=== PATIENT | male | born 1940 | race Caucasian/White ===

== ENCOUNTER 2018-10-11 15:07 | Inpatient (IN) ==
[2018-10-11] MEDS ORDERED: SODIUM CHLORIDE 0.9% 500 ML IV SCH (15:45)
--- NOTE | 2018-10-11 15:59 | XRay Report ---
XR chest 1V portable CLINICAL HISTORY: 78 years-old Male presenting with weakness. TECHNIQUE: Portable upright AP view of the chest was obtained. COMPARISON: None. FINDINGS: Atherosclerosis of the aortic arch. Cardiac silhouette borderline enlarged. Slightly asymmetric incre ased lung markings at the right lung base in comparison to the left. Otherwise no focal opacity. No l arge effusion or pneumothorax. Degenerative changes of the thoracic spine. IMPRESSION: 1. Slightly asymmetric lung markings at the right lung base may be due to overlapping vascular struc tures, although the presence of minimal infiltrate/atelectasis or bronchial wall thickening is not ex cluded. Electronically signed by: Narendra Gee M.D. 10/11/2018 3:58 PM
--- NOTE | 2018-10-11 16:04 | Emergency Department Note ---
Entered by Katie Howard acting as a scribe for History of Present Illness General Chief complaint: Pain (Generalized) Stated complaint: PAINS FROM WAIST DOWN Time Seen by Provider: 10/11/18 15:17 Source: patient Mode of arrival: wheelchair Limitations: no limitations History of Present Illness Location: back (waist area) Radiation: extremity (bilateral legs) Pain Consistency: + constant Maximum Pain Intensity: 10 Current Pain Intensity: 10 Relieved By: + medication Exacerbated By: + other (palpation) Associated symptoms: + fever/chills and + other (-abdominal pain, +diarrhea, +difficulty urinating); no chest pain and no shortness of breath Treatments prior to arrival: none The patient is a 78 year old male who presents to the ED with complaints of generalized pain. He states the pain starts in the area of his waist and radiates down his bilateral legs, in both the front and back of his legs. Earlier this afternoon, the patient was at Dr. Zacarias's office for the pain,he was referred here to the ED. He rates his pain as a 10/10 in severity. Palpation worsens his discomfort. He states he was prescribed medication for the pain, but "they don't help much anyway". He denies any recent falls or traumatic injuries. He admits to some difficulty urinating but states this is chronic. He admits to a decreased appetite and some loose stools. He denies any abdominal pain. He denies any recent chest pain or shortness of breath. He does occasionally feel like he may be febrile or have the chills. The patient can still walk but states it is painful. He denies noticing any recent weight loss. Home Medications Home Medications Medication Instructions Recorded Confirmed Type amlodipine 10 mg PO DAILY 10/11/18 10/11/18 History aspirin [Aspirin Low Dose] 81 mg PO DAILY 10/11/18 10/11/18 History atorvastatin 10 mg PO DAILY 10/11/18 10/11/18 History calcium carbonate 1,000 mg PO HS 10/11/18 10/11/18 History gabapentin 100 mg PO TID 10/11/18 10/11/18 History isosorbide mononitrate 60 mg PO DAILY 10/11/18 10/11/18 History levothyroxine [Levoxyl] 62.5 mcg PO .1D 10/11/18 10/11/18 History levothyroxine [Levoxyl] 125 mcg PO 6XD 10/11/18 10/11/18 History losartan 100 mg PO DAILY 10/11/18 10/11/18 History magnesium oxide 400 mg PO BID 10/11/18 10/11/18 History metoprolol tartrate 50 mg PO BID 10/11/18 10/11/18 History nitroglycerin [Nitrostat] 0.4 mg SUBLINGUAL DIRECTED PRN 10/11/18 10/11/18 History MDD 3 DOSES, 5 MIN APART oxybutynin chloride 5 mg PO DAILY 10/11/18 10/11/18 History potassium chloride 20 meq PO BID 10/11/18 10/11/18 History tamsulosin 0.4 mg PO DAILY 10/11/18 10/11/18 History Allergies Allergy/AdvReac Type Severity Reaction Status Date / Time naloxone Allergy Unknown unkn Verified 10/11/18 16:28 pentazocine Allergy Unknown Verified 10/11/18 16:28 Past Med/Surg History Medical History Kidney disease Social History Preferred Language: Bengali Feels Safe at Home: Yes Smoking Status: Former smoker Review of Systems See HPI for pertinent positives & negatives. and A total of 10 systems reviewed and were otherwise negative Physical Exam Vital Signs Vital Signs - 24 hr 10/11/18 15:14 10/11/18 16:56 10/11/18 17:34 Temperature 36.8 C Temperature Source Oral Sepsis Recent Fever Within 48 Hours No Sepsis New/Unexplained Change in Mental Status No Sepsis Action Taken by Nursing No Action Required Pulse Rate 75 Pulse Rate [Right Finger] 71 75 Respiratory Rate 18 17 16 Respiratory Effort / Characteristics Non-Labored Spontaneous Respiratory Depth Normal Respiratory Pattern Regular Blood Pressure 111/59 L Blood Pressure [Left Arm] 124/63 105/58 L Blood Pressure Mean 76 Blood Pressure Mean [Left Arm] 83 73 Blood Pressure Position Sitting Pulse Oximetry 94 92 90 Oxygen Delivery Method Room Air Room Air Room Air GENERAL: Patient is in no acute distress. HEENT: No acute trauma, normocephalic atraumatic, mucous membranes moist, no nasal congestion, no scleral icterus. NECK: No stridor, no adenopathy, no meningismus, trachea is midline. LUNGS: Clear to auscultation bilaterally, no wheeze, no rhonchi, breath sounds equal. HEART: Without murmurs gallops or rubs, regular rate and rhythm. ABDOMEN: Soft, nontender, bowel sounds positive, no hernias, no peritonitis. BACK: Nontender lumbar spine, no step off. EXTREMITIES: No cyanosis or edema, full range of motion of all the joints without pain or difficulty, no signs for acute trauma. Strong distal pedal pulses bilaterally. Pain to touch the skin of both legs, no erythema. NEUROLOGIC: Oriented x 3, no acute motor or sensory deficits, no focal weakness. SKIN: No rash, no jaundice, no diaphoresis. Course 1520: The patient was evaluated in room B11B and a complete history and physical were performed. 1715: I reevaluated the patient. I discussed my recommendation he remain in the hospital for further evaluation and management and he verbalized complete understanding and agreement. 1725: [facility] The patient will be further evaluated. Consultations Consultation #1: I discussed the patients [facility]. The patient will be further evaluated. Time: 17:25 Administered Medications Discontinued Medications Sodium Chloride (Nss) 500 mls @ 999 mls/hr IV .Q31M MARIYA Stop: 10/11/18 16:15 Last Infusion: 10/11/18 16:46 Dose: 0 mls/hr Documented by: [id number] Admin: 10/11/18 16:00 Dose: 999 mls/hr Documented by: [id number] Sodium Chloride (Nss 1000ml) 500 mls @ 999 mls/hr IV .Q31M ONE Stop: 10/11/18 17:35 Last Infusion: 10/11/18 18:40 Dose: 0 mls/hr Documented by: [id number] Admin: 10/11/18 17:31 Dose: 999 mls/hr Documented by: [id number] Medical Decision Making Differential Diagnosis The differential diagnoses considered include spinal stenosis, malignancy, compression fracture, intraabdominal mass, UTI, neuropathy, vascular insufficiency, cellulitis, lumbar disc disease. Medical Records Attestation: I reviewed the patient's medical records. Home Medications Current Medication List: was personally reviewed by me Laboratory Data Attestation: I reviewed the patient's lab results. Result diagrams: 10/11/18 15:49 10/11/18 15:49 Lab Results 10/11/18 10/11/18 Range/Units 15:49 15:49 WBC 4.49 L (4.8-10.8) K/uL RBC 4.17 L (4.7-6.1) M/uL Hgb 12.0 L (14.0-18.0) g/dL Hct 34.5 L (42-52) % MCV 82.7 (80-100) fL MCH 28.8 (25-34) pg MCHC 34.8 (32-36) g/dL RDW Std Deviation 48.5 H (36.4-46.3) fL RDW Coeff of Leonel 15.9 H (11.5-14.5) % Plt Count 82 L (130-400) K/uL MPV 9.8 (7.4-10.4) fL Immature Gran % (Auto) 0.2 % Neut % (Auto) 56.9 % Lymph % (Auto) 20.9 % [place] % (Auto) 18.9 % Eos % (Auto) 2.7 % Baso % (Auto) 0.4 % Immature Gran # (Auto) 0.01 (0.00-0.02) K/uL Neut # (Auto) 2.55 (1.4-6.5) K/uL Lymph # (Auto) 0.94 L (1.2-3.4) K/uL [place] # (Auto) 0.85 H (0.11-0.59) K/uL Eos # (Auto) 0.12 (0-0.5) K/uL Baso # (Auto) 0.02 (0-0.2) K/uL Dohle Bodies 1+ Platelet Estimate Decreased L (Normal) Echinocytes 1+ Sodium 137 (136-145) mmol/L Potassium 4.8 (3.5-5.1) mmol/L Chloride 106 (98-107) mmol/L Carbon Dioxide 25 (21-32) mmol/L Anion Gap 6.0 (3-11) BUN 39 H (7-18) mg/dl Creatinine 1.84 H (0.6-1.4) mg/dl Est Cr Clr Drug Dosing 28.3 ml/min Est GFR ( Amer) 39.5 Est GFR (Non-Af Amer) 34.1 BUN/Creatinine Ratio 21.3 H (10-20) Glucose 111 H (70-99) mg/dl Calcium 8.1 L (8.5-10.1) mg/dl Magnesium 2.7 H (1.8-2.4) mg/dl Total Bilirubin 0.5 (0.2-1) mg/dl AST 60 H (15-37) U/L ALT 47 (12-78) U/L Alkaline Phosphatase 43 L (45-117) U/L Total Creatine Kinase 737 H (39-308) U/L Troponin I < 0.015 (0-0.045) ng/ml Total Protein 7.1 (6.4-8.2) gm/dl Albumin 2.5 L (3.4-5.0) gm/dl Globulin 4.6 H (2.5-4.0) gm/dl Albumin/Globulin Ratio 0.5 L (0.9-2) TSH 2.590 (0.300-4.500) uIu/ml Imaging Data Radiologist's Impression: Radiology results as stated below per my review and the radiologist's interpretation: CT OF THE ABDOMEN AND PELVIS WITHOUT CONTRAST CLINICAL HISTORY: Abdominal pain. Possible mass. COMPARISON STUDY: No previous studies for comparison. TECHNIQUE: Axial images of the abdomen and pelvis were obtained without IV contrast. Images were reviewed in the axial, sagittal, and coronal planes. Automated exposure control was utilized for the study. A dose lowering technique was utilized adhering to the principles of ALARA. FINDINGS: Imaged portions of the lower chest demonstrate nodular irregular opacities within the right lower lobe with interlobular septal thickening. An apparent subcarinal lesion is partially imaged, measuring at least 2.4 x 2 cm. Extensive coronary artery calcification is noted. No pneumatosis, free air or p ortal venous gas is present. There is a 1.1 cm lateral segment hepatic cyst. There is a suspected additional smaller hepatic cyst. Evaluation of the abdomen and pelvis is suboptimal on this unenhanced examination. The spleen, adrenal glands and pancreas are unremarkable. There is no biliary or pancreatic ductal dilatation. There is no peripancreatic or pericholecystic infiltration. A mildly enlarged portacaval lymph node measures 1.5 cm in short axis diameter. There are additional prominent upper abdominal lymph nodes. There is no evidence for a bowel obstruction. The appendix is unremarkable. Colonic diverticulosis is noted without evidence for acute diverticulitis. There are numerous punctate bilateral renal calculi. There are no ureteral calculi. There is no hydronephrosis. Prostate is moderately enlarged. There are fat-containing bilateral inguinal hernias. Water attenuation right renal lesions are suboptimally assessed on this unenhanced exam but favor cysts. There are no suspicious osseous lesions. IMPRESSION: 1. No mass within the abdomen or pelvis. No bowel obstruction. Normal appendix. 2. Irregular nodular opacities within the right lower lobe. The appearance favors an infectious process such as bronchopneumonia. However, a nonemergent chest CT is recommended given interlobular septal thickening and a suspected partially visualized subcarinal enlarged lymph node/mass, measuring at least 2.4 x 2 cm. 3. Numerous punctate right renal calculi. No ureteral calculi or hydronephrosis. 4. Mildly enlarged upper abdominal lymph nodes, a nonspecific finding. Electronically signed by: Danis Evans M.D. 10/11/2018 5:05 PM MRI OF THE LUMBAR SPINE WITHOUT IV CONTRAST CLINICAL HISTORY: Low back pain. Difficulty with ambulation. COMPARISON STUDY: No priors. TECHNIQUE: MRI of the lumbar spine is performed utilizing various T1 and T2- weighted sequences in the axial and sagittal planes. IV contrast was not administered for this examination. FINDINGS: Lumbar spine: Vertebral body height is maintained throughout the lumbar spine. Minimal retrolisthesis is seen at L1-L2 and L2-L3. Alignment is otherwise preserved. The transverse and spinous processes appear intact. Small anterior osteophytes are seen throughout. There is no evidence of spondylolysis. Small h emangiomas are seen in the bodies of L1, L2, and L3. No destructive osseous lesion is seen. Mild chronic degenerative endplate change is noted at L1-L2, L2- L3, and L3-L4. Intervertebral discs: Degenerative disc desiccation and mild loss of height is seen throughout the lumbar spine. Paraspinal cord: The partially imaged spinal cord is normal in morphology and signal intensity. The conus medullaris terminates at the L1-L2 interspace. The nerve roots of the cauda equina are normal in morphology. L1-L2: There is minimal posterior disc bulge. The central canal and neural foramina are patent. L2-L3: There is minimal posterior disc bulge. The central canal and neural foramina are patent. Mild facet arthropathy is of no consequence. L3-L4: There is minimal posterior disc bulge with annular fissure. The central canal and neural foramina are patent. Mild facet arthropathy is of no consequen ce. L4-L5: There is minimal posterior disc bulge with annular fissure. This causes bilateral subarticular stenosis, and may abut the exiting bilateral L4 nerve roots as well as the transiting left L5 nerve root. The central canal and neural foramina are patent. Facet arthropathy is of no consequence. There is mild hypertrophy of the ligamentum flavum. L5-S1: The central canal and neural foramina are patent. Mild facet arthropathy is of no consequence. Sacrum: The visualized sacrum is normal in morphology and signal intensity. Soft tissues: The paraspinous soft tissues are normal in appearance. Right renal cysts are partially visualized. The bladder is partially imaged and appears distended. The bladder wall is thickened and trabeculated suggesting chronic outlet obstruction. No retroperitoneal lymphadenopathy is identified. Prostatomegaly is noted on the operations officer trust department sequences. IMPRESSION: 1. There is no disc herniation or central canal stenosis. 2. Mild multilevel lumbosacral spondylosis as above. See discussion for detailed level by level analysis. 3. No destructive bony lesion is seen. 4. The bladder is distended and there is evidence of chronic outlet obstruction. Electronically signed by: Jose C Joe M.D. 10/11/2018 5:00 PM XR chest 1V portable CLINICAL HISTORY: 78 years-old Male presenting with weakness. TECHNIQUE: Portable upright AP view of the chest was obtained. COMPARISON: None. FINDINGS: Atherosclerosis of the aortic arch. Cardiac silhouette borderline enlarged. Slightly asymmetric increased lung markings at the right lung base in comparison to the left. Otherwise no focal opacity. No large effusion or pneumothorax. Degenerative changes of the thoracic spine. IMPRESSION: 1. Slightly asymmetric lung markings at the right lung base may be due to ove rlapping vascular structures, although the presence of minimal infiltrate/atelectasis or bronchial wall thickening is not excluded. Electronically signed by: Narendra Gee M.D. 10/11/2018 3:58 PM ECG Data Attestation: I personally reviewed and interpreted this ECG as follows: Indication: weakness Rate (beats per minute): 70 Rhythm: normal sinus Findings: + LBBB; no PVC and no ST elevation Blood Pressure Blood Pressure Findings: Normal blood pressure Blood Pressure Disposition: did not require urgent referral MDM Narrative There is a pancytopenia present, platelet count was quite low at 82. The patient has had some lower values in the past but today's counts seem lower than baseline. There was evidence for some dehydration/acute kidney injury with a creatinine of 1.84. This value is above baseline for the patient. There was a mild elevation to the AST, no bilirubin elevation. Total CK was elevated at 737, this is consistent with some mild rhabdomyolysis. Patient appeared to be in a euthyroid state. EKG showed a sinus rhythm, no acute ischemia. Cardiac enzyme testing x1 was not consistent with acute cardiac injury. Chest film showed some potential congestion versus atelectasis at the right base, there was no CHF. No free air. Abdominal and pelvis CT showed potential atelectasis/infiltrate or mass in the right lower lung. There was no evidence for hydronephrosis, no evidence for intra-abdominal mass. Lumbar spine MRI did not show any destructive lesion, there was no evidence for spinal stenosis or large disc herniation. Urinalysis result is currently pending. The patient received IV saline, he was given 2/500 cc saline boluses. The patient presents with worsening back and bilateral leg pain. He is having a difficult time getting around. He is failing outpatient treatment. He has some acute kidney injury, he has a pancytopenia, he has some rhabdomyolysis. He appears dehydrated. I do think a hospital stay for further work-up is warranted. The cause for his presentation today is not completely clear. The chest findings noted above will require further work-up while here in the hospital. I spoke to the patient, I talked with case management. The on-call hospitalist was consulted. Impression & Plan Rhabdomyolysis, Acute kidney injury, Bilateral leg pain, Weakness, Thrombocytopenia Discharge Plan Visit Data Chief Complaint: Pain (Generalized) Stated Complaint: PAINS FROM WAIST DOWN ED Provider: Jose C Gillette Discharge Problem: Rhabdomyolysis, Acute kidney injury, Bilateral leg pain, Weakness, Thrombocytopenia Patient Disposition: Being Evaluated by Hospitalist Forms Stand Alone Forms: My [facility] [address] Prescriptions Prescriptions: No Action losartan 50 mg tablet 100 mg PO DAILY RF: 0 atorvastatin 10 mg tablet 10 mg PO DAILY RF: 0 metoprolol tartrate 100 mg tablet 50 mg PO BID RF: 0 aspirin [Aspirin Low Dose] 81 mg Tablet,Delayed Release (Dr/Ec) 81 mg PO DAILY RF: 0 isosorbide mononitrate 60 mg tablet extended release 24 hr 60 mg PO DAILY RF: 0 potassium chloride 20 mEq tablet,ER particles/crystals 20 meq PO BID RF: 0 tamsulosin 0.4 mg capsule 0.4 mg PO DAILY RF: 0 amlodipine 10 mg tablet 10 mg PO DAILY RF: 0 levothyroxine [Levoxyl] 125 mcg tablet 125 mcg PO 6XD RF: 0 levothyroxine [Levoxyl] 125 mcg tablet 62.5 mcg PO .1D RF: 0 nitroglycerin [Nitrostat] 0.4 mg Tablet, Sublingual 0.4 mg sublingual DIRECTED MDD 3 DOSES, 5 MIN APART PRN (Reason: Chest Pain) RF: 0 calcium carbonate 500 mg calcium (1,250 mg) Tablet,Chewable 1,000 mg PO HS RF: 0 gabapentin 100 mg capsule 100 mg PO TID RF: 0 oxybutynin chloride 5 mg tablet 5 mg PO DAILY RF: 0 magnesium oxide 400 mg magnesium Tablet 400 mg PO BID RF: 0 Referrals Referrals: Alycia Payne DO [Primary Care Provider] - The scribe's documentation has been prepared under my direction and personally reviewed by me in its entirety. I confirm that the note above accurately reflects all work, treatment, procedures, and medical decision making performed by me.
[2018-10-11 16:20] LABS: Basophils # (auto) 0.02 K/uL (0-0.2); Basophils % (auto) 0.4 %; Dohle Bodies 1+; Echinocytes 1+; Eosinophils # (auto) 0.12 K/uL (0-0.5); Eosinophils % (auto) 2.7 %; Hematocrit (blood only) 34.5 % (42-52); Immature Granulocytes # (auto) 0.01 K/uL (0.00-0.02); Immature Granulocytes % (auto) 0.2 %; Lymphocytes # (auto) 0.94 K/uL (1.2-3.4); Lymphocytes % (auto) 20.9 %; Mean Corpuscular Hgb Conc 34.8 g/dL (32-36); Mean Corpuscular Volume 82.7 fL (80-100); Mean Platelet Volume 9.8 fL (7.4-10.4); Monocytes # (auto) 0.85 K/uL (0.11-0.59); Monocytes % (auto) 18.9 %; Neutrophils # (auto) 2.55 K/uL (1.4-6.5); Neutrophils % (auto) 56.9 %; Platelet Count 82 K/uL (130-400); Platelet Estimate Decreased (Normal); RDW Coefficient of Variation 15.9 % (11.5-14.5); RDW Standard Deviation 48.5 fL (36.4-46.3); Red Blood Count 4.17 M/uL (4.7-6.1); White Blood Count 4.49 K/uL (4.8-10.8)
[2018-10-11 16:21] LABS: Alanine Aminotransferase 47 U/L (12-78); Albumin Level 2.5 gm/dl (3.4-5.0); Aspartate Aminotransferase 60 U/L (15-37); BUN Creatinine Ratio 21.3 (10-20); Blood Urea Nitrogen 39 mg/dl (7-18); Calcium 8.1 mg/dl (8.5-10.1); Carbon Dioxide 25 mmol/L (21-32); Chloride 106 mmol/L (98-107); Creatinine Clr Calc Pharmacy 28.3 ml/min; Est GFR (African American) 39.5; Est GFR (Non-African American) 34.1; Glucose 111 mg/dl (70-99); Magnesium 2.7 mg/dl (1.8-2.4); Potassium 4.8 mmol/L (3.5-5.1); Sodium 137 mmol/L (136-145)
[2018-10-11 16:32] LABS: Albumin Globulin Ratio 0.5 (0.9-2); Alkaline Phosphatase 43 U/L (45-117); Bilirubin,Total 0.5 mg/dl (0.2-1); Creatine Kinase 737 U/L (39-308); Globulin 4.6 gm/dl (2.5-4.0); Total Protein 7.1 gm/dl (6.4-8.2); Troponin I < 0.015 ng/ml (0-0.045)
--- NOTE | 2018-10-11 16:46 | Magnetic Resonance Report ---
MRI OF THE LUMBAR SPINE WITHOUT IV CONTRAST CLINICAL HISTORY: Low back pain. Difficulty with ambulation. COMPARISON STUDY: No priors. TECHNIQUE: MRI of the lumbar spine is performed utilizing various T1 and T2-weighted sequences in the axial and sagittal planes. IV contrast was not administered for this examination. FINDINGS: Lumbar spine: Vertebral body height is maintained throughout the lumbar spine. Minimal retrolisthesis is seen at L1-L2 and L2-L3. Alignment is otherwise preserved. The transverse and spinous processes a ppear intact. Small anterior osteophytes are seen throughout. There is no evidence of spondylolysis. Small hemangiomas are seen in the bodies of L1, L2, and L3. No destructive osseous lesion is seen. Mi ld chronic degenerative endplate change is noted at L1-L2, L2-L3, and L3-L4. Intervertebral discs: Degenerative disc desiccation and mild loss of height is seen throughout the maria del carmen mbar spine. Paraspinal cord: The partially imaged spinal cord is normal in morphology and signal intensity. The c onus medullaris terminates at the L1-L2 interspace. The nerve roots of the cauda equina are normal in morphology. L1-L2: There is minimal posterior disc bulge. The central canal and neural foramina are patent. L2-L3: There is minimal posterior disc bulge. The central canal and neural foramina are patent. Mild facet arthropathy is of no consequence. L3-L4: There is minimal posterior disc bulge with annular fissure. The central canal and neural morenita eugenio are patent. Mild facet arthropathy is of no consequence. L4-L5: There is minimal posterior disc bulge with annular fissure. This causes bilateral subarticular stenosis, and may abut the exiting bilateral L4 nerve roots as well as the transiting left L5 nerve root. The central canal and neural foramina are patent. Facet arthropathy is of no consequence. There is mild hypertrophy of the ligamentum flavum. L5-S1: The central canal and neural foramina are patent. Mild facet arthropathy is of no consequence. Sacrum: The visualized sacrum is normal in morphology and signal intensity. Soft tissues: The paraspinous soft tissues are normal in appearance. Right renal cysts are partially visualized. The bladder is partially imaged and appears distended. The bladder wall is thickened and trabeculated suggesting chronic outlet obstruction. No retroperitoneal lymphadenopathy is identified. Prostatomegaly is noted on the toll transmission worker sequences. IMPRESSION: 1. There is no disc herniation or central canal stenosis. 2. Mild multilevel lumbosacral spondylosis as above. See discussion for detailed level by level kathia sis. 3. No destructive bony lesion is seen. 4. The bladder is distended and there is evidence of chronic outlet obstruction. Dictated: 10/11/2018 4:36 PM Transcribed: 10/11/2018 4:46 PM Jess [id number] [email or web address] Electronically signed by: Jose C Joe M.D. 10/11/2018 5:00 PM
[2018-10-11] MEDS ORDERED: SODIUM CHLORIDE 0.9% 1000ML 500 ML IV ONE (17:05)
--- NOTE | 2018-10-11 17:07 | CT Scan Report ---
CT OF THE ABDOMEN AND PELVIS WITHOUT CONTRAST CLINICAL HISTORY: Abdominal pain. Possible mass. COMPARISON STUDY: No previous studies for comparison. TECHNIQUE: Axial images of the abdomen and pelvis were obtained without IV contrast. Images were revi ewed in the axial, sagittal, and coronal planes. Automated exposure control was utilized for the angeline dy. A dose lowering technique was utilized adhering to the principles of ALARA. FINDINGS: Imaged portions of the lower chest demonstrate nodular irregular opacities within the right lower lobe with interlobular septal thickening. An apparent subcarinal lesion is partially imaged, m easuring at least 2.4 x 2 cm. Extensive coronary artery calcification is noted. No pneumatosis, free air or portal venous gas is present. There is a 1.1 cm lateral segment hepatic cyst. There is a suspe cted additional smaller hepatic cyst. Evaluation of the abdomen and pelvis is suboptimal on this unen hanced examination. The spleen, adrenal glands and pancreas are unremarkable. There is no biliary or pancreatic ductal dilatation. There is no peripancreatic or pericholecystic infiltration. A mildly en larged portacaval lymph node measures 1.5 cm in short axis diameter. There are additional prominent u pper abdominal lymph nodes. There is no evidence for a bowel obstruction. The appendix is unremarkabl e. Colonic diverticulosis is noted without evidence for acute diverticulitis. There are numerous punc tam bilateral renal calculi. There are no ureteral calculi. There is no hydronephrosis. Prostate is moderately enlarged. There are fat-containing bilateral inguinal hernias. Water attenuation right sandy al lesions are suboptimally assessed on this unenhanced exam but favor cysts. There are no suspicious osseous lesions. IMPRESSION: 1. No mass within the abdomen or pelvis. No bowel obstruction. Normal appendix. 2. Irregular nodular opacities within the right lower lobe. The appearance favors an infectious proce ss such as bronchopneumonia. However, a nonemergent chest CT is recommended given interlobular septal thickening and a suspected partially visualized subcarinal enlarged lymph node/mass, measuring at le ast 2.4 x 2 cm. 3. Numerous punctate right renal calculi. No ureteral calculi or hydronephrosis. 4. Mildly enlarged upper abdominal lymph nodes, a nonspecific finding. Electronically signed by: Danis Evans M.D. 10/11/2018 5:05 PM
--- NOTE | 2018-10-11 19:11 | History & Physical Report ---
Date of Service October 11, 2018 Assessment & Plan (1) Weakness: (2) Bilateral leg pain: Patient presented with complaint of bilateral buttock pain with radiation to bilateral legs with associated tingling times couple of months Follow-up with Dr. Zacarias-[facility] today & was referred to ER for further work-up CT ABD/PELVIS: No mass within the abdomen or pelvis. No bowel obstruction. Normal appendix. Mildly enlarged upper abdominal lymph nodes, a nonspecific finding. MRI lumbar spine:1. There is no disc herniation or central canal stenosis. 2. Mild multilevel lumbosacral spondylosis as above. See discussion for detailed level by level analysis. 3. No destructive bony lesion is seen. 4. The bladder is distended and there is evidence of chronic outlet obstruction. -Obtain x-ray sacrum -Pending CT head -May need to consider ortho spine consult -May need to consider neurology consult (3) Pancytopenia: History pancytopenia. WBC: 4 (baseline 4's), H/H: 12/34.5 (baseline hgb: 12), Plt: 82. (baseline 102) Had negative Lyme titer outpatient on 09/26/2018 No active bleeding -Peripheral smear pending, anaplasmosis pending -Monitor CBC (4) Rhabdomyolysis: Patient reports decreased activity recently secondary to leg pain. Denies any falls In ER CK: 737, Cr: 1.8 (baseline 1.4-1.6) -Gentle IVF -Repeat CK in a.m. 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 Has been reporting chills and body shakes intermittently over the past couple weeks, has not taken temperatures at home In ER patient afebrile, WBC: 4 CXR: Slightly asymmetric lung markings at the right lung base may be due to overlapping vascular structures, although the presence of minimal infiltrate/atelectasis or bronchial wall thickening is not excluded. CT ABD/PELVIS: Irregular nodular opacities within the right lower lobe. The appearance favors an infectious process such as bronchopneumonia. However, a nonemergent chest CT is recommended given interlobular septal thickening and a suspected partially visualized subcarinal enlarged lymph node/mass, measuring at least 2.4 x 2 cm. Lung Mass Possible Pneumonia -Obtain CT chest to further evaluate -Procalcitonin, lactate pending -Blood cultures pending -MRSA swab pending we will add MRSA coverage if positive -Zosyn -Supplemental oxygen as needed (6) Dizziness: Reports intermittent dizziness with standing. Also reports intermittent headaches x couple of weeks -Obtain CT head R/O mass, mets -Orthostatic vital signs pending (7) CKD (chronic kidney disease), stage III: Cr: 1.8. Baseline Cr: 1.4-1.6 -Monitor renal functions -Avoid nephrotoxic agents and possible (8) HTN (hypertension): -Continue metoprolol, amlodipine -Hold losartan and recheck renal functions tomorrow (9) Dyslipidemia: -Holding statin secondary to myalgias (10) CAD (coronary artery disease): S/P Stent LAD Denies CP or SOB. 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 No recent follow-up with oncology -Continue tamsulosin -Bladder scan as needed (13) MARCELINO (obstructive sleep apnea): -CPAP at bedtime DVT Prophylaxis -SCDs Full Code as per discussion with pt Follows with Dr Payne for routine care Pt was seen with Dr You. See addendum History of Present Illness Chief Complaint: Leg pain Primary Care Provider: Alycia Payne, DO Pt is 78 y/o M with PMH CKD III, HTN, dyslipidemia, CAD SSP stent LAD, thyroid cancer S/P thyroidectomy, small cell carcinoma bladder with metastasis to mediastinal nodes with invasion of prostate S/P chemo in 2016, sleep apnea presented to ER for bilateral leg pain x couple months. Patient reports for almost 2 months has had bilateral buttock pain with radiation to bilateral legs to toes with tingling. Reports pain is greater to posterior leg however pain of entire leg. Pain worse with prolonged sitting or range of motion of legs or walking. Patient states he has been having trouble with his balance and is unsure if this is secondary to the tingling sensation and pain of his legs. Reports symptoms have increased over the past couple of weeks. Also complains of intermittent headaches. C/O intermittent dizziness with standing. Reports intermittent cramps to fingers and hands. Also complains of intermittent chills and body shakes over the past couple of weeks. Denies falls. Reports decreased appetite over the past couple weeks. Had followed up with PCP, gabapentin was tried without much relief. Patient was also given Medrol taper without relief. He reports his been applying ice pack to back, denies taking any other NSAIDs or Tylenol. His atorvastatin was placed on hold by cardiology secondary to patient's myalgias. He reports intermittent loose stool occurs couple of times a week with one episode a day. Denies N/V/D/C, syncope, vision changes, neck pain, CP, SOB, orthopnea, palpitations, cough, sore throat, choking, otalgia, rhinorrhea, abdominal pain, paresthesias, weakness, extremity weakness, extremity edema, rashes, urinary symptoms. Patient was referred to Dr.'s Zacarias- [facility], who saw patient today and referred patient to ER as reported did not think his symptoms were spine related. Patient follows with Dr. Yip-urology. Has followed with Dr. Sesay hematology/oncology in past, no recent follow-ups for the past couple of years. Denies recent tick bites. Had outpatient Lyme titer which was negative on 09/26/2018 Allergies Allergy/AdvReac Type Severity Reaction Status Date / Time naloxone Allergy Unknown unkn Verified 10/11/18 16:28 pentazocine Allergy Unknown Verified 10/11/18 16:28 Home Medications Home Medications Medication Instructions Recorded Confirmed Type amlodipine 10 mg PO DAILY 10/11/18 10/11/18 History aspirin [Aspirin Low Dose] 81 mg PO DAILY 10/11/18 10/11/18 History atorvastatin 10 mg PO DAILY 10/11/18 10/11/18 History calcium carbonate 1,000 mg PO HS 10/11/18 10/11/18 History gabapentin 100 mg PO TID 10/11/18 10/11/18 History isosorbide mononitrate 60 mg PO DAILY 10/11/18 10/11/18 History levothyroxine [Levoxyl] 62.5 mcg PO .1D 10/11/18 10/11/18 History levothyroxine [Levoxyl] 125 mcg PO 6XD 10/11/18 10/11/18 History losartan 100 mg PO DAILY 10/11/18 10/11/18 History magnesium oxide 400 mg PO BID 10/11/18 10/11/18 History metoprolol tartrate 50 mg PO BID 10/11/18 10/11/18 History nitroglycerin [Nitrostat] 0.4 mg SUBLINGUAL DIRECTED PRN 10/11/18 10/11/18 History MDD 3 DOSES, 5 MIN APART oxybutynin chloride 5 mg PO DAILY 10/11/18 10/11/18 History potassium chloride 20 meq PO BID 10/11/18 10/11/18 History tamsulosin 0.4 mg PO DAILY 10/11/18 10/11/18 History Past Med/Surg History Medical History Prostate cancer (Chronic) Small cell carcinoma of bladder (Chronic) MARCELINO (obstructive sleep apnea) (Chronic) Thyroid cancer (Chronic) CAD (coronary artery disease) (Chronic) Dyslipidemia (Chronic) CKD (chronic kidney disease), stage III (Chronic) HTN (hypertension) (Chronic) Kidney disease (Chronic) Surgical History History of thyroidectomy (Chronic) History of heart artery stent (Chronic) LAD Family History Brother FH: brain cancer Other Coronary heart disease Social History Preferred Language: [place] Communication Ability: Effective Beliefs That Will Affect Care: None Current Living Situation: Spouse Other Information That Helps Us Care for You: No Feels Safe at Home: Yes Smoking Status: Former smoker Hx Alcohol Use: No Hx Substance Use: No Review of Systems Review of Systems: All systems reviewed & are unremarkable except as noted in HPI & below Physical Exam Physical Exam: General: no distress, WDWN Head: normocephalic, atraumatic Eyes: PERRL, EOM's intact, conjunctiva non-injected, anicteric ENT: normal inspection external ears, nose, mucous membranes moist Neck: supple, trachea midline, non-tender, ROM intact Lungs: clear, no respiratory distress, no wheezing/rhonchi/rales CV: RRR, mild pedal edema Abd: normal BS, soft, non-tender Back: no spinous process tenderness to palpation, buttock pain to palpation, patellar reflexes intact Ext: no cyanosis or erythema, +tenderness to palpation entire bilateral leg, distal pulses intact, brisk capillary refill, sensation to light touch intact Neuro: A&O x 3, no focal deficits noted, normal affect Skin: warm, dry Results & Data Vital Signs (Past 12 Hours) Vital Signs Temp Pulse Pulse Resp BP BP Pulse Ox 10/11/18 17:34 75 16 105/58 L 90 10/11/18 16:56 71 17 124/63 92 10/11/18 15:14 36.8 C 75 18 111/59 L 94 Laboratory Results Short CBC 10/11/18 Range/Units 15:49 WBC 4.49 L (4.8-10.8) K/uL Hgb 12.0 L (14.0-18.0) g/dL Hct 34.5 L (42-52) % Plt Count 82 L (130-400) K/uL BMP 10/11/18 15:49 Sodium 137 Potassium 4.8 Chloride 106 Carbon Dioxide 25 BUN 39 H Creatinine 1.84 H Glucose 111 H Calcium 8.1 L Cardiac Enzymes 10/11/18 Range/Units 15:49 Total Creatine Kinase 737 H (39-308) U/L Troponin I < 0.015 (0-0.045) ng/ml Liver Function 10/11/18 Range/Units 15:49 Total Bilirubin 0.5 (0.2-1) mg/dl AST 60 H (15-37) U/L ALT 47 (12-78) U/L Alkaline Phosphatase 43 L (45-117) U/L Albumin 2.5 L (3.4-5.0) gm/dl Diagnostic Findings CXR: IMPRESSION: 1. Slightly asymmetric lung markings at the right lung base may be due to overlapping vascular structures, although the presence of minimal infiltrate/atelectasis or bronchial wall thickening is not excluded. L MRI SPINE: IMPRESSION: 1. There is no disc herniation or central canal stenosis. 2. Mild multilevel lumbosacral spondylosis as above. See discussion for detailed level by level analysis. 3. No destructive bony lesion is seen. 4. The bladder is distended and there is evidence of chronic outlet obstruction. CT ABD/PELVIS: IMPRESSION: 1. No mass within the abdomen or pelvis. No bowel obstruction. Normal appendix. 2. Irregular nodular opacities within the right lower lobe. The appearance favors an infectious process such as bronchopneumonia. However, a nonemergent chest CT is recommended given interlobular septal thickening and a suspected partially visualized subcarinal enlarged lymph node/mass, measuring at least 2.4 x 2 cm. 3. Numerous punctate right renal calculi. No ureteral calculi or hydronephrosis. 4. Mildly enlarged upper abdominal lymph nodes, a nonspecific finding. Supervising Physician Co-Signing Physician Notes Patient is a 78-year-old male with history of CKD, hypertension, coronary artery disease, thyroid cancer, skeletal carcinoma of the bladder with mental status and other problems presents with history of bilateral leg pain since 2 months duration. He states having bilateral buttock pain radiating down his legs associated with tingling, reports associated balance issues with ambulation. Also reports intermittent headaches, dizziness. He admits to have nocturnal cough which is dry since 1 week duration. He was found to be hypoxic at 84% on room air while in ED. States having decreased urinary flow which is chronic. MRI lumbar spine for findings suggestive of lumbosacral spondylosis. No destructive bony lesions noted. Sacral x-ray showed osteopenia but no acute bony abnormalities. Normal lactate and procalcitonin levels noted. Normal TSH. Venous Dopplers negative for DVT But showed small left popliteal cyst. VQ scan pending. Consider neurology, Ortho consult for bilateral leg pain/tingling. PT/OT eval. Bladder scan PRN. Empirically started on Doxycycline for possible pneumonia. Supplemental oxygen as needed. Cultures obtained. IV fluids for FILIBERTO. Hold losartan. Consider urology consult if bladder scan suggestive of urinary retention. Could have mild rhabdo. Statin on hold. IV fluids ordered. Recheck CK levels in a.m. On exam patient is moderately built and nourished, no apparent distress, lungs are clear to auscultation, S1-S2, no murmur, abdomen soft, nontender, grossly no focal neurological deficits, 1+ bilateral lower extremity edema, tender lower extremities. I personally reviewed the record. Patient is interviewed and examined at bedside. Patient's care is coordinated with Irma Akers PA-C. Please refer to the documentation above for details of patient's presentation and for discussion of other issues.
--- NOTE | 2018-10-11 20:24 | CT Scan Report ---
CT SCAN OF THE BRAIN WITHOUT IV CONTRAST CLINICAL HISTORY: Headache. Dizziness. COMPARISON STUDY: No priors. TECHNIQUE: Unenhanced axial CT scan of the brain is performed from the vertex to the skull base. A do se lowering technique was utilized adhering to the principles of ALARA. CT DOSE: 537.48 mGy.cm FINDINGS: Brain parenchyma: There are age-related involutional changes noting mild subcortical and periventric ular microangiopathic change. There is no hemorrhage, mass effect, or evidence of acute territorial i schemia by CT criteria. Rodarte-white matter differentiation is preserved. No extra-axial fluid collecti on is seen. Ventricles, sulci, cisterns: Prominent secondary to involutional change. Intracranial vasculature: There is atherosclerotic calcification of the cavernous carotid arteries. Calvarium: Unremarkable. Sinuses and mastoids: The visualized paranasal sinuses are clear. There is a left mastoid effusion. T he right mastoid air cells are well pneumatized. Orbits: The bony orbits are grossly intact. There are bilateral ocular lens implants. IMPRESSION: There is no hemorrhage, mass effect, or evidence of acute territorial ischemia by CT [place]. Electronically signed by: Jose C Joe M.D. 10/11/2018 8:22 PM
[2018-10-11 21:09] LABS: Influenza A virus by PCR Neg for Influ A (Neg); Influenza B virus by PCR Neg for Influ B (Neg)
--- NOTE | 2018-10-11 21:22 | Ultrasound Report ---
ULTRASOUND BILATERAL LOWER EXTREMITY VENOUS CLINICAL HISTORY: Leg pain. COMPARISON STUDY: No priors. TECHNIQUE: Real-time, grayscale, and color Doppler sonography of the deep veins of the right and left lower extremity was performed from the inguinal crease to the calf. Compression and augmentation wer e utilized. FINDINGS: There is no sonographic evidence of deep venous thrombosis identified in the right or left lower extremity. The common femoral, superficial femoral, and popliteal veins are patent and normally compressible bilaterally. The greater saphenous vein and the profunda femoris vein at the junction w ith the common femoral vein are clear in both legs. The visualized calf veins are patent bilaterally. A small popliteal cyst on the left measures 1.9 x 0.4 x 1.1 cm. IMPRESSION: 1. There is no sonographic evidence of deep venous thrombosis identified in the right or left lower e xtremity. 2. Small left popliteal cyst. Electronically signed by: Jose C Joe M.D. 10/11/2018 9:20 PM
--- NOTE | 2018-10-11 21:48 | XRay Report ---
SACRUM AND COCCYX 3 VIEWS CLINICAL HISTORY: Buttock pain. FINDINGS: 3 views of the sacrum and coccyx are correlated with pelvic CT performed the same day . The skeletal structures are osteopenic. There is no radiographic evidence of sacrococcygeal frac ture. Chronic deformity at the sacrococcygeal junction is similar to previous. Sclerotic change is no angely in the sacroiliac joints and symphysis pubis. The overlying soft tissues are normal as imaged. Ph leboliths are noted in the pelvis. IMPRESSION: Osteopenia with no acute bony abnormality identified. Electronically signed by: Jose C Joe M.D. 10/11/2018 9:47 PM
[2018-10-11] MEDS ORDERED: NITROGLYCERIN SL 0.4 MG/TAB TAB SL PRN (22:26)
[2018-10-11] MEDS ORDERED: SODIUM CHLORIDE 0.9% 1000ML 1,000 ML IV SCH (22:26)
[2018-10-11 23:02] LABS: Appearance Urine Clear (Clear); Bilirubin Urine Negative (Negative); Blood Urine Negative (Negative); Color Urine Yellow; Glucose Urine UA Negative (Negative); Ketones Urine Negative (Negative); Leukocyte Esterase Urine Negative (Negative); Nitrite Urine Negative (Negative); Protein Urine Negative (Negative); Specific Gravity Urine 1.022 (1.000-1.030); Urobilinogen Urine Negative (Negative)
[2018-10-11] MEDS: HYDROmorphone INJ 0.5 MG/0.5 ML SYR IV PRN (23:26)
[2018-10-11] MEDS: METOPROLOL TARTRATE 50 MG TAB PO SCH (23:28)
[2018-10-11] MEDS: GABAPENTIN 100 MG CAP PO SCH (23:28)
[2018-10-11 23:33] LABS: INR 1.2 (0.9-1.1); Partial Thromboplastin Ratio 1.3; Prothrombin Time 11.7 Seconds (9.0-12.0)
[2018-10-12] MEDS: DOXYCYCLINE HYCLATE 100 MG CAP PO SCH ×3 (00:04→20:30)
[2018-10-12] MEDS: HYDROmorphone INJ 0.5 MG/0.5 ML SYR IV PRN ×3 (05:50→21:11)
[2018-10-12] MEDS: LEVOTHYROXINE SODIUM 125 MCG TABLET PO SCH (05:51)
[2018-10-12] MEDS: HEPARIN SOD 5,000 UNIT/0.5 ML VIAL SQ SCH ×3 (05:57→20:30)
[2018-10-12 06:01] LABS: Hematocrit (blood only) 31.5 % (42-52); Hemoglobin 10.9 g/dL (14.0-18.0); Mean Corpuscular Hgb Conc 34.6 g/dL (32-36); RDW Coefficient of Variation 15.7 % (11.5-14.5); RDW Standard Deviation 47.5 fL (36.4-46.3); Red Blood Count 3.84 M/uL (4.7-6.1); White Blood Count 4.12 K/uL (4.8-10.8)
[2018-10-12 06:36] LABS: Albumin Level 2.4 gm/dl (3.4-5.0); BUN Creatinine Ratio 18.5 (10-20); Bilirubin Direct 0.1 mg/dl (0-0.2); Calcium 7.6 mg/dl (8.5-10.1); Creatinine Clr Calc Pharmacy 36.7 ml/min; Est GFR (African American) 54.1; Est GFR (Non-African American) 46.6; Magnesium 2.3 mg/dl (1.8-2.4); Potassium 4.2 mmol/L (3.5-5.1)
[2018-10-12 06:39] LABS: Albumin Globulin Ratio 0.6 (0.9-2); Bilirubin,Total 0.6 mg/dl (0.2-1); Globulin 3.9 gm/dl (2.5-4.0); Mean Platelet Volume 9.9 fL (7.4-10.4); Platelet Count 79 K/uL (130-400); Total Protein 6.3 gm/dl (6.4-8.2)
[2018-10-12 06:40] LABS: Basophils # (auto) 0.01 K/uL (0-0.2); Basophils % (auto) 0.2 %; Dohle Bodies 2+; Eosinophils # (auto) 0.21 K/uL (0-0.5); Eosinophils % (auto) 5.1 %; Immature Granulocytes # (auto) 0.01 K/uL (0.00-0.02); Immature Granulocytes % (auto) 0.2 %; Lymphocytes # (auto) 0.83 K/uL (1.2-3.4); Lymphocytes % (auto) 20.1 %; Monocytes # (auto) 0.45 K/uL (0.11-0.59); Monocytes % (auto) 10.9 %; Neutrophils # (auto) 2.61 K/uL (1.4-6.5); Neutrophils % (auto) 63.5 %; Ovalocytes 1+
[2018-10-12] MEDS: AMLODIPINE BESYLATE 5 MG TAB PO SCH (07:30)
[2018-10-12] MEDS: GABAPENTIN 100 MG CAP PO SCH ×3 (07:31→20:31)
[2018-10-12] MEDS: METOPROLOL TARTRATE 50 MG TAB PO SCH ×2 (07:31→20:30)
[2018-10-12] MEDS: TAMSULOSIN HCL 0.4 MG CAP PO SCH (07:31)
[2018-10-12] MEDS: OXYBUTYNIN CHLORIDE 5 MG TAB PO SCH (07:31)
[2018-10-12] MEDS: ISOSORBIDE MONO EXTENDED REL 60 MG TABCR PO SCH (07:31)
--- NOTE | 2018-10-12 08:57 | Hospitalist Progress Note ---
Date of Service October 12, 2018 Assessment & Plan (1) Weakness: (2) Bilateral leg pain: Patient with history of CKD 3, hypertension, dyslipidemia, CAD status post stent, thyroid cancer status post thyroidectomy, small cell carcinoma bladder with metastasis to nodes with invasion of prostate status post chemo in 2016, presented with complaint of bilateral buttock pain with radiation to bilateral legs with associated tingling times couple of months from orthopedic office (Dr Zacarias). -Work up - CT ABD/PELVIS: No mass within the abdomen or pelvis. No bowel obstruction. Normal appendix. Mildly enlarged upper abdominal lymph nodes, a nonspecific finding. MRI lumbar spine:1. There is no disc herniation or central canal stenosis. 2. Mild multilevel lumbosacral spondylosis as above. See discussion for detailed level by level analysis. 3. No destructive bony lesion is seen. 4. The bladder is distended and there is evidence of chronic outlet obstruction. X ray Sacrum- Neg for acute findings, Osteopenia, CT head- Neg -Clinically seems like Sciatica -PT/OT -Pain mx consulted as significant pain x 2 months progressively worsening and affecting quality of life. (3) Hypoxia: Transient hypoxia which is now resolved -SaO2 92% on RA -Clinically denies any SOB, Cough, Chest pain, fever. No tachycardia -CXR- Slightly asymmetric lung markings at the right lung base may be due to overlapping vascular structures, although the presence of minimal infiltrate/atelectasis or bronchial wall thickening is not excluded. -VQ scan done due to transient hypoxia- Intermediate possibility of PE. Though high risk due to hx of cancer, no SOB, Tachycardia, Transient hypoxia which has resolved , risk of bleeding- hematuria, thrombocytopenia, US duplex- neg for DVT, no anticoagulation recommended (4) Pancytopenia: History of pancytopenia. WBC: 4 (baseline 4's), H/H: 12/34.5 (baseline hgb: 12), Plt: 82. (baseline 102) Had negative Lyme titer outpatient on 09/26/2018 No active bleeding -Peripheral smear -lymphopenia, thrombocytopenia, anemia. No intracytoplasmic disease and/or anaplasmosis noted. Reactive changes within neutrophils and lymphocytes suggest reactive/infectious process. No myelodysplasia, anaplasmosis pending (5) Rhabdomyolysis: Patient reports decreased activity recently secondary to leg pain. 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 Has been reporting chills and body shakes intermittently over the past couple weeks, has not taken temperatures at home CXR: Slightly asymmetric lung markings at the right lung base may be due to overlapping vascular structures, although the presence of minimal infiltrate/atelectasis or bronchial wall thickening is not excluded. CT ABD/PELVIS: Irregular nodular opacities within the right lower lobe. The appearance favors an infectious process such as bronchopneumonia. However, a nonemergent chest CT is recommended given interlobular septal thickening and a suspected partially visualized subcarinal enlarged lymph node/mass, measuring at least 2.4 x 2 cm. -Empirically on IV Zosyn for possible pneumonia, but clinically no s/s of pneumonia -Procalcitonin - 0.24, Lactate 0.7 -Work up- Blood cultures pending; MRSA swab pending -If cultures negative, no signs of infection will discontinue antibiotics (7) Dizziness: Reports intermittent dizziness with standing. Also reports intermittent headaches x couple of weeks -CT head- negative -Orthostatic vital signs pending (8) CKD (chronic kidney disease), stage III: Cr: 1.8. Baseline Cr: 1.4-1.6 -Monitor renal functions -Avoid nephrotoxic agents and possible (9) HTN (hypertension): -Continue metoprolol, amlodipine -Hold losartan and recheck renal functions tomorrow (10) Dyslipidemia: -Holding statin secondary to myalgias (11) CAD (coronary artery disease): S/P Stent LAD Denies CP or SOB. 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 No recent follow-up with oncology -Continue tamsulosin -Bladder scan as needed (14) MARCELINO (obstructive sleep apnea): -CPAP at bedtime DVT Prophylaxis -SCDs DISPOSITION PT/OT ordered Full Code as per discussion with pt Follows with Dr Payne for routine care Updated family by bedside Subjective Patient continues to complain of bilateral leg pain radiating down to his toes. Does have some numbness and tingling associated with it. Symptoms have been ongoing for 2 months, progressively worsening. No back, neck pain. No localized weakness or loss of sensation. No headaches, nausea, vomiting. Denies chest pain, shortness of breath, cough. No hematuria Not hypoxic anymore, saturating 92% on room air Physical Exam Physical Exam: GENERAL- AAOX3, No acute distress NECK- Supple, no JVD LUNGS- Air entry bilaterally equal. No rales, rhonchi, crackles, wheezes heard. HEART- Regular rate and rhythm. No murmurs ABDOMEN- Soft, non tender, non distended, Bowel sounds heard. EXTREMITIES- Good peripheral pulses, no edema NEUROMUSCULAR- AAOX3, Power - 5/5 all extremities, Sensory - normal, Cranial nerves intact Results & Data Vital Signs (Past 12 Hours) Vital Signs Temp Pulse Pulse Resp BP Pulse Ox 10/12/18 07:26 37.2 C 71 18 134/70 95 10/12/18 04:04 36.6 C 72 16 149/74 H 95 10/12/18 00:34 81 10/11/18 23:32 37.5 C 77 16 147/72 H 94 10/11/18 22:55 37.4 C 90 18 165/77 H 93
--- NOTE | 2018-10-12 10:36 | Nuclear Medicine Report ---
NM pul vent and perfuse CLINICAL HISTORY: 78 years-old Male with hypoxia. Acute hypoxia COMPARISON STUDY: Duplex venous Doppler study, chest radiograph and CT abdomen and pelvis 10/11/2018. TECHNIQUE: Initially, ventilation images of both lungs are obtained following the inhalation of 33 mC i of aerosolized technetium 99m DTPA. Subsequently, perfusion images of both lungs were obtained foll owing the IV administration of 5.5 mCi of technetium 99m MAA. Ventilation and perfusion images were a cquired in the anterior, posterior, and oblique projections. FINDINGS: Comparison chest radiograph and CT abdomen and pelvis showed a right subcarinal node or mass with rig ht lung base opacities suggestive of an infectious or inflammatory pneumonitis. No pleural effusion. Ventilation images are limited secondary to central clumping of radiotracer and decreased tracer accu mulation of the upper lung zones suggestive of possible emphysema. There is a single large segmental perfusion defect about the superior segment of the right lower lobe. IMPRESSION:Intermediate probability for pulmonary embolus (20-80% likelihood for PE). The above report was generated using voice recognition software. It may contain grammatical, syntax o r spelling errors. Electronically signed by: Satinder Baptiste M.D. 10/12/2018 10:35 AM
[2018-10-12] MEDS: ASPIRIN 81 MG ECTAB PO SCH (10:37)
[2018-10-12] MEDS: SODIUM CHLORIDE 0.9% 1000ML 1,000 ML IV SCH (13:57)
[2018-10-12] MEDS: TRAMADOL HCL 50 MG TABLET PO PRN ×2 (16:33→20:31)
[2018-10-12] MEDS: CALCIUM CARBONATE 1250MG TAB PO SCH ×2 (20:30)
[2018-10-13] MEDS: TRAMADOL HCL 50 MG TABLET PO PRN (00:39)
[2018-10-13] MEDS: SODIUM CHLORIDE 0.9% 1000ML 1,000 ML IV SCH ×2 (03:13→13:37)
[2018-10-13] MEDS: HEPARIN SOD 5,000 UNIT/0.5 ML VIAL SQ SCH ×3 (05:54→21:25)
[2018-10-13] MEDS: LEVOTHYROXINE SODIUM 125 MCG TABLET PO SCH (05:54)
[2018-10-13] MEDS: HYDROmorphone INJ 0.5 MG/0.5 ML SYR IV PRN ×2 (06:02→09:50)
[2018-10-13] MEDS: ISOSORBIDE MONO EXTENDED REL 60 MG TABCR PO SCH (08:16)
[2018-10-13] MEDS: AMLODIPINE BESYLATE 5 MG TAB PO SCH (08:16)
[2018-10-13] MEDS: GABAPENTIN 100 MG CAP PO SCH ×3 (08:16→19:53)
[2018-10-13] MEDS: OXYBUTYNIN CHLORIDE 5 MG TAB PO SCH (08:16)
[2018-10-13] MEDS: TAMSULOSIN HCL 0.4 MG CAP PO SCH (08:16)
[2018-10-13] MEDS: METOPROLOL TARTRATE 50 MG TAB PO SCH ×2 (08:16→19:53)
[2018-10-13] MEDS: ASPIRIN 81 MG ECTAB PO SCH (08:16)
[2018-10-13] MEDS: DOXYCYCLINE HYCLATE 100 MG CAP PO SCH (08:17)
--- NOTE | 2018-10-13 09:22 | Pain Management Consultation ---
Date of Consultation October 13, 2018 Assessment & Plan (1) Piriformis syndrome: 1. Continue gabapentin 100mg TID 2. Initiated on Robaxin 500mg BID 3. Dexamethasone was initiated 4. Recommend physical therapy and heating pad to the buttock region 5. May consider ultrasound guided piriformis muscle injection on an outpatient basis 6. Thank you for the consultation History of Present Illness Attending Physician: Marilou Cooley History of Present Illness Mr. Elam is a 78 year old white male that has been seen in consultation at the [facility] for buttock pain radiating into the bilateral legs. Patient states that the pain started 2 months ago without any known injury. The pain is described as a deep aching in the bilateral buttock and a numbness, fullness, and aching sensation radiating down the legs. Patient does report significant limitation into his daily activities due to the pain. Pain is aggravated with sitting and walking. No alleviating symptoms. No prior treatments. He did see Dr. Zacarias 2 days ago in the outpatient setting and Dr. Zacarias evaluated him and told the patient to go to the ED for treatment of pain. Patient does report mild leg weakness. He is currently taking Tramadol 50mg x 4 hours PRN as well as Dilaudid 0.25mg IV PRN. No saddle anesthesia, bowel/bladder incontinence, foot drop, or falls. Case discussed with Dr. Lyla Washburn Pain Assessment Pain scale - at its best (0-10): 4 Pain scale - at its worst (0-10): 8 Allergies Allergy/AdvReac Type Severity Reaction Status Date / Time naloxone Allergy Unknown unkn Verified 10/11/18 16:28 pentazocine Allergy Unknown Verified 10/11/18 16:28 Home Medications Home Medications Medication Instructions Recorded Confirmed Type amlodipine 10 mg PO DAILY 10/11/18 10/11/18 History aspirin [Aspirin Low Dose] 81 mg PO DAILY 10/11/18 10/11/18 History atorvastatin 10 mg PO DAILY 10/11/18 10/11/18 History calcium carbonate 1,000 mg PO HS 10/11/18 10/11/18 History gabapentin 100 mg PO TID 10/11/18 10/11/18 History isosorbide mononitrate 60 mg PO DAILY 10/11/18 10/11/18 History levothyroxine [Levoxyl] 62.5 mcg PO .1D 10/11/18 10/11/18 History levothyroxine [Levoxyl] 125 mcg PO 6XD 10/11/18 10/11/18 History losartan 100 mg PO DAILY 10/11/18 10/11/18 History magnesium oxide 400 mg PO BID 10/11/18 10/11/18 History metoprolol tartrate 50 mg PO BID 10/11/18 10/11/18 History nitroglycerin [Nitrostat] 0.4 mg SUBLINGUAL DIRECTED PRN 10/11/18 10/11/18 History MDD 3 DOSES, 5 MIN APART oxybutynin chloride 5 mg PO DAILY 10/11/18 10/11/18 History potassium chloride 20 meq PO BID 10/11/18 10/11/18 History tamsulosin 0.4 mg PO DAILY 10/11/18 10/11/18 History Pain History Pain Location Full Body Front + Back: 1. 2. 3. 4. 5. 6. Pain Intensity [facility] Combined Pain Scale: 7-Severe - Pain prevents productive activity. Impossible to tolerate. Pain scale - at its best (0-10): 4 Pain scale - at its worst (0-10): 8 Cause Cause of Pain: Spontaneous Timing Timing: all day Patient History Medical History Prostate cancer (Chronic) Small cell carcinoma of bladder (Chronic) MARCELINO (obstructive sleep apnea) (Chronic) Thyroid cancer (Chronic) CAD (coronary artery disease) (Chronic) Dyslipidemia (Chronic) CKD (chronic kidney disease), stage III (Chronic) HTN (hypertension) (Chronic) Kidney disease (Chronic) Surgical History History of thyroidectomy (Chronic) History of heart artery stent (Chronic) LAD Family History Brother FH: brain cancer Other Coronary heart disease Social History Preferred Language: Yakut Communication Ability: Effective Beliefs That Will Affect Care: None marital status: Current Living Situation: Spouse Other Information That Helps Us Care for You: No Feels Safe at Home: Yes Smoking Status: Former smoker Hx Alcohol Use: No Hx Substance Use: No Physical Exam Physical Exam: GENERAL: 78 year old white male. Speech and cognition is intact. Mood and affect is appropriate. In no acute distress. HEAD: Normocephalic; atraumatic. EYES: Pupils are round, equal, and reactive to light; EOM intact. ENT: No external ear discharge or lesions. No rhinorrhea or epistaxis. No mucosal lesions. CHEST: Regular chest respiration and excursion. EXTREMITIES: Negative SLR bilaterally. There is 4/5 strength of the lower extremities. BACK: Full ROM. No midline or facet tenderness. Negative straight leg raise bilaterally. No SI joint tenderness. NEURO: CN II-XII grossly intact with no focal deficits noted. Able to stand. Gait not witnessed. SKIN: No lesions, erythema, or rashes noted. Results Diagnostic Review MRI Findings: MRI OF THE LUMBAR SPINE WITHOUT IV CONTRAST CLINICAL HISTORY: Low back pain. Difficulty with ambulation. COMPARISON STUDY: No priors. TECHNIQUE: MRI of the lumbar spine is performed utilizing various T1 and T2- weighted sequences in the axial and sagittal planes. IV contrast was not administered for this examination. FINDINGS: Lumbar spine: Vertebral body height is maintained throughout the lumbar spine. Minimal retrolisthesis is seen at L1-L2 and L2-L3. Alignment is otherwise preserved. The transverse and spinous processes appear intact. Small anterior osteophytes are seen throughout. There is no evidence of spondylolysis. Small hemangiomas are seen in the bodies of L1, L2, and L3. No destructive osseous lesion is seen. Mild chronic degenerative endplate change is noted at L1-L2, L2- L3, and L3-L4. Intervertebral discs: Degenerative disc desiccation and mild loss of height is seen throughout the lumbar spine. Paraspinal cord: The partially imaged spinal cord is normal in morphology and signal intensity. The conus medullaris terminates at the L1-L2 interspace. The nerve roots of the cauda equina are normal in morphology. L1-L2: There is minimal posterior disc bulge. The central canal and neural foramina are patent. L2-L3: There is minimal posterior disc bulge. The central canal and neural foramina are patent. Mild facet arthropathy is of no consequence. L3-L4: There is minimal posterior disc bulge with annular fissure. The central canal and neural foramina are patent. Mild facet arthropathy is of no consequence. L4-L5: There is minimal posterior disc bulge with annular fissure. This causes bilateral subarticular stenosis, and may abut the exiting bilateral L4 nerve roots as well as the transiting left L5 nerve root. The central canal and neural foramina are patent. Facet arthropathy is of no consequence. There is mild hypertrophy of the ligamentum flavum. L5-S1: The central canal and neural foramina are patent. Mild facet arthropathy is of no consequence. Sacrum: The visualized sacrum is normal in morphology and signal intensity. Soft tissues: The paraspinous soft tissues are normal in appearance. Right renal cysts are partially visualized. The bladder is partially imaged and appears distended. The bladder wall is thickened and trabeculated suggesting chronic outlet obstruction. No retroperitoneal lymphadenopathy is identified. Prostatomegaly is noted on the foil spinner sequences. IMPRESSION: 1. There is no disc herniation or central canal stenosis. 2. Mild multilevel lumbosacral spondylosis as above. See discussion for detailed level by level analysis. 3. No destructive bony lesion is seen. 4. The bladder is distended and there is evidence of chronic outlet obstruction. Dictated: 10/11/2018 4:36 PM Transcribed: 10/11/2018 4:46 PM Jess [id number] [email or web address] Electronically signed by: Jose C Joe M.D. 10/11/2018 5:00 PM
[2018-10-13] MEDS: dexAMETHasone 4 MG in SYRINGE 0 ML IV SCH ×2 (10:08→19:55)
[2018-10-13] MEDS: METHOCARBAMOL 500 MG TABLET PO SCH ×2 (10:29→19:52)
[2018-10-13] MEDS ORDERED: HYDROmorphone INJ 0.5 MG/0.5 ML SYR IV PRN (13:22)
--- NOTE | 2018-10-13 13:28 | Hospitalist Progress Note ---
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 Pyriformis syndrome. D/D - Sciatica -Work up - CT ABD/PELVIS: No mass within the abdomen or pelvis. No bowel obstruction. Normal appendix. Mildly enlarged upper abdominal lymph nodes, a nonspecific finding. MRI lumbar spine:1. There is no disc herniation or central canal stenosis. 2. Mild multilevel lumbosacral spondylosis as above. See discussion for detailed level by level analysis. 3. No destructive bony lesion is seen. 4. The bladder is distended and there is evidence of chronic outlet obstruction. X ray Sacrum- Neg for acute findings, Osteopenia, CT head- Neg -Pain mx was consulted- Likely Pyriformis syndrome. Continue gabapentin 100 mg 3 times daily, initiated Robaxin 500 mg twice daily, Dexamethasone 4 mg IV twice daily was initiated today. Heating pad to the buttock region. May consider ultrasound-guided pyriformis muscle injection on an outpatient basis. Recommend physical therapy. -PT/OT (3) Hypoxia: Transient hypoxia which is now resolved -SaO2 92% on RA -Clinically denies any SOB, Cough, Chest pain, fever. No tachycardia -CXR- Slightly asymmetric lung markings at the right lung base may be due to overlapping vascular structures, although the presence of minimal infiltra te/atelectasis or bronchial wall thickening is not excluded. -VQ scan done due to transient hypoxia- Intermediate possibility of PE. Though high risk due to hx of cancer, no SOB, Tachycardia, Transient hypoxia which has resolved , risk of bleeding- hematuria, thrombocytopenia, US duplex- neg for DVT, no anticoagulation recommended (4) Pancytopenia: History of pancytopenia. WBC: 4 (baseline 4's), H/H: 12/34.5 (baseline hgb: 12), Plt: 82. (baseline 102) Had negative Lyme titer outpatient on 09/26/2018 No active bleeding -Peripheral smear -lymphopenia, thrombocytopenia, anemia. No intracytoplasmic disease and/or anaplasmosis noted. Reactive changes within neutrophils and lymphocytes suggest reactive/infectious process. No myelodysplasia, anaplasm osis pending -Discontinue Doxycycline as doubt it is tick borne illness (5) Rhabdomyolysis: Patient reports decreased activity recently secondary to leg pain. 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 Has been reporting chills and body shakes intermittently over the past couple weeks, has not taken temperatures at home CXR: Slightly asymmetric lung markings at the right lung base may be due to overlapping vascular structures, although the presence of minimal infiltrate /atelectasis or bronchial wall thickening is not excluded. CT ABD/PELVIS: Irregular nodular opacities within the right lower lobe. The appearance favors an infectious process such as bronchopneumonia. However, a nonemergent chest CT is recommended given interlobular septal thickening and a suspected partially visualized subcarinal enlarged lymph node/mass, measuring at least 2.4 x 2 cm. -Empirically on IV Zosyn for possible pneumonia, but clinically no s/s of pneumonia -Procalcitonin - 0.24, Lactate 0.7 -Work up- Blood cultures x 2 negative ; MRSA swab - Negative -Discontinue antibiotics as cultures neg, no signs of infection (7) Dizziness: Reports intermittent dizziness with standing. Also reports intermittent headaches x couple of weeks -CT head- negative (8) CKD (chronic kidney disease), stage III: Cr: 1.8. Baseline Cr: 1.4-1.6 -Monitor renal functions -Avoid nephrotoxic agents and possible (9) HTN (hypertension): -Continue metoprolol, amlodipine -Hold losartan as creatinine slightly elevated (10) Dyslipidemia: -Holding statin secondary to myalgias (11) CAD (coronary artery disease): S/P Stent LAD Denies CP or SOB. 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 No recent follow-up with oncology -Continue tamsulosin -Bladder scan as needed (14) MARCELINO (obstructive sleep apnea): -CPAP at bedtime DVT Prophylaxis -SCDs DISPOSITION PT/OT - inpatient rehab . Family agreeable with rehab Full Code as per discussion with pt Follows with Dr Payne for routine care Updated over phone. Subjective Patient continues to complain of bilateral leg pain radiating down to his toes. Does have some numbness and tingling associated with it. Symptoms have been ongoing for 2 months, progressively worsening. No back, neck pain. No localized weakness or loss of sensation, urinary incontinence. No headaches, nausea, vomiting. Denies chest pain, shortness of breath, cough. No hematuria Not hypoxic anymore, saturating 92% on room air Results & Data Vital Signs (Past 12 Hours) Vital Signs Temp Pulse Resp BP Pulse Ox 10/13/18 11:29 36.8 C 53 L 18 115/68 91 10/13/18 07:33 36.6 C 64 16 130/69 92 10/13/18 04:11 36.5 C 69 18 131/64 92
[2018-10-13] MEDS: CALCIUM CARBONATE 1250MG TAB PO SCH (19:53)
[2018-10-14] MEDS: SODIUM CHLORIDE 0.9% 1000ML 1,000 ML IV SCH (03:29)
[2018-10-14] MEDS: HEPARIN SOD 5,000 UNIT/0.5 ML VIAL SQ SCH ×3 (06:21→21:07)
[2018-10-14] MEDS: LEVOTHYROXINE SODIUM 125 MCG TABLET PO SCH ×2 (06:21→07:14)
[2018-10-14 07:33] LABS: BUN Creatinine Ratio 18.1 (10-20); Calcium 8.1 mg/dl (8.5-10.1); Creatinine Clr Calc Pharmacy 40.4 ml/min; Est GFR (African American) 60.7; Est GFR (Non-African American) 52.4; Potassium 4.4 mmol/L (3.5-5.1)
[2018-10-14] MEDS: dexAMETHasone 4 MG in SYRINGE 0 ML IV SCH ×2 (08:40→20:28)
[2018-10-14] MEDS: METHOCARBAMOL 500 MG TABLET PO SCH ×2 (08:40→20:27)
[2018-10-14] MEDS: ISOSORBIDE MONO EXTENDED REL 60 MG TABCR PO SCH (08:41)
[2018-10-14] MEDS: ASPIRIN 81 MG ECTAB PO SCH (08:41)
[2018-10-14] MEDS: GABAPENTIN 100 MG CAP PO SCH ×3 (08:41→20:28)
[2018-10-14] MEDS: METOPROLOL TARTRATE 50 MG TAB PO SCH ×2 (08:41→20:27)
[2018-10-14] MEDS: AMLODIPINE BESYLATE 5 MG TAB PO SCH (08:41)
[2018-10-14] MEDS: OXYBUTYNIN CHLORIDE 5 MG TAB PO SCH (08:41)
[2018-10-14] MEDS: TAMSULOSIN HCL 0.4 MG CAP PO SCH (08:41)
[2018-10-14] MEDS: TRAMADOL HCL 50 MG TABLET PO PRN (10:57)
--- NOTE | 2018-10-14 11:50 | Hospitalist Progress Note ---
Date of Service October 14, 2018 Assessment & Plan (1) Weakness: (2) Bilateral leg pain: Patient with history of CKD 3, hypertension, dyslipidemia, CAD status post stent, thyroid cancer status post thyroidectomy, small cell carcinoma bladder with metastasis to nodes with invasion of prostate status post chemo in 2016, presented with complaint of bilateral buttock pain with radiation to bilateral legs with associated tingling times couple of months from orthopedic office (Dr Zacarias). Pyriformis syndrome. D/D - Sciatica -Work up - CT ABD/PELVIS: No mass within the abdomen or pelvis. No bowel obstruction. Normal appendix. Mildly enlarged upper abdominal lymph nodes, a nonspecific finding. MRI lumbar spine:1. There is no disc herniation or central canal stenosis. 2. Mild multilevel lumbosacral spondylosis as above. See discussion for detailed level by level analysis. 3. No destructive bony lesion is seen. 4. The bladder is distended and there is evidence of chronic outlet obstruction. X ray Sacrum- Neg for acute findings, Osteopenia, CT head- Neg -Pain mx was consulted- Likely Pyriformis syndrome. Continue gabapentin 100 mg 3 times daily, initiated Robaxin 500 mg twice daily, Dexamethasone 4 mg IV twice daily was initiated on 10/13/18. Heating pad to the buttock region. May consider ultrasound-guided pyriformis muscle injection on an outpatient basis. Recommend physical therapy. -PT/OT (3) Hypoxia: Transient hypoxia which is now resolved -SaO2 92% on RA -Clinically denies any SOB, Cough, Chest pain, fever. No tachycardia -CXR- Slightly asymmetric lung markings at the right lung base may be due to overlapping vascular structures, although the presence of minimal infi ltrate/atelectasis or bronchial wall thickening is not excluded. -VQ scan done due to transient hypoxia- Intermediate possibility of PE. Though high risk due to hx of cancer, no SOB, Tachycardia, Transient hypoxia which has resolved , risk of bleeding- hematuria, thrombocytopenia, US duplex- neg for DVT, no anticoagulation recommended (4) Pancytopenia: History of pancytopenia. WBC: 4 (baseline 4's), H/H: 12/34.5 (baseline hgb: 12), Plt: 82. (baseline 102) Had negative Lyme titer outpatient on 09/26/2018 No active bleeding -Peripheral smear -lymphopenia, thrombocytopenia, anemia. No intracytoplasmic disease and/or anaplasmosis noted. Reactive changes within neutrophils and lymphocytes suggest reactive/infectious process. No myelodysplasia, morris plasmosis pending -Discontinue Doxycycline as doubt it is tick borne illness (5) Rhabdomyolysis: Patient reports decreased activity recently secondary to leg pain. 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 Has been reporting chills and body shakes intermittently over the past couple weeks, has not taken temperatures at home CXR: Slightly asymmetric lung markings at the right lung base may be due to overlapping vascular structures, although the presence of minimal infiltrate/atelectasis or bronchial wall thickening is not excluded. CT ABD/PELVIS: Irregular nodular opacities within the right lower lobe. The appearance favors an infectious process such as bronchopneumonia. However, a nonemergent chest CT is recommended given interlobular septal thickening and a suspected partially visualized subcarinal enlarged lymph node/mass, measuring at least 2.4 x 2 cm. -Empirically on IV Zosyn for possible pneumonia, but clinically no s/s of pneumonia -Procalcitonin - 0.24, Lactate 0.7 -Work up- Blood cultures x 2 negative ; MRSA swab - Negative -Discontinued antibiotics as cultures neg, no signs of infection (7) Dizziness: Reports intermittent dizziness with standing. Also reports intermittent headaches x couple of weeks -CT head- negative (8) CKD (chronic kidney disease), stage III: Cr: 1.8. Baseline Cr: 1.4-1.6 -Monitor renal functions -Avoid nephrotoxic agents and possible (9) HTN (hypertension): -Continue metoprolol, amlodipine -Hold losartan as creatinine slightly elevated (10) Dyslipidemia: -Holding statin secondary to myalgias (11) CAD (coronary artery disease): S/P Stent LAD Denies CP or SOB. 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 No recent follow-up with oncology -Continue tamsulosin -Bladder scan as needed (14) MARCELINO (obstructive sleep apnea): -CPAP at bedtime DVT Prophylaxis -SCDs DISPOSITION PT/OT - inpatient rehab . Family agreeable with rehab Full Code as per discussion with pt Follows with Dr Payne for routine care Updated over phone. Subjective Patient is feeling much better today. Was able to ambulate better without assistance. Still has bilateral lower extremity pain but is improving. No back, neck pain. No localized weakness or loss of sensation, urinary incontinence. No headaches, nausea, vomiting. Denies chest pain, shortness of breath, cough. No hematuria Physical Exam Physical Exam: GENERAL- AAOX3, No acute distress NECK- Supple, no JVD LUNGS- Air entry bilaterally equal. No rales, rhonchi, crackles, wheezes heard. HEART- Regular rate and rhythm. No murmurs ABDOMEN- Soft, non tender, non distended, Bowel sounds heard. EXTREMITIES- Good peripheral pulses, no edema NEUROMUSCULAR- AAOX3, Power - 5/5 all extremities, Sensory - normal, Cranial nerves intact Results & Data Vital Signs (Past 12 Hours) Vital Signs Temp Pulse Pulse Resp BP BP Pulse Ox 10/14/18 07:00 36.3 C L 63 18 148/77 H 97 10/14/18 04:55 60 20 95 10/14/18 03:50 36.4 C L 63 20 143/69 H 93 10/14/18 00:36 55 L 10/13/18 23:52 36.7 C 60 16 144/72 H 92
[2018-10-14] MEDS: CALCIUM CARBONATE 1250MG TAB PO SCH (20:27)
[2018-10-15 05:13] LABS: Hematocrit (blood only) 30.9 % (42-52); Hemoglobin 10.7 g/dL (14.0-18.0); Immature Granulocytes # (auto) 0.03 K/uL (0.00-0.02); Immature Granulocytes % (auto) 0.6 %; Lymphocytes # (auto) 0.52 K/uL (1.2-3.4); Lymphocytes % (auto) 9.8 %; Mean Corpuscular Hgb Conc 34.6 g/dL (32-36); Mean Corpuscular Volume 80.7 fL (80-100); Mean Platelet Volume 9.9 fL (7.4-10.4); Monocytes # (auto) 0.23 K/uL (0.11-0.59); Monocytes % (auto) 4.3 %; Neutrophils # (auto) 4.54 K/uL (1.4-6.5); Neutrophils % (auto) 85.3 %; Platelet Count 118 K/uL (130-400); RDW Standard Deviation 44.7 fL (36.4-46.3); Red Blood Count 3.83 M/uL (4.7-6.1); White Blood Count 5.32 K/uL (4.8-10.8)
[2018-10-15] MEDS ORDERED: SODIUM CHLORIDE 0.9% 500 ML IV ONE (05:23)
[2018-10-15 05:32] LABS: BUN Creatinine Ratio 21.2 (10-20); Calcium 7.9 mg/dl (8.5-10.1); Creatinine Clr Calc Pharmacy 39.2 ml/min; Est GFR (African American) 58.5; Est GFR (Non-African American) 50.5; Magnesium 2.1 mg/dl (1.8-2.4); Potassium 4.3 mmol/L (3.5-5.1)
[2018-10-15] MEDS: HEPARIN SOD 5,000 UNIT/0.5 ML VIAL SQ SCH ×3 (05:43→20:44)
[2018-10-15] MEDS: LEVOTHYROXINE SODIUM 125 MCG TABLET PO SCH (05:47)
[2018-10-15] MEDS: AMLODIPINE BESYLATE 5 MG TAB PO SCH (08:41)
[2018-10-15] MEDS: METHOCARBAMOL 500 MG TABLET PO SCH ×2 (08:41→20:37)
[2018-10-15] MEDS: dexAMETHasone 4 MG in SYRINGE 0 ML IV SCH ×2 (08:41→20:40)
[2018-10-15] MEDS: GABAPENTIN 100 MG CAP PO SCH ×3 (08:41→20:37)
[2018-10-15] MEDS: METOPROLOL TARTRATE 25 MG TAB PO SCH ×2 (08:41→20:38)
[2018-10-15] MEDS: TAMSULOSIN HCL 0.4 MG CAP PO SCH (08:42)
[2018-10-15] MEDS: ISOSORBIDE MONO EXTENDED REL 60 MG TABCR PO SCH (08:42)
[2018-10-15] MEDS: OXYBUTYNIN CHLORIDE 5 MG TAB PO SCH (08:42)
[2018-10-15] MEDS: ASPIRIN 81 MG ECTAB PO SCH (08:42)
--- NOTE | 2018-10-15 10:24 | Hospitalist Progress Note ---
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 Pyriformis syndrome. D/D - Sciatica -Work up - CT ABD/PELVIS: No mass within the abdomen or pelvis. No bowel obstruction. Normal appendix. Mildly enlarged upper abdominal lymph nodes, a nonspecific finding. MRI lumbar spine:1. There is no disc herniation or central canal stenosis. 2. Mild multilevel lumbosacral spondylosis as above. See discussion for detailed level by level analysis. 3. No destructive bony lesion is seen. 4. The bladder is distended and there is evidence of chronic outlet obstruction. X ray Sacrum- Neg for acute findings, Osteopenia, CT head- Neg -Pain mx was consulted- Likely Pyriformis syndrome. Continue gabapentin 100 mg 3 times daily, initiated Robaxin 500 mg twice daily, Dexamethasone 4 mg IV twice daily was initiated on 10/13/18--> Helping with the pain. Heating pad to the buttock region. May consider ultrasound-guided pyriformis muscle injection on an outpatient basis. Recommend physical therapy. -PT/OT recommends rehab (3) Hypoxia: Transient hypoxia which is now resolved -SaO2 92% on RA -Clinically denies any SOB, Cough, Chest pain, fever. No tachycardia -CXR- Slightly asymmetric lung markings at the right lung base may be due to overlapping vascular structures, although the presence of minimal infiltrate/atelectasis or bronchial wall thickening is not excluded. -VQ scan done due to transient hypoxia- Intermediate possibility of PE. Though high risk due to hx of cancer, no SOB, Tachycardia, Transient hypoxia which has resolved , risk of bleeding- hematuria, thrombocytopenia, US duplex- neg for DVT, no anticoagulation recommended (4) Pancytopenia: History of pancytopenia- Improved WBC: 4 (baseline 4's), H/H: 12/34.5 (baseline hgb: 12), Plt: 82. (baseline 102) Had negative Lyme titer outpatient on 09/26/2018 No active bleeding -Peripheral smear -lymphopenia, thrombocytopenia, anemia. No intracytoplasmic disease and/or anaplasmosis noted. Reactive changes within neutrophils and lymphocytes suggest reactive/infectious process. No myelodysplasia, anaplasmosis pending -Discontinued Doxycycline as doubt it is tick borne illness (5) Rhabdomyolysis: Patient reports decreased activity recently secondary to leg pain. 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 Has been reporting chills and body shakes intermittently over the past couple weeks, has not taken temperatures at home CXR: Slightly asymmetric lung markings at the right lung base may be due to overlapping vascular structures, although the presence of minimal infiltrate/atelectasis or bronchial wall thickening is not excluded. CT ABD/PELVIS: Irregular nodular opacities within the right lower lobe. The appearance favors an infectious process such as bronchopneumonia. However, a nonemergent chest CT is recommended given interlobular septal thickening and a suspected partially visualized subcarinal enlarged lymph node/mass, measuring at least 2.4 x 2 cm. -Empirically on IV Zosyn for possible pneumonia, but clinically no s/s of pneumonia -Procalcitonin - 0.24, Lactate 0.7 -Work up- Blood cultures x 2 negative ; MRSA swab - Negative -Discontinued antibiotics as cultures neg, no signs of infection (7) Dizziness: Reports intermittent dizziness with standing. Also reports intermittent headaches x couple of weeks -CT head- negative (8) CKD (chronic kidney disease), stage III: Cr: 1.8. Baseline Cr: 1.4-1.6 -Monitor renal functions -Avoid nephrotoxic agents and possible (9) HTN (hypertension): -Continue metoprolol, amlodipine -Ok to restart losartan as creatinine has stabilized (10) Dyslipidemia: -Holding statin secondary to myalgias (11) CAD (coronary artery disease): S/P Stent LAD Denies CP or SOB. 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 No recent follow-up with oncology -Continue tamsulosin -Bladder scan as needed (14) MARCELINO (obstructive sleep apnea): -CPAP at bedtime DVT Prophylaxis -SCDs DISPOSITION PT/OT - inpatient rehab . Family agreeable with rehab but patient is a bit hesitant. Full Code as per discussion with pt Follows with Dr Payne for routine care Updated over phone today. Subjective Patient says he is feeling the same. Pain in bilateral lower extremities is back. Able to ambulate better though. Steroids seems to have helped. No back, neck pain. No localized weakness or loss of sensation, urinary incontinence. No headaches, nausea, vomiting. Denies chest pain, shortness of breath, cough. No hematuria Physical Exam Physical Exam: GENERAL- AAOX3, No acute distress NECK- Supple, no JVD LUNGS- Air entry bilaterally equal. No rales, rhonchi, crackles, wheezes heard. HEART- Regular rate and rhythm. No murmurs ABDOMEN- Soft, non tender, non distended, Bowel sounds heard. EXTREMITIES- Good peripheral pulses, no edema NEUROMUSCULAR- AAOX3, Power - 5/5 all extremities, Sensory - normal, Cranial nerves intact Results & Data Vital Signs (Past 12 Hours) Vital Signs Temp Pulse Pulse Resp BP BP Pulse Ox 10/15/18 07:23 36.9 C 73 18 144/67 H 92 10/15/18 05:36 52 L 18 96 10/15/18 04:15 36.5 C 70 18 99/56 L 94 10/15/18 00:49 36.8 C 58 L 18 141/65 H 94 10/14/18 23:41 54 L
[2018-10-15] MEDS: CALCIUM CARBONATE 1250MG TAB PO SCH (20:37)
[2018-10-16] MEDS: HEPARIN SOD 5,000 UNIT/0.5 ML VIAL SQ SCH ×3 (06:01→21:24)
[2018-10-16] MEDS ORDERED: LEVOTHYROXINE SODIUM 125 MCG TABLET PO SCH (06:30)
[2018-10-16] MEDS ORDERED: methylPREDNISolone 4 MG TAB, 6 DAY TAPER PO SCH (08:00)
[2018-10-16] MEDS: METOPROLOL TARTRATE 25 MG TAB PO SCH ×2 (08:29→21:23)
[2018-10-16] MEDS: methylPREDNISolone 4 MG TAB PO SCH ×4 (08:29→21:22)
[2018-10-16] MEDS: ISOSORBIDE MONO EXTENDED REL 60 MG TABCR PO SCH (08:30)
[2018-10-16] MEDS: METHOCARBAMOL 500 MG TABLET PO SCH ×2 (08:30→21:20)
[2018-10-16] MEDS: OXYBUTYNIN CHLORIDE 5 MG TAB PO SCH (08:30)
[2018-10-16] MEDS: ASPIRIN 81 MG ECTAB PO SCH (08:30)
[2018-10-16] MEDS: TAMSULOSIN HCL 0.4 MG CAP PO SCH (08:30)
[2018-10-16] MEDS: GABAPENTIN 100 MG CAP PO SCH ×3 (08:30→21:22)
[2018-10-16] MEDS: AMLODIPINE BESYLATE 5 MG TAB PO SCH (08:30)
--- NOTE | 2018-10-16 11:38 | Hospitalist Progress Note ---
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 Pyriformis syndrome. D/D - Sciatica -Work up - CT ABD/PELVIS: No mass within the abdomen or pelvis. No bowel obstruction. Normal appendix. Mildly enlarged upper abdominal lymph nodes, a nonspecific finding. MRI lumbar spine:1. There is no disc herniation or central canal stenosis. 2. Mild multilevel lumbosacral spondylosis as above. See discussion for detailed level by level analysis. 3. No destructive bony lesion is seen. 4. The bladder is distended and there is evidence of chronic outlet obstruction. X ray Sacrum- Neg for acute findings, Osteopenia, CT head- Neg -Pain mx was consulted- Likely Pyriformis syndrome. Continue gabapentin 100 mg 3 times daily, initiated Robaxin 500 mg twice daily, Dexamethasone 4 mg IV twice daily was initiated on 10/13/18--> Helping with the pain. Heating pad to the buttock region. May consider ultrasound-guided pyrif ormis muscle injection on an outpatient basis. Recommend physical therapy. -PT/OT recommends rehab PLAN: IV Dexamathasone changed to Medrol dose pack today. Patient is not taking any PRN medications (3) Hypoxia: Transient hypoxia which resolved -SaO2 92% on RA -Clinically denies any SOB, Cough, Chest pain, fever. No tachycardia -CXR- Slightly asymmetric lung markings at the right lung base may be due to overlapping vascular structures, although the presence of minimal infiltrate/atelectasis or bronchial wall thickening is not excluded. -VQ scan done due to transient hypoxia- Intermediate possibility of PE. Though high risk due to hx of cancer, no SOB, Tachycardia, Transient hypoxia which has resolved , risk of bleeding- hematuria, thrombocytopenia, US duplex- neg for DVT, no anticoagulation recommended (4) Pancytopenia: History of pancytopenia- Improved WBC: 4 (baseline 4's), H/H: 12/34.5 (baseline hgb: 12), Plt: 82. (baseline 102) Had negative Lyme titer outpatient on 09/26/2018 No active bleeding -Peripheral smear -lymphopenia, thrombocytopenia, anemia. No intracytoplasmic d isease and/or anaplasmosis noted. Reactive changes within neutrophils and lymphocytes suggest reactive/infectious process. No myelodysplasia, anaplasmosis pending -Discontinued Doxycycline as doubt it is tick borne illness (5) Rhabdomyolysis: Patient reports decreased activity recently secondary to leg pain. 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 Has been reporting chills and body shakes intermittently over the past couple weeks, has not taken temperatures at home CXR: Slightly asymmetric lung markings at the right lung base may be due to overlapping vascular structures, although the presence of minimal infiltrate/atelectasis or bronchial wall thickening is not excluded. CT ABD/PELVIS: Irregular nodular opacities within the right lower lobe. The appearance favors an infectious process such as bronchopneumonia. However, a nonemergent chest CT is recommended given interlobular septal thickening and a suspected partially visualized subcarinal enlarged lymph node/mass, measuring at least 2.4 x 2 cm. -Empirically received IV antibiotics initially but discontinued as cultures neg and no signs of infection -Procalcitonin - 0.24, Lactate 0.7 -Work up- Blood cultures x 2 negative ; MRSA swab - Negative (7) Dizziness: Reports intermittent dizziness with standing. Also reports intermittent headaches x couple of weeks -CT head- negative (8) CKD (chronic kidney disease), stage III: Cr: 1.8. Baseline Cr: 1.4-1.6 -Monitor renal functions -Avoid nephrotoxic agents and possible (9) HTN (hypertension): -Continue metoprolol, amlodipine -Restarted Losartan as creatinine stabilized (10) Dyslipidemia: -Holding statin secondary to myalgias (11) CAD (coronary artery disease): S/P Stent LAD Denies CP or SOB. 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 No recent follow-up with oncology -Continue tamsulosin -Bladder scan as needed (14) MARCELINO (obstructive sleep apnea): -CPAP at bedtime DVT Prophylaxis -SCDs DISPOSITION PT/OT - inpatient rehab . Patient and family agreeable with rehab. Awaiting placement, okay to discharge from medical point of view. Full Code as per discussion with pt Follows with Dr Payne for routine care Updated over phone today about discharge plan. Subjective Patient says he is feeling the same. Pain in bilateral lower extremities is back. Able to ambulate better though. Steroids seems to have helped. No back, neck pain. No localized weakness or loss of sensation, urinary incontinence. No headaches, nausea, vomiting. Denies chest pain, shortness of breath, cough. No hematuria Physical Exam Physical Exam: GENERAL- AAOX3, No acute distress NECK- Supple, no JVD LUNGS- Air entry bilaterally equal. No rales, rhonchi, crackles, wheezes heard. HEART- Regular rate and rhythm. No murmurs ABDOMEN- Soft, non tender, non distended, Bowel sounds heard. EXTREMITIES- Good peripheral pulses, no edema NEUROMUSCULAR- AAOX3, Power - 5/5 all extremities, Sensory - normal, Cranial nerves intact Results & Data Vital Signs (Past 12 Hours) Vital Signs Temp Pulse Pulse Resp BP Pulse Ox 10/16/18 11:29 36.6 C 61 18 130/67 91 10/16/18 07:01 36.6 C 61 20 151/69 H 94 10/16/18 05:19 62 16 92 10/16/18 03:22 62 20 140/66 97 10/16/18 02:14 52 L 14 95 10/16/18 00:12 36.5 C 57 L 18 157/76 H 92
[2018-10-16] MEDS: CALCIUM CARBONATE 1250MG TAB PO SCH (21:22)
[2018-10-17] MEDS: HEPARIN SOD 5,000 UNIT/0.5 ML VIAL SQ SCH ×2 (05:35→13:50)
[2018-10-17] MEDS: LEVOTHYROXINE SODIUM 125 MCG TABLET PO SCH (05:35)
[2018-10-17] MEDS: methylPREDNISolone 4 MG TAB PO SCH ×2 (06:06→13:50)
[2018-10-17] MEDS: ISOSORBIDE MONO EXTENDED REL 60 MG TABCR PO SCH (07:36)
[2018-10-17] MEDS: METHOCARBAMOL 500 MG TABLET PO SCH (07:36)
[2018-10-17] MEDS: AMLODIPINE BESYLATE 5 MG TAB PO SCH (07:36)
[2018-10-17] MEDS: METOPROLOL TARTRATE 25 MG TAB PO SCH (07:36)
[2018-10-17] MEDS: GABAPENTIN 100 MG CAP PO SCH ×2 (07:37→13:50)
[2018-10-17] MEDS: ASPIRIN 81 MG ECTAB PO SCH (07:37)
[2018-10-17] MEDS: OXYBUTYNIN CHLORIDE 5 MG TAB PO SCH (07:37)
[2018-10-17] MEDS: TAMSULOSIN HCL 0.4 MG CAP PO SCH (07:37)
--- NOTE | 2018-10-17 11:33 | Hospitalist Progress Note ---
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 Pyriformis syndrome. D/D - Sciatica -Work up - CT ABD/PELVIS: No mass within the abdomen or pelvis. No bowel obstruction. Normal appendix. Mildly enlarged upper abdominal lymph nodes, a nonspecific finding. MRI lumbar spine:1. There is no disc herniation or central canal stenosis. 2. Mild multilevel lumbosacral spondylosis as above. See discussion for detailed level by level analysis. 3. No destructive bony lesion is seen. 4. The bladder is distended and there is evidence of chronic outlet obstruction. X ray Sacrum- Neg for acute findings, Osteopenia, CT head- Neg -Pain mx was consulted- Likely Pyriformis syndrome. Continue gabapentin 100 mg 3 times daily, initiated Robaxin 500 mg twice daily, Dexamethasone 4 mg IV twice daily was initiated on 10/13/18--> Helping with the pain --> Medrol dose pack started on 10/16/18. Heating pad to the buttock region. May consider ultrasound-guided pyriformis muscle injection on an outpatient basis. Recommend physical therapy. -PT/OT recommends rehab (3) Hypoxia: Transient hypoxia which resolved -SaO2 92% on RA -Clinically denies any SOB, Cough, Chest pain, fever. No tachycardia -CXR- Slightly asymmetric lung markings at the right lung base may be due to overlapping vascular structures, although the presence of minimal infiltrate/atelectasis or bronchial wall thickening is not excluded. -VQ scan done due to transient hypoxia- Intermediate possibility of PE. Though high risk due to hx of cancer, no SOB, Tachycardia, Transient hypoxia which has resolved , risk of bleeding- hematuria, thrombocytopenia, US duplex- neg for DVT, no anticoagulation recommended (4) Pancytopenia: History of pancytopenia- Improved WBC: 4 (baseline 4's), H/H: 12/34.5 (baseline hgb: 12), Plt: 82. (baseline 102) Had negative Lyme titer outpatient on 09/26/2018 No active bleeding -Peripheral smear -lymphopenia, thrombocytopenia, anemia. No intracytoplasmic disease and/or anaplasmosis noted. Reactive changes within neutrophils and lymphocytes suggest reactive/infectious process. No myelodysplasia, anaplasmosis pending -Discontinued Doxycycline as doubt it is tick borne illness (5) Rhabdomyolysis: Patient reports decreased activity recently secondary to leg pain. 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 Has been reporting chills and body shakes intermittently over the past couple weeks, has not taken temperatures at home CXR: Slightly asymmetric lung markings at the right lung base may be due to overlapping vascular structures, although the presence of minimal infiltrate/atelectasis or bronchial wall thickening is not excluded. CT ABD/PELVIS: Irregular nodular opacities within the right lower lobe. The appearance favors an infectious process such as bronchopneumonia. However, a nonemergent chest CT is recommended given interlobular septal thickening and a suspected partially visualized subcarinal enlarged lymph node/mass, measuring at least 2.4 x 2 cm. -Empirically received IV antibiotics initially but discontinued as cultures neg and no signs of infection -Procalcitonin - 0.24, Lactate 0.7 -Work up- Blood cultures x 2 negative ; MRSA swab - Negative (7) Dizziness: Reports intermittent dizziness with standing. Also reports intermittent headaches x couple of weeks -CT head- negative (8) CKD (chronic kidney disease), stage III: Cr: 1.8. Baseline Cr: 1.4-1.6 -Monitor renal functions -Avoid nephrotoxic agents and possible (9) HTN (hypertension): -Continue metoprolol, amlodipine -Restarted Losartan as creatinine stabilized (10) Dyslipidemia: -Holding statin secondary to myalgias (11) CAD (coronary artery disease): S/P Stent LAD Denies CP or SOB. 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 No recent follow-up with oncology -Continue tamsulosin -Bladder scan as needed (14) MARCELINO (obstructive sleep apnea): -CPAP at bedtime DVT Prophylaxis -SCDs DISPOSITION PT/OT -Has a bed at [facility]. Ok to discharge today Full Code as per discussion with pt Follows with Dr Payne for routine care Subjective Patient says he is feeling the same. Pain in bilateral lower extremities is back. Able to ambulate better though. Steroids seems to have helped. No back, neck pain. No localized weakness or loss of sensation, urinary incontinence. No headaches, nausea, vomiting. Denies chest pain, shortness of breath, cough. No hematuria Physical Exam Physical Exam: GENERAL- AAOX3, No acute distress NECK- Supple, no JVD LUNGS- Air entry bilaterally equal. No rales, rhonchi, crackles, wheezes heard. HEART- Regular rate and rhythm. No murmurs ABDOMEN- Soft, non tender, non distended, Bowel sounds heard. EXTREMITIES- Good peripheral pulses, no edema NEUROMUSCULAR- AAOX3, Power - 5/5 all extremities, Sensory - normal, Cranial nerves intact Results & Data Vital Signs (Past 12 Hours) Vital Signs Temp Pulse Pulse Resp BP Pulse Ox 10/17/18 07:58 36.4 C L 61 18 156/70 H 96 10/17/18 07:14 69 10/17/18 04:00 69 18 137/74 97 10/17/18 00:00 54 L
--- NOTE | 2018-10-17 11:38 | Discharge Summary ---
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 Patient reports for almost 2 months has had bilateral buttock pain with radiation to bilateral legs to toes with tingling. Reports pain is greater to posterior leg however pain of entire leg. Pain worse with prolonged sitting or range of motion of legs or walking. Patient states he has been having trouble with his balance and is u nsure if this is secondary to the tingling sensation and pain of his legs. Reports symptoms have increased over the past couple of weeks. Also complains of intermittent headaches. C/O intermittent dizziness with standing. Reports intermittent cramps to fingers and hands. Also complains of intermittent chills and body shakes over the past couple of weeks. Denies falls. Reports decreased appetite over the past couple weeks. Had followed up with PCP, gabapentin was tried without much relief. Patient was also given Medrol taper without relief. He reports his been applying ice pack to back, denies taking any other NSAIDs or Tylenol. His atorvastatin was placed on hold by cardiology secondary to patient's myalgias. He reports intermittent loose stool occurs couple of times a week with one episode a day. Denies N/V/D/C, syncope, vision changes, neck pain, CP, SOB, orthopnea, palpitations, cough, sore throat, choking, otalgia, rhinorrhea, abdominal pain, paresthesias, weakness, extremity weakness, extremity edema, rashes, urinary symptoms. Patient was referred to Dr.'s Zacarias- spine Ortho, who saw patient today and referred patient to ER as reported did not think his symptoms were spine related. Patient follows with Dr. Yip-urology. Has followed with Dr. Sesay hematology/oncology in past, no recent follow-ups for the past couple of years. Denies recent tick bites. Had outpatient Lyme titer which was negative on 09/26/2018 Principal Diagnosis 1. Bilateral leg pain, probable pyriformis syndrome 2. Ambulatory dysfunction secondary to above 3. Transient hypoxia, resolved Secondary diagnoses on discharge 1. Nontraumatic rhabdomyolysis 2. History of pancytopenia 3. 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 CKD stage III 5. Hypertension 7. Dyslipidemia 8. CAD status post stent placement 9. history of thyroid carcinoma status post thyroidectomy 10. MARCELINO l Discharge Exam GENERAL- AAOX3, No acute distress NECK- Supple, no JVD LUNGS- Air entry bilaterally equal. No rales, rhonchi, crackles, wheezes heard. HEART- Regular rate and rhythm. No murmurs ABDOMEN- Soft, non tender, non distended, Bowel sounds heard. EXTREMITIES- Good peripheral pulses, no edema NEUROMUSCULAR- AAOX3, Power - 5/5 all extremities, Sensory - normal, Cranial nerves intact Discharge Data Allergies Allergy/AdvReac Type Severity Reaction Status Date / Time naloxone Allergy Unknown unkn Verified 10/11/18 16:28 pentazocine Allergy Unknown Verified 10/11/18 16:28 Consultations 10/11/18 17:27 ED Decision to Admit Stat 10/11/18 22:26 Consult Case Management - Discharge Planning Routine 10/12/18 12:38 Consult Pain Management Routine Ordered Studies 10/11/18 15:31 MR lumbar spine wo con Stat 10/11/18 16:26 CT abd pelvis wo con Stat 10/11/18 18:56 CT head/brain wo con Stat 10/11/18 19:54 US venous doppler LE Urgent Hospital Course (1) Weakness: (2) Bilateral leg pain: Patient with history of CKD 3, hypertension, dyslipidemia, CAD status post sten t, thyroid cancer status post thyroidectomy, small cell carcinoma bladder with metastasis to nodes with invasion of prostate status post chemo in 2015, presented with complaint of bilateral buttock pain with radiation to bilateral legs with associated tingling times couple of months from orthopedic office (Dr Zacarias). Pyriformis syndrome. D/D - Sciatica -Work up - CT ABD/PELVIS: No mass within the abdomen or pelvis. No bowel obstruction. Normal appendix. Mildly enlarged upper abdominal lymph nodes, a nonspecific finding. MRI lumbar spine:1. There is no disc herniation or central canal stenosis. 2. Mild multilevel lumbosacral spondylosis as above. See discussion for detailed level by level analysis. 3. No destructive bony lesion is seen. 4. The bladder is distended and there is evidence of chronic outlet obstruction. X ray Sacrum- Neg for acute findings, Osteopenia, CT head- Neg -Pain mx was consulted- Likely Pyriformis syndrome. Continue gabapentin 100 mg 3 times daily, initiated Robaxin 500 mg twice daily, Dexamethasone 4 mg IV twice daily was initiated on 10/13/18--> Helping with the pain --> Medrol dose pack started on 10/16/18. Heating pad to the buttock region. May consider ultrasound-guided pyriformis muscle injection on an outpatient basis. Recommend physical therapy. -PT/OT recommends rehab (3) Hypoxia: Transient hypoxia which resolved -SaO2 92% on RA -Clinically denies any SOB, Cough, Chest pain, fever. No tachycardia -CXR- Slightly asymmetric lung markings at the right lung base may be due to overlapping vascular structures, although the presence of minimal in filtrate/atelectasis or bronchial wall thickening is not excluded. -VQ scan done due to transient hypoxia- Intermediate possibility of PE. Though high risk due to hx of cancer, no SOB, Tachycardia, Transient hypoxia which has resolved , risk of bleeding- hematuria, thrombocytopenia, US duplex- neg for DVT, no anticoagulation recommended (4) Pancytopenia: History of pancytopenia- Improved WBC: 4 (baseline 4's), H/H: 12/34.5 (baseline hgb: 12), Plt: 82. (baseline 102) Had negative Lyme titer outpatient on 09/26/2018 No active bleeding -Peripheral smear -lymphopenia, thrombocytopenia, anemia. No intracytoplasmic disease and/or anaplasmosis noted. Reactive changes within neutrophils and lymphocytes suggest reactive/infectious process. No myelodysplasia, anaplasmosis pending -Discontinued Doxycycline as doubt it is tick borne illness (5) Rhabdomyolysis: Patient reports decreased activity recently secondary to leg pain. 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 Has been reporting chills and body shakes intermittently over the past couple weeks, has not taken temperatures at home CXR: Slightly asymmetric lung markings at the right lung base may be due to overlapping vascular structures, although the presence of minimal infiltrate/atelectasis or bronchial wall thickening is not excluded. CT ABD/PELVIS: Irregular nodular opacities within the right lower lobe. The appearance favors an infectious process such as bronchopneumonia. However, a nonemergent chest CT is recommended given interlobular septal thickening and a suspected partially visualized subcarinal enlarged lymph node/mass, measuring at least 2.4 x 2 cm. -Empirically received IV antibiotics initially but discontinued as cultures neg and no signs of infection -Procalcitonin - 0.24, Lactate 0.7 -Work up- Blood cultures x 2 negative ; MRSA swab - Negative (7) Dizziness: Reports intermittent dizziness with standing. Also reports intermittent headaches x couple of weeks -CT head- negative (8) CKD (chronic kidney disease), stage III: Cr: 1.8. Baseline Cr: 1.4-1.6 -Monitor renal functions -Avoid nephrotoxic agents and possible (9) HTN (hypertension): -Continue metoprolol, amlodipine -Restarted Losartan as creatinine stabilized (10) Dyslipidemia: -Holding statin secondary to myalgias (11) CAD (coronary artery disease): S/P Stent LAD Denies CP or SOB. 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 No recent follow-up with oncology -Continue tamsulosin -Bladder scan as needed (14) MARCELINO (obstructive sleep apnea): -CPAP at bedtime DVT Prophylaxis -SCDs DISPOSITION PT/OT -Has a bed at [facility]. Ok to discharge today Full Code as per discussion with pt Follows with Dr Payne for routine care Total Time Total Time Spent Total Time Spent (In Minutes): 38 minutes Discharge Plan Discharge Items Patient Disposition: Transfer Inpatient Rehab Fac Reason For Visit: WEAKNESS Discharge Diagnosis: Bilateral leg pain with ambulatory dysfunction Probable pyriformis syndrome Discharge Goals: Decrease discomfort Activity: Resume your previous activity Non-emergency contact: Primary Care Provider Call non-emergency contact if: your symptoms worsen Follow-up/Referrals: Alycia Payne DO [Primary Care Provider] - Diet: Heart Healthy and Low Sodium (2gm) Addtl Provider Instructions: Medication changes 1. New medicationMedrol Dosepak as instructed starting from 10/16/2018. Today is day 2 of Medrol Dosepak. 6/11-4 mg at 1 PM, 6 PM, 8 mg q HS 612- 4 MG - 7 AM , 1 PM, 6 PM, 9 PM 6/13- 4 MG - 7 am, 1 pm, 9 PM 6/14- 4 MG 7 AM, 9 PM 6/15- 4 MG 7 AM And than discontinue 2. New medicationRobaxin 500 mg twice a day for the next few days. Consider discontinuation once patient is improving 3. Held atorvastatin 10 mg due to muscle aches. Consider restarting once improves 4. New medication-tramadol 50 mg every 8 hours as needed for moderate to severe pain only. Patient has not been using this much during the stay. If above treatment does not work pain management did recommend ultrasound-guided pyriformis muscle injection on an outpatient basis. Prescriptions: New methocarbamol 500 mg Tablet 500 mg PO BID 10 Days Qty: 20 RF: 0 methylprednisolone 4 mg Tablet 4 mg PO 0700,1300,1800 10 Days Qty: 30 RF: 0 methylprednisolone 4 mg Tablet 4 mg PO 0700,1300,2100 10 Days Qty: 30 RF: 0 methylprednisolone 4 mg Tablet 4 mg PO 0700 10 Days Qty: 10 RF: 0 methylprednisolone 4 mg Tablet 8 mg PO HS 10 Days Qty: 20 RF: 0 methylprednisolone 4 mg Tablet 4 mg PO 0700,1300,1800,2100 10 Days Qty: 40 RF: 0 methylprednisolone 4 mg Tablet 4 mg PO 0700,2100 10 Days Qty: 20 RF: 0 tramadol 50 mg tablet 50 mg PO Q8 PRN (Reason: moderate to severe pain) Qty: 20 RF: 0 Continued losartan 50 mg tablet 100 mg PO DAILY RF: 0 metoprolol tartrate 100 mg tablet 50 mg PO BID RF: 0 aspirin [Aspirin Low Dose] 81 mg Tablet,Delayed Release (Dr/Ec) 81 mg PO DAILY RF: 0 isosorbide mononitrate 60 mg tablet extended release 24 hr 60 mg PO DAILY RF: 0 potassium chloride 20 mEq tablet,ER particles/crystals 20 meq PO BID RF: 0 tamsulosin 0.4 mg capsule 0.4 mg PO DAILY RF: 0 amlodipine 10 mg tablet 10 mg PO DAILY RF: 0 levothyroxine [Levoxyl] 125 mcg tablet 125 mcg PO 6XD RF: 0 levothyroxine [Levoxyl] 125 mcg tablet 62.5 mcg PO .1D RF: 0 nitroglycerin [Nitrostat] 0.4 mg Tablet, Sublingual 0.4 mg sublingual DIRECTED MDD 3 DOSES, 5 MIN APART PRN (Reason: Chest Pain) RF: 0 calcium carbonate 500 mg calcium (1,250 mg) Tablet,Chewable 1,000 mg PO HS RF: 0 gabapentin 100 mg capsule 100 mg PO TID RF: 0 oxybutynin chloride 5 mg tablet 5 mg PO DAILY RF: 0 magnesium oxide 400 mg magnesium Tablet 400 mg PO BID RF: 0 Discontinued atorvastatin 10 mg tablet 10 mg PO DAILY RF: 0 Stand-Alone Forms: [facility] Discharge Orders: Discharge Order (Routine); Ordered 10/17/18 Ordered By: Marilou Cooley Skilled Items Patient informed of condition?: Yes DNR: No Discharge Level of Care: Acute rehab Communicable Disease: No Discharge Prognosis: Stable Admission Data Admit Date/Time: 10/11/18 18:56 Attending Provider: Marilou Cooley Admit Provider: Pawan You Primary Care Provider: Alycia Payne Other Providers: Pawan You ; Lyla Washburn ; IRB Approved Study,[facility] Service: Telemetry Medical
[2018-10-17] MEDS ORDERED: methylPREDNISolone 4 MG TAB PO SCH (21:00)
[2018-10-18] MEDS ORDERED: methylPREDNISolone 4 MG TAB PO SCH (07:00)
[2018-10-19] MEDS ORDERED: methylPREDNISolone 4 MG TAB PO SCH (07:00)
[2018-10-20] MEDS ORDERED: methylPREDNISolone 4 MG TAB PO SCH (07:00)
[2018-10-21] MEDS ORDERED: methylPREDNISolone 4 MG TAB PO SCH (07:00)
== END 2018-10-17 17:16 | DRG 74 ==
LOC: ED 15:07 → 2N 18:56

== ENCOUNTER 2021-09-30 12:58 | Inpatient (IN) ==
[2021-09-30] MEDS ORDERED: PROMETHAZINE HCL 12.5 MG in SODIUM CHLORIDE 0.9% 50 ML IV PRN (19:56)
[2021-09-30] MEDS ORDERED: hydrOXYzine HCl 25 MG TAB PO PRN (19:56)
[2021-09-30] MEDS ORDERED: traMADol HCL 50 MG TABLET PO PRN (19:56)
[2021-09-30] MEDS ORDERED: HYDROmorphone INJ 0.5 MG/0.5 ML SYR IV PRN (19:56)
[2021-09-30] MEDS ORDERED: oxyCODONE HCL IR 5 MG TAB (IMMEDIATE RELEASE) PO PRN (19:56)
[2021-09-30] MEDS ORDERED: ACETAMINOPHEN 500 MG TAB PO PRN (19:56)
[2021-09-30] MEDS ORDERED: ACETAMINOPHEN 1,000 MG/100 ML VIAL IV PRN (19:56)
[2021-09-30] MEDS ORDERED: ONDANSETRON 4 MG OD TAB PO PRN (19:56)
[2021-09-30] MEDS ORDERED: NITROGLYCERIN SL 0.4 MG/TAB TAB SL PRN (19:56)
[2021-09-30] MEDS ORDERED: NALOXONE HCL 0.4 MG/1 ML VIAL/CARP IV PRN (19:56)
[2021-09-30] MEDS ORDERED: METOCLOPRAMIDE HCL INJ 5 MG/ML 2 ML VIAL IV PRN (19:56)
[2021-09-30] MEDS ORDERED: ONDANSETRON INJ 2 MG/ML 2 ML VIAL IV PRN (19:56)
[2021-09-30 20:28] LABS: Hematocrit (blood only) 38.3 % (42-52); Hemoglobin 13.7 g/dL (14.0-18.0); Immature Granulocytes # (auto) 0.02 K/uL (0.00-0.02); Immature Granulocytes % (auto) 0.5 %; Lymphocytes # (auto) 0.83 K/uL (1.2-3.4); Lymphocytes % (auto) 21.9 %; Mean Corpuscular Hemoglobin 29.6 pg (25-34); Mean Corpuscular Hgb Conc 35.8 g/dL (32-36); Mean Corpuscular Volume 82.7 fL (80-100); Monocytes # (auto) 0.17 K/uL (0.11-0.59); Monocytes % (auto) 4.5 %; Neutrophils # (auto) 2.77 K/uL (1.4-6.5); Neutrophils % (auto) 73.1 %; Platelet Count 114 K/uL (130-400); RDW Coefficient of Variation 14.1 % (11.5-14.5); RDW Standard Deviation 42.7 fL (36.4-46.3); Red Blood Count 4.63 M/uL (4.7-6.1); White Blood Count 3.79 K/uL (4.8-10.8)
[2021-09-30 20:47] LABS: Albumin Globulin Ratio 0.9 (0.9-2); Albumin Level 3.9 gm/dl (3.4-5.0); Bilirubin,Total 0.7 mg/dl (0.2-1.0); Calcium 10.8 mg/dl (8.5-10.1); Creatinine Clr Calc Pharmacy 35.1 ml/min; Est GFR (African American) 53.4 ml/min; Est GFR (Non-African American) 46.1 ml/min; Globulin 4.2 gm/dl (2.5-4.0); Potassium 3.2 mmol/L (3.5-5.1); Total Protein 8.1 gm/dl (6.0-8.3)
[2021-09-30] MEDS: LACTATED RINGER'S 1,000 ML IV SCH (22:26)
[2021-09-30] MEDS: NORTRIPTYLINE HCL 25 MG CAP PO SCH (22:26)
[2021-09-30] MEDS: METOPROLOL TARTRATE 50 MG TAB PO SCH (22:27)
[2021-09-30] MEDS: POTASSIUM CHLORIDE CRTAB 20 MEQ TABCR PO SCH (22:27)
--- NOTE | 2021-10-01 03:10 | Consultation Report ---
DATE OF CONSULT: 09/30/2021 CHIEF COMPLAINT: Neck pain. HISTORY OF PRESENT ILLNESS: This is an 81-year-old male with past medical history significant for hyperlipidemia, prediabetes, history of thyroid cancer, status post thyroidectomy, history of CAD, status post stent, chronic kidney disease stage III, history of bladder cancer with metastasis to mediastinal nodes with invasion of prostate, status post chemo in 2016,currently follows with Urology, sleep apnea on CPAP, aortic valve sclerosis, hypertension, BPH, presents with neck pain going on for last 1 month, got worse last 2 weeks and it radiating to the right upper extremity, painful on movement. He had a steroid shot yesterday, but that did not help. Plan for surgery tomorrow. Currently, resting comfortably. Denies any headache, no dizziness, no blurred visions, no runny nose, no sore throat, no cough, no fevers. No difficulty swallowing. Appetite is okay. He gets some short of breath in night. He uses CPAP while sleeping. Complains of some chest soreness, no nausea, no abdominal pain, normal bowel and bladder movements. Otherwise, ambulating okay. ALLERGIES: MELOXICAM AND PENTAZOCINE. PAST MEDICAL HISTORY: As mentioned above. PAST SURGICAL HISTORY: Cardiac stent placement, left heart catheterization, cystoscopy, lumbosacral injections, cataracts, partial removal of right thyroidectomy and complete thyroidectomy, revision of ulnar nerve at elbow on the left side. MEDICATIONS: The patient is on amlodipine 10 mg p.o. a.m., atorvastatin 10 mg p.o. a.m., Coenzyme Q10 200 mg p.o. a.m., Lasix 20 mg p.o. 5 times a week, isosorbide mononitrate 60 mg p.o. a.m., levothyroxine as directed, losartan 100 mg p.o. a.m., vitamin B12 1000 mcg p.o. daily, metoprolol tartrate 50 mg p.o. b.i.d., Nitroglycerin 0.4 mg sublingual p.r.n., Ditropan XL 5 mg p.o. daily, potassium chloride 20 mEq p.o. b.i.d., vitamin B6 100 mg p.o. a.m., Flomax 0.4 mg p.o. a.m. FAMILY HISTORY: Significant for brother has brain cancer, heart disorder; father has ND. SOCIAL HISTORY: . Former smoker, who quit in 1970s. Alcohol rarely. No drug use. REVIEW OF SYSTEMS: As per HPI. Rest of review of systems is negative. PHYSICAL EXAMINATION: GENERAL: The patient is of moderate build, not in acute distress. VITAL SIGNS: Temperature 36.5, pulse 75, respiratory rate 17, blood pressure 140/91, oxygen 97% on room air. HEENT: Extraocular muscles intact. Atraumatic. Oral mucosa moist. NECK: No JVD, no neck masses. CARDIOVASCULAR: S1 and S2 heard. Regular rate and rhythm. No murmur, no gallop. Some point tenderness present on the right side of chest. RESPIRATORY: Normal AP diameter. No accessory muscle use. No wheezing, no crackles. ABDOMEN: Soft. Bowel sounds are present, nontender, no distention. CENTRAL NERVOUS SYSTEM: Cranial nerves II-XII grossly intact, nonfocal. EXTREMITIES: Painful right upper extremity movements. No edema, no erythema seen. LABORATORY: WBC 3.7, hemoglobin 13.7, hematocrit 38.3, platelets 114. Sodium 139, potassium 3.2, chloride 102, bicarbonate 30, BUN 24, creatinine 1.4, serum glucose 145, calcium 10.8, total bilirubin 0.7, AST 21, ALT 12, alkaline phosphatase 61. SARS-CoV-2 negative. Cervical spine MRI scan stat FRAT report metastatic lesion of the C1 and C2 vertebral bodies progressed from 08/20/2021. No pathological fracture, similar severe canal stenosis at C4-C5 and C5-C6 without cord signal abnormality. ASSESSMENT AND PLAN: This is an 81-year-old male who presents with severe neck pain and also right upper extremity pain. 1. Cervical stenosis, severe neck pain radiating to the right upper extremity. MRI scan showed metastatic lesions also severe stenosis, failed outpatient treatment with steroid shots, pain control. Surgery as per Orthopedics. The patient was complaining of some chest discomfort, so we will get an EKG and troponin and echo and consult Cardiology in the a.m. for preoperative clearance though chest pain mostly looks like musculoskeletal, but patient has history of coronary artery disease. 2. History of coronary artery disease. Continue his home medication of metoprolol, isosorbide mononitrate, statin. The patient not on any aspirin currently. 3. History of pancytopenia seems at baseline hemoglobin of 12. Platelets around 100, WBC baseline of 4. Follow up with Heme/Onc.Will follow labs. 4. History of thyroid cancer, status post thyroidectomy in 2001. Continue levothyroxine. 5. History of hyperlipidemia. Continue statin. 6. Hypertension. On metoprolol, amlodipine, losartan. We will monitor the labs. 7. Chronic kidney disease stage III baseline creatinine 1.8. We will follow the labs. 8. 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 Followup with Urology. Currently on BCG treatments. 9. Sleep apnea on CPAP at bedtime. 10. Prediabetes. We will follow HbA1c levels. Diabetic diet when taking PO. 11. Deep venous thrombosis prophylaxis. DISPOSITION: As per Orthopedics. Job ID: [id number] CARLA
[2021-10-01] MEDS: LEVOTHYROXINE SODIUM 125 MCG TABLET PO SCH (05:20)
[2021-10-01] MEDS ORDERED: ceFAZolin 2000MG 2,000 MG/15 ML SYR IV SCH (06:00)
[2021-10-01 07:01] LABS: Estimated Average Glucose 120 mg/dl; Hemoglobin A1C 5.8 % (4.5-5.6)
--- NOTE | 2021-10-01 07:19 | Hospitalist Progress Note ---
Date of Service October 01, 2021 Assessment & Plan (1) Cervical stenosis of spine: Plan: This is an 81-year-old male who presents with severe neck pain and also right upper extremity pain. 1. Cervical stenosis, severe neck pain radiating to the right upper extremity. MRI scan showed metastatic lesions also severe stenosis, failed outpatient treatment with steroid shots, pain control. Surgery as per Orthopedics. The patient was complaining of some chest discomfort, so EKG and troponin and echo obtained, Cardiology consulted for preoperative clearance though chest pain mostly looks like musculoskeletal, but patient has history of coronary artery disease. Echo -LV is normal in size. LV systolic function is normal. EF 55 to 60%. RV systolic function is normal. LA size is normal. RA size is normal. Aortic valve sclerosis mild, without significant aortic valvular stenosis. There is mild mitral regurg. EKG -sinus rhythm with an old left bundle branch block Per cardiology, By the geriatric risk assessment tool this patient's risk for this procedure is 0.2% however, given the patient's other noncardiac medical problems his risk may be higher. No additional cardiac testing will change this risk assessment. From a cardiac standpoint the patient is currently optimally medically managed and may proceed to surgery. 2. History of coronary artery disease. Continue his home medication of metoprolol, isosorbide mononitrate, statin. The patient not on any aspirin currently. 3. History of pancytopenia seems at baseline hemoglobin of 12. Platelets around 100, WBC baseline of 4. Follow up with Heme/Onc.Will follow labs. 4. History of thyroid cancer, status post thyroidectomy in 2001. Continue levothyroxine. 5. History of hyperlipidemia. Continue statin. 6. Hypertension. On metoprolol, amlodipine, losartan. We will monitor the labs. 7. Chronic kidney disease stage III baseline creatinine 1.8. We will follow the labs. 8. 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 Followup with Urology. Currently on BCG treatments. 9. Sleep apnea on CPAP at bedtime. 10. Prediabetes. We will follow HbA1c levels. Diabetic diet when taking PO. 11. Deep venous thrombosis prophylaxis per orthopedics DISPOSITION: As per Orthopedics. Admission and Anticipated Discharge Date Admission Date: September 30, 2021 Subjective Patient seen in follow-up of neck pain, right upper extremity pain Plan for cervical spinal surgery, anterior corpectomy today Patient denies any fevers, chills, chest pain, shortness of breath, abdominal, nausea vomiting Review of Systems Review of Systems: All systems reviewed & are unremarkable except as noted in Subjective Physical Exam Physical Exam: GENERAL:Elderly M,, not in acute distress. HEENT: NC/AT, Extraocular muscles intact. Atraumatic. Oral mucosa moist. NECK: No JVD, no neck masses. CARDIOVASCULAR: S1 and S2 heard. Regular rate and rhythm. No murmur, no gallop. Some point tenderness present on the right side of chest. RESPIRATORY: Normal AP diameter. No accessory muscle use. No wheezing, no crackles. ABDOMEN: Soft. Bowel sounds are present, nontender, no distention. NEURO:Alert oriented, answers questions appropriately, hard of hearing, no facial asymmetry, speech fluent, moves extremities EXTREMITIES: Painful right upper extremity movements. No edema, no erythema seen. Results & Data Results & Data ([facility]) Vital Signs (Past 12 Hours) Vital Signs Temp Pulse Pulse Resp BP Pulse Ox 10/01/21 00:37 81 24 95 09/30/21 19:25 36.7 C 79 20 185/79 H 96 Laboratory Results 10/01/21 10/01/21 10/01/21 Range/Units 10:59 10:59 05:37 WBC (4.8-10.8) K/uL RBC (4.7-6.1) M/uL Hgb (14.0-18.0) g/dL Hct (42-52) % MCV (80-100) fL MCH (25-34) pg MCHC (32-36) g/dL RDW Std Deviation (36.4-46.3) fL RDW Coeff of Leonel (11.5-14.5) % Plt Count (130-400) K/uL MPV (7.4-10.4) fL Immature Gran % (Auto) % Neut % (Auto) % Lymph % (Auto) % Kings % (Auto) % Eos % (Auto) % Baso % (Auto) % Neut # (Auto) (1.4-6.5) K/uL Lymph # (Auto) (1.2-3.4) K/uL Kings # (Auto) (0.11-0.59) K/uL Eos # (Auto) (0-0.5) K/uL Baso # (Auto) (0-0.2) K/uL Immature Gran # (Auto) (0.00-0.02) K/uL Sodium 140 (136-145) mmol/L Potassium 3.5 (3.5-5.1) mmol/L Chloride 104 (98-107) mmol/L Carbon Dioxide 31 (21-32) mmol/L Anion Gap 5 (3-11) BUN 21 (6-23) mg/dl Creatinine 1.19 (0.6-1.4) mg/dl Est Cr Clr Drug Dosing 41.0 ml/min Est GFR ( Amer) 65.5 ml/min Est GFR (Non-Af Amer) 56.5 ml/min BUN/Creatinine Ratio 17.6 (10-20) Glucose 114 H (70-99(Fasting)) mg/dl Estimat Average Glucose 120 mg/dl Hemoglobin A1c 5.8 H (4.5-5.6) % Calcium 10.5 H (8.5-10.1) mg/dl Magnesium 1.3 L (1.7-2.4) mg/dl Total Bilirubin (0.2-1.0) mg/dl AST (13-39) U/L ALT (7-52) U/L Alkaline Phosphatase (34-104) U/L Troponin I High Sens 17.4 (0-20) pg/ml Total Protein (6.0-8.3) gm/dl Albumin (3.4-5.0) gm/dl Globulin (2.5-4.0) gm/dl Albumin/Globulin Ratio (0.9-2) SARS-CoV-2, RNA, NAAT (NEGATIVE) 10/01/21 09/30/21 09/30/21 Range/Units 05:37 22:53 20:09 WBC (4.8-10.8) K/uL RBC (4.7-6.1) M/uL Hgb (14.0-18.0) g/dL Hct (42-52) % MCV (80-100) fL MCH (25-34) pg MCHC (32-36) g/dL RDW Std Deviation (36.4-46.3) fL RDW Coeff of Leonel (11.5-14.5) % Plt Count (130-400) K/uL MPV (7.4-10.4) fL Immature Gran % (Auto) % Neut % (Auto) % Lymph % (Auto) % Kings % (Auto) % Eos % (Auto) % Baso % (Auto) % Neut # (Auto) (1.4-6.5) K/uL Lymph # (Auto) (1.2-3.4) K/uL Kings # (Auto) (0.11-0.59) K/uL Eos # (Auto) (0-0.5) K/uL Baso # (Auto) (0-0.2) K/uL Immature Gran # (Auto) (0.00-0.02) K/uL Sodium 139 (136-145) mmol/L Potassium 3.2 L (3.5-5.1) mmol/L Chloride 102 (98-107) mmol/L Carbon Dioxide 30 (21-32) mmol/L Anion Gap 7 (3-11) BUN 24 H (6-23) mg/dl Creatinine 1.41 H (0.6-1.4) mg/dl Est Cr Clr Drug Dosing 35.1 ml/min Est GFR ( Amer) 53.4 ml/min Est GFR (Non-Af Amer) 46.1 ml/min BUN/Creatinine Ratio 17.0 (10-20) Glucose 145 H (70-99(Fasting)) mg/dl Estimat Average Glucose mg/dl Hemoglobin A1c (4.5-5.6) % Calcium 10.8 H (8.5-10.1) mg/dl Magnesium (1.7-2.4) mg/dl Total Bilirubin 0.7 (0.2-1.0) mg/dl AST 21 (13-39) U/L ALT 12 (7-52) U/L Alkaline Phosphatase 61 (34-104) U/L Troponin I High Sens 17.0 D 12.3 (0-20) pg/ml Total Protein 8.1 (6.0-8.3) gm/dl Albumin 3.9 (3.4-5.0) gm/dl Globulin 4.2 H (2.5-4.0) gm/dl Albumin/Globulin Ratio 0.9 (0.9-2) SARS-CoV-2, RNA, NAAT (NEGATIVE) 09/30/21 09/30/21 Range/Units 20:09 14:42 WBC 3.79 L (4.8-10.8) K/uL RBC 4.63 L (4.7-6.1) M/uL Hgb 13.7 L (14.0-18.0) g/dL Hct 38.3 L (42-52) % MCV 82.7 (80-100) fL MCH 29.6 (25-34) pg MCHC 35.8 (32-36) g/dL RDW Std Deviation 42.7 (36.4-46.3) fL RDW Coeff of Leonel 14.1 (11.5-14.5) % Plt Count 114 L (130-400) K/uL MPV 9.0 (7.4-10.4) fL Immature Gran % (Auto) 0.5 % Neut % (Auto) 73.1 % Lymph % (Auto) 21.9 % Kings % (Auto) 4.5 % Eos % (Auto) 0.0 % Baso % (Auto) 0.0 % Neut # (Auto) 2.77 (1.4-6.5) K/uL Lymph # (Auto) 0.83 L (1.2-3.4) K/uL Kings # (Auto) 0.17 (0.11-0.59) K/uL Eos # (Auto) 0.00 (0-0.5) K/uL Baso # (Auto) 0.00 (0-0.2) K/uL Immature Gran # (Auto) 0.02 (0.00-0.02) K/uL Sodium (136-145) mmol/L Potassium (3.5-5.1) mmol/L Chloride (98-107) mmol/L Carbon Dioxide (21-32) mmol/L Anion Gap (3-11) BUN (6-23) mg/dl Creatinine (0.6-1.4) mg/dl Est Cr Clr Drug Dosing ml/min Est GFR ( Amer) ml/min Est GFR (Non-Af Amer) ml/min BUN/Creatinine Ratio (10-20) Glucose (70-99(Fasting)) mg/dl Estimat Average Glucose mg/dl Hemoglobin A1c (4.5-5.6) % Calcium (8.5-10.1) mg/dl Magnesium (1.7-2.4) mg/dl Total Bilirubin (0.2-1.0) mg/dl AST (13-39) U/L ALT (7-52) U/L Alkaline Phosphatase (34-104) U/L Troponin I High Sens (0-20) pg/ml Total Protein (6.0-8.3) gm/dl Albumin (3.4-5.0) gm/dl Globulin (2.5-4.0) gm/dl Albumin/Globulin Ratio (0.9-2) SARS-CoV-2, RNA, NAAT NEGATIVE (NEGATIVE) Medications Administered Current Inpatient Medications Acetaminophen (Acetaminophen 500 Mg Tab) 1,000 mg PO Q8H PRN PRN Reason: MILD Pain Scale 1,2,3 & Pre PT Stop: 10/30/21 19:55 Amlodipine Besylate (Amlodipine Besylate 5 Mg Tab) 10 mg PO DAILY MARIYA Stop: 10/31/21 08:59 Atorvastatin Calcium (Atorvastatin 10 Mg Tab) 10 mg PO DAILY MARIYA Stop: 10/31/21 08:59 Cyanocobalamin (Cyanocobalamin (B-12) 500 Mcg Tablet) 1,000 mcg PO DAILY MARIYA Stop: 10/31/21 08:59 Hydromorphone HCl (Hydromorphone Inj 0.5 Mg/0.5 Ml Syr) 0.5 mg IV Q3H PRN PRN Reason: MOD pain (scale 4-6) & Pre PT Stop: 10/14/21 19:55 Hydroxyzine HCl (Hydroxyzine Hcl 25 Mg Tab) 25 mg PO Q8H PRN PRN Reason: Anxiety Stop: 10/30/21 19:55 Cefazolin Sodium (Ancef 2000mg) 2,000 mg in 15 mls @ 3.75 mls/min IV PREOP MARIYA; Protocol Stop: 10/01/21 18:00 Lactated Ringer's (Lr) 1,000 mls @ 75 mls/hr IV [id number] MARIYA Stop: 10/30/21 19:55 Last Admin: 09/30/21 22:26 Dose: 75 mls/hr Documented by: Promethazine HCl 12.5 mg/ (Sodium Chloride) 50.5 mls @ 202 mls/hr IV Q6H PRN PRN Reason: Nausea &/or Vomiting Stop: 10/30/21 19:55 Acetaminophen (Ofirmev) 1,000 mg in 100 mls @ 400 mls/hr IV Q8H PRN PRN Reason: Pain Rating 1-3 & Pre PT Stop: 10/03/21 19:55 Isosorbide Mononitrate (Isosorbide Kings Extended Rel 60 Mg Tabcr) 60 mg PO DAILY [facility] Stop: 10/31/21 08:59 Levothyroxine Sodium (Levothyroxine Sodium 125 Mcg Tablet) 125 mcg PO SuTuWeThFrSa@30 MARIYA Stop: 10/31/21 06:29 Last Admin: 10/01/21 05:20 Dose: 125 mcg Documented by: Levothyroxine Sodium (Levothyroxine Sodium 125 Mcg Tablet) 62.5 mcg PO Mo@30 [facility] Stop: 11/04/21 06:29 Losartan Potassium (Losartan Potassium 50 Mg Tab) 100 mg PO DAILY [facility] Stop: 10/31/21 08:59 Metoclopramide HCl (Metoclopramide Hcl Inj 5 Mg/Ml 2 Ml Vial) 10 mg IV Q6H PRN PRN Reason: Nausea &/or Vomiting Stop: 10/30/21 19:55 Metoprolol Tartrate (Metoprolol Tartrate 50 Mg Tab) 50 mg PO BID [facility] Stop: 10/30/21 20:59 Last Admin: 09/30/21 22:27 Dose: 50 mg Documented by: Naloxone HCl (Naloxone Hcl 0.4 Mg/1 Ml Vial/Carp) 0.1 mg IV Q5M PRN PRN Reason: Oversedation/respiratory dep Stop: 10/30/21 19:55 Nitroglycerin (Nitroglycerin Sl 0.4 Mg/Tab Tab) 0.4 mg SL UD PRN PRN Reason: Chest Pain Stop: 10/30/21 19:55 Nortriptyline HCl (Nortriptyline Hcl 25 Mg Cap) 25 mg PO HS [facility] Stop: 10/30/21 20:59 Last Admin: 09/30/21 22:26 Dose: 25 mg Documented by: Ondansetron HCl (Ondansetron Inj 2 Mg/Ml 2 Ml Vial) 4 mg IV Q6H PRN PRN Reason: Nausea &/or Vomiting Stop: 10/30/21 19:55 Ondansetron HCl (Ondansetron 4 Mg Od Tab) 4 mg PO Q6H PRN PRN Reason: Nausea Stop: 10/30/21 19:55 Oxybutynin Chloride (Oxybutynin Chloride Xl 5 Mg Tabcr) 5 mg PO DAILY MARIYA Stop: 10/31/21 08:59 Oxycodone HCl (Oxycodone Hcl Ir 5 Mg Tab (Immediate Release)) 5 - 10 mg PO Q4H PRN PRN Reason: mod to severe pain Stop: 10/14/21 19:55 Potassium Chloride (Potassium Chloride Crtab 20 Meq Tabcr) 20 meq PO BID MARIYA Stop: 10/30/21 20:59 Last Admin: 09/30/21 22:27 Dose: 20 meq Documented by: Pyridoxine HCl (Pyridoxine Hcl 50 Mg Tab) 100 mg PO DAILY MARIYA Stop: 10/31/21 08:59 Tamsulosin HCl (Tamsulosin Hcl 0.4 Mg Cap) 0.4 mg PO DAILY MARIYA Stop: 10/31/21 08:59 Tramadol HCl (Tramadol Hcl 50 Mg Tablet) 50 - 100 mg PO Q4H PRN PRN Reason: Moderate-Severe pain & Pre PT Stop: 10/30/21 19:55
--- NOTE | 2021-10-01 07:32 | Magnetic Resonance Report ---
MRI OF THE CERVICAL SPINE WITHOUT CONTRAST CLINICAL HISTORY: Right arm weakness. COMPARISON: MRI of the cervical spine August 20, 2021. TECHNIQUE: Utilizing a 1.5 Prisca magnet and dedicated coil, multiplanar, multiecho imaging of the ce rvical spine was performed without IV contrast. FINDINGS: Note is made of a 2 cm focus of marrow replacement within the right aspect of the C3 vertebral body c onsistent with metastatic disease. This was not clearly evident on prior exam. There is also a 1.1 cm focus of marrow replacement within the left inferior aspect of the C2 vertebral body. No pathologic fracture is identified. Possible additional 7 mm lesion within the T3 vertebral body is present. Ther e is no intracanalicular mass or fluid collection. Cervical cord signal and caliber are normal. Parav ertebral soft tissues are unremarkable. No additional foci suspicious marrow replacement are identifi ed. C2-C3: The central canal is patent. There is facet arthrosis.] Foramen is patent. Left neural forame n is mildly narrowed. C3-C4: Central canal is patent. There is moderate bilateral neural foraminal stenosis due to facet a rthrosis and uncovertebral hypertrophy. C4-C5: Note is made of disc bulge with ligamentous hypertrophy. This indents the ventral aspect of t he cord. There is severe central canal stenosis. Patent AP diameter of the canal is 5.5 mm. Severe ri ght and moderate to severe left neural foraminal narrowing is noted, C5-C6: There is disc space narrowing with posterior disc osteophyte complex and ligamentous hypertro phy. This indents the ventral aspect of the cord. There is moderate to severe central canal stenosis. Patent AP diameter of the canal is 5.7 mm. Severe bilateral neural foraminal stenosis is present. C6-C7: Central canal is patent. There is moderate right neural foraminal stenosis. Left neural morenita en is patent C7-T1: Central canal and neural foramen are patent. IMPRESSION: 1. Foci of marrow replacement within the C2, C3 and T3 vertebral bodies consistent with metastatic di sease. No pathologic fracture. No epidural extension. 2. Severe central canal stenosis at C4-C5 and moderate to severe central canal stenosis at C5-C6, as described above. 3. Severe multilevel neural foraminal stenosis, as detailed above. ACT 112: Negative or not required by law. Electronically signed by: Danis Evans M.D. 10/01/2021 7:30 AM
--- NOTE | 2021-10-01 08:35 | Cardiology Consultation ---
Date of Consultation October 01, 2021 Assessment & Plan (1) Cervical radiculopathy: (2) Small cell carcinoma of bladder: (3) Prostate cancer: (4) Lung mass: (5) Pancytopenia: (6) CAD (coronary artery disease): (7) History of heart artery stent: By the geriatric risk assessment tool this patient's risk for this procedure is 0.2% however, given the patient's other noncardiac medical problems his risk may be higher. No additional cardiac testing will change this risk assessment. From a cardiac standpoint the patient is currently optimally medically managed and may proceed to surgery. History of Present Illness Attending Physician: Jesus Whitt DO History of Present Illness October 01, 2021 This is an 81-year-old male patient who has been followed in our clinic by Tristan Vail however, he has not been seen there in over a year. He has a history as outlined below. Unfortunately, this patient is very hard of hearing and although he wears hearing aids the batteries are depleted. Most of the information is taken from the medical record. He was admitted with a cervical radiculopathy and pain in his right arm. He is scheduled to have surgery this admission. He has no ongoing cardiac complaints. He had a resting echocardiogram of which the report is on the chart with a normal left ventricular ejection fraction, mild mitral regurgitation and aortic sclerosis without stenosis. His EKG reveals a sinus rhythm with an old left bundle branch block. Past medical history: 1.Chronic coronary artery disease, presentation with angina in November 2004. [facility] single vessel CAD with an 80% proximal LAD stenosis and a 70% proximal diagonal stenosis s/p PCI of the LAD with a cobalt chromium stent and what sounds like POBA of the D1 stenosis with small dissection of the proximal augustine LAD into the diagonal. LV systolic function preserved. 2.Diastolic congestive heart failure 3.Hypertension 4.Hyperlipidemia. 5.Stage III chronic kidney disease 6.Thyroid cancer status post thyroidectomy 7.Bladder carcinoma 8.Sleep apnea 9.BPH Allergies Allergy/AdvReac Type Severity Reaction Status Date / Time naloxone Allergy Unknown unkn Verified 09/30/21 14:01 pentazocine Allergy Unknown Verified 09/30/21 14:01 Home Medications Medication Instructions Recorded Confirmed Type amlodipine 10 mg tablet 10 mg PO QAM 10/11/18 09/30/21 History isosorbide mononitrate 60 mg 60 mg PO QAM 10/11/18 09/30/21 History tablet,extended release 24 hr levothyroxine 125 mcg tablet See Rx Instructions .ROUTE .COMPLEX 10/11/18 09/30/21 History (Levoxyl) losartan 50 mg tablet 100 mg PO QAM 10/11/18 09/30/21 History metoprolol tartrate 100 mg tablet 50 mg PO BID 10/11/18 09/30/21 History nitroglycerin 0.4 mg sublingual 0.4 mg SUBLINGUAL DIRECTED PRN 10/11/18 09/30/21 History tablet (Nitrostat) MDD 3 DOSES, 5 MIN APART potassium chloride 20 mEq 20 meq PO BID 10/11/18 09/30/21 History tablet,extended release(part/cryst) tamsulosin 0.4 mg capsule 0.4 mg PO QAM 10/11/18 09/30/21 History atorvastatin 10 mg tablet 10 mg PO QAM 03/04/21 09/30/21 History furosemide 20 mg tablet 20 mg PO [id number] 03/04/21 09/30/21 History pyridoxine (vitamin B6) 100 mg 100 mg PO QAM 03/04/21 09/30/21 History tablet coenzyme Q10 200 mg capsule 200 mg PO QAM 08/07/21 09/30/21 History mecobalamin (vitamin B12) 1,000 1,000 mcg PO QAM 08/07/21 09/30/21 History mcg chewable tablet oxybutynin chloride 5 mg 5 mg PO DAILY 09/30/21 09/30/21 History tablet,extended release 24 hr (Ditropan XL) Patient History Medical History Bilateral leg pain CAD (coronary artery disease) Cervical radiculopathy Cervical stenosis of spine CKD (chronic kidney disease), stage III Dyslipidemia Heart disease HTN (hypertension) Hypoxia Kidney disease Stage III Left bundle branch block Mitral valve regurgitation Neutropenia MARCELINO (obstructive sleep apnea) CPAP Peripheral neuropathy Piriformis syndrome Prostate cancer Status post chemo Rhabdomyolysis Small cell carcinoma of bladder Thrombocytopenia Thyroid cancer 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 and transposition left Upper extremity weakness Surgical History History of cystoscopy History of heart artery stent LAD History of thyroidectomy Status post cataract extraction of both eyes with insertion of intraocular lens Family History Brother FH: brain cancer Other Coronary heart disease Social History Smoking Status: Former smoker Second Hand Exposure: No; Do You Dip or Chew Tobacco: No; Tobacco Cessation Education Requested by Patient: No Hx Alcohol Use: Yes Alcohol type: beer Hx Substance Use: No Preferred Language: Uzbek Communication Ability: Effective Funeral Professional Required: No Beliefs That Will Affect Care: None marital status: Current Living Situation: Spouse Other Information That Helps Us Care for You: No Feels Safe at Home: Yes Safety Concerns: Feels Safe At This Time Assistive Devices: None Review of Systems Review of Systems: Review of Systems: See HPI for pertinent positives. All other 10 point review of systems are negative. Physical Exam Physical Exam: General: no acute distress and stated age Head: normocephalic, no masses, lesions, tenderness or abnormalities Eyes: conjunctiva are pink and non-injected, sclera clear Neck: supple, no adenopathy, no bruits, normal jugular venous pulse, no hepatojugular reflux Chest: normal shape and normal respiratory effort Lungs: clear to auscultation and percussion Cardiac Exam: - regular rate & rhythm, no murmurs gallops or rubs - normal S1, normal S2 Pulses: 2(+) throughout Abdomen: abdomen soft, non-tender, no abnormal masses and no hepatosplenomegaly Musculoskeletal: no gait disturbance, no joint inflammation, no deforming arthritis Extremities: no edema and no cyanosis Neuro: grossly normal exam Results & Data ([facility]) Vital Signs (Past 12 Hours) Vital Signs Pulse Resp Pulse Ox 10/01/21 00:37 81 24 95 Laboratory Results Laboratory Results - last 24 hr 09/30/21 09/30/21 09/30/21 14:42 20:09 20:09 WBC 3.79 L RBC 4.63 L Hgb 13.7 L Hct 38.3 L MCV 82.7 MCH 29.6 MCHC 35.8 RDW Std Deviation 42.7 RDW Coeff of Leonel 14.1 Plt Count 114 L MPV 9.0 Immature Gran % (Auto) 0.5 Neut % (Auto) 73.1 Lymph % (Auto) 21.9 [place] % (Auto) 4.5 Eos % (Auto) 0.0 Baso % (Auto) 0.0 Neut # (Auto) 2.77 Lymph # (Auto) 0.83 L [place] # (Auto) 0.17 Eos # (Auto) 0.00 Baso # (Auto) 0.00 Immature Gran # (Auto) 0.02 Sodium 139 Potassium 3.2 L Chloride 102 Carbon Dioxide 30 Anion Gap 7 BUN 24 H Creatinine 1.41 H Est Cr Clr Drug Dosing 35.1 Est GFR ( Amer) 53.4 Est GFR (Non-Af Amer) 46.1 BUN/Creatinine Ratio 17.0 Glucose 145 H Estimat Average Glucose Hemoglobin A1c Calcium 10.8 H Total Bilirubin 0.7 AST 21 ALT 12 Alkaline Phosphatase 61 Troponin I High Sens Total Protein 8.1 Albumin 3.9 Globulin 4.2 H Albumin/Globulin Ratio 0.9 SARS-CoV-2, RNA, NAAT NEGATIVE 09/30/21 10/01/21 10/01/21 22:53 05:37 05:37 WBC RBC Hgb Hct MCV MCH MCHC RDW Std Deviation RDW Coeff of Leonel Plt Count MPV Immature Gran % (Auto) Neut % (Auto) Lymph % (Auto) [place] % (Auto) Eos % (Auto) Baso % (Auto) Neut # (Auto) Lymph # (Auto) [place] # (Auto) Eos # (Auto) Baso # (Auto) Immature Gran # (Auto) Sodium Potassium Chloride Carbon Dioxide Anion Gap BUN Creatinine Est Cr Clr Drug Dosing Est GFR ( Amer) Est GFR (Non-Af Amer) BUN/Creatinine Ratio Glucose Estimat Average Glucose 120 Hemoglobin A1c 5.8 H Calcium Total Bilirubin AST ALT Alkaline Phosphatase Troponin I High Sens 12.3 17.0 D Total Protein Albumin Globulin Albumin/Globulin Ratio SARS-CoV-2, RNA, NAAT Medications Administered Current Inpatient Medications Acetaminophen (Acetaminophen 500 Mg Tab) 1,000 mg PO Q8H PRN PRN Reason: MILD Pain Scale 1,2,3 & Pre PT Stop: 10/30/21 19:55 Amlodipine Besylate (Amlodipine Besylate 5 Mg Tab) 10 mg PO DAILY MARIYA Stop: 10/31/21 08:59 Atorvastatin Calcium (Atorvastatin 10 Mg Tab) 10 mg PO DAILY MARIYA Stop: 10/31/21 08:59 Cyanocobalamin (Cyanocobalamin (B-12) 500 Mcg Tablet) 1,000 mcg PO DAILY [facility] Stop: 10/31/21 08:59 Hydromorphone HCl (Hydromorphone Inj 0.5 Mg/0.5 Ml Syr) 0.5 mg IV Q3H PRN PRN Reason: MOD pain (scale 4-6) & Pre PT Stop: 10/14/21 19:55 Hydroxyzine HCl (Hydroxyzine Hcl 25 Mg Tab) 25 mg PO Q8H PRN PRN Reason: Anxiety Stop: 10/30/21 19:55 Cefazolin Sodium (Ancef 2000mg) 2,000 mg in 15 mls @ 3.75 mls/min IV PREOP MARIYA; Protocol Stop: 10/01/21 18:00 Lactated Ringer's (Lr) 1,000 mls @ 75 mls/hr IV .[id number] [facility] Stop: 10/30/21 19:55 Last Admin: 09/30/21 22:26 Dose: 75 mls/hr Documented by: Promethazine HCl 12.5 mg/ (Sodium Chloride) 50.5 mls @ 202 mls/hr IV Q6H PRN PRN Reason: Nausea &/or Vomiting Stop: 10/30/21 19:55 Acetaminophen (Ofirmev) 1,000 mg in 100 mls @ 400 mls/hr IV Q8H PRN PRN Reason: Pain Rating 1-3 & Pre PT Stop: 10/03/21 19:55 Isosorbide Mononitrate (Isosorbide [place] Extended Rel 60 Mg Tabcr) 60 mg PO DAILY [facility] Stop: 10/31/21 08:59 Levothyroxine Sodium (Levothyroxine Sodium 125 Mcg Tablet) 125 mcg PO [id number] [facility] Stop: 10/31/21 06:29 Last Admin: 10/01/21 05:20 Dose: 125 mcg Documented by: Levothyroxine Sodium (Levothyroxine Sodium 125 Mcg Tablet) 62.5 mcg PO Mo@0630 [facility] Stop: 11/04/21 06:29 Losartan Potassium (Losartan Potassium 50 Mg Tab) 100 mg PO DAILY [facility] Stop: 10/31/21 08:59 Metoclopramide HCl (Metoclopramide Hcl Inj 5 Mg/Ml 2 Ml Vial) 10 mg IV Q6H PRN PRN Reason: Nausea &/or Vomiting Stop: 10/30/21 19:55 Metoprolol Tartrate (Metoprolol Tartrate 50 Mg Tab) 50 mg PO BID [facility] Stop: 10/30/21 20:59 Last Admin: 09/30/21 22:27 Dose: 50 mg Documented by: Naloxone HCl (Naloxone Hcl 0.4 Mg/1 Ml Vial/Carp) 0.1 mg IV Q5M PRN PRN Reason: Oversedation/respiratory dep Stop: 10/30/21 19:55 Nitroglycerin (Nitroglycerin Sl 0.4 Mg/Tab Tab) 0.4 mg SL UD PRN PRN Reason: Chest Pain Stop: 10/30/21 19:55 Nortriptyline HCl (Nortriptyline Hcl 25 Mg Cap) 25 mg PO HS [facility] Stop: 10/30/21 20:59 Last Admin: 09/30/21 22:26 Dose: 25 mg Documented by: Ondansetron HCl (Ondansetron Inj 2 Mg/Ml 2 Ml Vial) 4 mg IV Q6H PRN PRN Reason: Nausea &/or Vomiting Stop: 10/30/21 19:55 Ondansetron HCl (Ondansetron 4 Mg Od Tab) 4 mg PO Q6H PRN PRN Reason: Nausea Stop: 10/30/21 19:55 Oxybutynin Chloride (Oxybutynin Chloride Xl 5 Mg Tabcr) 5 mg PO DAILY [facility] Stop: 10/31/21 08:59 Oxycodone HCl (Oxycodone Hcl Ir 5 Mg Tab (Immediate Release)) 5 - 10 mg PO Q4H PRN PRN Reason: mod to severe pain Stop: 10/14/21 19:55 Potassium Chloride (Potassium Chloride Crtab 20 Meq Tabcr) 20 meq PO BID [facility] Stop: 10/30/21 20:59 Last Admin: 09/30/21 22:27 Dose: 20 meq Documented by: Pyridoxine HCl (Pyridoxine Hcl 50 Mg Tab) 100 mg PO DAILY [facility] Stop: 10/31/21 08:59 Tamsulosin HCl (Tamsulosin Hcl 0.4 Mg Cap) 0.4 mg PO DAILY [facility] Stop: 10/31/21 08:59 Tramadol HCl (Tramadol Hcl 50 Mg Tablet) 50 - 100 mg PO Q4H PRN PRN Reason: Moderate-Severe pain & Pre PT Stop: 10/30/21 19:55
--- NOTE | 2021-10-01 08:52 | History & Physical Report ---
Date of Service October 01, 2021 Assessment & Plan (1) Cervical stenosis of spine: Plan: Patient is being admitted to Dr. Whitt service for C5 corpectomy to be performed today. Currently awaiting cardiology evaluation. Surgery would involve a C5 corpectomy. Risk, pros cons and benefits as well as alternatives have been outlined with Greg. He would like to proceed with above-mentioned surgical intervention. He understands goal of surgery is improvement of right upper extremity pain and secondary numbness. I am unable to determine improvement of his current motor deficits. He understands this will take time. Admission and Anticipated Discharge Date Admission Date: September 30, 2021 History of Present Illness Chief Complaint: Right upper extremity pain and weakness Primary Care Provider: Alycia Payne, Is a very pleasant 81-year-old gentleman who has had symptoms starting roughly 1 month ago affecting the right upper extremity including pain and numbness into all 5 fingers. He reports it is weak as well. Left upper extremity is asymptomatic. He is right-hand dominant. He lives at home with his . Ambulates independently. Denies any changes in balance. Currently has bladder cancer which is managed by Dr. Benson Schulz. There appears to be new concern on cervical MRI for metastatic disease to this area. He reports a treatment several weeks ago in the form of some type of washout for his bladder cancer.He had his cervical epidural injection performed by Dr. Washburn earlier this week. He reports no improvement. Allergies Allergy/AdvReac Type Severity Reaction Status Date / Time naloxone Allergy Unknown unkn Verified 09/30/21 14:01 pentazocine Allergy Unknown Verified 09/30/21 14:01 Home Medications Medication Instructions Recorded Confirmed Type amlodipine 10 mg tablet 10 mg PO QAM 10/11/18 09/30/21 History isosorbide mononitrate 60 mg 60 mg PO QAM 10/11/18 09/30/21 History tablet,extended release 24 hr levothyroxine 125 mcg tablet See Rx Instructions .ROUTE .COMPLEX 10/11/18 09/30/21 History (Levoxyl) losartan 50 mg tablet 100 mg PO QAM 10/11/18 09/30/21 History metoprolol tartrate 100 mg tablet 50 mg PO BID 10/11/18 09/30/21 History nitroglycerin 0.4 mg sublingual 0.4 mg SUBLINGUAL DIRECTED PRN 10/11/18 09/30/21 History tablet (Nitrostat) MDD 3 DOSES, 5 MIN APART potassium chloride 20 mEq 20 meq PO BID 10/11/18 09/30/21 History tablet,extended release(part/cryst) tamsulosin 0.4 mg capsule 0.4 mg PO QAM 10/11/18 09/30/21 History atorvastatin 10 mg tablet 10 mg PO QAM 03/04/21 09/30/21 History furosemide 20 mg tablet 20 mg PO [id number] 03/04/21 09/30/21 History pyridoxine (vitamin B6) 100 mg 100 mg PO QAM 03/04/21 09/30/21 History tablet coenzyme Q10 200 mg capsule 200 mg PO QAM 08/07/21 09/30/21 History mecobalamin (vitamin B12) 1,000 1,000 mcg PO QAM 08/07/21 09/30/21 History mcg chewable tablet oxybutynin chloride 5 mg 5 mg PO DAILY 09/30/21 09/30/21 History tablet,extended release 24 hr (Ditropan XL) Past Med/Surg History Medical History Bilateral leg pain CAD (coronary artery disease) Cervical radiculopathy Cervical stenosis of spine CKD (chronic kidney disease), stage III Dyslipidemia Heart disease HTN (hypertension) Hypoxia Kidney disease Stage III Mitral valve regurgitation Neutropenia MARCELINO (obstructive sleep apnea) CPAP Peripheral neuropathy Piriformis syndrome Prostate cancer Status post chemo Rhabdomyolysis Small cell carcinoma of bladder Thrombocytopenia Thyroid cancer 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 and transposition left Upper extremity weakness Surgical History History of cystoscopy History of heart artery stent LAD History of thyroidectomy Status post cataract extraction of both eyes with insertion of intraocular lens Family History Brother FH: brain cancer Other Coronary heart disease Social History Smoking Status: Former smoker Second Hand Exposure: No; Do You Dip or Chew Tobacco: No; Tobacco Cessation Education Requested by Patient: No Hx Alcohol Use: Yes Alcohol type: beer Hx Substance Use: No Preferred Language: Kyrgyz Communication Ability: Effective 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: No Beliefs That Will Affect Care: None marital status: Current Living Situation: Spouse Other Information That Helps Us Care for You: No Feels Safe at Home: Yes Safety Concerns: Feels Safe At This Time Assistive Devices: None Review of Systems Review of Systems: All systems reviewed & are unremarkable except as noted in HPI & below Physical Exam Physical Exam: He is lying in bed in no acute distress Very hard of hearing Alert and oriented x3 Positive Romberg 3+ to 4/4 or 5 right finger intrinsic, 3/5 right wrist extensors and wrist flexor, 4 to 4+/5 right bicep Strength is intact left upper extremity Constitutional: + thin Eyes: normal visual woods by confrontation ENMT: external ear and nose normal, oropharynx normal Neck: normal visual inspection Respiratory: normal respiratory effort Cardiovascular: Extremities: normal capillary refill Gastrointestinal (Abdomen): Inspection/Auscultation: abdomen normal to inspection Musculoskeletal: Extremities: extremities normal to inspection and + abnormal strength Skin: normal turgor Neurologic: normal touch/pain/proprioception, moves all extremities and + focal motor deficit Psychiatric: Eye Contact: good eye contact Speech: normal rate/rhythm/volume of speech Results & Data Results & Data ([facility]) Vital Signs (Past 12 Hours) Vital Signs Temp Pulse Pulse Resp BP Pulse Ox 10/01/21 08:00 36.7 C 77 18 169/72 H 95 10/01/21 00:37 81 24 95 Diagnostic Findings [place], [place] [phone] Magnetic Resonance Report Patient:GREG EDWARDS Jr Admit Date:09/30/21 MR#:[id number] Address1:[address] [place] [address] Acct ID:[id number] Address2:[facility] [address] Date:1940 [facility] Zip:[place] [address] Age:81 Location:3E Sex:M Room/Bed:[facility] Att Phy:Jesus Whitt D.O. Diagnosis:SURGERY Reshma Phy:Alycia Payne DO Service Date:09/30/21 Fam Phy: Interpreting Phy:Danis Evans MDAdmit Phy:Jesus Whitt D.O. Ordering Phy:Peri, Jesus M.,D.O. cc: ~ MRI OF THE CERVICAL SPINE WITHOUT CONTRAST CLINICAL HISTORY: Right arm weakness. COMPARISON: MRI of the cervical spine August 20, 2021. TECHNIQUE: Utilizing a 1.5 Prisca magnet and dedicated coil, multiplanar, multiecho imaging of the cervical spine was performed without IV contrast. FINDINGS: Note is made of a 2 cm focus of marrow replacement within the right aspect of the C3 vertebral body consistent with metastatic disease. This was not clearly evident on prior exam. There is also a 1.1 cm focus of marrow replacement within the left inferior aspect of the C2 vertebral body. No pathologic fracture is identified. Possible additional 7 mm lesion within the T3 vertebral body is present. There is no intracanalicular mass or fluid collection. Cervical cord signal and caliber are normal. Paravertebral soft tissues are unremarkable. No additional foci suspicious marrow replacement are identified. C2-C3: The central canal is patent. There is facet arthrosis.] Foramen is patent. Left neural foramen is mildly narrowed. C3-C4: Central canal is patent. There is moderate bilateral neural foraminal stenosis due to facet arthrosis and uncovertebral hypertrophy. C4-C5: Note is made of disc bulge with ligamentous hypertrophy. This indents the ventral aspect of the cord. There is severe central canal stenosis. Patent AP diameter of the canal is 5.5 mm. Severe right and moderate to severe left neural foraminal narrowing is noted, C5-C6: There is disc space narrowing with posterior disc osteophyte complex and ligamentous hypertrophy. This indents the ventral aspect of the cord. There is moderate to severe central canal stenosis. Patent AP diameter of the canal is 5.7 mm. Severe bilateral neural foraminal stenosis is present. C6-C7: Central canal is patent. There is moderate right neural foraminal stenosis. Left neural foramen is patent C7-T1: Central canal and neural foramen are patent. IMPRESSION: 1. Foci of marrow replacement within the C2, C3 and T3 vertebral bodies consistent with metastatic disease. No pathologic fracture. No epidural extension. 2. Severe central canal stenosis at C4-C5 and moderate to severe central canal stenosis at C5-C6, as described above. 3. Severe multilevel neural foraminal stenosis, as detailed above. ACT 112: Negative or not required by law. Electronically signed by: Danis Evans M.D. 10/01/2021 7:30 AM Dictated:10/01/21 0719 Transcribed: 10/01/21718 Code Status & VTE Plan VTE Prophylaxis Plan VTE Prophylaxis will be ordered: Yes
[2021-10-01] MEDS ORDERED: NON-FORMULARY MEDICATION (Coenzyme Q10 200 mg capsule) PO SCH (09:00)
[2021-10-01] MEDS ORDERED: NON-FORMULARY MEDICATION (Ferrous Sulfate 27 mg iron Tablet) PO SCH (09:00)
[2021-10-01] MEDS: PYRIDOXINE HCL 50 MG TAB PO SCH (09:40)
[2021-10-01] MEDS: LOSARTAN POTASSIUM 50 MG TAB PO SCH (09:40)
[2021-10-01] MEDS: POTASSIUM CHLORIDE CRTAB 20 MEQ TABCR PO SCH ×2 (09:40→20:42)
[2021-10-01] MEDS: TAMSULOSIN HCL 0.4 MG CAP PO SCH (09:40)
[2021-10-01] MEDS: OXYBUTYNIN CHLORIDE XL 5 MG TABCR PO SCH (09:40)
[2021-10-01] MEDS: METOPROLOL TARTRATE 50 MG TAB PO SCH ×2 (09:40→20:43)
[2021-10-01] MEDS: amLODIPine BESYLATE 5 MG TAB PO SCH (09:41)
[2021-10-01] MEDS: CYANOCOBALAMIN (B-12) 500 MCG TABLET PO SCH (09:41)
[2021-10-01] MEDS: ATORVASTATIN 10 MG TAB PO SCH (09:41)
[2021-10-01] MEDS: ISOSORBIDE MONO EXTENDED REL 60 MG TABCR PO SCH (09:41)
[2021-10-01] MEDS: LACTATED RINGER'S 1,000 ML IV SCH ×2 (09:45→16:21)
[2021-10-01] MEDS ORDERED: ROCURONIUM BROMIDE 10 MG/ML 5 ML VIAL IV ONE (10:48)
[2021-10-01] MEDS ORDERED: LIDOCAINE 2% 2 ML VIAL/AMP(20MG/ML) INFIL ONE (10:48)
[2021-10-01] MEDS ORDERED: DEXAMETHASONE SOD INJ 4 MG/ML VIAL ONE (10:48)
[2021-10-01] MEDS ORDERED: ONDANSETRON INJ 2 MG/ML 2 ML VIAL ONE (10:48)
[2021-10-01] MEDS ORDERED: PROPOFOL IV EMULSION 10 MG/ML 20 ML VIAL IV ONE ×2 (10:48→12:11)
[2021-10-01] MEDS ORDERED: fentaNYL citrate 100 MCG/2 ML VIAL ONE (10:48)
--- NOTE | 2021-10-01 10:59 | Anesthesiology Consultation ---
Date of Service October 01, 2021 The patient was seen by cardiology and is noted to be optimized for surgery from a cardiac standpoint. Assessment & Plan (1) Encounter for pre-operative examination: Chart Review Chart Review: Acceptable Risk for Surgery and Patient NOT seen in Pre Admission Testing Consults Requested none followed by cardiology and internal medicine History Surgery Operation Date: 10/01/21 12:30 Proposed Procedures p C5 Anterior Corpectomy - Jesus Whitt, Height/Weight Height: 5 ft 5 in Weight: 60.5 kg Allergies Allergy/AdvReac Type Severity Reaction Status Date / Time naloxone Allergy Unknown unkn Verified 09/30/21 14:01 pentazocine Allergy Unknown Verified 09/30/21 14:01 Medications Home Medications Medication Instructions Recorded Confirmed Last Taken amlodipine 10 mg tablet 10 mg PO QAM 10/11/18 09/30/21 09/29/21 isosorbide mononitrate 60 mg 60 mg PO QAM 10/11/18 09/30/21 09/29/21 tablet,extended release 24 hr levothyroxine 125 mcg tablet See Rx Instructions .ROUTE .COMPLEX 10/11/18 09/30/21 09/30/21 (Levoxyl) 125 mcg losartan 50 mg tablet 100 mg PO QAM 10/11/18 09/30/21 09/29/21 metoprolol tartrate 100 mg tablet 50 mg PO BID 10/11/18 09/30/21 09/30/21 nitroglycerin 0.4 mg sublingual 0.4 mg SUBLINGUAL DIRECTED PRN 10/11/18 09/30/21 Unknown tablet (Nitrostat) MDD 3 DOSES, 5 MIN APART potassium chloride 20 mEq 20 meq PO BID 10/11/18 09/30/21 09/29/21 tablet,extended release(part/cryst) tamsulosin 0.4 mg capsule 0.4 mg PO QAM 10/11/18 09/30/21 09/29/21 atorvastatin 10 mg tablet 10 mg PO QAM 03/04/21 09/30/21 09/29/21 furosemide 20 mg tablet 20 mg PO [id number] 03/04/21 09/30/21 09/29/21 pyridoxine (vitamin B6) 100 mg 100 mg PO QAM 03/04/21 09/30/21 09/29/21 tablet coenzyme Q10 200 mg capsule 200 mg PO QAM 08/07/21 09/30/21 09/29/21 mecobalamin (vitamin B12) 1,000 1,000 mcg PO QAM 08/07/21 09/30/21 09/29/21 mcg chewable tablet oxybutynin chloride 5 mg 5 mg PO DAILY 09/30/21 09/30/21 Unknown tablet,extended release 24 hr (Ditropan XL) Active Medications Generic Name Dose Route Start Last Admin Trade Name Grantq PRN Reason Stop Dose Admin Amlodipine Besylate 10 mg 10/01/21 09:00 10/01/21 09:41 Amlodipine Besylate 5 Mg Tab PO 10/31/21 08:59 10 mg DAILY MARIYA Administration Atorvastatin Calcium 10 mg 10/01/21 09:00 10/01/21 09:41 Atorvastatin 10 Mg Tab PO 10/31/21 08:59 10 mg DAILY MARIYA Administration Cyanocobalamin 1,000 mcg 10/01/21 09:00 10/01/21 09:41 Cyanocobalamin (B-12) 500 Mcg Tablet PO 10/31/21 08:59 1,000 mcg DAILY MARIYA Administration Lactated Ringer's 1,000 mls @ 75 mls/hr 09/30/21 19:56 10/01/21 09:45 Lr IV 10/30/21 19:55 75 mls/hr .[id number] MARIYA Administration Isosorbide Mononitrate 60 mg 10/01/21 09:00 10/01/21 09:41 Isosorbide Walker Extended Rel 60 Mg Tabcr PO 10/31/21 08:59 60 mg DAILY MARIYA Administration Levothyroxine Sodium 125 mcg 10/01/21 06:30 10/01/21 05:20 Levothyroxine Sodium 125 Mcg Tablet PO 10/31/21 06:29 125 mcg [id number] MARIYA Administration Losartan Potassium 100 mg 10/01/21 09:00 10/01/21 09:40 Losartan Potassium 50 Mg Tab PO 10/31/21 08:59 100 mg DAILY MARIYA Administration Metoprolol Tartrate 50 mg 09/30/21 21:00 10/01/21 09:40 Metoprolol Tartrate 50 Mg Tab PO 10/30/21 20:59 50 mg BID MARIYA Administration Nortriptyline HCl 25 mg 09/30/21 21:00 09/30/21 22:26 Nortriptyline Hcl 25 Mg Cap PO 10/30/21 20:59 25 mg HS MARIYA Administration Oxybutynin Chloride 5 mg 10/01/21 09:00 10/01/21 09:40 Oxybutynin Chloride Xl 5 Mg Tabcr PO 10/31/21 08:59 5 mg DAILY MARIYA Administration Oxycodone HCl 5 - 10 mg 09/30/21 19:56 10/01/21 09:40 Oxycodone Hcl Ir 5 Mg Tab (Immediate Release) PO 10/14/21 19:55 10 mg Q4H PRN Administration mod to severe pain Potassium Chloride 20 meq 09/30/21 21:00 10/01/21 09:40 Potassium Chloride Crtab 20 Meq Tabcr PO 10/30/21 20:59 20 meq BID MARIYA Administration Pyridoxine HCl 100 mg 10/01/21 09:00 10/01/21 09:40 Pyridoxine Hcl 50 Mg Tab PO 10/31/21 08:59 100 mg DAILY MARIYA Administration Tamsulosin HCl 0.4 mg 10/01/21 09:00 10/01/21 09:40 Tamsulosin Hcl 0.4 Mg Cap PO 10/31/21 08:59 0.4 mg DAILY MARIYA Administration Past Medical History Medical History Bilateral leg pain CAD (coronary artery disease) Cervical radiculopathy Cervical stenosis of spine CKD (chronic kidney disease), stage III Dyslipidemia Heart disease HTN (hypertension) Hypoxia Kidney disease Stage III Left bundle branch block Mitral valve regurgitation Neutropenia MARCELINO (obstructive sleep apnea) CPAP Peripheral neuropathy Piriformis syndrome Prostate cancer Status post chemo Rhabdomyolysis Small cell carcinoma of bladder Thrombocytopenia Thyroid cancer 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 and transposition left Upper extremity weakness Past Family History Family History Brother FH: brain cancer Other Coronary heart disease Past Surgical History Surgical History History of cystoscopy History of heart artery stent LAD History of thyroidectomy Status post cataract extraction of both eyes with insertion of intraocular lens Social History Smoking Status: Former smoker Do You Dip or Chew Tobacco: No Hx Alcohol Use: Yes Alcohol type: beer alcohol intake frequency: holidays/special occasions only Alcohol Intake Frequency Comment: 1 beer at a wedding Hx Substance Use: No substance use type: does not use Physical Exam Vital Signs Last Vital Signs Temp 36.7 C 10/01/21 08:00 Pulse 77 10/01/21 08:00 Resp 18 10/01/21 08:00 BP 169/72 H 10/01/21 08:00 Pulse Ox 95 10/01/21 08:00 Testing Laboratory Results 09/30/21 20:09 09/30/21 20:09 Hemoglobin A1c 5.8 % (4.5-5.6) H 10/01/21 05:37 Electrocardiogram Date: 09/30/21 Findings: + LBBB SR with 1st degree AV block, rate 86, left axis deviation Echocardiogram Date: 10/01/21 EF: 55-60 Valvular Disease: + MR (mild) Cervical Spine Date: 09/30/21 MRI OF THE CERVICAL SPINE WITHOUT CONTRAST CLINICAL HISTORY: Right arm weakness. COMPARISON: MRI of the cervical spine August 20, 2021. TECHNIQUE: Utilizing a 1.5 Prisca magnet and dedicated coil, multiplanar, mult iecho imaging of the cervical spine was performed without IV contrast. FINDINGS: Note is made of a 2 cm focus of marrow replacement within the right aspect of the C3 vertebral body consistent with metastatic disease. This was not clearly evident on prior exam. There is also a 1.1 cm focus of marrow replacement within the left inferior aspect of the C2 vertebral body. No pathologic fracture is i dentified. Possible additional 7 mm lesion within the T3 vertebral body is present. There is no intracanalicular mass or fluid collection. Cervical cord signal and caliber are normal. Paravertebral soft tissues are unremarkable. No additional foci suspicious marrow replacement are identified. C2-C3: The central canal is patent. There is facet arthrosis.] Foramen is patent. Left neural foramen is mildly narrowed. C3-C4: Central canal is patent. There is moderate bilateral neural foraminal stenosis due to facet arthrosis and uncovertebral hypertrophy. C4-C5: Note is made of disc bulge with ligamentous hypertrophy. This indents the ventral aspect of the cord. There is severe central canal stenosis. Patent AP diameter of the canal is 5.5 mm. Severe right and moderate to severe left neural foraminal narrowing is noted, C5-C6: There is disc space narrowing with posterior disc osteophyte complex and ligamentous hypertrophy. This indents the ventral aspect of the cord. There is moderate to severe central canal stenosis. Patent AP diameter of the canal is 5.7 mm. Severe bilateral neural foraminal stenosis is present. C6-C7: Central canal is patent. There is moderate right neural foraminal stenosis. Left neural foramen is patent C7-T1: Central canal and neural foramen are patent. IMPRESSION: 1. Foci of marrow replacement within the C2, C3 and T3 vertebral bodies consistent with metastatic disease. No pathologic fracture. No epidural extension. 2. Severe central canal stenosis at C4-C5 and moderate to severe central canal stenosis at C5-C6, as described above. 3. Severe multilevel neural foraminal stenosis, as detailed above. ACT 112: Negative or not required by law. Electronically signed by: Danis Evans M.D. 10/01/2021 7:30 AM Dictated:10/01/21 0719
[2021-10-01 11:35] LABS: BUN Creatinine Ratio 17.6 (10-20); Calcium 10.5 mg/dl (8.5-10.1); Est GFR (African American) 65.5 ml/min; Est GFR (Non-African American) 56.5 ml/min; Magnesium 1.3 mg/dl (1.7-2.4); Potassium 3.5 mmol/L (3.5-5.1)
[2021-10-01] MEDS ORDERED: ATROPINE SULFATE 0.1 MG/ML 10ML SYR IV PRN (11:46)
[2021-10-01] MEDS ORDERED: ONDANSETRON INJ 2 MG/ML 2 ML VIAL IV PRN ×2 (11:46→15:46)
[2021-10-01] MEDS ORDERED: fentaNYL citrate 100 MCG/2 ML VIAL IV PRN (11:46)
[2021-10-01] MEDS ORDERED: PHENYLEPHRINE 100MCG/ML 5ML SYR IV PRN (11:46)
[2021-10-01] MEDS ORDERED: HYDROmorphone INJ 1 MG/ML SYRINGE IV PRN ×2 (11:46→15:46)
[2021-10-01] MEDS ORDERED: LABETALOL HCL IV 5 MG/ML 20ML IV PRN (11:46)
[2021-10-01] MEDS ORDERED: ePHEDrine sulfate 50 MG/ML AMP IV PRN (11:46)
[2021-10-01] MEDS ORDERED: ceFAZolin 330 MG/ML 1 GM VIAL ONE (11:51)
--- NOTE | 2021-10-01 12:06 | History & Physical Bridge Note ---
Date of Service October 01, 2021 History & Physical Bridge Note I have examined the patient, reviewed the History & Physical and in the interval since the performance of the History & Physical I have noted the following changes of clinical significance: no changes noted C5 corpectomy
[2021-10-01] MEDS ORDERED: REMIFENTANIL HCL 1 MG VIAL ONE (12:11)
[2021-10-01] MEDS ORDERED: SUCCINYLCHOLINE CHLORIDE 20 MG/ML 10 ML VIAL IV ONE (12:23)
[2021-10-01] MEDS ORDERED: GLYCOPYRROLATE 0.2 MG/ML VIAL ONE (12:54)
[2021-10-01] MEDS ORDERED: FLOSEAL HEMOSTATIC MATRIX 10ML TOP ONE (13:15)
--- NOTE | 2021-10-01 14:04 | Operative Report ---
Post Operative Report Pre & Post Diagnosis Operation Date: 10/01/21 12:30 Pre-Op Diagnosis: Cervical myelopathy Post-Op Diagnosis: Cervical myelopathy I identified the patient and participated in the time-out.: Yes Procedure Operation Date: 10/01/21 12:30 Actual Procedures #1 anterior cervical corpectomy with bilateral foraminotomies C5. #2 anterior cervical arthrodesis C4-C6. #3 placement of 25 mm peek cage from C4-C6. #4 placement locally harvested morselized autograft combined with I factor with interbody cage. #5 application of art plate and screws from C4-C6. Surgeon Jesus Whitt, DO Ladle Watcher None Estimated Blood Loss 10 Findings Consistent with Post-Op Diagnosis Specimens None Indications This is an 81-year-old male who presents to the office with above-mentioned diagnosis and marked decline in neurologic status. Since he was admitted and is here the following day for urgent decompression of the cervical spine. Description of Procedure Patient was met with identified informed consent obtained. Patient was then taken to the operative suite underwent ablation placed in spine position just table at Adams roustabout head. All bony prominences well-padded eyes inspected to ensure no external pressure placed upon the. This point the anterior cervica l spine was prepped and draped in a sterile fashion. With the assistance of fluoroscopy identified the C5 vertebral body. A transverse incision was placed on the right anterior aspect of the cervical spine overlying this region. Blunt dissection with assistance of bipolar electrocautery performed down to expose the anterior cervical spine from see 4 to C6. Self-retaining retractors placed. Then performed a complete discectomy of C5-C6 out to the uncovertebral joints bilaterally as well asC4- C5 out to the uncovertebral joints bilaterally. [place] distractor pins were then placed in C4 and C6 to distract across the C5 vertebral body. Complete corpectomy was then performed including removal of all posterior annular fibers longitudinal ligament bilateral foraminotomies addressed. Obvious disc protrusion into the canal was appreciated. After this is complete the endplates were burred to subcortical bleeding bone and a 25 mm peek cage filled locally harvested morselized autograft and I factor tapped in position. Distracting apparatus was removed and a art plate and screws applied with the assistance of fluoroscopy. The incision was then copiously irrigated explored to ensure no damage to surrounding structures or remaining bleeding. 10 round ROBERTA drain inserted. The incision was then closed with 2 Vicryl in a fashion of 4 Monocryl for final skin closure. Steri-Strip sterile dressings placed. Patient waken taken to PACU stable condition. Please note spinal cord monitoring was utilized at the procedure no changes noted. I attest to the content of the Intraoperative Record and any orders documented therein. Any exceptions are noted below.
--- NOTE | 2021-10-01 14:20 | Fluoroscopy Report ---
FL cervical 2-3V CLINICAL HISTORY: C5 Anterior Corpectomy COMPARISON STUDY: Cervical spine MRI September 30, 2021. FLUOROSCOPY TIME: 8 seconds. FLUOROSCOPIC IMAGES: 1 FINDINGS: Fluoroscopy was provided during C5 corpectomy and C4-C6 anterior discectomy and fusion. End otracheal and nasogastric tubes are partially imaged. Linear density within the operative bed represe nts surgical material. IMPRESSION: Fluoroscopy provided during C5 corpectomy and C4-C6 anterior discectomy and fusion. ACT 112: Negative or not required by law. Electronically signed by: Danis Evans M.D. 10/01/2021 2:17 PM
--- NOTE | 2021-10-01 15:04 | Anesthesiology Progress Note ---
Date of Service October 01, 2021 Anesthesia Post Procedure Vital Signs Vital Signs: Temp Pulse Pulse Pulse Resp BP BP 10/01/21 14:45 63 14 123/63 10/01/21 14:35 63 16 132/64 10/01/21 14:25 67 8 L 134/70 10/01/21 14:17 36.4 C L 74 12 139/63 10/01/21 11:39 37.2 C 69 18 148/76 H 10/01/21 08:00 36.7 C 77 18 169/72 H 10/01/21 00:37 81 24 09/30/21 19:25 36.7 C 79 20 185/79 H 09/30/21 17:00 75 17 140/91 09/30/21 15:15 88 17 157/84 H Pulse Ox 10/01/21 14:45 96 10/01/21 14:35 98 10/01/21 14:25 85 L 10/01/21 14:17 97 10/01/21 11:39 97 10/01/21 08:00 95 10/01/21 00:37 95 09/30/21 19:25 96 09/30/21 17:00 97 09/30/21 15:15 100 Transfer of Care Handoff Completed per policy Notes Mental Status: alert / awake / arousable Patient Amnestic to Procedure: Yes Nausea / Vomiting: adequately controlled Pain: adequately controlled Airway Patency, RR, SpO2: stable & adequate BP & HR: stable & adequate Hydration State: stable & adequate Anesthetic Complications: no major complications apparent and Pt Satisfied with anesthetic care Notes: The patient is awake and comfortable. His neck dressing is dry and intact.
[2021-10-01] MEDS ORDERED: MAGNESIUM SULFATE / D5W 1 GM/100 ML BAG IV ONE (15:09)
[2021-10-01] MEDS ORDERED: ACETAMINOPHEN 500 MG TAB PO PRN (15:46)
[2021-10-01] MEDS ORDERED: HYDROmorphone INJ 0.5 MG/0.5 ML SYR IV PRN (15:46)
[2021-10-01] MEDS ORDERED: RACEPINEPHRINE 2.25% NEBU SOLN 0.5 ML VIAL INH PRN (15:46)
[2021-10-01] MEDS ORDERED: SOD PHOSPHATE/SOD BIPHOSPHATE ENEMA 132 ML BTL PR PRN (15:46)
[2021-10-01] MEDS ORDERED: LORazepam 2 MG/1 ML VIAL IV PRN (15:46)
[2021-10-01] MEDS ORDERED: traMADol HCL 50 MG TABLET PO PRN (15:46)
[2021-10-01] MEDS ORDERED: MAGNESIUM HYDROXIDE SUSP 30 ML UDC PO PRN (15:46)
[2021-10-01] MEDS ORDERED: NALOXONE HCL 0.4 MG/1 ML VIAL/CARP IV PRN (15:46)
[2021-10-01] MEDS ORDERED: ONDANSETRON 4 MG OD TAB PO PRN (15:46)
[2021-10-01] MEDS ORDERED: ACETAMINOPHEN 1,000 MG/100 ML VIAL IV PRN (15:46)
[2021-10-01] MEDS ORDERED: PROMETHAZINE HCL 12.5 MG in SODIUM CHLORIDE 0.9% 50 ML IV PRN (15:46)
[2021-10-01] MEDS ORDERED: hydrOXYzine HCl 25 MG TAB PO PRN (15:46)
[2021-10-01] MEDS ORDERED: oxyCODONE HCL IR 5 MG TAB (IMMEDIATE RELEASE) PO PRN (15:46)
[2021-10-01] MEDS ORDERED: LORazepam 0.5 MG TAB PO PRN (15:46)
[2021-10-01] MEDS ORDERED: bisacodyL 10 MG SUPP PR PRN (15:46)
[2021-10-01] MEDS ORDERED: DO NOT ADMINISTER PNEUMOCOCCAL VACCINE PRN (15:46)
[2021-10-01] MEDS ORDERED: dexAMETHasone 8 MG in SYRINGE 0 ML IV PRN (15:46)
[2021-10-01] MEDS ORDERED: diphenhydrAMINE Capsule 25 MG CAP PO PRN (15:46)
[2021-10-01] MEDS ORDERED: FAMOTIDINE 20 MG TAB PO PRN (15:46)
[2021-10-01] MEDS ORDERED: ALUMINUM/MAGNESIUM SUSP 30 ML UDC PO PRN (15:46)
[2021-10-01] MEDS ORDERED: DO NOT ADMINISTER FLU VACCINE PRN (15:46)
[2021-10-01] MEDS ORDERED: METOCLOPRAMIDE HCL INJ 5 MG/ML 2 ML VIAL IV PRN (15:46)
[2021-10-01] MEDS: dexAMETHasone 6 MG in SYRINGE 0 ML IV SCH (18:23)
[2021-10-01] MEDS: NORTRIPTYLINE HCL 25 MG CAP PO SCH (20:42)
[2021-10-01] MEDS: ceFAZolin 1000MG 1,000 MG/7.5 ML SYR IV SCH (20:44)
[2021-10-01] MEDS: DOCUSATE SODIUM/SENNA 50/8.6MG TAB PO SCH (20:45)
[2021-10-02] MEDS: LACTATED RINGER'S 1,000 ML IV SCH ×2 (01:12→13:11)
[2021-10-02] MEDS: dexAMETHasone 6 MG in SYRINGE 0 ML IV SCH ×2 (01:13→11:21)
[2021-10-02] MEDS: ceFAZolin 1000MG 1,000 MG/7.5 ML SYR IV SCH (03:41)
[2021-10-02] MEDS: POLYETHYLENE (MIRALAX) 17 GM PACK PO SCH ×3 (05:50→19:31)
[2021-10-02] MEDS: LEVOTHYROXINE SODIUM 125 MCG TABLET PO SCH (05:51)
--- NOTE | 2021-10-02 06:05 | Electrocardiogram Report ---
Test Reason : Blood Pressure : / mmHG Vent. Rate : 086 BPM Atrial Rate : 086 BPM P-R Int : 238 ms QRS Dur : 144 ms QT Int : 414 ms P-R-T Axes : 080 -54 091 degrees QTc Int : 495 ms Sinus rhythm with 1st degree A-V block Left axis deviation Left bundle branch block Abnormal ECG When compared with ECG of 11-OCT-2018 15:39, OR interval has increased Left bundle branch block has replaced Incomplete left bundle block Confirmed by Nathan Bryant ([id number]) on 10/02/2021 6:04:52 AM Referred By: Jesus Whitt Confirmed By:Nathan Bryant
[2021-10-02 06:20] LABS: Hematocrit (blood only) 33.4 % (42-52); Hemoglobin 11.4 g/dL (14.0-18.0); Immature Granulocytes # (auto) 0.04 K/uL (0.00-0.02); Immature Granulocytes % (auto) 0.5 %; Lymphocytes % (auto) 11.6 %; Mean Corpuscular Hemoglobin 28.6 pg (25-34); Mean Corpuscular Hgb Conc 34.1 g/dL (32-36); Mean Corpuscular Volume 83.7 fL (80-100); Mean Platelet Volume 9.2 fL (7.4-10.4); Monocytes % (auto) 2.6 %; Neutrophils # (auto) 6.65 K/uL (1.4-6.5); Neutrophils % (auto) 85.3 %; Platelet Count 121 K/uL (130-400); RDW Coefficient of Variation 14.6 % (11.5-14.5); RDW Standard Deviation 44.5 fL (36.4-46.3); Red Blood Count 3.99 M/uL (4.7-6.1); White Blood Count 7.79 K/uL (4.8-10.8)
[2021-10-02 07:20] LABS: BUN Creatinine Ratio 21.5 (10-20); Calcium 10.4 mg/dl (8.5-10.1); Creatinine Clr Calc Pharmacy 33.8 ml/min; Est GFR (Non-African American) 44.9 ml/min; Magnesium 1.6 mg/dl (1.7-2.4); Phosphorus 4.4 mg/dl (2.5-4.9); Potassium 4.2 mmol/L (3.5-5.1)
[2021-10-02] MEDS: METOPROLOL TARTRATE 50 MG TAB PO SCH ×2 (08:22→20:47)
[2021-10-02] MEDS: POTASSIUM CHLORIDE CRTAB 20 MEQ TABCR PO SCH ×2 (08:22→20:45)
[2021-10-02] MEDS: amLODIPine BESYLATE 5 MG TAB PO SCH (08:23)
[2021-10-02] MEDS: ISOSORBIDE MONO EXTENDED REL 60 MG TABCR PO SCH (08:23)
[2021-10-02] MEDS: OXYBUTYNIN CHLORIDE XL 5 MG TABCR PO SCH (08:24)
[2021-10-02] MEDS: LOSARTAN POTASSIUM 50 MG TAB PO SCH (08:24)
[2021-10-02] MEDS: CYANOCOBALAMIN (B-12) 500 MCG TABLET PO SCH (08:24)
[2021-10-02] MEDS: TAMSULOSIN HCL 0.4 MG CAP PO SCH (08:25)
[2021-10-02] MEDS: ATORVASTATIN 10 MG TAB PO SCH (08:25)
[2021-10-02] MEDS: PYRIDOXINE HCL 50 MG TAB PO SCH (08:25)
[2021-10-02] MEDS ORDERED: OXYBUTYNIN CHLORIDE XL 5 MG TABCR PO SCH (09:00)
--- NOTE | 2021-10-02 09:56 | Hospitalist Progress Note ---
Date of Service October 02, 2021 Assessment & Plan (1) Cervical stenosis of spine: Plan: This is an 81-year-old male who presents with severe neck pain and also right upper extremity pain. 1. Cervical stenosis, severe neck pain radiating to the right upper extremity. MRI scan showed metastatic lesions also severe stenosis, failed outpatient treatment with steroid shots, pain control. Surgery as per Orthopedics. The patient was complaining of some chest discomfort, so EKG and troponin and echo obtained, Cardiology consulted for preoperative clearance though chest pain mostly looks like musculoskeletal, but patient has history of coronary artery disease. Echo -LV is normal in size. LV systolic function is normal. EF 55 to 60%. RV systolic function is normal. LA size is normal. RA size is normal. Aortic valve sclerosis mild, without significant aortic valvular stenosis. There is mild mitral regurg. EKG -sinus rhythm with an old left bundle branch block Per cardiology, By the geriatric risk assessment tool this patient's risk for this procedure is 0.2% however, given the patient's other noncardiac medical problems his risk may be higher. No additional cardiac testing will change this risk assessment. From a cardiac standpoint the patient is currently optimally medically managed and may proceed to surgery. Pt is now s/p C5 anterior corpectomy w/ Dr. Whitt (10/01) Patient tolerated procedure well Neck and right upper extremity pain resolved, patient continues to have some numbness and tingling in his hand In addition, there were areas of suspicion for metastasis on his cervical MRI and particularly at C2-C3. Will obtain MRI of the thoracic and lumbar spine to evaluate the entire spinal column. Will need further work-up through his PCP and medicine. He is currently being treated for bladder cancer with Dr. Benson Schulz in [place]. Acute blood loss anemia/ post-op vs. dilutional pre-op Hgb 13.7, current Hgb 11.4, no need for blood transfusion - expected - monitor H&H Hypomagnesemia - goal Mg >2, replete and monitor 2. History of coronary artery disease. Continue his home medication of metoprolol, isosorbide mononitrate, statin. The patient not on any aspirin currently. 3. History of pancytopenia seems at baseline hemoglobin of 12. Platelets around 100, WBC baseline of 4. Follow up with Heme/Onc.Will follow labs. 4. History of thyroid cancer, status post thyroidectomy in 2001. Continue levothyroxine. 5. History of hyperlipidemia. Continue statin. 6. Hypertension. On metoprolol, amlodipine, losartan. We will monitor the labs. 7. Chronic kidney disease stage III baseline creatinine 1.8. We will follow the labs. 8. 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 Followup with Urology. Currently on BCG treatments. 9. Sleep apnea on CPAP at bedtime. 10. Prediabetes. Current HbA1c 5.8%. Diabetic diet. DVT prophylaxis per orthopedics DISPOSITION: As per Orthopedics. Admission and Anticipated Discharge Date Admission Date: September 30, 2021 Subjective Patient seen in follow-up of neck pain, right upper extremity pain He is s/p cervical spinal surgery, anterior corpectomy yesterday Tolerated procedure well Reports that his neck pain resolved, and also RUE pain resolved, continues to have some numbness and tingling Patient denies any fevers, chills, chest pain, shortness of breath, abdominal, nausea vomiting Review of Systems Review of Systems: All systems reviewed & are unremarkable except as noted in Subjective Physical Exam Physical Exam: GENERAL:Elderly M,, not in acute distress. HEENT: NC/AT, Extraocular muscles intact. Atraumatic. Oral mucosa moist. NECK: + drain w/ serosang. fluid CARDIOVASCULAR: S1 and S2 heard. Regular rate and rhythm. No murmur, no gallop. RESPIRATORY: Normal AP diameter. No accessory muscle use. No wheezing, no crackles. ABDOMEN: Soft. Bowel sounds are present, nontender, no distention. NEURO:Alert oriented, answers questions appropriately, hard of hearing, no facial asymmetry, speech fluent, moves extremities EXTREMITIES: moves extremities Results & Data Results & Data ([facility]) Vital Signs (Past 12 Hours) Vital Signs Temp Pulse Pulse Pulse Resp BP Pulse Ox 10/02/21 08:21 36.5 C 84 16 150/62 H 98 10/02/21 07:00 74 18 98 10/02/21 05:15 37 C 82 20 137/72 98 10/02/21 03:15 36.9 C 79 18 138/71 97 10/02/21 03:08 66 66 18 96 10/02/21 02:00 36.7 C 85 18 132/75 98 10/01/21 23:15 36.8 C 84 16 146/75 H 99 10/01/21 22:24 65 22 97 10/01/21 22:21 67 22 97 Laboratory Results 10/02/21 10/02/21 10/01/21 Range/Units 05:41 05:41 16:51 WBC 7.79 (4.8-10.8) K/uL RBC 3.99 L (4.7-6.1) M/uL Hgb 11.4 L (14.0-18.0) g/dL Hct 33.4 L (42-52) % MCV 83.7 (80-100) fL MCH 28.6 (25-34) pg MCHC 34.1 (32-36) g/dL RDW Std Deviation 44.5 (36.4-46.3) fL RDW Coeff of Leonel 14.6 H (11.5-14.5) % Plt Count 121 L (130-400) K/uL MPV 9.2 (7.4-10.4) fL Immature Gran % (Auto) 0.5 % Neut % (Auto) 85.3 % Lymph % (Auto) 11.6 % Banner % (Auto) 2.6 % Eos % (Auto) 0.0 % Baso % (Auto) 0.0 % Neut # (Auto) 6.65 H (1.4-6.5) K/uL Lymph # (Auto) 0.90 L (1.2-3.4) K/uL Banner # (Auto) 0.20 (0.11-0.59) K/uL Eos # (Auto) 0.00 (0-0.5) K/uL Baso # (Auto) 0.00 (0-0.2) K/uL Immature Gran # (Auto) 0.04 H (0.00-0.02) K/uL Sodium 138 (136-145) mmol/L Potassium 4.2 (3.5-5.1) mmol/L Chloride 103 (98-107) mmol/L Carbon Dioxide 29 (21-32) mmol/L Anion Gap 6 (3-11) BUN 31 H (6-23) mg/dl Creatinine 1.44 H (0.6-1.4) mg/dl Est Cr Clr Drug Dosing 33.8 ml/min Est GFR ( Amer) 52.0 ml/min Est GFR (Non-Af Amer) 44.9 ml/min BUN/Creatinine Ratio 21.5 H (10-20) Glucose 144 H (70-99(Fasting)) mg/dl Calcium 10.4 H (8.5-10.1) mg/dl Phosphorus 4.4 (2.5-4.9) mg/dl Magnesium 1.6 L (1.7-2.4) mg/dl Troponin I High Sens 14.5 (0-20) pg/ml 10/01/21 10/01/21 Range/Units 10:59 10:59 WBC (4.8-10.8) K/uL RBC (4.7-6.1) M/uL Hgb (14.0-18.0) g/dL Hct (42-52) % MCV (80-100) fL MCH (25-34) pg MCHC (32-36) g/dL RDW Std Deviation (36.4-46.3) fL RDW Coeff of Leonel (11.5-14.5) % Plt Count (130-400) K/uL MPV (7.4-10.4) fL Immature Gran % (Auto) % Neut % (Auto) % Lymph % (Auto) % Banner % (Auto) % Eos % (Auto) % Baso % (Auto) % Neut # (Auto) (1.4-6.5) K/uL Lymph # (Auto) (1.2-3.4) K/uL Banner # (Auto) (0.11-0.59) K/uL Eos # (Auto) (0-0.5) K/uL Baso # (Auto) (0-0.2) K/uL Immature Gran # (Auto) (0.00-0.02) K/uL Sodium 140 (136-145) mmol/L Potassium 3.5 (3.5-5.1) mmol/L Chloride 104 (98-107) mmol/L Carbon Dioxide 31 (21-32) mmol/L Anion Gap 5 (3-11) BUN 21 (6-23) mg/dl Creatinine 1.19 (0.6-1.4) mg/dl Est Cr Clr Drug Dosing 41.0 ml/min Est GFR ( Amer) 65.5 ml/min Est GFR (Non-Af Amer) 56.5 ml/min BUN/Creatinine Ratio 17.6 (10-20) Glucose 114 H (70-99(Fasting)) mg/dl Calcium 10.5 H (8.5-10.1) mg/dl Phosphorus (2.5-4.9) mg/dl Magnesium 1.3 L (1.7-2.4) mg/dl Troponin I High Sens 17.4 (0-20) pg/ml
[2021-10-02] MEDS ORDERED: MAGNESIUM SULFATE / D5W 1 GM/100 ML BAG IV ONE (10:00)
--- NOTE | 2021-10-02 10:57 | Cardiology Progress Note ---
Date of Service October 02, 2021 Assessment & Plan (1) Cervical radiculopathy: (2) Small cell carcinoma of bladder: (3) Prostate cancer: (4) Lung mass: (5) Pancytopenia: (6) CAD (coronary artery disease): (7) History of heart artery stent: Plan: The patient did well through surgery. From a cardiac standpoint he is stable. Would continue current medical management. Admission and Anticipated Discharge Date Admission Date: September 30, 2021 Subjective The patient had surgery yesterday and is recovering well. Review of Systems Review of Systems: Review of Systems: See HPI for pertinent positives. All other 10 point review of systems are negative. Physical Exam Physical Exam: General: no acute distress and stated age Head: normocephalic, no masses, lesions, tenderness or abnormalities Eyes: conjunctiva are pink and non-injected, sclera clear Neck: supple, no adenopathy, no bruits, normal jugular venous pulse, no hepatojugular reflux Chest: normal shape and normal respiratory effort Lungs: clear to auscultation and percussion Cardiac Exam: - regular rate & rhythm, no murmurs gallops or rubs - normal S1, normal S2 Pulses: 2(+) throughout Abdomen: abdomen soft, non-tender, no abnormal masses and no hepatosplenomegaly Musculoskeletal: no gait disturbance, no joint inflammation, no deforming arthritis Extremities: no edema and no cyanosis Neuro: grossly normal exam Results & Data ([facility]) Vital Signs (Past 12 Hours) Vital Signs Temp Pulse Pulse Pulse Resp BP Pulse Ox 10/02/21 10:00 36.6 C 79 16 128/64 92 10/02/21 08:21 36.5 C 84 16 150/62 H 98 10/02/21 07:00 74 18 98 10/02/21 05:15 37 C 82 20 137/72 98 10/02/21 03:15 36.9 C 79 18 138/71 97 10/02/21 03:08 66 66 18 96 10/02/21 02:00 36.7 C 85 18 132/75 98 10/01/21 23:15 36.8 C 84 16 146/75 H 99 Laboratory Results Laboratory Results - last 24 hr 10/01/21 10/01/21 10/01/21 10:59 10:59 16:51 WBC RBC Hgb Hct MCV MCH MCHC RDW Std Deviation RDW Coeff of Leonel Plt Count MPV Immature Gran % (Auto) Neut % (Auto) Lymph % (Auto) [place] % (Auto) Eos % (Auto) Baso % (Auto) Neut # (Auto) Lymph # (Auto) [place] # (Auto) Eos # (Auto) Baso # (Auto) Immature Gran # (Auto) Sodium 140 Potassium 3.5 Chloride 104 Carbon Dioxide 31 Anion Gap 5 BUN 21 Creatinine 1.19 Est Cr Clr Drug Dosing 41.0 Est GFR ( Amer) 65.5 Est GFR (Non-Af Amer) 56.5 BUN/Creatinine Ratio 17.6 Glucose 114 H Calcium 10.5 H Phosphorus Magnesium 1.3 L Troponin I High Sens 17.4 14.5 10/02/21 10/02/21 05:41 05:41 WBC 7.79 RBC 3.99 L Hgb 11.4 L Hct 33.4 L MCV 83.7 MCH 28.6 MCHC 34.1 RDW Std Deviation 44.5 RDW Coeff of Leonel 14.6 H Plt Count 121 L MPV 9.2 Immature Gran % (Auto) 0.5 Neut % (Auto) 85.3 Lymph % (Auto) 11.6 [place] % (Auto) 2.6 Eos % (Auto) 0.0 Baso % (Auto) 0.0 Neut # (Auto) 6.65 H Lymph # (Auto) 0.90 L [place] # (Auto) 0.20 Eos # (Auto) 0.00 Baso # (Auto) 0.00 Immature Gran # (Auto) 0.04 H Sodium 138 Potassium 4.2 Chloride 103 Carbon Dioxide 29 Anion Gap 6 BUN 31 H Creatinine 1.44 H Est Cr Clr Drug Dosing 33.8 Est GFR ( Amer) 52.0 Est GFR (Non-Af Amer) 44.9 BUN/Creatinine Ratio 21.5 H Glucose 144 H Calcium 10.4 H Phosphorus 4.4 Magnesium 1.6 L Troponin I High Sens Medications Administered Current Inpatient Medications Acetaminophen (Acetaminophen 500 Mg Tab) 1,000 mg PO Q8H PRN PRN Reason: MILD Pain Scale 1,2,3 & Pre PT Stop: 10/31/21 15:45 Al Hydrox/Mg Hydrox/Simethicone (Aluminum/Magnesium Susp 30 Ml Udc) 30 ml PO Q6H PRN PRN Reason: Dyspepsia Stop: 10/31/21 15:45 Amlodipine Besylate (Amlodipine Besylate 5 Mg Tab) 10 mg PO DAILY MARIYA Stop: 10/31/21 08:59 Last Admin: 10/02/21 08:23 Dose: 10 mg Documented by: Atorvastatin Calcium (Atorvastatin 10 Mg Tab) 10 mg PO DAILY MARIYA Stop: 10/31/21 08:59 Last Admin: 10/02/21 08:25 Dose: 10 mg Documented by: Bisacodyl (Bisacodyl 10 Mg Supp) 10 mg NC DAILY PRN PRN Reason: Constipation Stop: 10/31/21 15:45 Cyanocobalamin (Cyanocobalamin (B-12) 500 Mcg Tablet) 1,000 mcg PO DAILY MARIYA Stop: 10/31/21 08:59 Last Admin: 10/02/21 08:24 Dose: 1,000 mcg Documented by: Diphenhydramine HCl (Diphenhydramine Capsule 25 Mg Cap) 25 mg PO Q6H PRN PRN Reason: Allergic Rhinitis/Insomnia Stop: 10/31/21 15:45 Epinephrine (Racepinephrine 2.25% Nebu Soln 0.5 Ml Vial) 0.5 ml INH NOW PRN PRN Reason: If stridor present Famotidine (Famotidine 20 Mg Tab) 20 mg PO Q12H PRN PRN Reason: Dyspepsia Stop: 10/31/21 15:45 Hydromorphone HCl (Hydromorphone Inj 0.5 Mg/0.5 Ml Syr) 0.5 mg IV Q3H PRN PRN Reason: MOD pain (scale 4-6) & Pre PT Stop: 10/15/21 15:45 Hydromorphone HCl (Hydromorphone Inj 1 Mg/Ml Syringe) 1 mg IV Q3H PRN PRN Reason: severe pain (scale 7-10) Stop: 10/15/21 15:45 Hydroxyzine HCl (Hydroxyzine Hcl 25 Mg Tab) 25 mg PO Q8H PRN PRN Reason: Anxiety Stop: 10/30/21 19:55 Hydroxyzine HCl (Hydroxyzine Hcl 25 Mg Tab) 25 mg PO Q8H PRN PRN Reason: Anxiety Stop: 10/31/21 15:45 Dexamethasone 8 mg/ Syringe 2 mls @ 1 mls/min IV NOW PRN PRN Reason: If stridor present Lactated Ringer's (Lr) 1,000 mls @ 100 mls/hr IV .Q10H [facility] Stop: 10/31/21 15:45 Last Infusion: 10/02/21 10:08 Dose: Infused Documented by: Promethazine HCl 12.5 mg/ (Sodium Chloride) 50.5 mls @ 202 mls/hr IV Q6H PRN PRN Reason: Nausea &/or Vomiting Stop: 10/31/21 15:45 Acetaminophen (Ofirmev) 1,000 mg in 100 mls @ 400 mls/hr IV Q8H PRN PRN Reason: Pain Rating 1-3 & Pre PT Stop: 10/04/21 15:45 Magnesium Sulfate/Dextrose (Magnesium Sulfate / D5w) 1 gm in 100 mls @ 50 mls/hr IV ONE ONE Stop: 10/02/21 11:59 Last Admin: 10/02/21 10:42 Dose: 50 mls/hr Documented by: Influenza Virus Vaccine Quadrival (Do Not Administer Flu Vaccine) 1 ea N/A PRN PRN PRN Reason: Notification Stop: 10/31/21 15:45 Isosorbide Mononitrate (Isosorbide [place] Extended Rel 60 Mg Tabcr) 60 mg PO DAILY [facility] Stop: 10/31/21 08:59 Last Admin: 10/02/21 08:23 Dose: 60 mg Documented by: Levothyroxine Sodium (Levothyroxine Sodium 125 Mcg Tablet) 125 mcg PO [id number]@0630 [facility] Stop: 10/31/21 06:29 Last Admin: 10/02/21 05:51 Dose: 125 mcg Documented by: Levothyroxine Sodium (Levothyroxine Sodium 125 Mcg Tablet) 62.5 mcg PO Mo@0630 [facility] Stop: 11/04/21 06:29 Lorazepam (Lorazepam 0.5 Mg Tab) 0.5 mg PO Q8H PRN PRN Reason: Sedation/Anxiety Stop: 10/31/21 15:45 Lorazepam (Lorazepam 2 Mg/1 Ml Vial) 0.5 mg IV Q8H PRN PRN Reason: Sedation/Anxiety Stop: 10/31/21 15:45 Losartan Potassium (Losartan Potassium 50 Mg Tab) 100 mg PO DAILY [facility] Stop: 10/31/21 08:59 Last Admin: 10/02/21 08:24 Dose: 100 mg Documented by: Magnesium Hydroxide (Magnesium Hydroxide Susp 30 Ml Udc) 30 ml PO Q24H PRN PRN Reason: Constipation Stop: 10/31/21 15:45 Metoclopramide HCl (Metoclopramide Hcl Inj 5 Mg/Ml 2 Ml Vial) 10 mg IV Q6H PRN PRN Reason: Nausea &/or Vomiting Stop: 10/31/21 15:45 Metoprolol Tartrate (Metoprolol Tartrate 50 Mg Tab) 50 mg PO BID [facility] Stop: 10/30/21 20:59 Last Admin: 10/02/21 08:22 Dose: 50 mg Documented by: Naloxone HCl (Naloxone Hcl 0.4 Mg/1 Ml Vial/Carp) 0.1 mg IV Q5M PRN PRN Reason: Oversedation/Resp depression Stop: 10/31/21 15:45 Nitroglycerin (Nitroglycerin Sl 0.4 Mg/Tab Tab) 0.4 mg SL UD PRN PRN Reason: Chest Pain Stop: 10/30/21 19:55 Nortriptyline HCl (Nortriptyline Hcl 25 Mg Cap) 25 mg PO HS [facility] Stop: 10/30/21 20:59 Last Admin: 10/01/21 20:42 Dose: 25 mg Documented by: Ondansetron HCl (Ondansetron Inj 2 Mg/Ml 2 Ml Vial) 4 mg IV Q6H PRN PRN Reason: Nausea &/or Vomiting Stop: 10/31/21 15:45 Ondansetron HCl (Ondansetron 4 Mg Od Tab) 4 mg PO Q6H PRN PRN Reason: Nausea Stop: 10/31/21 15:45 Oxybutynin Chloride (Oxybutynin Chloride Xl 5 Mg Tabcr) 5 mg PO DAILY [facility] Stop: 10/31/21 08:59 Last Admin: 10/02/21 08:24 Dose: 5 mg Documented by: Oxycodone HCl (Oxycodone Hcl Ir 5 Mg Tab (Immediate Release)) 5 - 10 mg PO Q4H PRN PRN Reason: Pain & Pre PT Stop: 10/15/21 15:45 Pneumococcal Polyvalent Vaccine (Do Not Administer Pneumococcal Vaccine) 1 ea N/A PRN PRN PRN Reason: Notification Stop: 10/31/21 15:45 Polyethylene Glycol (Polyethylene (Miralax) 17 Gm Pack) 17 gm PO Q6 MARIYA Stop: 11/01/21 05:59 Last Admin: 10/02/21 05:50 Dose: 17 gm Documented by: Potassium Chloride (Potassium Chloride Crtab 20 Meq Tabcr) 20 meq PO BID MARIYA Stop: 10/30/21 20:59 Last Admin: 10/02/21 08:22 Dose: 20 meq Documented by: Pyridoxine HCl (Pyridoxine Hcl 50 Mg Tab) 100 mg PO DAILY MARIYA Stop: 10/31/21 08:59 Last Admin: 10/02/21 08:25 Dose: 100 mg Documented by: Senna/Docusate Sodium (Docusate Sodium/Senna 50/8.6mg Tab) 2 tab PO HS MARIYA Stop: 10/31/21 20:59 Last Admin: 10/01/21 20:45 Dose: 2 tab Documented by: Sodium Biphosphate/Sodium Phosphate (Sod Phosphate/Sod Biphosphate Enema 132 Ml Btl) 132 ml NC ONE PRN PRN Reason: Constipation Stop: 10/31/21 15:45 Tamsulosin HCl (Tamsulosin Hcl 0.4 Mg Cap) 0.4 mg PO DAILY MARIYA Stop: 10/31/21 08:59 Last Admin: 10/02/21 08:25 Dose: 0.4 mg Documented by: Tramadol HCl (Tramadol Hcl 50 Mg Tablet) 50 - 100 mg PO Q4H PRN PRN Reason: Moderate-Severe pain & Pre PT Stop: 10/31/21 15:45
--- NOTE | 2021-10-02 13:52 | Orthopedic Progress Note ---
Date of Service October 02, 2021 Assessment & Plan (1) Cervical stenosis of spine: Plan: Patient is status post C5 corpectomy and and having marked improvement of his right arm pain. Nevertheless I did explain the patient there was areas of suspicion for metastasis on his cervical MRI and particularly at C2-C3. I will obtain MRI of the thoracic and lumbar spine to evaluate the entire spinal column. He will need further work-up through his PCP and medicine. He is currently being treated for bladder cancer with Dr. Benson Schulz in [place]. Admission and Anticipated Discharge Date Admission Date: September 30, 2021 Subjective Arm pain markedly improved. Still struggling with weakness and numbness that is improving. He has some soreness with swallowing but not limiting. He has no hoarseness. Physical Exam Physical Exam: The leftOn exam he does have some improved strength and sensation of the right upper extremity. Is no longer hyperesthetic. The upper extremities strong. Results & Data ([facility]) Vital Signs (Past 12 Hours) Vital Signs Temp Pulse Pulse Pulse Resp BP Pulse Ox 10/02/21 12:31 36.4 C L 76 16 148/68 H 94 10/02/21 11:00 76 18 96 10/02/21 10:00 36.6 C 79 16 128/64 92 10/02/21 08:21 36.5 C 84 16 150/62 H 98 10/02/21 07:00 74 18 98 10/02/21 05:15 37 C 82 20 137/72 98 10/02/21 03:15 36.9 C 79 18 138/71 97 10/02/21 03:08 66 66 18 96 10/02/21 02:00 36.7 C 85 18 132/75 98
[2021-10-02] MEDS ORDERED: GADOBUTROL 65ML VIAL IV ONE (18:29)
--- NOTE | 2021-10-02 18:59 | Magnetic Resonance Report ---
MRI OF THE LUMBAR SPINE WITH AND WITHOUT CONTRAST CLINICAL HISTORY: Evaluate for metastatic disease. History of prostate, bladder and thyroid cancer. COMPARISON STUDY: Lumbar spine MRI October 11, 2018. TECHNIQUE: Utilizing a 1.5 Prisca magnet and dedicated coil, multiplanar, multiecho imaging of the [place]ia [place] car[place] mbar spine was performed before and after uneventful IV administration of 6 mL of Gadavist. FINDINGS: For purposes of numbering on this exam, the L5-S1 disc space is assigned to axial image 27 of 30. Ali gnment of the lumbar spine is anatomic. Slight anterior wedge deformity of the L1 vertebral body is u nchanged since MRI of October 11, 2018. There has been interval development of numerous foci of marrow re placement with associated enhancement within the lower thoracic and lumbar spine and sacrum since MRI of October 11, 2018. This includes a 2.9 cm lesion within the right aspect of the T12 vertebral body, a smaller lesion within the left aspect of the T12 vertebral body, a 2.6 cm focus within the left aspec t of the L4 vertebral body and multiple smaller lesions. No pathologic fracture is noted. No epidural extension of tumor is identified. 2 tiny intradural enhancing lesions within the lumbar spine are pr esent. These are located at the L1 and L4 levels. In retrospect, these were probably present on MRI o f October 11, 2018 and are therefore unlikely to represent metastatic disease. Multiple T1 and T2 hyperin tense lesions within the spine represent hemangiomas. Nonenhancing T2 hyperintense right renal lesion s were shown to reflect cysts on prior contrast enhanced CT. A 1.4 cm enhancing lesion within the med ial left iliac bone represents an additional suspicious lesion. Moderate multilevel facet arthrosis a nd mild multilevel degenerative disc disease is present. There is no central canal stenosis within th e lumbar spine. There is mild multilevel neural foraminal stenosis. IMPRESSION: 1. Interval development of multiple enhancing foci of marrow replacement within the lower thoracic, l umbar spine, sacrum and visualized portions of the pelvis and hips since MRI of October 11, 2018. These f oci are consistent with metastatic disease. No pathologic fracture. No epidural extension. 2. Two tiny enhancing intradural extramedullary lesions within the lumbar canal. In retrospect, these were likely present on prior MRI and and unlikely to represent metastatic disease. 3. No central canal stenosis. Mild multilevel neural foraminal stenosis. ACT 112: Negative or not required by law. Electronically signed by: Danis Evans M.D. 10/02/2021 6:57 PM
--- NOTE | 2021-10-02 19:59 | Magnetic Resonance Report ---
MRI OF THE THORACIC SPINE WITH AND WITHOUT CONTRAST CLINICAL HISTORY: Evaluate for metastatic disease. COMPARISON: Thoracic spine MRI March 16, 2019. TECHNIQUE: Utilizing a 1.5 Prisca magnet and dedicated coil, multiplanar, multiecho imaging of the th oracic spine was performed before and after the intravenous administration of 6 cc. FINDINGS: Alignment of the thoracic spine is anatomic. There are multiple T1 hypointense, T2 hyperint ense enhancing lesions within the thoracic spine as well as visualized portions of the upper lumbar s pine which are new since MRI of March 16, 2019. These represent metastases. There is no pathologic fracture. No epidural extension of tumor is present. Thoracic cord signal and caliber are normal. Is no intracanalicular mass or fluid collection. No abnormal enhancement within the thoracic canal is pr esent and postcontrast images. T1 and T2 hyperintense lesions within the thoracic spine are unchanged . These represent hemangiomas. Postoperative findings within the cervical spine are partially imaged. Central canal and neural foramen are patent within the thoracic spine. IMPRESSION: Multiple enhancing foci of marrow replacement within the thoracic spine consistent with metastatic di sease. No pathologic fracture. No epidural extension of tumor. ACT 112: Negative or not required by law. Electronically signed by: Danis Evans M.D. 10/02/2021 7:57 PM
[2021-10-02] MEDS: NORTRIPTYLINE HCL 25 MG CAP PO SCH (20:46)
[2021-10-02] MEDS: DOCUSATE SODIUM/SENNA 50/8.6MG TAB PO SCH (20:46)
[2021-10-03] MEDS: POLYETHYLENE (MIRALAX) 17 GM PACK PO SCH ×2 (00:05→06:13)
[2021-10-03] MEDS: LEVOTHYROXINE SODIUM 125 MCG TABLET PO SCH (06:14)
[2021-10-03 08:22] LABS: Hematocrit (blood only) 33.3 % (42-52); Hemoglobin 11.5 g/dL (14.0-18.0); Mean Corpuscular Hemoglobin 28.5 pg (25-34); Mean Corpuscular Hgb Conc 34.5 g/dL (32-36); Mean Corpuscular Volume 82.6 fL (80-100); Mean Platelet Volume 9.3 fL (7.4-10.4); Platelet Count 130 K/uL (130-400); RDW Coefficient of Variation 14.1 % (11.5-14.5); Red Blood Count 4.03 M/uL (4.7-6.1); White Blood Count 9.81 K/uL (4.8-10.8)
[2021-10-03 08:47] LABS: BUN Creatinine Ratio 24.8 (10-20); Calcium 10.9 mg/dl (8.5-10.1); Est GFR (African American) 61.8 ml/min; Est GFR (Non-African American) 53.3 ml/min; Magnesium 1.6 mg/dl (1.7-2.4); Potassium 3.7 mmol/L (3.5-5.1)
[2021-10-03] MEDS ORDERED: MAGNESIUM SULFATE / D5W 1 GM/100 ML BAG IV ONE (08:56)
--- NOTE | 2021-10-03 08:59 | Hospitalist Progress Note ---
Date of Service October 03, 2021 Assessment & Plan (1) Cervical stenosis of spine: Plan: This is an 81-year-old male who presents with severe neck pain and also right upper extremity pain. 1. Cervical stenosis, severe neck pain radiating to the right upper extremity. MRI scan showed metastatic lesions also severe stenosis, failed outpatient treatment with steroid shots, pain control. Surgery as per Orthopedics. The patient was complaining of some chest discomfort, so EKG and troponin and echo obtained, Cardiology consulted for preoperative clearance though chest pain mostly looks like musculoskeletal, but patient has history of coronary artery disease. Echo -LV is normal in size. LV systolic function is normal. EF 55 to 60%. RV systolic function is normal. LA size is normal. RA size is normal. Aortic valve sclerosis mild, without significant aortic valvular stenosis. There is mild mitral regurg. EKG -sinus rhythm with an old left bundle branch block Per cardiology, By the geriatric risk assessment tool this patient's risk for this procedure is 0.2% however, given the patient's other noncardiac medical problems his risk may be higher. No additional cardiac testing will change this risk assessment. From a cardiac standpoint the patient is currently optimally medically managed and may proceed to surgery. Pt is now s/p C5 anterior corpectomy w/ Dr. Whitt (10/01) Patient tolerated procedure well Neck and right upper extremity pain resolved, patient continues to have some numbness and tingling in his hand In addition, there were areas of suspicion for metastasis on his cervical MRI and particularly at C2-C3. Obtained MRI of the thoracic and lumbar spine to evaluate the entire spinal column. Findings as below: Thoracic spine MRI IMPRESSION: Multiple enhancing foci of marrow replacement within the thoracic spine consistent with metastatic disease. No pathologic fracture. No epidural extension of tumor. Lumbar spine MRI IMPRESSION: 1. Interval development of multiple enhancing foci of marrow replacement within the lower thoracic, lumbar spine, sacrum and visualized portions of the pelvis and hips since MRI of October 11, 2018. These foci are consistent with metastatic disease. No pathologic fracture. No epidural extension. 2. Two tiny enhancing intradural extramedullary lesions within the lumbar canal. In retrospect, these were likely present on prior MRI and and unlikely to represent metastatic disease. 3. No central canal stenosis. Mild multilevel neural foraminal stenosis. Will need further work-up through his PCP and urologist. He is currently being treated for bladder cancer with Dr. Benson Schulz in [place]. Pt may need prompt oncology/ radiation oncology eval. and treatment. Acute blood loss anemia/ post-op vs. dilutional pre-op Hgb 13.7, current Hgb 11.5, no need for blood transfusion (unchanged from yesterday) - expected - monitor H&H Hypomagnesemia - goal Mg >2, replete and monitor 2. History of coronary artery disease. Continue his home medication of me toprolol, isosorbide mononitrate, statin. The patient not on any aspirin currently. 3. History of pancytopenia seems at baseline hemoglobin of 12. Platelets around 100, WBC baseline of 4. Follow up with Heme/Onc.Will follow labs. 4. History of thyroid cancer, status post thyroidectomy in 2001. Continue levothyroxine. 5. History of hyperlipidemia. Continue statin. 6. Hypertension. On metoprolol, amlodipine, losartan. We will monitor the labs. 7. Chronic kidney disease stage III baseline creatinine 1.8. We will follow the labs. 8. 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 Followup with Urology. Currently on BCG treatments. Metastases noted on patient spine, MRI as above. Patient will need further pro mpt follow-up. 9. Sleep apnea on CPAP at bedtime. 10. Prediabetes. Current HbA1c 5.8%. Diabetic diet. DVT prophylaxis per orthopedics DISPOSITION: as per ortho, plan to DC home today Admission and Anticipated Discharge Date Admission Date: September 30, 2021 Subjective Patient seen in follow-up of neck pain, right upper extremity pain He is s/p cervical spinal surgery, anterior corpectomy w/ Dr. Whitt Tolerated procedure well Reports that his neck pain resolved, and also RUE pain resolved, continues to have some numbness and tingling Patient denies any fevers, chills, chest pain, shortness of breath, abdominal, nausea vomiting Review of Systems Review of Systems: All systems reviewed & are unremarkable except as noted in Subjective Physical Exam Physical Exam: GENERAL:Elderly M,, not in acute distress. HEENT: NC/AT, Extraocular muscles intact. Atraumatic. Oral mucosa moist. NECK: + drain w/ serosang. fluid CARDIOVASCULAR: S1 and S2 heard. Regular rate and rhythm. No murmur, no gallop. RESPIRATORY: Normal AP diameter. No accessory muscle use. No wheezing, no crackles. ABDOMEN: Soft. Bowel sounds are present, nontender, no distention. NEURO:Alert oriented, answers questions appropriately, hard of hearing, no facial asymmetry, speech fluent, moves extremities EXTREMITIES: moves extremities Results & Data Results & Data ([facility]) Vital Signs (Past 12 Hours) Vital Signs Temp Pulse Pulse Pulse Resp BP Pulse Ox 10/03/21 08:03 36.8 C 61 16 180/70 H 97 10/03/21 07:37 68 16 98 10/03/21 06:17 166/79 H 10/03/21 03:58 36.8 C 61 18 176/77 H 94 10/03/21 03:43 66 23 94 10/03/21 03:41 23 94 10/03/21 00:05 36.4 C L 75 18 146/68 H 95 10/02/21 22:02 73 26 H 93 10/02/21 21:56 74 28 H 93 Laboratory Results 10/03/21 10/03/21 Range/Units 07:38 07:38 WBC 9.81 (4.8-10.8) K/uL RBC 4.03 L (4.7-6.1) M/uL Hgb 11.5 L (14.0-18.0) g/dL Hct 33.3 L (42-52) % MCV 82.6 (80-100) fL MCH 28.5 (25-34) pg MCHC 34.5 (32-36) g/dL RDW Std Deviation 43.0 (36.4-46.3) fL RDW Coeff of Leonel 14.1 (11.5-14.5) % Plt Count 130 (130-400) K/uL MPV 9.3 (7.4-10.4) fL Sodium 136 (136-145) mmol/L Potassium 3.7 (3.5-5.1) mmol/L Chloride 102 (98-107) mmol/L Carbon Dioxide 30 (21-32) mmol/L Anion Gap 4 (3-11) BUN 31 H (6-23) mg/dl Creatinine 1.25 (0.6-1.4) mg/dl Est Cr Clr Drug Dosing 39.0 ml/min Est GFR ( Amer) 61.8 ml/min Est GFR (Non-Af Amer) 53.3 ml/min BUN/Creatinine Ratio 24.8 H (10-20) Glucose 136 H (70-99(Fasting)) mg/dl Calcium 10.9 H (8.5-10.1) mg/dl Phosphorus 3.0 D (2.5-4.9) mg/dl Magnesium 1.6 L (1.7-2.4) mg/dl Medications Administered Current Inpatient Medications Acetaminophen (Acetaminophen 500 Mg Tab) 1,000 mg PO Q8H PRN PRN Reason: MILD Pain Scale 1,2,3 & Pre PT Stop: 10/31/21 15:45 Al Hydrox/Mg Hydrox/Simethicone (Aluminum/Magnesium Susp 30 Ml Udc) 30 ml PO Q6H PRN PRN Reason: Dyspepsia Stop: 10/31/21 15:45 Amlodipine Besylate (Amlodipine Besylate 5 Mg Tab) 10 mg PO DAILY MARIYA Stop: 10/31/21 08:59 Last Admin: 10/02/21 08:23 Dose: 10 mg Documented by: Atorvastatin Calcium (Atorvastatin 10 Mg Tab) 10 mg PO DAILY MARIYA Stop: 10/31/21 08:59 Last Admin: 10/02/21 08:25 Dose: 10 mg Documented by: Bisacodyl (Bisacodyl 10 Mg Supp) 10 mg DE DAILY PRN PRN Reason: Constipation Stop: 10/31/21 15:45 Cyanocobalamin (Cyanocobalamin (B-12) 500 Mcg Tablet) 1,000 mcg PO DAILY MARIYA Stop: 10/31/21 08:59 Last Admin: 10/02/21 08:24 Dose: 1,000 mcg Documented by: Diphenhydramine HCl (Diphenhydramine Capsule 25 Mg Cap) 25 mg PO Q6H PRN PRN Reason: Allergic Rhinitis/Insomnia Stop: 10/31/21 15:45 Epinephrine (Racepinephrine 2.25% Nebu Soln 0.5 Ml Vial) 0.5 ml INH NOW PRN PRN Reason: If stridor present Famotidine (Famotidine 20 Mg Tab) 20 mg PO Q12H PRN PRN Reason: Dyspepsia Stop: 10/31/21 15:45 Hydromorphone HCl (Hydromorphone Inj 0.5 Mg/0.5 Ml Syr) 0.5 mg IV Q3H PRN PRN Reason: MOD pain (scale 4-6) & Pre PT Stop: 10/15/21 15:45 Hydromorphone HCl (Hydromorphone Inj 1 Mg/Ml Syringe) 1 mg IV Q3H PRN PRN Reason: severe pain (scale 7-10) Stop: 10/15/21 15:45 Hydroxyzine HCl (Hydroxyzine Hcl 25 Mg Tab) 25 mg PO Q8H PRN PRN Reason: Anxiety Stop: 10/30/21 19:55 Hydroxyzine HCl (Hydroxyzine Hcl 25 Mg Tab) 25 mg PO Q8H PRN PRN Reason: Anxiety Stop: 10/31/21 15:45 Lactated Ringer's (Lr) 1,000 mls @ 100 mls/hr IV .Q10H [facility] Stop: 10/31/21 15:45 Last Admin: 10/02/21 13:11 Dose: Not Given Documented by: Promethazine HCl 12.5 mg/ (Sodium Chloride) 50.5 mls @ 202 mls/hr IV Q6H PRN PRN Reason: Nausea &/or Vomiting Stop: 10/31/21 15:45 Acetaminophen (Ofirmev) 1,000 mg in 100 mls @ 400 mls/hr IV Q8H PRN PRN Reason: Pain Rating 1-3 & Pre PT Stop: 10/04/21 15:45 Magnesium Sulfate/Dextrose (Magnesium Sulfate / D5w) 1 gm in 100 mls @ 50 mls/hr IV ONE ONE Stop: 10/03/21 10:55 Influenza Virus Vaccine Quadrival (Do Not Administer Flu Vaccine) 1 ea N/A PRN PRN PRN Reason: Notification Stop: 10/31/21 15:45 Isosorbide Mononitrate (Isosorbide [place] Extended Rel 60 Mg Tabcr) 60 mg PO DAILY [facility] Stop: 10/31/21 08:59 Last Admin: 10/02/21 08:23 Dose: 60 mg Documented by: Levothyroxine Sodium (Levothyroxine Sodium 125 Mcg Tablet) 125 mcg PO SuTuWeThFrSa@30 [facility] Stop: 10/31/21 06:29 Last Admin: 10/03/21 06:14 Dose: 125 mcg Documented by: Levothyroxine Sodium (Levothyroxine Sodium 125 Mcg Tablet) 62.5 mcg PO Mo@30 [facility] Stop: 11/04/21 06:29 Lorazepam (Lorazepam 0.5 Mg Tab) 0.5 mg PO Q8H PRN PRN Reason: Sedation/Anxiety Stop: 10/31/21 15:45 Lorazepam (Lorazepam 2 Mg/1 Ml Vial) 0.5 mg IV Q8H PRN PRN Reason: Sedation/Anxiety Stop: 10/31/21 15:45 Losartan Potassium (Losartan Potassium 50 Mg Tab) 100 mg PO DAILY [facility] Stop: 10/31/21 08:59 Last Admin: 10/02/21 08:24 Dose: 100 mg Documented by: Magnesium Hydroxide (Magnesium Hydroxide Susp 30 Ml Udc) 30 ml PO Q24H PRN PRN Reason: Constipation Stop: 10/31/21 15:45 Metoclopramide HCl (Metoclopramide Hcl Inj 5 Mg/Ml 2 Ml Vial) 10 mg IV Q6H PRN PRN Reason: Nausea &/or Vomiting Stop: 10/31/21 15:45 Metoprolol Tartrate (Metoprolol Tartrate 50 Mg Tab) 50 mg PO BID [facility] Stop: 10/30/21 20:59 Last Admin: 10/02/21 20:47 Dose: 50 mg Documented by: Naloxone HCl (Naloxone Hcl 0.4 Mg/1 Ml Vial/Carp) 0.1 mg IV Q5M PRN PRN Reason: Oversedation/Resp depression Stop: 10/31/21 15:45 Nitroglycerin (Nitroglycerin Sl 0.4 Mg/Tab Tab) 0.4 mg SL UD PRN PRN Reason: Chest Pain Stop: 10/30/21 19:55 Nortriptyline HCl (Nortriptyline Hcl 25 Mg Cap) 25 mg PO HS [facility] Stop: 10/30/21 20:59 Last Admin: 10/02/21 20:46 Dose: 25 mg Documented by: Ondansetron HCl (Ondansetron Inj 2 Mg/Ml 2 Ml Vial) 4 mg IV Q6H PRN PRN Reason: Nausea &/or Vomiting Stop: 10/31/21 15:45 Ondansetron HCl (Ondansetron 4 Mg Od Tab) 4 mg PO Q6H PRN PRN Reason: Nausea Stop: 10/31/21 15:45 Oxybutynin Chloride (Oxybutynin Chloride Xl 5 Mg Tabcr) 5 mg PO DAILY [facility] Stop: 10/31/21 08:59 Last Admin: 10/02/21 08:24 Dose: 5 mg Documented by: Oxycodone HCl (Oxycodone Hcl Ir 5 Mg Tab (Immediate Release)) 5 - 10 mg PO Q4H PRN PRN Reason: Pain & Pre PT Stop: 10/15/21 15:45 Pneumococcal Polyvalent Vaccine (Do Not Administer Pneumococcal Vaccine) 1 ea N/A PRN PRN PRN Reason: Notification Stop: 10/31/21 15:45 Polyethylene Glycol (Polyethylene (Miralax) 17 Gm Pack) 17 gm PO Q6 [facility]IYA Stop: 11/01/21 05:59 Last Admin: 10/03/21 06:13 Dose: 17 gm Documented by: Potassium Chloride (Potassium Chloride Crtab 20 Meq Tabcr) 20 meq PO BID MARIYA Stop: 10/30/21 20:59 Last Admin: 10/02/21 20:45 Dose: 20 meq Documented by: Pyridoxine HCl (Pyridoxine Hcl 50 Mg Tab) 100 mg PO DAILY MARIYA Stop: 10/31/21 08:59 Last Admin: 10/02/21 08:25 Dose: 100 mg Documented by: Senna/Docusate Sodium (Docusate Sodium/Senna 50/8.6mg Tab) 2 tab PO HS MARIYA Stop: 10/31/21 20:59 Last Admin: 10/02/21 20:46 Dose: 2 tab Documented by: Sodium Biphosphate/Sodium Phosphate (Sod Phosphate/Sod Biphosphate Enema 132 Ml Btl) 132 ml DE ONE PRN PRN Reason: Constipation Stop: 10/31/21 15:45 Tamsulosin HCl (Tamsulosin Hcl 0.4 Mg Cap) 0.4 mg PO DAILY MARIYA Stop: 10/31/21 08:59 Last Admin: 10/02/21 08:25 Dose: 0.4 mg Documented by: Tramadol HCl (Tramadol Hcl 50 Mg Tablet) 50 - 100 mg PO Q4H PRN PRN Reason: Moderate-Severe pain & Pre PT Stop: 10/31/21 15:45
[2021-10-03] MEDS: METOPROLOL TARTRATE 50 MG TAB PO SCH (09:30)
[2021-10-03] MEDS: CYANOCOBALAMIN (B-12) 500 MCG TABLET PO SCH (09:30)
[2021-10-03] MEDS: POTASSIUM CHLORIDE CRTAB 20 MEQ TABCR PO SCH (09:30)
[2021-10-03] MEDS: LOSARTAN POTASSIUM 50 MG TAB PO SCH (09:31)
[2021-10-03] MEDS: OXYBUTYNIN CHLORIDE XL 5 MG TABCR PO SCH (09:31)
[2021-10-03] MEDS: ISOSORBIDE MONO EXTENDED REL 60 MG TABCR PO SCH (09:32)
[2021-10-03] MEDS: PYRIDOXINE HCL 50 MG TAB PO SCH (09:32)
[2021-10-03] MEDS: TAMSULOSIN HCL 0.4 MG CAP PO SCH (09:32)
[2021-10-03] MEDS: amLODIPine BESYLATE 5 MG TAB PO SCH (09:33)
[2021-10-03] MEDS: ATORVASTATIN 10 MG TAB PO SCH (09:33)
--- NOTE | 2021-10-03 11:13 | Discharge Summary ---
Date of Service October 03, 2021 Admission HPI Per Admitting Provider Is a very pleasant 81-year-old gentleman who has had symptoms starting roughly 1 month ago affecting the right upper extremity including pain and numbness into all 5 fingers. He reports it is weak as well. Left upper extremity is asymptomatic. He is right-hand dominant. He lives at home with his . Ambulates independently. Denies any changes in balance. Currently has bladder cancer which is managed by Dr. Benson Schulz. There appears to be new concern on cervical MRI for metastatic disease to this area. He reports a treatment several weeks ago in the form of some type of washout for his bladder cancer.He had his cervical epidural injection performed by Dr. Washburn earlier this week. He reports no improvement. Principal Diagnosis Cervical spinal stenosis with myeloradiculopathy Discharge Data Allergies Allergy/AdvReac Type Severity Reaction Status Date / Time naloxone Allergy Unknown unkn Verified 09/30/21 14:01 pentazocine Allergy Unknown Verified 09/30/21 14:01 Consultations 09/30/21 19:56 Consult Anesthesiology Routine Consult Internal Medicine Routine 10/01/21 08:00 Consult Cardiology Routine 10/03/21 10:29 Burn CD for patient Stat Procedures Performed Operation Date: 10/01/21 12:30 Actual Procedures p C5 Anterior Corpectomy(Not Applicable) - Jesus Whitt, Ordered Studies 09/30/21 19:56 MR cervical spine wo con Urgent 10/01/21 07:00 FL spine 1V any level Routine 10/02/21 12:04 MR lumbar spine wo/w con Routine MR thoracic spine wo/w con Routine Hospital Course (1) Cervical stenosis of spine: Patient was admitted with severe cervical myelo radiculopathy. He underwent surgery the following day. Tolerated so was taken to orthopedic for postoperative. Postop day #1 his right arm symptoms are markedly improved regarding pain. He still significant strength deficits and numbness. Left extremity is asymptomatic. Swallowing well. No hoarseness. I did obtain MRIs of the thoracic and lumbar spine to rule out further metastasis. These were obtained and reviewed with the patient. He will be discharged home today. He has his films with him and will follow-up next week with his PCP and neurologist. Follow-up in the office in 2 weeks as scheduled. Total Time Total Time Spent Total Time Spent (In Minutes): 20 minutes Discharge Plan Discharge Items Patient Disposition: Home - Self-Care Reason For Visit: SURGERY Discharge Diagnosis: Cervical myelopathy with radiculopathy Activity: As commented below Non-emergency contact: Primary Care Provider Call non-emergency contact if: you have any medication questions Follow-up/Referrals: Alycia Payne DO [Primary Care Provider] - Diet: Regular Addtl Attending Provider Instructions: ACTIVITY RECOMMENDATIONS: SELF CARE INSTRUCTIONS AFTER CERVICAL FUSIONS 1. No smoking. Smoking drastically decreases the chance of a solid fusion. 2. No bending, lifting more than 5 pounds, or twisting (roll like a log when turning in bed). 3. You may shower 3 days after surgery. Thoroughly dry wound. Do not soak in the tub. 4. Cervical collar: Must be worn at all times including sleeping. You may remove the brace only to bath, eat and if you are sitting in a recliner. 5. Please walk as much as you can for exercise. Gradually increase the distance that you walk as your endurance increases. SPECIAL CARE INSTRUCTIONS: VERY IMPORTANT TO READ AND REVIEW A. Do not take any anti-inflammatory medications (i.e. Indocin, Advil, Aspirin, Naprosyn, Aleve, Motrin, etc.) as these may inhibit the chance of a solid fusion. Tylenol is okay to take. B. Your surgical incision has been closed with a cosmetic suture under the skin that will dissolve in about 6 weeks. In 14 days, you can use a pair of clean scissors and cut the suture that is left outside of the skin at the ends of your incision. C. Complications are uncommon, but please contact us if you have any signs or symptoms of: 1. wound infection (fever higher than 102.5 degrees F, redness, separation of wound, drainage, or increasing pain from the incision) 2. blood clots in legs (pain, swelling, redness and warmth in legs) 3. urinary tract infection (fever higher than 102.5 degrees, burning upon urination or increased frequency of urination) 4. nerve problems (inability to walk on your toes or heels, numbness, loss of bowel or bladder control) 5. any other symptoms that concern you. D. Please call the office at if you have any concerns or questions about your operation or recovery. MANAGING PAIN AFTER SPINAL SURGERY 1. Narcotic medication is intended for short-term use and will be provided for surgical pain. Surgical pain usually lasts for a period of 4-6 weeks. Narcotic medication includes Percocet, Vicodin, Darvocet, Tylenol #3 or Lortab. 2. Longer-term pain is more appropriately treated with non-narcotic medication such as Tylenol ES. 3. Muscle spasm is not appropriately treated with narcotics. Muscle relaxers such as Soma, Flexeril or Skelaxin can be used along with Tylenol ES. 4. Remember that we all live with some "aches and pains". This is not unusual or uncommon after an injury or as we get older. 5. We will provide appropriate medication within the normal guidelines of their prescribed use. We will also be very cautious and aware of potential abuse and extended duration of patients' medication needs. 6. Please allow 2-3 days to process refills. Prescriptions will not be mailed but must be picked up at the office. FOLLOW UP VISIT: Keep your scheduled follow-up appointment. Any questions, please call the office at . Pending Studies at Discharge: No Stand-Alone Forms: My [facility], Smoking Cessation Medications and DC Order Prescriptions: New oxycodone 5 mg tablet 5 mg PO Q6H PRN (Reason: pain, severe) Qty: 20 RF: 0 tramadol 50 mg tablet 50 mg PO Q6H PRN (Reason: pain, moderate) Qty: 20 RF: 0 Continued mecobalamin (vitamin B12) 1,000 mcg tablet,chewable 1,000 mcg PO QAM RF: 0 coenzyme Q10 200 mg capsule 200 mg PO QAM RF: 0 losartan 50 mg tablet 100 mg PO QAM RF: 0 metoprolol tartrate 100 mg tablet 50 mg PO BID RF: 0 isosorbide mononitrate 60 mg tablet extended release 24 hr 60 mg PO QAM RF: 0 potassium chloride 20 mEq tablet,ER particles/crystals 20 meq PO BID RF: 0 tamsulosin 0.4 mg capsule 0.4 mg PO QAM RF: 0 amlodipine 10 mg tablet 10 mg PO QAM RF: 0 levothyroxine [Levoxyl] 125 mcg tablet See Rx Instructions .ROUTE .COMPLEX RF: 0 nitroglycerin [Nitrostat] 0.4 mg Tablet, Sublingual 0.4 mg sublingual DIRECTED MDD 3 DOSES, 5 MIN APART PRN (Reason: Chest Pain) RF: 0 atorvastatin 10 mg Tablet 10 mg PO QAM RF: 0 furosemide 20 mg Tablet 20 mg PO 5XWK RF: 0 pyridoxine (vitamin B6) 100 mg Tablet 100 mg PO QAM RF: 0 oxybutynin chloride [Ditropan XL] 5 mg tablet extended release 24 hr 5 mg PO DAILY RF: 0 Discharge Orders: Discharge Order (Routine); Ordered 10/03/21 Ordered By: Jesus Whitt Admission Data Admit Date/Time: 09/30/21 13:39 Attending Provider: Jesus Whitt Admit Provider: Jesus Whitt Primary Care Provider: Alycia Payne Other Providers: Yuan Marie ; Errol Macias ; Graciela Alcaraz ; Emerson Royal ; Maurice Chavira ; Viktor Alonzo ; Eugene Blanton ; Migue Andrews ; Tristan Vail ; Charissa Quinones ; Kiki Jones ; Christy Young ; Louie Carlson
[2021-10-05] MEDS ORDERED: LEVOTHYROXINE SODIUM 125 MCG TABLET PO SCH (06:30)
== END 2021-10-03 14:00 | disposition home or self-care (01) | DRG 472 ==
LOC: ED 12:58 → 3E 13:39

== ENCOUNTER 2021-10-08 19:56 | Inpatient (IN) ==
[2021-10-08] MEDS ORDERED: ACETAMINOPHEN 500 MG TAB PO STA (20:34)
[2021-10-08] MEDS ORDERED: SODIUM CHLORIDE 0.9% 1000ML 1,000 ML IV ONE (20:34)
--- NOTE | 2021-10-08 20:49 | Emergency Department Note ---
Impression & Plan Hypercalcemia, Generalized weakness, Acute dehydration ED Provider Note Name: VAN EDWARDS Jr Age: 81 Sex: M Arrives Via: Ambulance Informant: Patient, son, surgeon ED Provider: Tin Adams MD Chief Complaint: Weakness Impression: As per impression above Medical Decision Makin-year-old gentleman arrives for evaluation of generalized weakness fatigue and inability to ambulate. He is mildly encephalopathic though answers questions and is more on the exhausted side. Patient did have cervical fusion a few days ago and incision appears to be healing well with no evidence of significant swelling or infection at this time. Given patient's mental status in the setting of mild hypoxia and mild elevated temp though not febrile I did feel it was reasonable to do a septic work-up and blood cultures/lactate obtained along with extensive other testing. Patient does have a history of bladder cancer possible mets to bones. He appears quite dehydrated was given IV fluids with vast improvement in his mental status and him looking much better. His laboratory work-up reveals severe hypercalcemia. He is not in acute renal failure nor other concerning findings. He was given further fluids and hospitalist consulted for further evaluation I did discuss the case with his spinal surgeon to make him aware and on board with plan for hospitalization on hospitalist service. Prior Medical Record and Triage/Nursing Notes reviewed by Me Additional history obtained from chart Differentials:Infection, dehydration, metabolic abnormality, hypo/hyperglycemia, electrolyte disturbance, anemia, hypoxia, cardiac sources, intracerebral event, toxicologic, neurologic, as well as other pathologies. Vital Signs: reviewed and remarkable for hypoxia, mildly elevated temperature Interventions: Normal saline bolus Labs:Reviewed and remarkable for hypercalcemia Imagin view chest x-ray no acute finding EKG:Per My Interpretation: Indication weakness: Sinus with 1st av block and LBBB at 73 bpm, qtc 429. No Ectopy. No Ischemia. Compared to EKG 09/30/21, no significant changes. Consults:Dr Whitt Spinal Surgery, Dr Nick De Los Santos Hospitalist Plan: Disposition:Hospitalization. Condition: Fair History of Present Illness: 81-year-old gentleman arrives for evaluation of weakness. Patient notes that he had anterior cervical fusion 1 week ago. Over the last few days worsening weakness and fatigue. He has not been eating due to lack of appetite. Increasing confusion. No specific pain though is using his pain medications for his neck surgery. He denies any trouble swallowing. Son denies any cough or shortness of breath reported. He has had no recent abdominal pain or back pain. Patient has not no falls or injuries. He is too weak to get up and walk now. It is prior to arrival. No fevers measured at home. Nothing makes this better or any exertion makes it worse. ROS: See above HPI for pertinent positives & negatives. A total of 10 systems reviewed and were otherwise negative. Past Medical History:See Below Past Surgical History:See Below Family History:See Below Social History:See Below Home Medications:See Below Allergies:See Below Vitals:Blood Pressure: 161/78, Pulse 78, RR 16, T 37.6C, O2 88% on RA Physical Exam: GENERAL: Patient is tired/dehydrated appearing and in mild distress. Cachectic EYES: No scleral icterus, unremarkable pupils. ENT: Mucous membranes dry, no nasal congestion. NECK: Cervical Collar, anterior right incision healing well no fluctuance RESPIRATORY: No dyspnea. Clear to auscultation and equal bilaterally. No wheeze, no rhonchi. CARDIOVASCULAR: Regular rate and rhythm.No murmurs, rubs, gallops appreciated. GASTROINTESTINAL: Abdomen soft, non-tender, no peritonitis.Bowel sounds positive.No masses appreciated. BACK: No midline tenderness, no CVA tenderness EXTREMITIES: Normal motion all extremities, no cyanosis, no edema. NEUROLOGIC: Alert and oriented, no acute motor or sensory deficits, no focal weakness, cranial nerves grossly intact. SKIN: No rash, no jaundice, no diaphoresis. PSYCH: Appropriate GCS: 15 ED Course: Times/Reassessments: Patient appeared vastly improved with normal saline bolus is interactive and in no distress. He is comfortable for hospitalization. 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 Upper extremity weakness Surgical History History of cystoscopy History of heart artery stent LAD History of thyroidectomy Status post cataract extraction of both eyes with insertion of intraocular lens Family History Brother FH: brain cancer Other Coronary heart disease Social History Smoking Status: Former smoker Second Hand Exposure: No; Do You Dip or Chew Tobacco: No; Hx Alcohol Use: Yes Alcohol type: beer Hx Substance Use: No Preferred Language: Sami Communication Ability: Effective Client Architect Required: No Beliefs That Will Affect Care: None marital status: Current Living Situation: Spouse Other Information That Helps Us Care for You: No Feels Safe at Home: Yes Safety Concerns: Feels Safe At This Time Assistive Devices: Glasses and Hearing Aid - Bilateral Allergies Allergies Allergy/AdvReac Type Severity Reaction Status Date / Time naloxone Allergy Unknown unkn Verified 09/30/21 14:01 pentazocine Allergy Unknown Verified 09/30/21 14:01 Home Meds Home Medications Medication Instructions Recorded Confirmed amlodipine 10 mg tablet 10 mg PO QAM 10/11/18 09/30/21 isosorbide mononitrate 60 mg 60 mg PO QAM 10/11/18 09/30/21 tablet,extended release 24 hr levothyroxine 125 mcg tablet See Rx Instructions .ROUTE .COMPLEX 10/11/18 09/30/21 (Levoxyl) losartan 50 mg tablet 100 mg PO QAM 10/11/18 09/30/21 metoprolol tartrate 100 mg tablet 50 mg PO BID 10/11/18 09/30/21 nitroglycerin 0.4 mg sublingual 0.4 mg SUBLINGUAL DIRECTED PRN 10/11/18 09/30/21 tablet (Nitrostat) MDD 3 DOSES, 5 MIN APART potassium chloride 20 mEq 20 meq PO BID 10/11/18 09/30/21 tablet,extended release(part/cryst) tamsulosin 0.4 mg capsule 0.4 mg PO QAM 10/11/18 09/30/21 atorvastatin 10 mg tablet 10 mg PO QAM 03/04/21 09/30/21 furosemide 20 mg tablet 20 mg PO [id number] 03/04/21 09/30/21 pyridoxine (vitamin B6) 100 mg 100 mg PO QAM 03/04/21 09/30/21 tablet coenzyme Q10 200 mg capsule 200 mg PO QAM 08/07/21 09/30/21 mecobalamin (vitamin B12) 1,000 1,000 mcg PO QAM 08/07/21 09/30/21 mcg chewable tablet oxybutynin chloride 5 mg 5 mg PO DAILY 09/30/21 09/30/21 tablet,extended release 24 hr (Ditropan XL) Previous Rx's Medication Instructions Recorded oxycodone 5 mg tablet 5 mg PO Q6H PRN #20 tab 10/03/21 tramadol 50 mg tablet 50 mg PO Q6H PRN #20 tab 10/03/21 Results & Data (ED) Vital Signs Vital Signs - 24 hr 10/08/21 20:05 10/08/21 21:18 10/08/21 22:49 Temperature 37.6 C H Temperature Source Oral Pulse Rate 78 71 Pulse Rate from SpO2 Sensor 72 Pulse Rhythm Regular Respiratory Rate 16 20 Respiratory Effort / Characteristics Non-Labored Respiratory Depth Normal Blood Pressure 161/78 H Blood Pressure Mean 105 Pulse Oximetry 91 99 99 Oxygen Delivery Method Room Air Nasal Cannula Oxygen Flow Rate 2 Sepsis Recent Fever Within 48 Hours No Sepsis New/Unexplained Change in Mental Status No Sepsis Action Taken by Nursing No Action Required 10/08/21 22:50 10/08/21 23:00 10/08/21 23:10 Temperature Temperature Source Pulse Rate 76 69 75 Pulse Rate from SpO2 Sensor 75 69 76 Pulse Rhythm Respiratory Rate 22 19 22 Respiratory Effort / Characteristics Respiratory Depth Blood Pressure 169/86 H Blood Pressure Mean 113 Pulse Oximetry 99 99 99 Oxygen Delivery Method Oxygen Flow Rate Sepsis Recent Fever Within 48 Hours Sepsis New/Unexplained Change in Mental Status Sepsis Action Taken by Nursing 10/08/21 23:20 10/08/21 23:30 10/08/21 23:40 Temperature Temperature Source Pulse Rate 71 89 87 Pulse Rate from SpO2 Sensor 71 90 Pulse Rhythm Respiratory Rate 19 26 H 15 Respiratory Effort / Characteristics Respiratory Depth Blood Pressure Blood Pressure Mean Pulse Oximetry 99 97 Oxygen Delivery Method Oxygen Flow Rate Sepsis Recent Fever Within 48 Hours Sepsis New/Unexplained Change in Mental Status Sepsis Action Taken by Nursing 10/08/21 23:50 10/09/21 00:00 10/09/21 00:10 Temperature Temperature Source Pulse Rate 70 68 67 Pulse Rate from SpO2 Sensor 70 70 66 Pulse Rhythm Respiratory Rate 20 20 19 Respiratory Effort / Characteristics Respiratory Depth Blood Pressure 144/87 H Blood Pressure Mean 106 Pulse Oximetry 98 98 98 Oxygen Delivery Method Oxygen Flow Rate Sepsis Recent Fever Within 48 Hours Sepsis New/Unexplained Change in Mental Status Sepsis Action Taken by Nursing 10/09/21 00:20 10/09/21 00:24 Temperature Temperature Source Pulse Rate 71 Pulse Rate from SpO2 Sensor 73 Pulse Rhythm Respiratory Rate 21 Respiratory Effort / Characteristics Non-Labored Respiratory Depth Normal Blood Pressure Blood Pressure Mean Pulse Oximetry 98 99 Oxygen Delivery Method Nasal Cannula Oxygen Flow Rate 2 Sepsis Recent Fever Within 48 Hours Sepsis New/Unexplained Change in Mental Status Sepsis Action Taken by Nursing Laboratory Data Result diagrams: 10/09/21 02:00 10/09/21 07:46 Lab Results 10/08/21 10/08/21 10/08/21 Range/Units 20:07 20:07 20:07 WBC 9.50 (4.8-10.8) K/uL RBC 4.49 L (4.7-6.1) M/uL Hgb 13.2 L (14.0-18.0) g/dL Hct 38.2 L (42-52) % MCV 85.1 (80-100) fL MCH 29.4 (25-34) pg MCHC 34.6 (32-36) g/dL RDW Std Deviation 45.1 (36.4-46.3) fL RDW Coeff of Leonel 14.5 (11.5-14.5) % Plt Count 96 L (130-400) K/uL MPV 9.6 (7.4-10.4) fL Immature Gran % (Auto) 1.1 % Neut % (Auto) 68.9 % Lymph % (Auto) 14.2 % Griggs % (Auto) 13.3 % Eos % (Auto) 2.4 % Baso % (Auto) 0.1 % Neut # (Auto) 6.55 H (1.4-6.5) K/uL Lymph # (Auto) 1.35 (1.2-3.4) K/uL Griggs # (Auto) 1.26 H (0.11-0.59) K/uL Eos # (Auto) 0.23 (0-0.5) K/uL Baso # (Auto) 0.01 (0-0.2) K/uL Immature Gran # (Auto) 0.10 H (0.00-0.02) K/uL Platelet Estimate Decreased L (Normal) APTT PTT Ratio Sodium 141 (136-145) mmol/L Potassium 3.7 (3.5-5.1) mmol/L Chloride 98 (98-107) mmol/L Carbon Dioxide 39 H (21-32) mmol/L Anion Gap 4 (3-11) BUN 42 H (6-23) mg/dl Creatinine 2.19 H (0.6-1.4) mg/dl Est Cr Clr Drug Dosing 22.6 ml/min Est GFR ( Amer) 31.3 ml/min Est GFR (Non-Af Amer) 27.0 ml/min BUN/Creatinine Ratio 19.2 (10-20) Glucose 115 H (70-99(Fasting)) mg/dl Lactate (0.4-2.0) mmol/L Calcium > 18.0 H* (8.5-10.1) mg/dl Ionized Calcium (1.12-1.32) mmol/L Phosphorus (2.5-4.9) mg/dl Magnesium 1.4 L (1.7-2.4) mg/dl Total Bilirubin 1.0 (0.2-1.0) mg/dl Direct Bilirubin 0.2 (0-0.2) mg/dl AST 25 (13-39) U/L ALT 13 (7-52) U/L Alkaline Phosphatase 59 (34-104) U/L Total Creatine Kinase (30-223) U/L Troponin I High Sens 35.0 H D (0-20) pg/ml Total Protein 7.4 (6.0-8.3) gm/dl Albumin 3.6 (3.4-5.0) gm/dl Procalcitonin < 0.05 (0-0.5) ng/ml TSH (0.300-4.500) uIu/ml PTH Intact (12.0-88.0) pg/ml Urine Color Urine Appearance (Clear) Urine pH (4.5-7.5) Ur Specific [place] (1.000-1.030) Urine Protein (Negative) Urine Glucose (UA) (Negative) Urine Ketones (Negative) Urine Blood (Negative) Urine Nitrite (Negative) Urine Bilirubin (Negative) Urine Urobilinogen (Negative) Ur Leukocyte Esterase (Negative) Urine WBC (Auto) (0-5) /hpf Urine RBC (Auto) (0-4) /hpf U Hyaline Cast (Auto) (0-5) /lpf U Epithel Cells (Auto) (0-5) /lpf Urine Bacteria (Auto) (Negative) SARS-CoV-2 (PCR) (Negative) Influenza Type A (PCR) (Neg) Influenza Type B (PCR) (Neg) RSV (RT-PCR) (Neg) 10/08/21 10/08/21 10/08/21 Range/Units 20:07 20:58 21:20 WBC (4.8-10.8) K/uL RBC (4.7-6.1) M/uL Hgb (14.0-18.0) g/dL Hct (42-52) % MCV (80-100) fL MCH (25-34) pg MCHC (32-36) g/dL RDW Std Deviation (36.4-46.3) fL RDW Coeff of Leonel (11.5-14.5) % Plt Count (130-400) K/uL MPV (7.4-10.4) fL Immature Gran % (Auto) % Neut % (Auto) % Lymph % (Auto) % Griggs % (Auto) % Eos % (Auto) % Baso % (Auto) % Neut # (Auto) (1.4-6.5) K/uL Lymph # (Auto) (1.2-3.4) K/uL Griggs # (Auto) (0.11-0.59) K/uL Eos # (Auto) (0-0.5) K/uL Baso # (Auto) (0-0.2) K/uL Immature Gran # (Auto) (0.00-0.02) K/uL Platelet Estimate (Normal) APTT Cancelled PTT Ratio Cancelled Sodium (136-145) mmol/L Potassium (3.5-5.1) mmol/L Chloride (98-107) mmol/L Carbon Dioxide (21-32) mmol/L Anion Gap (3-11) BUN (6-23) mg/dl Creatinine (0.6-1.4) mg/dl Est Cr Clr Drug Dosing ml/min Est GFR ( Amer) ml/min Est GFR (Non-Af Amer) ml/min BUN/Creatinine Ratio (10-20) Glucose (70-99(Fasting)) mg/dl Lactate 1.3 (0.4-2.0) mmol/L Calcium (8.5-10.1) mg/dl Ionized Calcium (1.12-1.32) mmol/L Phosphorus (2.5-4.9) mg/dl Magnesium (1.7-2.4) mg/dl Total Bilirubin (0.2-1.0) mg/dl Direct Bilirubin (0-0.2) mg/dl AST (13-39) U/L ALT (7-52) U/L Alkaline Phosphatase (34-104) U/L Total Creatine Kinase (30-223) U/L Troponin I High Sens (0-20) pg/ml Total Protein (6.0-8.3) gm/dl Albumin (3.4-5.0) gm/dl Procalcitonin (0-0.5) ng/ml TSH (0.300-4.500) uIu/ml PTH Intact (12.0-88.0) pg/ml Urine Color Urine Appearance (Clear) Urine pH (4.5-7.5) Ur Specific [place] (1.000-1.030) Urine Protein (Negative) Urine Glucose (UA) (Negative) Urine Ketones (Negative) Urine Blood (Negative) Urine Nitrite (Negative) Urine Bilirubin (Negative) Urine Urobilinogen (Negative) Ur Leukocyte Esterase (Negative) Urine WBC (Auto) (0-5) /hpf Urine RBC (Auto) (0-4) /hpf U Hyaline Cast (Auto) (0-5) /lpf U Epithel Cells (Auto) (0-5) /lpf Urine Bacteria (Auto) (Negative) SARS-CoV-2 (PCR) NEGATIVE (Negative) Influenza Type A (PCR) Negative (Neg) Influenza Type B (PCR) Negative (Neg) RSV (RT-PCR) Negative (Neg) 10/08/21 10/08/21 10/08/21 Range/Units 22:51 22:51 22:51 WBC (4.8-10.8) K/uL RBC (4.7-6.1) M/uL Hgb (14.0-18.0) g/dL Hct (42-52) % MCV (80-100) fL MCH (25-34) pg MCHC (32-36) g/dL RDW Std Deviation (36.4-46.3) fL RDW Coeff of Leonel (11.5-14.5) % Plt Count (130-400) K/uL MPV (7.4-10.4) fL Immature Gran % (Auto) % Neut % (Auto) % Lymph % (Auto) % Gr[place]gs % (Auto) % Eos % (Auto) % Baso % (Auto) % Neut # (Auto) (1.4-6.5) K/uL Lymph # (Auto) (1.2-3.4) K/uL Gr[place]gs # (Auto) (0.11-0.59) K/uL Eos # (Auto) (0-0.5) K/uL Baso # (Auto) (0-0.2) K/uL Immature Gran # (Auto) (0.00-0.02) K/uL Platelet Estimate (Normal) APTT PTT Ratio Sodium 140 (136-145) mmol/L Potassium 3.6 (3.5-5.1) mmol/L Chloride 99 (98-107) mmol/L Carbon Dioxide 38 H (21-32) mmol/L Anion Gap 3 (3-11) BUN 42 H (6-23) mg/dl Creatinine 2.11 H (0.6-1.4) mg/dl Est Cr Clr Drug Dosing 23.5 ml/min Est GFR ( Amer) 32.8 ml/min Est GFR (Non-Af Amer) 28.3 ml/min BUN/Creatinine Ratio 19.9 (10-20) Glucose 126 H (70-99(Fasting)) mg/dl Lactate (0.4-2.0) mmol/L Calcium 17.1 H* (8.5-10.1) mg/dl Ionized Calcium (1.12-1.32) mmol/L Phosphorus 4.0 (2.5-4.9) mg/dl Magnesium (1.7-2.4) mg/dl Total Bilirubin (0.2-1.0) mg/dl Direct Bilirubin (0-0.2) mg/dl AST (13-39) U/L ALT (7-52) U/L Alkaline Phosphatase (34-104) U/L Total Creatine Kinase (30-223) U/L Troponin I High Sens 33.3 H (0-20) pg/ml Total Protein (6.0-8.3) gm/dl Albumin (3.4-5.0) gm/dl Procalcitonin (0-0.5) ng/ml TSH 0.747 (0.300-4.500) uIu/ml PTH Intact < 1.0 L (12.0-88.0) pg/ml Urine Color Urine Appearance (Clear) Urine pH (4.5-7.5) Ur Specific [place] (1.000-1.030) Urine Protein (Negative) Urine Glucose (UA) (Negative) Urine Ketones (Negative) Urine Blood (Negative) Urine Nitrite (Negative) Urine Bilirubin (Negative) Urine Urobilinogen (Negative) Ur Leukocyte Esterase (Negative) Urine WBC (Auto) (0-5) /hpf Urine RBC (Auto) (0-4) /hpf U Hyaline Cast (Auto) (0-5) /lpf U Epithel Cells (Auto) (0-5) /lpf Urine Bacteria (Auto) (Negative) SARS-CoV-2 (PCR) (Negative) Influenza Type A (PCR) (Neg) Influenza Type B (PCR) (Neg) RSV (RT-PCR) (Neg) 10/08/21 10/08/21 10/09/21 Range/Units 22:51 22:57 00:10 WBC (4.8-10.8) K/uL RBC (4.7-6.1) M/uL Hgb (14.0-18.0) g/dL Hct (42-52) % MCV (80-100) fL MCH (25-34) pg MCHC (32-36) g/dL RDW Std Deviation (36.4-46.3) fL RDW Coeff of Leonel (11.5-14.5) % Plt Count (130-400) K/uL MPV (7.4-10.4) fL Immature Gran % (Auto) % Neut % (Auto) % Lymph % (Auto) % [place]gs % (Auto) % Eos % (Auto) % Baso % (Auto) % Neut # (Auto) (1.4-6.5) K/uL Lymph # (Auto) (1.2-3.4) K/uL [place]gs # (Auto) (0.11-0.59) K/uL Eos # (Auto) (0-0.5) K/uL Baso # (Auto) (0-0.2) K/uL Immature Gran # (Auto) (0.00-0.02) K/uL Platelet Estimate (Normal) APTT PTT Ratio Sodium (136-145) mmol/L Potassium (3.5-5.1) mmol/L Chloride (98-107) mmol/L Carbon Dioxide (21-32) mmol/L Anion Gap (3-11) BUN (6-23) mg/dl Creatinine (0.6-1.4) mg/dl Est Cr Clr Drug Dosing ml/min Est GFR ( Amer) ml/min Est GFR (Non-Af Amer) ml/min BUN/Creatinine Ratio (10-20) Glucose (70-99(Fasting)) mg/dl Lactate (0.4-2.0) mmol/L Calcium (8.5-10.1) mg/dl Ionized Calcium 2.14 H* (1.12-1.32) mmol/L Phosphorus (2.5-4.9) mg/dl Magnesium (1.7-2.4) mg/dl Total Bilirubin (0.2-1.0) mg/dl Direct Bilirubin (0-0.2) mg/dl AST (13-39) U/L ALT (7-52) U/L Alkaline Phosphatase (34-104) U/L Total Creatine Kinase 58 (30-223) U/L Troponin I High Sens (0-20) pg/ml Total Protein (6.0-8.3) gm/dl Albumin (3.4-5.0) gm/dl Procalcitonin (0-0.5) ng/ml TSH (0.300-4.500) uIu/ml PTH Intact (12.0-88.0) pg/ml Urine Color Yellow Urine Appearance Clear (Clear) Urine pH 6.5 (4.5-7.5) Ur Specific [place] 1.011 (1.000-1.030) Urine Protein Negative (Negative) Urine Glucose (UA) Negative (Negative) Urine Ketones Negative (Negative) Urine Blood Negative (Negative) Urine Nitrite Negative (Negative) Urine Bilirubin Negative (Negative) Urine Urobilinogen Negative (Negative) Ur Leukocyte Esterase 1+ H (Negative) Urine WBC (Auto) 5-10 H (0-5) /hpf Urine RBC (Auto) 0-4 (0-4) /hpf U Hyaline Cast (Auto) 1-5 (0-5) /lpf U Epithel Cells (Auto) 10-20 H (0-5) /lpf Urine Bacteria (Auto) Negative (Negative) SARS-CoV-2 (PCR) (Negative) Influenza Type A (PCR) (Neg) Influenza Type B (PCR) (Neg) RSV (RT-PCR) (Neg) Administered Medications Atorvastatin Calcium (Atorvastatin 10 Mg Tab) [facility]: 11/08/21 08:59 Last Admin: 10/09/21 08:24 Dose: 10 mg Documented by: [id number] Calcitonin Coker 240 units/ (Syringe) 1.2 mls @ 1.2 mls/sec SQ Q12H [facility] Stop: 11/08/21 08:59 Last Admin: 10/09/21 08:55 Dose: 1.2 mls/sec Documented by: [id number] Sodium Chloride (Nss 1000ml) 1,000 mls @ 150 mls/hr IV .Q6H40M [facility] Stop: 10/10/21 08:29 Last Admin: 10/09/21 08:55 Dose: 125 mls/hr Documented by: [id number] Isosorbide Mononitrate (Isosorbide [place]gs Extended Rel 60 Mg Tabcr) 60 mg PO [facility] Stop: 11/08/21 08:59 Last Admin: 10/09/21 08:24 Dose: 60 mg Documented by: [id number] Levothyroxine Sodium (Levothyroxine Sodium 125 Mcg Tablet) 125 mcg PO [id number] [facility] Stop: 11/08/21 06:29 Last Admin: 10/09/21 05:17 Dose: 125 mcg Documented by: [id number] Metoprolol Tartrate (Metoprolol Tartrate 50 Mg Tab) 50 mg PO BID [facility] Stop: 11/08/21 04:09 Last Admin: 10/09/21 05:17 Dose: 50 mg Documented by: [id number] Oxybutynin Chloride (Oxybutynin Chloride Xl 5 Mg Tabcr) 5 mg PO DAILY [facility] Stop: 11/08/21 08:59 Last Admin: 10/09/21 08:25 Dose: 5 mg Documented by: [id number] Tamsulosin HCl (Tamsulosin Hcl 0.4 Mg Cap) 0.4 mg PO QAM MARIYA Stop: 11/08/21 08:59 Last Admin: 10/09/21 08:25 Dose: 0.4 mg Documented by: [id number] Discontinued Medications Acetaminophen (Acetaminophen 500 Mg Tab) 1,000 mg PO NOW STA Stop: 10/08/21 20:35 Last Admin: 10/08/21 21:15 Dose: 1,000 mg Documented by: [id number] Amlodipine Besylate (Amlodipine Besylate 5 Mg Tab) 10 mg PO NOW STA Stop: 10/08/21 23:57 Last Admin: 10/09/21 01:02 Dose: 10 mg Documented by: [id number] Furosemide (Furosemide 40 Mg/4 Ml Vial) 40 mg IV ONE ONE Stop: 10/09/21 11:19 Last Admin: 10/09/21 11:56 Dose: 40 mg Documented by: [id number] Sodium Chloride (Nss 1000ml) 1,000 mls @ 999 mls/hr IV .Q1H1M ONE Stop: 10/08/21 21:34 Last Infusion: 10/09/21 00:43 Dose: 0 mls/hr Documented by: [id number] Admin: 10/08/21 21:16 Dose: 999 mls/hr Documented by: [id number] Magnesium Sulfate/Dextrose (Magnesium Sulfate / D5w) 1 gm in 100 mls @ 50 mls/hr IV Q2H [facility] Stop: 10/09/21 02:44 Last Infusion: 10/09/21 05:25 Dose: 0 mls/hr Documented by: [id number] Admin: 10/09/21 03:23 Dose: 50 mls/hr Documented by: [id number] Infusion: 10/09/21 03:02 Dose: 50 mls/hr Documented by: [id number] Admin: 10/09/21 01:02 Dose: 50 mls/hr Documented by: [id number] Sodium Chloride (Nss 1000ml) 1,000 mls @ 500 mls/hr IV .Q2H STA Stop: 10/09/21 00:54 Last Infusion: 10/09/21 00:42 Dose: 0 mls/hr Documented by: [id number] Admin: 10/08/21 23:56 Dose: 500 mls/hr Documented by: [id number] Ampicillin Sodium/Sulbactam Sodium 3,000 mg/ Sodium Chloride 108 mls @ 200 mls/hr IV NOW STA Stop: 10/09/21 00:02 Last Infusion: 10/09/21 00:55 Dose: 0 mls/hr Documented by: [id number] Admin: 10/09/21 00:23 Dose: 200 mls/hr Documented by: [id number] Sodium Chloride (Nss 1000ml) 1,000 mls @ 200 mls/hr IV .Q5H ONE Stop: 10/09/21 06:59 Last Infusion: 10/09/21 08:49 Dose: 0 mls/hr Documented by: [id number] Admin: 10/09/21 03:23 Dose: 200 mls/hr Documented by: [id number] Calcitonin Coker 240 units/ (Syringe) 1.2 mls @ 1.2 mls/sec SQ ONE ONE Stop: 10/09/21 03:31 Last Admin: 10/09/21 05:17 Dose: 1.2 mls/sec Documented by: [id number] Piperacillin Sod/Tazobactam (Sod 3.375 gm/ Dextrose) 115 mls @ 230 mls/hr IV NOW ONE; Protocol Stop: 10/09/21 06:23 Last Infusion: 10/09/21 07:16 Dose: 0 mls/hr Documented by: [id number] Admin: 10/09/21 06:20 Dose: 230 mls/hr Documented by: [id number] Zoledronic Acid (Reclast) 4 mg in 80 mls @ 320 mls/hr IV ONE ONE Stop: 10/09/21 11:29 Last Infusion: 10/09/21 12:31 Dose: 0 mls/hr Documented by: [id number] Admin: 10/09/21 12:01 Dose: 320 mls/hr Documented by: [id number] Imaging Data Radiologist's Impression: Chest X-Ray 10/08/21 20:34 XR chest 1V portable HISTORY: hypoxia COMPARISON: Chest 10/11/2018. FINDINGS: No pneumothorax. No pleural effusions. The heart is normal in size. No focal lung consolidations to suggest pneumonia. No evidence for pulmonary edema. Cervical spinal fusion hardware is noted. Scattered lytic lesions are better present on the same day chest CT. IMPRESSION: 1. No acute process within the chest. 2. Scattered lytic skeletal lesions are better appreciated on the same day chest CT. ACT 112: Negative or not required by law. Electronically signed by: Tommy Tay M.D. 10/09/2021 7:54 AM Abdomen/Pelvis CT 10/09/21 01:05 CT OF THE ABDOMEN AND PELVIS WITHOUT CONTRAST CLINICAL HISTORY: Back pain. COMPARISON STUDY: CT of the abdomen and pelvis October 11, 2018. CT of the abdomen and pelvis February 15, 2020. MRI of the lumbar spine October 02, 2021. TECHNIQUE: Axial images of the abdomen and pelvis were obtained without IV contrast. Images were reviewed in the axial, sagittal, and coronal planes. Automated exposure control was utilized for the study. A dose lowering technique was utilized adhering to the principles of ALARA. FINDINGS: Please note that the chest CT will be reported separately. No pneumatosis, free air or portal venous gas is present. Evaluation of the abdomen and pelvis is suboptimal as unenhanced exam. Hypodense hepatic lesions are similar to CT of October 11, 2018. These favor cysts. There is no biliary or pancreatic ductal dilatation. There is no hydronephrosis. Water attenuation right renal lesion is suboptimally. Unenhanced exam but favors a cyst. Unenhanced images of the spleen and pancreas are unremarkable. Upper abdominal adenopathy is noted. This has increased since prior CT. Index portacaval lymph node measures 4.7 x 2.3 cm. Hyperdense bilateral adrenal masses have developed since prior CT. Right adrenal mass measures 2.8 x 2.6 cm. Left adrenal mass measures 2.8 x 2.6 cm. There is no evidence for a bowel obstruction. The prostate is enlarged, measuring 4.8 cm in transverse dimension. There are postoperative findings within the prostate suggestive of transurethral resection. Prostate indents the base of the bladder. Numerous lytic lesions are noted within visualized skeletal structures. These correspond to findings from previous lumbar spine MRI. No pathologic fractures are identified. Mildly enlarged right inguinal lymph nodes are present. . IMPRESSION: 1. Numerous lytic skeletal lesions consistent with metastatic disease. 2. Interval involvement of bilateral adrenal masses consistent with metastases. These are hyperdense and could contain hemorrhage. Progression of upper abdominal pathologic lymphadenopathy. These findings will be called/faxed to the ordering provider at time of dictation. 3. No bowel obstruction. 4. Enlarged prostate which indents the base of the bladder. ACT 112: Negative or not required by law. Electronically signed by: Danis Evans M.D. 10/09/2021 7:[address] 10/09/21 01:05 CT OF THE CERVICAL SPINE WITHOUT CONTRAST CLINICAL HISTORY: Pain. History of prostate, bladder and thyroid cancer. COMPARISON STUDY: MRI of the cervical spine September 30, 2021. TECHNIQUE: Helical axial images of the cervical spine were obtained without IV contrast. Sagittal and coronal reconstructions were viewed. Automated exposure control was utilized for the study. A dose lowering technique was utilized adhering to the principles of ALARA. FINDINGS: There are postoperative findings consistent with C5 corpectomy and C4- C6 anterior discectomy and fusion. The hardware is intact. No acute cervical spine fracture is noted. There are no unexpected radiopaque foreign bodies. Note is made of moderate prevertebral fluid within the operative bed, extending from C3-4 through C6. This measures approximately 3.1 x 1.3 cm in AP by transverse dimensions respectively. Attenuation is difficult to assess given streak artifact from adjacent hardware however this collection appears relatively hypodense. This has moderate mass effect upon the hypopharynx and the supraglot tic airway. Central canal and neural foramen are suboptimally assessed by CT. Numerous lytic foci are noted within visualized skeletal structures. These include a large lesion within the right aspect of C3 vertebral body. A smaller lesion within the left inferior aspect of C2 vertebral body is noted. Smaller occipital lesions is an additional lesions within the cervical spine are present. There is severe multilevel facet arthrosis. There is moderate to space narrowing at C3-C4 and mild to moderate disc space narrowing at C6-C7. IMPRESSION: 1. Status post C5 corpectomy and C4-C6 anterior discectomy and fusion. Hardware intact. 2. Moderate prevertebral fluid within the operative bed extending from C3-C4 through C6 levels. This has moderate mass effect upon the hypopharynx and supraglottic airway. This fluid collection is nonspecific in the early postoperative setting and sterility cannot be assessed. Close clinical monitoring is recommended to exclude the possibility of airway compromise. This finding will be called/faxed to ordering provider at time of dictation. 3. Multiple lytic skeletal lesions, as described above. These are consistent with skeletal metastases. 4. No acute cervical spine fracture. 5. Multilevel facet arthrosis and degenerative disc disease. ACT 112: Negative or not required by law. Electronically signed by: Danis Evans M.D. 10/09/2021 6:[address] 10/09/21 01:05 CT OF THE CHEST WITHOUT IV CONTRAST CLINICAL HISTORY: cough, low o2. COMPARISON STUDY: Chest radiograph October 08, 2021. Chest radiograph October 11, 2018. TECHNIQUE: Axial images of the chest were obtained without IV contrast. Images were reviewed in the axial, sagittal, and coronal planes. IV contrast was not administered for this examination. Automated exposure control was utilized for the study. A dose lowering technique was utilized adhering to the principles of ALARA. FINDINGS: Mild cardiomegaly is noted. There is extensive coronary artery calcification. No pericardial effusion is noted. There are multiple mildly enlarged mediastinal lymph nodes. A few are partially calcified. Index right paratracheal lymph node measures 1.6 x 1.1 cm. Index subcarinal lymph node measures 1.9 x 1.3 cm per there is no pneumothorax or pleural effusion. Lower lobe opacities favor atelectasis. No definite consolidation to suggest pneumonia. There is an indeterminate 1.5 cm irregular density within the left upper lobe on image 123. There are numerous small nodules within the upper lobes. These measure up to 4 mm. Mild interlobular septal thickening is noted. Multiple lytic lesions within the thoracic spine are noted. A few rib lesions are noted. These include lesions within the T9 and T12 vertebral bodies. There is no pathologic fracture. IMPRESSION: 1. No consolidation to suggest pneumonia. 2. Suspected mild interstitial pulmonary edema. 3. Indeterminate 1.5 cm irregular density within the left upper lobe. This could be infectious. However, a follow-up chest CT in 6 months is recommended to exclude the possibility of a pulmonary lesion. Numerous additional smaller pulmonary nodules which are indeterminate and can be assessed on follow-up CT. 4. Nonspecific mild mediastinal lymphadenopathy which can be assessed on follow- up CT. 5. Numerous lytic skeletal lesions consistent with metastatic disease. ACT 112: Negative or not required by law. Electronically signed by: Danis Evans M.D. 10/09/2021 7:[address] 10/09/21 01:[address] DOSE: 1481.95 mGy.cm HISTORY: Altered mental status. TECHNIQUE: Multiaxial CT images of the head were performed without the use of intravenous contrast. Automated exposure control was utilized for this study. A dose lowering technique was utilized adhering to the principles of ALARA. Comparison: Head CT 10/11/2018. Findings: Mild mucosal thickening within the maxillary sinuses and ethmoid air cells. Trace left mastoid effusion, unchanged. The right mastoid air cells are clear. The calvarium and skull base are intact. There is no mass, hematoma, midline shift, acute infarct. White matter hypodensity is nonspecific but suggestive of microvascular ischemic change. The ventricles and sulci demonstrate mild age-related involutional changes. Impression: No significant change compared to the prior study. No acute intracranial abnormality. ACT 112: Negative or not required by law. Electronically signed by: Tommy Tay M.D. 10/09/2021 7:17 AM Discharge Plan Visit Data Chief Complaint: Weakness Stated Complaint: s/p Back Surgery NOW GEN WEAKNESS/CANNOT EAT ED Provider: Tin Adams Discharge Problem: Hypercalcemia, Generalized weakness, Acute dehydration Patient Disposition: Admitted As Inpatient Discharge Instructions Interventions: ED Discharge Assessment Last Done: 10/09/21 02:26
[2021-10-08 21:01] LABS: Hematocrit (blood only) 38.2 % (42-52); Hemoglobin 13.2 g/dL (14.0-18.0); Mean Corpuscular Hemoglobin 29.4 pg (25-34); Mean Corpuscular Hgb Conc 34.6 g/dL (32-36); Mean Corpuscular Volume 85.1 fL (80-100); RDW Coefficient of Variation 14.5 % (11.5-14.5); RDW Standard Deviation 45.1 fL (36.4-46.3); Red Blood Count 4.49 M/uL (4.7-6.1)
[2021-10-08 21:30] LABS: Alanine Aminotransferase 13 U/L (7-52); Albumin Level 3.6 gm/dl (3.4-5.0); Alkaline Phosphatase 59 U/L (34-104); Anion Gap 4 (3-11); Aspartate Aminotransferase 25 U/L (13-39); BUN Creatinine Ratio 19.2 (10-20); Bilirubin Direct 0.2 mg/dl (0-0.2); Blood Urea Nitrogen 42 mg/dl (6-23); Calcium > 18.0 mg/dl (8.5-10.1); Carbon Dioxide 39 mmol/L (21-32); Chloride 98 mmol/L (98-107); Creatinine Clr Calc Pharmacy 22.6 ml/min; Est GFR (African American) 31.3 ml/min; Glucose 115 mg/dl (70-99(Fasting)); Magnesium 1.4 mg/dl (1.7-2.4); Potassium 3.7 mmol/L (3.5-5.1); Sodium 141 mmol/L (136-145); Total Protein 7.4 gm/dl (6.0-8.3)
[2021-10-08 22:14] LABS: Influenza A virus by PCR Negative (Neg); Influenza B virus by PCR Negative (Neg); RSV by PCR Negative (Neg); SARS CoV2 RNA(COVID-19) InHosp NEGATIVE (Negative)
[2021-10-08 22:38] LABS: Basophils # (auto) 0.01 K/uL (0-0.2); Basophils % (auto) 0.1 %; Eosinophils # (auto) 0.23 K/uL (0-0.5); Eosinophils % (auto) 2.4 %; Immature Granulocytes % (auto) 1.1 %; Lymphocytes # (auto) 1.35 K/uL (1.2-3.4); Lymphocytes % (auto) 14.2 %; Mean Platelet Volume 9.6 fL (7.4-10.4); Monocytes # (auto) 1.26 K/uL (0.11-0.59); Monocytes % (auto) 13.3 %; Neutrophils # (auto) 6.55 K/uL (1.4-6.5); Neutrophils % (auto) 68.9 %; Platelet Count 96 K/uL (130-400); Platelet Estimate Decreased (Normal)
[2021-10-08] MEDS ORDERED: SODIUM CHLORIDE 0.9% 1000ML 1,000 ML IV STA (22:55)
[2021-10-08] MEDS ORDERED: AMPICILLIN/SULBACTAM SOD 3,000 MG in 0.9 % SODIUM CHLORIDE 100 ML IV STA (23:30)
[2021-10-08 23:32] LABS: Troponin I High Sensitivity 33.3 pg/ml (0-20)
[2021-10-08 23:48] LABS: BUN Creatinine Ratio 19.9 (10-20); Calcium 17.1 mg/dl (8.5-10.1); Creatinine Clr Calc Pharmacy 23.5 ml/min; Est GFR (African American) 32.8 ml/min; Est GFR (Non-African American) 28.3 ml/min; Potassium 3.6 mmol/L (3.5-5.1)
[2021-10-08] MEDS ORDERED: amLODIPine BESYLATE 5 MG TAB PO STA (23:56)
[2021-10-09 01:00] LABS: Appearance Urine Clear (Clear); Bacteria Urine Automated Negative (Negative); Bilirubin Urine Negative (Negative); Blood Urine Negative (Negative); Color Urine Yellow; Glucose Urine UA Negative (Negative); Ketones Urine Negative (Negative); Leukocyte Esterase Urine 1+ (Negative); Nitrite Urine Negative (Negative); Protein Urine Negative (Negative); RBC Urine Automated 0-4 /hpf (0-4); Specific Gravity Urine 1.011 (1.000-1.030); Urobilinogen Urine Negative (Negative); pH Urine 6.5 (4.5-7.5)
[2021-10-09] MEDS: MAGNESIUM SULFATE / D5W 1 GM/100 ML BAG IV SCH ×2 (01:02→03:23)
--- NOTE | 2021-10-09 01:06 | History & Physical Report ---
Date of Service October 09, 2021 Assessment & Plan (1) Encephalopathy: Plan: Multifactorial : Severe hypercalcemia secondary to decreased p.o. intake postop, recent neck surgery ARF on CKD Possible complicated UTI, hx BPH/bladder cancer status post surgery/BCG chemotherapy, no overt sepsis for now Home narcotics possibly contributory Cough with transient hypoxemia Possible aspiration pneumonitis Pulmonary nodules on initial CT read (hx lung mass on prior inpatient documentation) Troponin elevation secondary to illness in the setting of elevated BP and abnormal kidney function hx CAD status post stent chronic LBBB hyperlipidemia on statin Rx MARCELINO on CPAP thyroid cancer status post thyroidectomy/ablation postsurgical hypothyroidism, euthyroid as of today's TSH bladder cancer status post surgery status post BCG chemotherapy pancytopenia as per records prediabetes, hemoglobin A1c of 5.14 Sep 2021 past tobacco abuse Medical telemetry IVF, calcitonin subcu warranted for severe hypercalcemia causing confusion Monitor serum calcium/renal function response to above intervention Hold ARB until creatinine back to baseline Nephrology consult Re: Hyperglycemia CS, Zosyn for possible aspiration pneumonitis/complicated UTI Hold home narcotics for now until mentation improved. Follow official CT chest result regarding pulmonary nodules, outpatient Pulmonology eval Orthopedic spine consult Re: Postop evaluation DVT prophylaxis. SCDs Re: Recent spine surgery/chronic thrombocytopenia Full code Patient requesting updates from providers. Eda Marialuisa, contact #[phone]. Text document was generated using Svpp[employer] voice recognition software. It may contain grammatical or spelling errors. Kindly contact undersigned for clarification of any documentation item in question. History of Present Illness Chief Complaint: Weakness/confusion as per records Primary Care Provider: Alycia Payne DO History obtained from patient, family, and records. Limited history from patient secondary to confusion and hearing impairment. Medical history significant for CAD status post stent, chronic LBBB, hypertension, hyperlipidemia, MARCELINO on CPAP, thyroid cancer status post thyroidectomy/ablation, postsurgical hypothyroidism, CRI (baseline creatinine 1.4), bladder cancer status post surgery status post BCG chemotherapy, pancytopenia as per records, prediabetes, past tobacco abuse. Last confinement September 30 to 2021 under orthopedic spine service for cervical spine stenosis with myelo radiculopathy status post C5 anterior corpectomy. Patient discharged home. At home, patient not eating as much, poor appetite as per . Patient later on noted junky cough symptoms. Completed COVID-19 vaccination. Patient not sure about aspiration. Increasing neck pain, low back pain as per patient. Shortness of breath from weakness. Patient denies chest pain. Patient noted to be more confused than usual as per . Patient sent to the ER for evaluation. O2 sats transiently 80s at the ER. 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 Allergies Allergy/AdvReac Type Severity Reaction Status Date / Time naloxone Allergy Unknown unkn Verified 09/30/21 14:01 pentazocine Allergy Unknown Verified 09/30/21 14:01 Home Medications Medication Instructions Recorded Confirmed Type amlodipine 10 mg tablet 10 mg PO QAM 10/11/18 09/30/21 History isosorbide mononitrate 60 mg 60 mg PO QAM 10/11/18 09/30/21 History tablet,extended release 24 hr levothyroxine 125 mcg tablet See Rx Instructions .ROUTE .COMPLEX 10/11/18 09/30/21 History (Levoxyl) losartan 50 mg tablet 100 mg PO QAM 10/11/18 09/30/21 History metoprolol tartrate 100 mg tablet 50 mg PO BID 10/11/18 09/30/21 History nitroglycerin 0.4 mg sublingual 0.4 mg SUBLINGUAL DIRECTED PRN 10/11/18 09/30/21 History tablet (Nitrostat) MDD 3 DOSES, 5 MIN APART potassium chloride 20 mEq 20 meq PO BID 10/11/18 09/30/21 History tablet,extended release(part/cryst) tamsulosin 0.4 mg capsule 0.4 mg PO QAM 10/11/18 09/30/21 History atorvastatin 10 mg tablet 10 mg PO QAM 03/04/21 09/30/21 History furosemide 20 mg tablet 20 mg PO 5XWK 03/04/21 09/30/21 History pyridoxine (vitamin B6) 100 mg 100 mg PO QAM 03/04/21 09/30/21 History tablet coenzyme Q10 200 mg capsule 200 mg PO QAM 08/07/21 09/30/21 History mecobalamin (vitamin B12) 1,000 1,000 mcg PO QAM 08/07/21 09/30/21 History mcg chewable tablet oxybutynin chloride 5 mg 5 mg PO DAILY 09/30/21 09/30/21 History tablet,extended release 24 hr (Ditropan XL) oxycodone 5 mg tablet 5 mg PO Q6H PRN #20 tab 10/03/21 Rx tramadol 50 mg tablet 50 mg PO Q6H PRN #20 tab 10/03/21 Rx Past Med/Surg History Medical History Bilateral leg pain CAD (coronary artery disease) Cervical radiculopathy Cervical stenosis of spine CKD (chronic kidney disease), stage III Dyslipidemia Heart disease HTN (hypertension) Hypoxia Kidney disease Stage III Left bundle branch block Mitral valve regurgitation Neutropenia MARCELINO (obstructive sleep apnea) CPAP Peripheral neuropathy Piriformis syndrome Prostate cancer Status post chemo Rhabdomyolysis Small cell carcinoma of bladder Thrombocytopenia Thyroid cancer 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 and transposition left Upper extremity weakness Surgical History History of cystoscopy History of heart artery stent LAD History of thyroidectomy Status post cataract extraction of both eyes with insertion of intraocular lens Family History Brother FH: brain cancer Other Coronary heart disease Social History Smoking Status: Former smoker Second Hand Exposure: No; Do You Dip or Chew Tobacco: No; Hx Alcohol Use: Yes Alcohol type: beer Hx Substance Use: No Preferred Language: Guamanian Communication Ability: Effective Flipping Machine Operator Required: No Beliefs That Will Affect Care: None marital status: Current Living Situation: Spouse Other Information That Helps Us Care for You: No Feels Safe at Home: Yes Safety Concerns: Feels Safe At This Time Assistive Devices: Glasses and Hearing Aid - Bilateral Review of Systems Review of Systems: Could not be reliably obtained secondary to confusion/hearing impairment Physical Exam Physical Exam: GENERAL: Disoriented, hard of hearing, no respiratory distress SKIN: Pallor , warm HEENT: Pale palpebral conjunctivae, no ptosis, dry buccal mucosa, nasal cannula in place NECK : Cervical collar in place, minimal cervical tenderness CHEST : Decreased breath sounds, no tenderness HEART : RRR, no obvious murmurs ABDOMEN: no distention, nontender EXTREMITIES : No LE swelling/tenderness, no other conspicuous deformities noted NEUROLOGIC : Disoriented, no facial asymmetry, hard of hearing, gait and stance not assessed Results & Data Results & Data ([facility]) Vital Signs (Past 12 Hours) Vital Signs Temp Pulse Resp BP Pulse Ox 10/09/21 00:24 99 10/09/21 00:20 71 21 98 10/09/21 00:10 67 19 144/87 H 98 10/09/21 00:00 68 20 98 10/08/21 23:50 70 20 98 10/08/21 23:40 87 15 10/08/21 23:30 89 26 H 97 10/08/21 23:20 71 19 99 10/08/21 23:10 75 22 99 10/08/21 23:00 69 19 169/86 H 99 10/08/21 22:50 76 22 99 10/08/21 22:49 71 20 99 10/08/21 21:18 99 10/08/21 20:05 37.6 C H 78 16 161/78 H 91 Laboratory Results Laboratory Results WBC 9.50 K/uL (4.8-10.8) 10/08/21 20:07 RBC 4.49 M/uL (4.7-6.1) L 10/08/21 20:07 Hgb 13.2 g/dL (14.0-18.0) L 10/08/21 20:07 Hct 38.2 % (42-52) L 10/08/21 20:07 MCV 85.1 fL (80-100) 10/08/21 20:07 MCH 29.4 pg (25-34) 10/08/21 20:07 MCHC 34.6 g/dL (32-36) 10/08/21 20:07 RDW Std Deviation 45.1 fL (36.4-46.3) 10/08/21 20:07 RDW Coeff of Leonel 14.5 % (11.5-14.5) 10/08/21 20:07 Plt Count 96 K/uL (130-400) L 10/08/21 20:07 MPV 9.6 fL (7.4-10.4) 10/08/21 20:07 Immature Gran % (Auto) 1.1 % 10/08/21 20:07 Neut % (Auto) 68.9 % 10/08/21 20:07 Lymph % (Auto) 14.2 % 10/08/21 20:07 [place] % (Auto) 13.3 % 10/08/21 20:07 Eos % (Auto) 2.4 % 10/08/21 20:07 Baso % (Auto) 0.1 % 10/08/21 20:07 Neut # (Auto) 6.55 K/uL (1.4-6.5) H 10/08/21 20:07 Lymph # (Auto) 1.35 K/uL (1.2-3.4) 10/08/21 20:07 [place] # (Auto) 1.26 K/uL (0.11-0.59) H 10/08/21 20:07 Eos # (Auto) 0.23 K/uL (0-0.5) 10/08/21 20:07 Baso # (Auto) 0.01 K/uL (0-0.2) 10/08/21 20:07 Immature Gran # (Auto) 0.10 K/uL (0.00-0.02) H 10/08/21 20:07 Platelet Estimate Decreased (Normal) L 10/08/21 20:07 Sodium 140 mmol/L (136-145) 10/08/21 22:51 Potassium 3.6 mmol/L (3.5-5.1) 10/08/21 22:51 Chloride 99 mmol/L (98-107) 10/08/21 22:51 Carbon Dioxide 38 mmol/L (21-32) H 10/08/21 22:51 Anion Gap 3 (3-11) 10/08/21 22:51 BUN 42 mg/dl (6-23) H 10/08/21 22:51 Creatinine 2.11 mg/dl (0.6-1.4) H 10/08/21 22:51 Est Cr Clr Drug Dosing 23.5 ml/min 10/08/21 22:51 Est GFR ( Amer) 32.8 ml/min 10/08/21 22:51 Est GFR (Non-Af Amer) 28.3 ml/min 10/08/21 22:51 BUN/Creatinine Ratio 19.9 (10-20) 10/08/21 22:51 Glucose 126 mg/dl (70-99(Fasting)) H 10/08/21 22:51 Lactate 1.3 mmol/L (0.4-2.0) 10/08/21 20:58 Calcium 17.1 mg/dl (8.5-10.1) H* 10/08/21 22:51 Ionized Calcium 2.14 mmol/L (1.12-1.32) H* 10/08/21 22:57 Phosphorus 4.0 mg/dl (2.5-4.9) 10/08/21 22:51 Magnesium 1.4 mg/dl (1.7-2.4) L 10/08/21 20:07 Total Bilirubin 1.0 mg/dl (0.2-1.0) 10/08/21 20:07 Direct Bilirubin 0.2 mg/dl (0-0.2) 10/08/21 20:07 AST 25 U/L (13-39) 10/08/21 20:07 ALT 13 U/L (7-52) 10/08/21 20:07 Alkaline Phosphatase 59 U/L (34-104) 10/08/21 20:07 Total Creatine Kinase 58 U/L (30-223) 10/08/21 22:51 Troponin I High Sens 33.3 pg/ml (0-20) H 10/08/21 22:51 Total Protein 7.4 gm/dl (6.0-8.3) 10/08/21 20:07 Albumin 3.6 gm/dl (3.4-5.0) 10/08/21 20:07 Procalcitonin < 0.05 ng/ml (0-0.5) 10/08/21 20:07 TSH 0.747 uIu/ml (0.300-4.500) 10/08/21 22:51 PTH Intact < 1.0 pg/ml (12.0-88.0) L 10/08/21 22:51 Urine Color Yellow 10/09/21 00:10 Urine Appearance Clear (Clear) 10/09/21 00:10 Urine pH 6.5 (4.5-7.5) 10/09/21 00:10 Ur Specific [place] 1.011 (1.000-1.030) 10/09/21 00:10 Urine Protein Negative (Negative) 10/09/21 00:10 Urine Glucose (UA) Negative (Negative) 10/09/21 00:10 Urine Ketones Negative (Negative) 10/09/21 00:10 Urine Blood Negative (Negative) 10/09/21 00:10 Urine Nitrite Negative (Negative) 10/09/21 00:10 Urine Bilirubin Negative (Negative) 10/09/21 00:10 Urine Urobilinogen Negative (Negative) 10/09/21 00:10 Ur Leukocyte Esterase 1+ (Negative) H 10/09/21 00:10 Urine WBC (Auto) 5-10 /hpf (0-5) H 10/09/21 00:10 Urine RBC (Auto) 0-4 /hpf (0-4) 10/09/21 00:10 U Hyaline Cast (Auto) 1-5 /lpf (0-5) 10/09/21 00:10 U Epithel Cells (Auto) 10-20 /lpf (0-5) H 10/09/21 00:10 Urine Bacteria (Auto) Negative (Negative) 10/09/21 00:10 SARS-CoV-2 (PCR) NEGATIVE (Negative) 10/08/21 21:20 Influenza Type A (PCR) Negative (Neg) 10/08/21 21:20 Influenza Type B (PCR) Negative (Neg) 10/08/21 21:20 RSV (RT-PCR) Negative (Neg) 10/08/21 21:[address] head initial read: No ICH, mass effect or edema. No evidence of acute cortical stroke. Periventricular small vessel ischemic change. Mild generalized brain atrophy. Visualized sinuses reveal minimal mucosal thickening of the ethmoids and maxillarysinuses, likely sequela of chronic sinusitis. There is partial opacification of the left mastoid cells consistent with mild mastoid effusion CT cervical spine initial read: The patient status post anterior fusion fromC4-C6. There are destructive changes involving the C3 vertebral bodyraising the concern for metastatic disease. Additional subtle lytic changeswithin the base of the odontoid:. No acute fracture. Normal alignment. Underlying degenerative disease. Lung apices revealed subtle nodularityon the right and described in detail in the accompanying CT chest report CT chest initial read: No prior examfor comparison. Mild posterior dependent/lower lobe atelectasis along the subpleural region. Subtle nodularitywithin the left upper lobe best seen on image 50, series 1001with mild surrounding groundglass density measuring 7.1 mm. Right upper lobe subpleural nodule measuring 6.3 mm. Additional sagittal nodularitieswithin the right lung apex largest measuring 5.4 mm. Recommend follow-up with CT chest at 6-12 months interval, depending on risk factors to document stability. No pleural effusion or pneumothorax. Normal cardiac size with coronaryarterycalcificationswith Atherosclerotic disease of aortawith no aneurysm. Upper abdomen described in detail the accompanying CT of the abdomen and pelvis report. Osteopeniawith degenerative disease of the spine CT abdomen pelvis initial read: Mild bilateral lower lobe atelectasis. No pleural effusion. Borderline cardiomegalywith coronaryartery calcifications. Normal liver. Possible sludge versus tinystoneswithin the gallbladder. Recommend follow-up with right upper quadrant ultrasound if there is right upper quadrant pain. No significant biliarydistention. Normal pancreas and spleen. Bilateral adrenal masses, the one on the right measuring 2.8 cmand the one on the left measuring 2.3 cm, newin the interval. Cannot exclude neoplasm, recommend dedicated CT or MRI with intravenous contrast the nonacute setting. Atherosclerotic disease of aortawith no aneurysm. Unremarkable stomach with no hiatal hernia. Nonspecific small luh wel. Moderate to abundant fecal debriswithin the colon, cannot exclude constipation. Normal appendix. No bowel obstruction. Mild bilateral perinephric stranding. Right upper renal pole cyst incompletelycharacterized measuring 3.1 cmin largest dimension, recommend follow-up with ultrasound. Mild bilateral perinephric stranding otherwise unremarkable bilateral kidneys. Prostate enlargement. Degenerative disease of the spine with osteopenia. Small bilateral fat-containing inguinal hernias versus scrotal lipomas. EKG as per my interpretation: Rate 75, NSR, normal axis, 1 AVB, LBBB
[2021-10-09] MEDS ORDERED: SODIUM CHLORIDE 0.9% 1000ML 1,000 ML IV ONE (02:00)
[2021-10-09 02:19] LABS: Hematocrit (blood only) 35.2 % (42-52); Hemoglobin 12.3 g/dL (14.0-18.0); Mean Corpuscular Hgb Conc 34.9 g/dL (32-36); Mean Corpuscular Volume 85.9 fL (80-100); RDW Coefficient of Variation 14.3 % (11.5-14.5); RDW Standard Deviation 44.5 fL (36.4-46.3)
[2021-10-09 02:20] LABS: Mean Platelet Volume 9.2 fL (7.4-10.4); Platelet Count 83 K/uL (130-400)
[2021-10-09 02:33] LABS: Eosinophils # (auto) 0.17 K/uL (0-0.5); Eosinophils % (auto) 2.3 %; Immature Granulocytes # (auto) 0.08 K/uL (0.00-0.02); Immature Granulocytes % (auto) 1.1 %; Lymphocytes # (auto) 1.09 K/uL (1.2-3.4); Lymphocytes % (auto) 14.5 %; Monocytes # (auto) 1.01 K/uL (0.11-0.59); Monocytes % (auto) 13.5 %; Neutrophils # (auto) 5.15 K/uL (1.4-6.5); Neutrophils % (auto) 68.6 %
[2021-10-09] MEDS ORDERED: PROMETHAZINE HCL 6.25 MG in SODIUM CHLORIDE 0.9% 50 ML IV PRN (02:35)
[2021-10-09 02:38] LABS: Partial Thromboplastin Ratio 0.7
[2021-10-09 02:49] LABS: Partial Thromboplastin Time < 20.0 Seconds (21.0-31.0)
[2021-10-09 02:51] LABS: BUN Creatinine Ratio 20.5 (10-20); Calcium 16.2 mg/dl (8.5-10.1); Creatinine Clr Calc Pharmacy 24.8 ml/min; Est GFR (Non-African American) 30.2 ml/min; Magnesium 1.5 mg/dl (1.7-2.4); Potassium 3.5 mmol/L (3.5-5.1)
[2021-10-09] MEDS ORDERED: CALCITONIN SALMON 400 UNITS/2 ML SQ SCH (03:00)
[2021-10-09] MEDS ORDERED: CALCITONIN SALMON SQ ONE (03:30)
[2021-10-09] MEDS: LEVOTHYROXINE SODIUM 125 MCG TABLET PO SCH (05:17)
[2021-10-09] MEDS: METOPROLOL TARTRATE 50 MG TAB PO SCH ×2 (05:17→20:05)
[2021-10-09] MEDS ORDERED: PIPERACILLIN/TAZOBACTAM 3.375 GM in DEXTROSE 5% 100 ML IV ONE (05:54)
--- NOTE | 2021-10-09 06:43 | CT Scan Report ---
CT OF THE CERVICAL SPINE WITHOUT CONTRAST CLINICAL HISTORY: Pain. History of prostate, bladder and thyroid cancer. COMPARISON STUDY: MRI of the cervical spine September 30, 2021. TECHNIQUE: Helical axial images of the cervical spine were obtained without IV contrast. Sagittal a nd coronal reconstructions were viewed. Automated exposure control was utilized for the study. A do se lowering technique was utilized adhering to the principles of ALARA. FINDINGS: There are postoperative findings consistent with C5 corpectomy and C4-C6 anterior discectom y and fusion. The hardware is intact. No acute cervical spine fracture is noted. There are no unexpec angely radiopaque foreign bodies. Note is made of moderate prevertebral fluid within the operative bed, extending from C3-4 through C6. This measures approximately 3.1 x 1.3 cm in AP by transverse dimensio ns respectively. Attenuation is difficult to assess given streak artifact from adjacent hardware mensah jennifer this collection appears relatively hypodense. This has moderate mass effect upon the hypopharynx and the supraglottic airway. Central canal and neural foramen are suboptimally assessed by CT. Lizzy us lytic foci are noted within visualized skeletal structures. These include a large lesion within th e right aspect of C3 vertebral body. A smaller lesion within the left inferior aspect of C2 vertebral body is noted. Smaller occipital lesions is an additional lesions within the cervical spine are pres ent. There is severe multilevel facet arthrosis. There is moderate to space narrowing at C3-C4 and mi ld to moderate disc space narrowing at C6-C7. IMPRESSION: 1. Status post C5 corpectomy and C4-C6 anterior discectomy and fusion. Hardware intact. 2. Moderate prevertebral fluid within the operative bed extending from C3-C4 through C6 levels. This has moderate mass effect upon the hypopharynx and supraglottic airway. This fluid collection is nonsp ecific in the early postoperative setting and sterility cannot be assessed. Close clinical monitoring is recommended to exclude the possibility of airway compromise. This finding will be called/faxed to ordering provider at time of dictation. 3. Multiple lytic skeletal lesions, as described above. These are consistent with skeletal metastase s. 4. No acute cervical spine fracture. 5. Multilevel facet arthrosis and degenerative disc disease. ACT 112: Negative or not required by law. Electronically signed by: Danis Evans M.D. 10/09/2021 6:41 AM
--- NOTE | 2021-10-09 07:13 | CT Scan Report ---
CT OF THE CHEST WITHOUT IV CONTRAST CLINICAL HISTORY: cough, low o2. COMPARISON STUDY: Chest radiograph October 08, 2021. Chest radiograph October 11, 2018. TECHNIQUE: Axial images of the chest were obtained without IV contrast. Images were reviewed in the axial, sagittal, and coronal planes. IV contrast was not administered for this examination. Automat ed exposure control was utilized for the study. A dose lowering technique was utilized adhering to t he principles of ALARA. FINDINGS: Mild cardiomegaly is noted. There is extensive coronary artery calcification. No pericardi al effusion is noted. There are multiple mildly enlarged mediastinal lymph nodes. A few are partially calcified. Index right paratracheal lymph node measures 1.6 x 1.1 cm. Index subcarinal lymph node me asures 1.9 x 1.3 cm per there is no pneumothorax or pleural effusion. Lower lobe opacities favor atel ectasis. No definite consolidation to suggest pneumonia. There is an indeterminate 1.5 cm irregular d ensity within the left upper lobe on image 123. There are numerous small nodules within the upper lob es. These measure up to 4 mm. Mild interlobular septal thickening is noted. Multiple lytic lesions wi thin the thoracic spine are noted. A few rib lesions are noted. These include lesions within the T9 a nd T12 vertebral bodies. There is no pathologic fracture. IMPRESSION: 1. No consolidation to suggest pneumonia. 2. Suspected mild interstitial pulmonary edema. 3. Indeterminate 1.5 cm irregular density within the left upper lobe. This could be infectious. [facility], a follow-up chest CT in 6 months is recommended to exclude the possibility of a pulmonary lesion. Numerous additional smaller pulmonary nodules which are indeterminate and can be assessed on follow- up CT. 4. Nonspecific mild mediastinal lymphadenopathy which can be assessed on follow-up CT. 5. Numerous lytic skeletal lesions consistent with metastatic disease. ACT 112: Negative or not required by law. Electronically signed by: Danis Evans M.D. 10/09/2021 7:11 AM
--- NOTE | 2021-10-09 07:18 | CT Scan Report ---
HEAD CT NONCONTRAST CT DOSE: 1481.95 mGy.cm HISTORY: Altered mental status. TECHNIQUE: Multiaxial CT images of the head were performed without the use of intravenous contrast. A utomated exposure control was utilized for this study. A dose lowering technique was utilized adheri ng to the principles of ALARA. Comparison: Head CT 10/11/2018. Findings: Mild mucosal thickening within the maxillary sinuses and ethmoid air cells. Trace left mast oid effusion, unchanged. The right mastoid air cells are clear. The calvarium and skull base are inta ct. There is no mass, hematoma, midline shift, acute infarct. White matter hypodensity is nonspecific but suggestive of microvascular ischemic change. The ventricles and sulci demonstrate mild age-relat ed involutional changes. Impression: No significant change compared to the prior study. No acute intracranial abnormality. ACT 112: Negative or not required by law. Electronically signed by: Tommy Tay M.D. 10/09/2021 7:17 AM
--- NOTE | 2021-10-09 07:31 | CT Scan Report ---
CT OF THE ABDOMEN AND PELVIS WITHOUT CONTRAST CLINICAL HISTORY: Back pain. COMPARISON STUDY: CT of the abdomen and pelvis October 11, 2018. CT of the abdomen and pelvis February 15, 2020. MRI of the lumbar spine October 02, 2021. TECHNIQUE: Axial images of the abdomen and pelvis were obtained without IV contrast. Images were revi ewed in the axial, sagittal, and coronal planes. Automated exposure control was utilized for the angeline dy. A dose lowering technique was utilized adhering to the principles of ALARA. FINDINGS: Please note that the chest CT will be reported separately. No pneumatosis, free air or port al venous gas is present. Evaluation of the abdomen and pelvis is suboptimal as unenhanced exam. Hypo dense hepatic lesions are similar to CT of October 11, 2018. These favor cysts. There is no biliary or pa ncreatic ductal dilatation. There is no hydronephrosis. Water attenuation right renal lesion is subop timally. Unenhanced exam but favors a cyst. Unenhanced images of the spleen and pancreas are unremark able. Upper abdominal adenopathy is noted. This has increased since prior CT. Index portacaval lymph node measures 4.7 x 2.3 cm. Hyperdense bilateral adrenal masses have developed since prior CT. Right adrenal mass measures 2.8 x 2.6 cm. Left adrenal mass measures 2.8 x 2.6 cm. There is no evidence for a bowel obstruction. The prostate is enlarged, measuring 4.8 cm in transverse dimension. There are p ostoperative findings within the prostate suggestive of transurethral resection. Prostate indents the base of the bladder. Numerous lytic lesions are noted within visualized skeletal structures. These c orrespond to findings from previous lumbar spine MRI. No pathologic fractures are identified. Mildly enlarged right inguinal lymph nodes are present. . IMPRESSION: 1. Numerous lytic skeletal lesions consistent with metastatic disease. 2. Interval involvement of bilateral adrenal masses consistent with metastases. These are hyperdense and could contain hemorrhage. Progression of upper abdominal pathologic lymphadenopathy. These findin gs will be called/faxed to the ordering provider at time of dictation. 3. No bowel obstruction. 4. Enlarged prostate which indents the base of the bladder. ACT 112: Negative or not required by law. Electronically signed by: Danis Evans M.D. 10/09/2021 7:29 AM
--- NOTE | 2021-10-09 07:56 | XRay Report ---
XR chest 1V portable HISTORY: hypoxia COMPARISON: Chest 10/11/2018. FINDINGS: No pneumothorax. No pleural effusions. The heart is normal in size. No focal lung consolida tions to suggest pneumonia. No evidence for pulmonary edema. Cervical spinal fusion hardware is noted . Scattered lytic lesions are better present on the same day chest CT. IMPRESSION: 1. No acute process within the chest. 2. Scattered lytic skeletal lesions are better appreciated on the same day chest CT. ACT 112: Negative or not required by law. Electronically signed by: Tommy Tay M.D. 10/09/2021 7:54 AM
[2021-10-09] MEDS: ISOSORBIDE MONO EXTENDED REL 60 MG TABCR PO SCH (08:24)
[2021-10-09] MEDS: ATORVASTATIN 10 MG TAB PO SCH (08:24)
[2021-10-09] MEDS: OXYBUTYNIN CHLORIDE XL 5 MG TABCR PO SCH (08:25)
[2021-10-09] MEDS: TAMSULOSIN HCL 0.4 MG CAP PO SCH (08:25)
[2021-10-09] MEDS: CALCITONIN SALMON SQ SCH ×2 (08:55→21:02)
[2021-10-09] MEDS: SODIUM CHLORIDE 0.9% 1000ML 1,000 ML IV SCH ×2 (08:55→17:00)
[2021-10-09] MEDS ORDERED: METOPROLOL TARTRATE 50 MG TAB PO SCH (09:00)
[2021-10-09 09:13] LABS: BUN Creatinine Ratio 20.7 (10-20); Calcium 15.9 mg/dl (8.5-10.1); Creatinine Clr Calc Pharmacy 26.9 ml/min; Est GFR (African American) 38.7 ml/min; Est GFR (Non-African American) 33.4 ml/min; Potassium 3.2 mmol/L (3.5-5.1)
--- NOTE | 2021-10-09 10:31 | Orthopedic Consultation ---
Date of Consultation October 09, 2021 Assessment & Plan (1) Cervical stenosis of spine: Patient is to wear his collar at all times with exception of bathing and eating. But have him undergo therapy once he has emerged from his encephalopathy. History of Present Illness Reason for Consultation: Status post anterior cervical corpectomy and fusion Attending Physician: Anastasiya Newsome MD History of Present Illness ThisPatient presents with hypercalcemia and he is somewhat confused but cooperative with exam. Denies any difficulty with swallowing. He denies any right arm pain still has arm weakness. Allergies Allergy/AdvReac Type Severity Reaction Status Date / Time naloxone Allergy Unknown unkn Verified 09/30/21 14:01 pentazocine Allergy Unknown Verified 09/30/21 14:01 Home Medications Medication Instructions Recorded Confirmed Type amlodipine 10 mg tablet 10 mg PO QAM 10/11/18 09/30/21 History isosorbide mononitrate 60 mg 60 mg PO QAM 10/11/18 09/30/21 History tablet,extended release 24 hr levothyroxine 125 mcg tablet See Rx Instructions .ROUTE .COMPLEX 10/11/18 09/30/21 History (Levoxyl) losartan 50 mg tablet 100 mg PO QAM 10/11/18 09/30/21 History metoprolol tartrate 100 mg tablet 50 mg PO BID 10/11/18 09/30/21 History nitroglycerin 0.4 mg sublingual 0.4 mg SUBLINGUAL DIRECTED PRN 10/11/18 09/30/21 History tablet (Nitrostat) MDD 3 DOSES, 5 MIN APART potassium chloride 20 mEq 20 meq PO BID 10/11/18 09/30/21 History tablet,extended release(part/cryst) tamsulosin 0.4 mg capsule 0.4 mg PO QAM 10/11/18 09/30/21 History atorvastatin 10 mg tablet 10 mg PO QAM 03/04/21 09/30/21 History furosemide 20 mg tablet 20 mg PO 5XWK 03/04/21 09/30/21 History pyridoxine (vitamin B6) 100 mg 100 mg PO QAM 03/04/21 09/30/21 History tablet coenzyme Q10 200 mg capsule 200 mg PO QAM 08/07/21 09/30/21 History mecobalamin (vitamin B12) 1,000 1,000 mcg PO QAM 08/07/21 09/30/21 History mcg chewable tablet oxybutynin chloride 5 mg 5 mg PO DAILY 09/30/21 09/30/21 History tablet,extended release 24 hr (Ditropan XL) oxycodone 5 mg tablet 5 mg PO Q6H PRN #20 tab 10/03/21 Rx tramadol 50 mg tablet 50 mg PO Q6H PRN #20 tab 10/03/21 Rx Patient History Medical History Bilateral leg pain CAD (coronary artery disease) Cervical radiculopathy Cervical stenosis of spine CKD (chronic kidney disease), stage III Dyslipidemia Heart disease HTN (hypertension) Hypoxia Kidney disease Stage III Left bundle branch block Mitral valve regurgitation Neutropenia MARCELINO (obstructive sleep apnea) CPAP Peripheral neuropathy Piriformis syndrome Prostate cancer Status post chemo Rhabdomyolysis Small cell carcinoma of bladder Thrombocytopenia Thyroid cancer 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 and transposition left Upper extremity weakness Surgical History History of cystoscopy History of heart artery stent LAD History of thyroidectomy Status post cataract extraction of both eyes with insertion of intraocular lens Family History Brother FH: brain cancer Other Coronary heart disease Social History Smoking Status: Former smoker Second Hand Exposure: No; Do You Dip or Chew Tobacco: No; Hx Alcohol Use: Yes Alcohol type: beer Hx Substance Use: No Preferred Language: Setswana Communication Ability: Effective Painter Mirror Required: No Beliefs That Will Affect Care: None marital status: Current Living Situation: Spouse Other Information That Helps Us Care for You: No Feels Safe at Home: Yes Safety Concerns: Feels Safe At This Time Assistive Devices: Glasses and Hearing Aid - Bilateral Physical Exam Physical Exam: On exam the incision is healing appropriately. There is some small to swelling to the cervical site. I did have him swallow water. He was able to do so without difficulty. He still demonstrates dense weakness to the right upper extremity but sensation to cold and light touch. Left upper extremity is strong and intact. Results & Data ([facility]) Vital Signs (Past 12 Hours) Vital Signs Temp Pulse Pulse Pulse Resp BP BP 10/09/21 09:20 72 10/09/21 07:27 36.4 C L 67 20 184/81 H 10/09/21 02:58 36.5 C 71 18 167/77 H 10/09/21 02:35 10/09/21 00:24 10/09/21 00:20 71 21 10/09/21 00:10 67 19 144/87 H 10/09/21 00:00 68 20 10/08/21 23:50 70 20 10/08/21 23:40 87 15 10/08/21 23:30 89 26 H 10/08/21 23:20 71 19 10/08/21 23:10 75 22 10/08/21 23:00 69 19 169/86 H 10/08/21 22:50 76 22 10/08/21 22:49 71 20 Pulse Ox Pulse Ox 10/09/21 09:20 10/09/21 07:27 98 10/09/21 02:58 96 10/09/21 02:35 96 10/09/21 00:24 99 10/09/21 00:20 98 10/09/21 00:10 98 10/09/21 00:00 98 10/08/21 23:50 98 10/08/21 23:40 10/08/21 23:30 97 10/08/21 23:20 99 10/08/21 23:10 99 10/08/21 23:00 99 10/08/21 22:50 99 10/08/21 22:49 99
[2021-10-09] MEDS ORDERED: ZOLEDRONIC ACID 4 MG in 0.9 % SODIUM CHLORIDE 100 ML IV ONE (11:15)
[2021-10-09] MEDS ORDERED: ZOLEDRONIC ACID IV ONE (11:15)
[2021-10-09] MEDS ORDERED: FUROSEMIDE 40 MG/4 ML VIAL IV ONE (11:18)
[2021-10-09] MEDS ORDERED: PIPERACILLIN/TAZOBACTAM 3.375 GM in DEXTROSE 5% 100 ML IV SCH (12:00)
[2021-10-09 13:41] LABS: Creatinine Urine Random 39.6 mg/dl; Protein Creatinine Ratio Urine 0.4 (0-0.2); Total Protein Urine Random 15.9 mg/dl (0-11.9)
--- NOTE | 2021-10-09 15:00 | Consultation Report ---
NEPHROLOGY CONSULTATION NOTE DATE OF SERVICE: 10/09/2021 REASON FOR CONSULT: Critical hypercalcemia and acute renal failure. HISTORY OF PRESENT ILLNESS: The patient is an 81-year-old male with known bladder cancer, was admitted because of confusion yesterday. The patient recently was discharged from the hospital following an admission for cervical spine surgery. He was actually discharged on 10/03 with a calcium of 10.8, but on admission yesterday, his calcium was more than 18. He was not eating and drinking much at home. Since being admitted, the patient has received calcitonin and normal saline and with that, his calcium is trending down slowly. This morning, labs showed a calcium of 15.9. Ionized calcium was 2.14 yesterday. Creatinine is trending down from 2.19 to 1.84 now; however, on the day of discharge on 10/03, he had a creatinine of 1.25. It is not possible to obtain history from the patient given confusion as well as extremely hard of hearing. The patient had a CT chest, abdomen and pelvis, which shows diffuse lytic skeletal lesions consistent with metastatic disease. There are also bilateral adrenal masses consistent with metastasis. On his recent MRI also, he had multiple metastatic lesions noted. The patient has a Huynh catheter and he is making urine in adequate amount. Blood pressure seems somewhat high. PAST MEDICAL AND SURGICAL HISTORY: Includes cystoscopy, cataract surgery, bladder cancer surgery, thyroidectomy, ulnar surgery, recent cervical spine surgery, coronary artery disease, status post stent, chronic left bundle branch block, hypertension, hyperlipidemia, obstructive sleep apnea, on CPAP, thyroid cancer, status post thyroidectomy/ablation with post-surgical hypothyroidism, chronic kidney disease, baseline creatinine around 1.4, bladder cancer, status post surgery and status post BCG chemotherapy, prior tobacco use, chronic pain. MEDICATIONS: Home medication list was reviewed and is as per the reconciliation list, although I am not able to confirm with the patient given he is extremely hard of hearing and confused. He was on losartan 100 mg, Lasix 20 mg 5 times a week as well as amlodipine, Imdur, levothyroxine, metoprolol, potassium chloride 20 twice daily, tamsulosin, atorvastatin, vitamin B6, coenzyme, vitamin B12, Ditropan XL, tramadol, oxycodone. REVIEW OF SYSTEMS: Could not be obtained secondary to confusion and extremely hard of hearing. SOCIAL HISTORY: The patient is a former smoker, , lives with his spouse. Occasional alcohol. PHYSICAL EXAMINATION: GENERAL: Elderly white male who appears to be chronically ill and very thinly built. At this point, he is awake and alert, but I could not really test the orientation. CHEST: Bilaterally decreased breath sounds. NECK: He has a cervical collar in place. Neck is supple. HEENT: Mucous membrane is moist. HEART: Regular rate and rhythm. ABDOMEN: No distention. Soft and nontender. EXTREMITIES: Show no edema. VITAL SIGNS: Most recent vital signs show blood pressure 184/81, pulse rate 72, temperature 36.4, 98% on 4 liters nasal cannula. LABORATORY TEST: As stated earlier, just about a week ago on 10/03, he was discharged with a creatinine of 1.25. On admission yesterday, it was 2.19. This morning, it is down to 1.84. His calcium on the day of discharge was 10.9. On admission, it was more than 18. It is down to 15.[address] scan of the chest, abdomen and pelvis, chest x-ray were all reviewed and the main finding is diffuse metastatic lesions in the skeletal. 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 I have been consulted for: 1. Hypercalcemia. 2. Acute renal failure. Given diffuse metastatic lesions all over the skeletal system, we will have to assume the hypercalcemia is related with metastatic lesion in the skeletal system. PTH is very suppressed and that is consistent with the clinical diagnosis. Continue with normal saline. Continue Huynh catheter and strictly monitor input and output charting. If the urine output starts to drop off, we do have to give Lasix IV as the goal is to maintain a very high amount of urine output. Creatinine should come down with the IV fluid. Slightly low potassium and we will give him some supplement. No workup needed for acute renal failure. However, for the hypercalcemia, we will do the basic workup, which would include a vitamin D level as well as 1,25-dihydroxy vitamin D level and serum immunofixation and urine for Bence-Marino as well as SHAKA level. However, this is more academic. Almost certainly the hypercalcemia is related with his diffuse cancer status, especially the skeletal lesions. Consider palliative medicine involvement. Job ID: [id number] MTDD
[2021-10-09] MEDS: PIPERACILLIN/TAZOBACTAM 3.375 GM in DEXTROSE 5% 100 ML IV SCH ×2 (15:19→22:14)
--- NOTE | 2021-10-09 16:27 | Hospitalist Progress Note ---
Date of Service October 09, 2021 Assessment & Plan Admission and Anticipated Discharge Date Admission Date: October 09, 2021 Subjective Patient admitted earlier this morning for weakness found to have severely elevated calcium as well as diffusely metastatic cancer. He has known underlying bladder cancer and undergoing treatment. Unclear whether these metastatic lesions are bladder in origin or another primary. I spoke with his son and via phone to update them on these findings. I discussed code status again with family and confirmed he is a Full code. We can re-address as needed if his clinical status worsens. His oncologist is at [facility] and he will need to follow up with them for biopsy of one of these skeletal lesions. While here, we will manage his hypercalcemia, weakness, etc. When his mental status improves, will ask for PT/OT evaluation for discharge planning purposes. If he was to have clinical deterioration, will contact family again to re- address goals of care. Results & Data Results & Data ([facility]) Vital Signs (Past 12 Hours) Vital Signs Temp Pulse Pulse Resp BP Pulse Ox 10/09/21 15:37 78 10/09/21 14:49 36.6 C 82 20 133/75 96 10/09/21 12:00 36.5 C 78 18 174/83 H 98 10/09/21 09:20 72 10/09/21 07:27 36.4 C L 67 20 184/81 H 98
[2021-10-09] MEDS: ACETAMINOPHEN 325 MG TAB PO PRN (20:08)
[2021-10-10] MEDS: SODIUM CHLORIDE 0.9% 1000ML 1,000 ML IV SCH ×4 (00:11→19:57)
[2021-10-10 06:18] LABS: Albumin Globulin Ratio 0.9 (0.9-2); Albumin Level 3.3 gm/dl (3.4-5.0); BUN Creatinine Ratio 18.3 (10-20); Calcium 14.1 mg/dl (8.5-10.1); Creatinine Clr Calc Pharmacy 25.9 ml/min; Est GFR (Non-African American) 31.9 ml/min; Globulin 3.5 gm/dl (2.5-4.0); Potassium 3.2 mmol/L (3.5-5.1); Total Protein 6.8 gm/dl (6.0-8.3)
[2021-10-10] MEDS: LEVOTHYROXINE SODIUM 125 MCG TABLET PO SCH (07:15)
[2021-10-10] MEDS ORDERED: POTASSIUM CHLORIDE CRTAB 20 MEQ TABCR PO STA (07:57)
[2021-10-10] MEDS: ISOSORBIDE MONO EXTENDED REL 60 MG TABCR PO SCH (08:01)
[2021-10-10] MEDS: METOPROLOL TARTRATE 50 MG TAB PO SCH (08:01)
[2021-10-10] MEDS: TAMSULOSIN HCL 0.4 MG CAP PO SCH (08:02)
[2021-10-10] MEDS: ATORVASTATIN 10 MG TAB PO SCH (08:02)
[2021-10-10] MEDS: OXYBUTYNIN CHLORIDE XL 5 MG TABCR PO SCH (08:02)
[2021-10-10] MEDS: PIPERACILLIN/TAZOBACTAM 3.375 GM in DEXTROSE 5% 100 ML IV SCH ×3 (08:04→22:30)
[2021-10-10] MEDS: ACETAMINOPHEN 325 MG TAB PO PRN (08:05)
[2021-10-10] MEDS: CALCITONIN SALMON SQ SCH ×2 (08:37→22:28)
[2021-10-10] MEDS ORDERED: amLODIPine BESYLATE 5 MG TAB PO SCH (09:00)
[2021-10-10] MEDS: METOPROLOL TARTRATE 1 MG/ML VIAL IV SCH ×2 (12:55→18:36)
--- NOTE | 2021-10-10 13:58 | XRay Report ---
XR abdomen min 2V HISTORY: 81 years-old Male vomiting, rule out obstruction acute nausea with vomiting COMPARISON: CT abdomen and pelvis 10/09/2021 TECHNIQUE: 2 views of the abdomen FINDINGS: Mild gaseous distention of the stomach. Nonobstructive bowel gas pattern. No pneumatosis or pneumoper itoneum. Moderate fecal retention. Pelvic basin phleboliths redemonstrated. Degenerative changes of t he spine, pelvis and hips. No acute fracture. Cardiomegaly. IMPRESSION: 1. Mild gaseous distention of the stomach with nonobstructive bowel gas pattern. 2. Moderate fecal retention. ACT 112: Negative or not required by law. The above report was generated using voice recognition software. It may contain grammatical, syntax o r spelling errors. Electronically signed by: Nicola Baptiste M.D. 10/10/2021 1:57 PM
--- NOTE | 2021-10-10 14:01 | Nephrology Progress Note ---
Date of Service October 10, 2021 Assessment & Plan Admission and Anticipated Discharge Date Admission Date: October 09, 2021 Subjective S--No new issues other than Pain. PHYSICAL EXAMINATION: GENERAL: Elderly white male who appears to be chronically ill and very thinly built. At this point, he is awake and alert, but I could not really test the orientation. CHEST: Bilaterally decreased breath sounds. NECK: He has a cervical collar in place. Neck is supple. HEENT: Mucous membrane is moist. HEART: Regular rate and rhythm. ABDOMEN: No distention. Soft and nontender. EXTREMITIES: Show no edema. VITAL SIGNS: Most recent vital signs show blood pressure 184/81, pulse rate 72, temperature 36.4, 98% on 4 liters nasal cannula. LABORATORY TEST: Ca in [address] scan of the chest, abdomen and pelvis, chest x-ray were all reviewed and the main finding is diffuse metastatic lesions in the skeletal. 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 I have been consulted for: 1. Hypercalcemia. 2. Acute renal failure. Given diffuse metastatic lesions all over the skeletal system, we will have to assume the hypercalcemia is related with metastatic lesion in the skeletal system. PTH is very suppressed and that is consistent with the clinical diagnosis. Continue with normal saline. Continue Huynh catheter and strictly monitor input and output charting. If the urine output starts to drop off, we do have to give Lasix IV as the goal is to maintain a very high amount of urine output. Almost certainly the hypercalcemia is related with his diffuse cancer status, especially the skeletal lesions. Rec 1 Lower NS to 100 per hr. 2 No lasix today but may have to if urine drops below 2.5 liters per day 3 Consider palliative medicine involvement. Results & Data ([facility]) Vital Signs (Past 12 Hours) Vital Signs Temp Pulse Pulse Resp BP BP Pulse Ox 10/10/21 12:55 87 164/70 H 10/10/21 12:00 36.5 C 86 18 164/76 H 91 10/10/21 08:23 36.6 C 100 H 18 175/94 H 90 10/10/21 03:50 36.7 C 99 H 20 165/87 H 92
--- NOTE | 2021-10-10 14:25 | Hospitalist Progress Note ---
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 -He will need to follow up with his oncologist for biopsy of one of the skeletal lesions to identify primary Acute metabolic encephalopathy -due to elevated calcium levels Nausea/vomiting -Obstruction X ray shows dilated gastric bubble, non obstructive pattern, moderate amount of stool -strict NPO for now, convert essential medications to IV -will start DC dulcolax FILIBETRO on CKD 3 -monitor BMP daily Hypokalemia -IV potassium 20mEq chronic thrombocytopenia -Plt remains stable DVT ppx -SQ heparin Family (son and ) were updated yesterday Admission and Anticipated Discharge Date Admission Date: October 09, 2021 Subjective This morning, took his medications and shortly later vomited Remains confused, difficult to arouse Also very hard of hearing, his hearing aid is not working Physical Exam Physical Exam: Vomited after morning medications Seen later in the morning and he appeared more comfortable Still drowsy, confused ENMT: In [place] J collar currently Respiratory: breathing comfortably, no wheezing/rhonchi Cardiovascular: regular rate and rhythm, no murmurs/rubs/gallops Gastrointestinal (Abdomen): +tympanic to percussion Musculoskeletal: no edema Neurologic: Somnolent, Results & Data Results & Data ([facility]) Vital Signs (Past 12 Hours) Vital Signs Temp Pulse Pulse Resp BP BP Pulse Ox 10/10/21 12:55 87 164/70 H 10/10/21 12:00 36.5 C 86 18 164/76 H 91 10/10/21 08:23 36.6 C 100 H 18 175/94 H 90 10/10/21 03:50 36.7 C 99 H 20 165/87 H 92 Laboratory Results [facility] 10/10/21 05:16 Sodium 143 Potassium 3.2 L Chloride 105 Carbon Dioxide 31 BUN 35 H Creatinine 1.91 H Glucose 106 H Calcium 14.1 H* Liver Function 10/10/21 Range/Units 05:16 Total Bilirubin 1.0 (0.2-1.0) mg/dl AST 29 (13-39) U/L ALT 13 (7-52) U/L Alkaline Phosphatase 53 (34-104) U/L Albumin 3.3 L (3.4-5.0) gm/dl Medications Administered Current Inpatient Medications Acetaminophen (Acetaminophen 325 Mg Tab) 650 mg PO Q4H PRN PRN Reason: Pain or Fever Stop: 11/08/21 02:34 Last Admin: 10/10/21 08:05 Dose: 650 mg Documented by: Amlodipine Besylate (Amlodipine Besylate 5 Mg Tab) [facility] [place]: 11/09/21 08:59 Last Admin: 10/10/21 08:02 Dose: 10 mg Documented by: Atorvastatin Calcium (Atorvastatin 10 Mg Tab) [facility] [place] 11/08/21 08:59 Last Admin: 10/10/21 08:02 Dose: 10 mg Documented by: Hydralazine HCl (Hydralazine Hcl 20 Mg/Ml Vial) 10 mg IV Q6 PRN PRN Reason: Blood Pressure - High Stop: 11/09/21 10:27 Promethazine HCl 6.25 mg/ (Sodium Chloride) 50.25 mls @ 201 mls/hr IV Q6H PRN PRN Reason: Nausea And Vomiting Stop: 11/08/21 02:34 Last Infusion: 10/10/21 11:19 Dose: Infused Documented by: Calcitonin [place] 240 units/ (Syringe) 1.2 mls @ 1.2 mls/sec SQ Q12H [facility] Stop: 10/10/21 23:59 Last Admin: 10/10/21 08:37 Dose: 1.2 mls/sec Documented by: Piperacillin Sod/Tazobactam (Sod 3.375 gm/ Dextrose) 115 mls @ 28.75 mls/hr IV Q8H [facility]; Protocol Stop: 10/16/21 14:29 Last Infusion: 10/10/21 12:56 Dose: Infused Documented by: Sodium Chloride (Nss 1000ml) 1,000 mls @ 100 mls/hr IV .Q10H [facility] Stop: 11/09/21 10:59 Last Admin: 10/10/21 12:55 Dose: 150 mls/hr Documented by: Dexamethasone 2 mg/ Syringe 0.5 mls @ 1 mls/min IV 1430 ONE Stop: 10/10/21 14:31 Isosorbide Mononitrate (Isosorbide [place] Extended Rel 60 Mg Tabcr) 60 mg PO [facility] Stop: 11/08/21 08:59 Last Admin: 10/10/21 08:01 Dose: 60 mg Documented by: Levothyroxine Sodium (Levothyroxine Sodium 125 Mcg Tablet) 62.5 mcg PO Mo@30 [facility] Stop: 11/11/21 06:29 Levothyroxine Sodium (Levothyroxine Sodium 125 Mcg Tablet) 125 mcg PO SuTuWeThFrSa@0630 [facility] Stop: 11/08/21 06:29 Last Admin: 10/10/21 07:15 Dose: 125 mcg Documented by: Metoprolol Tartrate (Metoprolol Tartrate 50 Mg Tab) 50 mg PO BID [facility] Stop: 11/08/21 04:09 Last Admin: 10/10/21 08:01 Dose: 50 mg Documented by: Metoprolol Tartrate (Metoprolol Tartrate 1 Mg/Ml Vial) 5 mg IV Q6 [facility] Stop: 11/09/21 11:59 Last Admin: 10/10/21 12:55 Dose: 5 mg Documented by: Oxybutynin Chloride (Oxybutynin Chloride Xl 5 Mg Tabcr) 5 mg PO DAILY [facility] Stop: 11/08/21 08:59 Last Admin: 10/10/21 08:02 Dose: 5 mg Documented by: Tamsulosin HCl (Tamsulosin Hcl 0.4 Mg Cap) 0.4 mg PO QAM [facility] Stop: 11/08/21 08:59 Last Admin: 10/10/21 08:02 Dose: 0.4 mg Documented by:
--- NOTE | 2021-10-10 14:29 | Electrocardiogram Report ---
Test Reason : Blood Pressure : / mmHG Vent. Rate : 073 BPM Atrial Rate : 073 BPM P-R Int : 226 ms QRS Dur : 132 ms QT Int : 390 ms P-R-T Axes : 083 005 180 degrees QTc Int : 429 ms Sinus rhythm with 1st degree A-V block Left bundle branch block Abnormal ECG When compared with ECG of 30-SEP-2021 23:29, QRS axis Shifted right T wave inversion more evident in Anterolateral leads Confirmed by Ousmane Queen ([id number]) on 10/10/2021 2:28:54 PM Referred By: REFERRED SELF Confirmed By:Ousmane Queen
[2021-10-10] MEDS ORDERED: dexAMETHasone 2 MG in SYRINGE 0 ML IV ONE (14:30)
[2021-10-10] MEDS: METOCLOPRAMIDE HCL INJ 5 MG/ML 2 ML VIAL IV SCH ×2 (16:35→21:50)
[2021-10-10] MEDS: bisacodyL 10 MG SUPP PR SCH (16:35)
--- NOTE | 2021-10-10 17:55 | Hospitalist Progress Note ---
Date of Service October 10, 2021 Assessment & Plan Admission and Anticipated Discharge Date Admission Date: October 09, 2021 Subjective I updated family (3 sons and ) on Mr Elam's clinical status. They are understandably upset about how ill he is and how much weaker today than he was yesterday. Again, I discussed code status and after some consideration, they have requested he be changed to DNR/DNI We discussed goals of care, his overall poor prognosis with his underlying metastatic cancer and now encephalopathy. They are agreeable to Palliative Care consult. Results & Data Results & Data ([facility]) Vital Signs (Past 12 Hours) Vital Signs Temp Pulse Pulse Resp BP BP Pulse Ox 10/10/21 17:11 80 10/10/21 15:27 37.2 C 83 20 170/78 H 92 10/10/21 12:55 87 164/70 H 10/10/21 12:00 36.5 C 86 18 164/76 H 91 10/10/21 11:00 106 H 10/10/21 08:23 36.6 C 100 H 18 175/94 H 90
[2021-10-10] MEDS ORDERED: METOPROLOL TARTRATE 1 MG/ML VIAL IV SCH (18:30)
[2021-10-10] MEDS ORDERED: METOPROLOL TARTRATE 1 MG/ML VIAL IV ONE (19:41)
[2021-10-11] MEDS: METOPROLOL TARTRATE 1 MG/ML VIAL IV SCH ×5 (02:00→23:52)
[2021-10-11] MEDS: METOCLOPRAMIDE HCL INJ 5 MG/ML 2 ML VIAL IV SCH (03:00)
[2021-10-11] MEDS: SODIUM CHLORIDE 0.9% 1000ML 1,000 ML IV SCH (06:00)
[2021-10-11] MEDS: PIPERACILLIN/TAZOBACTAM 3.375 GM in DEXTROSE 5% 100 ML IV SCH (06:00)
[2021-10-11 06:54] LABS: Hematocrit (blood only) 33.1 % (42-52); Hemoglobin 11.1 g/dL (14.0-18.0); Mean Corpuscular Hemoglobin 28.4 pg (25-34); Mean Corpuscular Hgb Conc 33.5 g/dL (32-36); Mean Corpuscular Volume 84.7 fL (80-100); RDW Coefficient of Variation 14.8 % (11.5-14.5); RDW Standard Deviation 46.1 fL (36.4-46.3); Red Blood Count 3.91 M/uL (4.7-6.1); White Blood Count 7.12 K/uL (4.8-10.8)
[2021-10-11 06:55] LABS: Mean Platelet Volume 9.3 fL (7.4-10.4); Platelet Count 69 K/uL (130-400)
[2021-10-11 07:12] LABS: Albumin Globulin Ratio 0.9 (0.9-2); Albumin Level 2.8 gm/dl (3.4-5.0); BUN Creatinine Ratio 19.6 (10-20); Bilirubin,Total 0.6 mg/dl (0.2-1.0); Calcium 11.6 mg/dl (8.5-10.1); Creatinine Clr Calc Pharmacy 20.6 ml/min; Est GFR (African American) 28.1 ml/min; Est GFR (Non-African American) 24.2 ml/min; Potassium 3.5 mmol/L (3.5-5.1); Total Protein 5.8 gm/dl (6.0-8.3)
--- NOTE | 2021-10-11 08:36 | Electrocardiogram Report ---
Test Reason : Blood Pressure : / mmHG Vent. Rate : 094 BPM Atrial Rate : 094 BPM P-R Int : 234 ms QRS Dur : 144 ms QT Int : 370 ms P-R-T Axes : 025 -49 099 degrees QTc Int : 462 ms Sinus rhythm with 1st degree A-V block Left axis deviation Left bundle branch block Abnormal ECG When compared with ECG of 08-OCT-2021 21:09, (unconfirmed) QRS axis Shifted left Confirmed by Ousmane Queen ([id number]) on 10/11/2021 8:35:48 AM Referred By: REFERRED SELF Confirmed By:Ousmane Queen
[2021-10-11] MEDS: bisacodyL 10 MG SUPP PR SCH (09:06)
--- NOTE | 2021-10-11 10:56 | Orthopedic Progress Note ---
Date of Service October 11, 2021 Assessment & Plan (1) Encephalopathy: Plan: Assessment status post anterior cervical corpectomy. Plan at this time his CAT scan did show some modest collapse of the construct. However count appears to be stable. Difficult to get an accurate impression as to his status in light of his encephalopathy. We will continue to observe him. He obviously has significant medical issues with metastatic disease throughout the spine. Hopefully would not have to perform a revision procedure. Admission and Anticipated Discharge Date Admission Date: October 09, 2021 Subjective Patient was arousable but not oriented to place and time. He is complaining of numbness in the right arm and weakness in his bilateral arms. Physical Exam Physical Exam: On exam he was able to move his legs with provocation. He had spontaneous movement of his arms and discomfort when I placed his right upper extremity under range of motion. Results & Data ([facility]) Vital Signs (Past 12 Hours) Vital Signs Temp Pulse Pulse Resp BP BP Pulse Ox 10/11/21 09:05 89 165/82 H 10/11/21 08:00 37.0 C 10/11/21 07:52 37.8 C H 88 20 165/82 H 93 10/11/21 07:06 89 10/11/21 02:57 36.9 C 81 20 161/75 H 92 10/11/21 02:00 77 142/65 H 10/11/21 01:58 74 142/65 H 10/10/21 23:07 37 C 79 30 H 164/75 H 92
--- NOTE | 2021-10-11 13:08 | Hospitalist Progress Note ---
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 Code status changed to DNR/DNI after discussing with family. Palliative care consult ordered Admission and Anticipated Discharge Date Admission Date: October 09, 2021 Subjective Yesterday vomited after morning medications, no further episodes More awake today Still very hard of hearing and remains confused No BM yet Physical Exam Physical Exam: Appears weak, frail, elderly ENMT: Cervical collar is on Respiratory: diminished at bases, no wheezing/rhonchi Cardiovascular: regular rate and rhythm, no murmurs/rubs/gallops Gastrointestinal (Abdomen): Hypoactive, not tympanic (improved compared to yesterday) Musculoskeletal: no edema Neurologic: Awake and arousable, very hard of hearing, speaking today and asking if his hearing aid is around (it's in his right ear), spontaneously moving left arm (right arm with noted weakness from previous) Results & Data Results & Data ([facility]) Vital Signs (Past 12 Hours) Vital Signs Temp Pulse Pulse Resp BP BP Pulse Ox 10/11/21 12:42 82 184/82 H 10/11/21 12:08 36.7 C 82 18 173/78 H 96 10/11/21 09:05 89 165/82 H 10/11/21 08:00 37.0 C 10/11/21 07:52 37.8 C H 88 20 165/82 H 93 10/11/21 07:06 89 10/11/21 02:57 36.9 C 81 20 161/75 H 92 10/11/21 02:00 77 142/65 H 10/11/21 01:58 74 142/65 H Laboratory Results Short CBC 10/11/21 Range/Units 06:08 WBC 7.12 (4.8-10.8) K/uL Hgb 11.1 L (14.0-18.0) g/dL Hct 33.1 L (42-52) % Plt Count 69 L (130-400) K/uL BMP 10/11/21 06:08 Sodium 147 H Potassium 3.5 Chloride 113 H Carbon Dioxide 28 BUN 47 H Creatinine 2.40 H D Glucose 110 H Calcium 11.6 H D Liver Function 10/11/21 Range/Units 06:08 Total Bilirubin 0.6 (0.2-1.0) mg/dl AST 28 (13-39) U/L ALT 13 (7-52) U/L Alkaline Phosphatase 42 (34-104) U/L Albumin 2.8 L (3.4-5.0) gm/dl Medications Administered Current Inpatient Medications Acetaminophen (Acetaminophen 325 Mg Tab) 650 mg PO Q4H PRN PRN Reason: Pain or Fever Stop: 11/08/21 02:34 Last Admin: 10/10/21 08:05 Dose: 650 mg Documented by: Amlodipine Besylate (Amlodipine Besylate 5 Mg Tab) 10 mg PO QAM [facility] Stop: 11/09/21 08:59 Last Admin: 10/10/21 08:02 Dose: 10 mg Documented by: Atorvastatin Calcium (Atorvastatin 10 Mg Tab) 10 mg PO QAM [facility] Stop: 11/08/21 08:59 Last Admin: 10/10/21 08:02 Dose: 10 mg Documented by: Bisacodyl (Bisacodyl 10 Mg Supp) 10 mg [place] DAILY [facility] Stop: 10/14/21 09:01 Last Admin: 10/11/21 09:06 Dose: 10 mg Documented by: Hydralazine HCl (Hydralazine Hcl 20 Mg/Ml Vial) 10 mg IV Q6 PRN PRN Reason: Blood Pressure - High Stop: 11/09/21 10:27 Promethazine HCl 6.25 mg/ (Sodium Chloride) 50.25 mls @ 201 mls/hr IV Q6H PRN PRN Reason: Nausea And Vomiting Stop: 11/08/21 02:34 Last Infusion: 10/10/21 11:19 Dose: Infused Documented by: Sodium Chloride (Nss 1000ml) 1,000 mls @ 100 mls/hr IV .Q10H [facility] Stop: 11/09/21 10:59 Last Admin: 10/11/21 06:00 Dose: 100 mls/hr Documented by: Isosorbide Mononitrate (Isosorbide [place] Extended Rel 60 Mg Tabcr) 60 mg PO QAM [facility] Stop: 11/08/21 08:59 Last Admin: 10/10/21 08:01 Dose: 60 mg Documented by: Levothyroxine Sodium (Levothyroxine Sodium 125 Mcg Tablet) 62.5 mcg PO Mo@30 [facility] Stop: 11/11/21 06:29 Levothyroxine Sodium (Levothyroxine Sodium 125 Mcg Tablet) 125 mcg PO SuTuWeThFrSa@0630 [facility] Stop: 11/08/21 06:29 Last Admin: 10/10/21 07:15 Dose: 125 mcg Documented by: Metoprolol Tartrate (Metoprolol Tartrate 50 Mg Tab) 50 mg PO BID [facility] Stop: 11/08/21 04:09 Last Admin: 10/10/21 08:01 Dose: 50 mg Documented by: Metoprolol Tartrate (Metoprolol Tartrate 1 Mg/Ml Vial) 2.5 mg IV Q6H [facility] Stop: 11/10/21 01:59 Last Admin: 10/11/21 12:42 Dose: 2.5 mg Documented by: Oxybutynin Chloride (Oxybutynin Chloride Xl 5 Mg Tabcr) 5 mg PO DAILY [facility] Stop: 11/08/21 08:59 Last Admin: 10/10/21 08:02 Dose: 5 mg Documented by: Tamsulosin HCl (Tamsulosin Hcl 0.4 Mg Cap) [facility] [place]: 11/08/21 08:59 Last Admin: 10/10/21 08:02 Dose: 0.4 mg Documented by:
--- NOTE | 2021-10-11 14:45 | Magnetic Resonance Report ---
MRI OF THE BRAIN WITHOUT IV CONTRAST CLINICAL HISTORY: Change in mental status COMPARISON STUDY: CT of the brain dated 10/09/2021 TECHNIQUE: MRI of the brain was performed utilizing various T1 and T2-weighted sequences in the axial , sagittal, and coronal planes. IV contrast was not administered for this examination. FINDINGS: Brain parenchyma: There is age-related involutional change noting mild subcortical and periventricula r microangiopathic disease. There is no hemorrhage or mass effect. There is no restricted diffusion t o suggest acute ischemia. Rodarte-white matter differentiation is preserved. No extra-axial fluid collec tion is seen. The cerebellar tonsils are normal in configuration. Ventricles, sulci, and cisterns: Prominent secondary to involutional change. Pituitary and sella: Unremarkable. Intracranial vasculature: Normal flow voids are maintained at the skull base. Orbits: The bony orbits are grossly intact. Orbital contents are normal in appearance noting bilatera l ocular lens implants. Sinuses and mastoids: There are left larger than right mastoid effusions. Trace mucosal thickening is noted in the frontal, maxillary, and ethmoid sinuses. Calvarium: There are numerous small osseous lesions. These show restricted diffusion and are highly s uspicious for calvarial metastatic disease. Metastatic lesions are partially visualized in the bodies of C2 and C3. Cervical cord: Partially visualized cervical spinal cord is normal in morphology and signal intensity . IMPRESSION: 1. There is no hemorrhage, mass effect, or acute ischemia. 2. 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 ACT 112: Negative or not required by law. Electronically signed by: Jose C Joe M.D. 10/11/2021 2:43 PM
--- NOTE | 2021-10-11 15:21 | Nephrology Progress Note ---
Date of Service October 11, 2021 Assessment & Plan Admission and Anticipated Discharge Date Admission Date: October 09, 2021 Subjective Subjective S--No new issues other than Pain.worsening Mental status. urine 1300 ml yesterday PHYSICAL EXAMINATION: GENERAL: Elderly white male who appears to be chronically ill and very thinly built. Lot les laert now. CHEST: Bilaterally decreased breath sounds. NECK: He has a cervical collar in place. Neck is supple. HEENT: Mucous membrane is moist. HEART: Regular rate and rhythm. ABDOMEN: No distention. Soft and nontender. EXTREMITIES: Show no edema. VITAL SIGNS: Most recent vital signs show blood pressure 184/81, pulse rate 72, temperature 36.4, 98% on 4 liters nasal cannula. LABORATORY TEST: Ca in 's now. Creat rising and na now 147. CT scan of the chest, abdomen and pelvis, chest x-ray were all reviewed and the main finding is diffuse metastatic lesions in the skeletal. 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 I have been consulted for: 1. Hypercalcemia. 2. Acute renal failure. Given diffuse metastatic lesions all over the skeletal system, we will have to assume the hypercalcemia is related with metastatic lesion in the skeletal sy stem. PTH is very suppressed and that is consistent with the clinical diagnosis. Continue with normal saline. Continue Huynh catheter and strictly monitor input and output charting. If the urine output starts to drop off, we do have to give Lasix IV as the goal is to maintain a very high amount of urine output. Almost certainly the hypercalcemia is related with his diffuse cancer status, especially the skeletal lesions. Rec 1 Stop NS. Start d5w at 150 ml per hr instead for more free water given rising na 2 Pending palliative medicine involvement. 3 Creat is rising likely from nephrocalcinosis given super high Ca++/ATN. Not pre renal as creat has been rising for few days now despite iv fluid. Results & Data ([facility]) Vital Signs (Past 12 Hours) Vital Signs Temp Pulse Pulse Resp BP BP Pulse Ox 10/11/21 12:42 82 184/82 H 10/11/21 12:08 36.7 C 82 18 173/78 H 96 10/11/21 09:05 89 165/82 H 10/11/21 08:00 37.0 C 10/11/21 07:52 37.8 C H 88 20 165/82 H 93 10/11/21 07:06 89
[2021-10-11] MEDS: DEXTROSE 5% 1,000 ML IV SCH ×2 (15:55→23:51)
[2021-10-11] MEDS: hydrALAZINE HCL 20 MG/ML VIAL IV PRN (17:31)
[2021-10-12] MEDS ORDERED: OLANZapine 10 MG/2.1 ML SDV IM STA (01:21)
[2021-10-12] MEDS: hydrALAZINE HCL 20 MG/ML VIAL IV PRN ×3 (04:00→23:21)
[2021-10-12 05:58] LABS: Hematocrit (blood only) 36.5 % (42-52); Hemoglobin 12.6 g/dL (14.0-18.0); Mean Corpuscular Hemoglobin 28.7 pg (25-34); Mean Corpuscular Hgb Conc 34.5 g/dL (32-36); Mean Corpuscular Volume 83.1 fL (80-100); RDW Coefficient of Variation 14.6 % (11.5-14.5); RDW Standard Deviation 44.5 fL (36.4-46.3); Red Blood Count 4.39 M/uL (4.7-6.1); White Blood Count 9.04 K/uL (4.8-10.8)
[2021-10-12] MEDS: METOPROLOL TARTRATE 1 MG/ML VIAL IV SCH ×4 (06:05→23:21)
[2021-10-12 06:09] LABS: Mean Platelet Volume 9.4 fL (7.4-10.4); Platelet Count 74 K/uL (130-400)
[2021-10-12 06:29] LABS: Albumin Globulin Ratio 0.9 (0.9-2); Albumin Level 2.9 gm/dl (3.4-5.0); Bilirubin,Total 0.6 mg/dl (0.2-1.0); Calcium 10.7 mg/dl (8.5-10.1); Creatinine Clr Calc Pharmacy 25.4 ml/min; Est GFR (African American) 36.1 ml/min; Est GFR (Non-African American) 31.1 ml/min; Globulin 3.2 gm/dl (2.5-4.0); Total Protein 6.1 gm/dl (6.0-8.3)
[2021-10-12] MEDS ORDERED: LEVOTHYROXINE SODIUM 125 MCG TABLET PO SCH (06:30)
--- NOTE | 2021-10-12 06:35 | Communication Note ---
Date of Service: October 12, 2021 Notified by RN of patient coughing for about 5 minutes after oral levothyroxine administration. Strict n.p.o. for now given aspiration risk until patient seen by [employer].
[2021-10-12] MEDS: DEXTROSE 5% 1,000 ML IV SCH (07:52)
[2021-10-12] MEDS: POTASSIUM CHLORIDE / WTR 10 MEQ/100 ML PLCT IV SCH ×5 (08:54→13:13)
[2021-10-12] MEDS: bisacodyL 10 MG SUPP PR SCH (08:54)
--- NOTE | 2021-10-12 09:04 | Nephrology Progress Note ---
Date of Service October 12, 2021 Assessment & Plan Admission and Anticipated Discharge Date Admission Date: October 09, 2021 Subjective Subjective S--Having nausea and choking issues sso is currently Strict NPO. On iv fluids. Ca better. worsening Mental status. urine 2000 ml yesterday PHYSICAL EXAMINATION: GENERAL: Elderly white male who appears to be chronically ill and very thinly built. Lot les laert now. CHEST: Bilaterally decreased breath sounds. NECK: He has a cervical collar in place. Neck is supple. HEENT: Mucous membrane is moist. HEART: Regular rate and rhythm. ABDOMEN: No distention. Soft and nontender. EXTREMITIES: Show no edema. LABORATORY TEST: Ca in 10's now. Creat down a bit from yesterday CT scan of the chest, abdomen and pelvis, chest x-ray were all reviewed and t he main finding is diffuse metastatic lesions in the skeletal. 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 I have been consulted for: 1. Hypercalcemia. 2. Acute renal failure. Given diffuse metastatic lesions all over the skeletal system, we will have to assume the hypercalcemia is related with metastatic lesion in the skeletal system. PTH is very suppressed and that is consistent with the clinical diagnosis. Continue with normal saline. Continue Huynh catheter and strictly monitor input and output charting. If the urine output starts to drop off, we do have to give Lasix IV as the goal is to maintain a very high amount of urine output. Almost certainly the hypercalcemia is related with his diffuse cancer status, especially the skeletal lesions. Rec 1 Stop Dextrose. use 1/2 NS at 100 per hr. Low k--will give 30 meq k.cl riders. 2 Pending palliative medicine involvement. 3 Creat is rising likely from nephrocalcinosis given super high Ca++/ATN. Not pre renal as creat has been rising for few days now despite iv fluid. did come down a bit from yesterday Results & Data ([facility]) Vital Signs (Past 12 Hours) Vital Signs Temp Pulse Pulse Resp BP BP BP 10/12/21 07:57 36.4 C L 92 H 19 180/89 H 10/12/21 06:05 81 185/83 H 10/12/21 03:40 36.5 C 83 18 193/82 H 10/11/21 23:52 87 165/93 H 10/11/21 23:45 36.6 C 87 18 165/93 H 10/11/21 22:17 112 H Pulse Ox 10/12/21 07:57 92 10/12/21 06:05 10/12/21 03:40 92 10/11/21 23:52 10/11/21 23:45 91 10/11/21 22:17
[2021-10-12] MEDS: SODIUM CHLORIDE 0.45 % 1,000 ML IV SCH ×2 (09:34→20:26)
--- NOTE | 2021-10-12 16:36 | Hospitalist Progress Note ---
Date of Service October 12, 2021 Assessment & Plan (1) Encephalopathy: Plan: Severe hypercalcemia -due to multiple lytic lesions seen throughout -s/p 4 doses of calcitonin, Lasix -management per Nephrology Diffuse metastatic disease -Known bladder cancer, although with constellation of lytic lesions of his bone (including skull) and hypercalcemia, it is concerning for multiple myeloma -SPEP, UPEP pending Acute metabolic encephalopathy -still very confused despite improved calcium levels -MRI brain reveals calvarian lesions Abdominal distension Nausea/vomiting Constipation - has had 2 BM now -no further vomiting -Evaluated by MOLDED PARTS INSPECTOR today and he tolerated clears via straw and refused further assessment -will advance diet to clears for now (only allow PO if he is fully awake) FILIBERTO on CKD 3 -monitor BMP daily Hypokalemia -replete PRN chronic thrombocytopenia -Plt remains stable DVT ppx -SQ heparin Goals of care/Code status Palliative Care consult pending DNR/DNI Family ( and other family members) were present at bedside and updated on care plan today Admission and Anticipated Discharge Date Admission Date: October 09, 2021 Subjective Still confused, having difficulty swallowing Evaluated by MOLDED PARTS INSPECTOR today Physical Exam Physical Exam: Remains confused, encephalopathic, appears thin and cachetic Respiratory: No wheezing/rhonchi/rales Cardiovascular: Regular rate and rhythm, no murmurs/rubs Gastrointestinal (Abdomen): soft, non distended Musculoskeletal: no edema Neurologic: confused, awakens with voice Results & Data Results & Data ([facility]) Vital Signs (Past 12 Hours) Vital Signs Temp Pulse Pulse Resp BP BP BP 10/12/21 15:57 92 H 10/12/21 15:53 36.8 C 76 19 184/80 H 10/12/21 10:53 36.3 C L 95 H 20 174/90 H 10/12/21 07:57 36.4 C L 92 H 19 180/89 H 10/12/21 06:05 81 185/83 H Pulse Ox 10/12/21 15:57 10/12/21 15:53 95 10/12/21 10:53 93 10/12/21 07:57 92 10/12/21 06:05 Laboratory Results Short CBC 10/12/21 Range/Units 05:32 WBC 9.04 (4.8-10.8) K/uL Hgb 12.6 L (14.0-18.0) g/dL Hct 36.5 L (42-52) % Plt Count 74 L (130-400) K/uL BMP 10/12/21 05:32 Sodium 142 Potassium 3.0 L Chloride 109 H Carbon Dioxide 26 BUN 41 H Creatinine 1.95 H D Glucose 144 H Calcium 10.7 H Liver Function 10/12/21 Range/Units 05:32 Total Bilirubin 0.6 (0.2-1.0) mg/dl AST 35 (13-39) U/L ALT 15 (7-52) U/L Alkaline Phosphatase 46 (34-104) U/L Albumin 2.9 L (3.4-5.0) gm/dl Medications Administered Current Inpatient Medications Acetaminophen (Acetaminophen 325 Mg Tab) 650 mg PO Q4H PRN PRN Reason: Pain or Fever Stop: 11/08/21 02:34 Last Admin: 10/10/21 08:05 Dose: 650 mg Documented by: Amlodipine Besylate (Amlodipine Besylate 5 Mg Tab) 10 mg PO QAM [facility] Stop: 11/09/21 08:59 Last Admin: 10/10/21 08:02 Dose: 10 mg Documented by: Atorvastatin Calcium (Atorvastatin 10 Mg Tab) 10 mg PO QAM [facility] Stop: 11/08/21 08:59 Last Admin: 10/10/21 08:02 Dose: 10 mg Documented by: Bisacodyl (Bisacodyl 10 Mg Supp) 10 mg [place] DAILY [facility] Stop: 10/14/21 09:01 Last Admin: 10/12/21 08:54 Dose: 10 mg Documented by: Hydralazine HCl (Hydralazine Hcl 20 Mg/Ml Vial) 10 mg IV Q6 PRN PRN Reason: Blood Pressure - High Stop: 11/09/21 10:27 Last Admin: 10/12/21 04:00 Dose: 10 mg Documented by: Promethazine HCl 6.25 mg/ (Sodium Chloride) 50.25 mls @ 201 mls/hr IV Q6H PRN PRN Reason: Nausea And Vomiting Stop: 11/08/21 02:34 Last Infusion: 10/10/21 11:19 Dose: Infused Documented by: Sodium Chloride (1/2 Nss) 1,000 mls @ 100 mls/hr IV .Q10H [facility] Stop: 11/11/21 08:59 Last Admin: 10/12/21 09:34 Dose: 100 mls/hr Documented by: Isosorbide Mononitrate (Isosorbide [place] Extended Rel 60 Mg Tabcr) 60 mg PO QAM [facility] Stop: 11/08/21 08:59 Last Admin: 10/10/21 08:01 Dose: 60 mg Documented by: Levothyroxine Sodium (Levothyroxine Sodium 125 Mcg Tablet) 62.5 mcg PO Mo@0630 [facility] Stop: 11/11/21 06:29 Last Admin: 10/12/21 06:04 Dose: 62.5 mcg Documented by: Levothyroxine Sodium (Levothyroxine Sodium 125 Mcg Tablet) 125 mcg PO SuTuWeThFrSa@30 [facility] Stop: 11/08/21 06:29 Last Admin: 10/10/21 07:15 Dose: 125 mcg Documented by: Metoprolol Tartrate (Metoprolol Tartrate 50 Mg Tab) 50 mg PO BID [facility] Stop: 11/08/21 04:09 Last Admin: 10/10/21 08:01 Dose: 50 mg Documented by: Metoprolol Tartrate (Metoprolol Tartrate 1 Mg/Ml Vial) 5 mg IV Q6H [facility] Stop: 11/10/21 17:59 Last Admin: 10/12/21 13:13 Dose: 5 mg Documented by: Oxybutynin Chloride (Oxybutynin Chloride Xl 5 Mg Tabcr) 5 mg PO DAILY [facility] Stop: 11/08/21 08:59 Last Admin: 10/10/21 08:02 Dose: 5 mg Documented by: Tamsulosin HCl (Tamsulosin Hcl 0.4 Mg Cap) 0.4 mg PO QAM [facility] Stop: 11/08/21 08:59 Last Admin: 10/10/21 08:02 Dose: 0.4 mg Documented by:
[2021-10-12] MEDS ORDERED: OLANZapine 10 MG/2.1 ML SDV IM PRN (19:11)
[2021-10-12] MEDS ORDERED: OLANZapine 10 MG/2.1 ML SDV IM ONE (19:15)
[2021-10-12] MEDS ORDERED: XOPENEX/ATROVENT 1.25mg/0.5MG NEB COMBO NEB STA (23:37)
[2021-10-12] MEDS ORDERED: IPRATROPIUM BROMIDE NEB SOLN 0.02% 2.5 ML VIAL INH STA (23:43)
[2021-10-12] MEDS ORDERED: LEVALBUTEROL 1.25MG/0.5ML NEB INH STA (23:44)
[2021-10-13] MEDS ORDERED: MAGNESIUM SULFATE / D5W 1 GM/100 ML BAG IV ONE (00:13)
[2021-10-13] MEDS ORDERED: FLUCONAZOLE 200 MG/100 ML BAG IV STA (00:31)
--- NOTE | 2021-10-13 00:33 | Communication Note ---
Date of Service: October 13, 2021 Made aware by RN of white patches noted on patient's posterior pharyngeal wall. Diflucan course for oropharyngeal thrush. (Patient not likely to tolerate swish and swallow Rx given aspiration risk as per RN.)
[2021-10-13] MEDS: METOPROLOL TARTRATE 1 MG/ML VIAL IV SCH ×2 (05:49→11:02)
[2021-10-13 07:27] LABS: Hemoglobin 12.2 g/dL (14.0-18.0); Mean Corpuscular Hemoglobin 28.8 pg (25-34); Mean Corpuscular Hgb Conc 34.9 g/dL (32-36); Mean Corpuscular Volume 82.5 fL (80-100); RDW Coefficient of Variation 15.1 % (11.5-14.5); RDW Standard Deviation 45.6 fL (36.4-46.3); Red Blood Count 4.24 M/uL (4.7-6.1); White Blood Count 9.46 K/uL (4.8-10.8)
[2021-10-13 07:29] LABS: Mean Platelet Volume 9.4 fL (7.4-10.4); Platelet Count 75 K/uL (130-400)
[2021-10-13 07:48] LABS: Albumin Globulin Ratio 0.9 (0.9-2); Albumin Level 2.8 gm/dl (3.4-5.0); BUN Creatinine Ratio 19.9 (10-20); Bilirubin,Total 0.7 mg/dl (0.2-1.0); Calcium 10.1 mg/dl (8.5-10.1); Creatinine Clr Calc Pharmacy 27.4 ml/min; Est GFR (African American) 39.5 ml/min; Est GFR (Non-African American) 34.1 ml/min; Globulin 3.2 gm/dl (2.5-4.0); Potassium 3.4 mmol/L (3.5-5.1)
--- NOTE | 2021-10-13 08:35 | XRay Report ---
XR chest 1V portable CLINICAL HISTORY: tachypnea TECHNIQUE: Single frontal radiograph of the chest was obtained. Comparison: Comparison is made to chest radiograph 10/08/2021 FINDINGS: No lines and tubes are seen. Calcified aortic knob is seen. Prominence and cephalization of the vascu lature is seen. No evidence of pleural effusion or pneumothorax. IMPRESSION: Mild pulmonary edema. ACT 112: Negative or not required by law. Electronically signed by: Mark Garcia M.D. 10/13/2021 8:33 AM
[2021-10-13] MEDS: bisacodyL 10 MG SUPP PR SCH (08:45)
--- NOTE | 2021-10-13 09:34 | Nephrology Progress Note ---
Date of Service October 13, 2021 Assessment & Plan Admission and Anticipated Discharge Date Admission Date: October 09, 2021 Subjective Subjective S--Having nausea and choking issues so is currently Strict NPO. On iv fluids. Ca better and creat better but. worsening Mental status. Lot of urine PHYSICAL EXAMINATION: GENERAL: Elderly white male who appears to be chronically ill and very thinly built. Lot les laert now. CHEST: Bilaterally decreased breath sounds. NECK: He has a cervical collar in place. Neck is supple. HEENT: Mucous membrane is moist. HEART: Regular rate and rhythm. ABDOMEN: No distention. Soft and nontender. EXTREMITIES: Show no edema. LABORATORY TEST: Ca normal now. Creat down a bit from yesterday CT scan of the chest, abdomen and pelvis, chest x-ray were all reviewed and the main finding is diffuse metastatic lesions in the skeletal. 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 I have been consulted for: 1. Hypercalcemia. 2. Acute renal failure. Given diffuse metastatic lesions all over the skeletal system, we will have to assume the hypercalcemia is related with metastatic lesion in the skeletal system. PTH is very suppressed and that is consistent with the clinical diagnosis. Continue with normal saline. Continue Huynh catheter and strictly monitor input and output charting. If the urine output starts to drop off, we do have to give Lasix IV as the goal is to maintain a very high amount of urine output. Almost certainly the hypercalcemia is related with his diffuse cancer status, especially the skeletal lesions. Rec 1 1/2 NS at 100 per hr. Low k--will give 20 meq k.cl riders. 2 Pending palliative medicine involvement. I think he should be hospice even if palliative med unable to see 3 Creat is higher likely from nephrocalcinosis given super high Ca++/ATN. Not pre renal as creat has been rising for few days now despite iv fluid. did come down a bit from yesterday Results & Data ([facility]) Vital Signs (Past 12 Hours) Vital Signs Temp Pulse Pulse Pulse Resp BP Pulse Ox 10/13/21 07:48 37.0 C 85 18 177/83 H 93 10/13/21 05:49 78 10/13/21 03:00 36.6 C 101 H 22 188/89 H 96 10/13/21 00:10 90 30 H 93 10/12/21 23:21 37.4 C 100 H 25 H 191/93 H 91 10/12/21 22:19 100 H
[2021-10-13] MEDS: POTASSIUM CHLORIDE / WTR 10 MEQ/100 ML PLCT IV SCH ×2 (11:02→12:01)
[2021-10-13] MEDS: HYDROmorphone INJ 0.5 MG/0.5 ML SYR IV PRN ×3 (12:02→22:59)
--- NOTE | 2021-10-13 13:44 | Palliative Care Consultation ---
Date of Consultation October 13, 2021 Assessment & Plan (1) Generalized weakness: With poor appetite and weight loss of ten pounds in six months. Skeletal lesions concerning for metastatic disease versus multiple myeloma. UPEP and SPEP pending. (2) Palliative care encounter: I spoke with Mrs. Elam on the phone. She is coming in with her sons later this afternoon and family meeting was arranged for 4pm. During the afternoon, I was called by RN due to Mr. Elam having bradycardia into the 30s. He had one dose of hydromorphone earlier this afternoon and was awake and able to take a few sips at that time. He was noted to have coughing and possible aspiration. He continues to have facial grimace and now has audible tracheal secretions. I met with his and two sons at bedside. We reviewed changes over the last 24 hours and concern that his dying time is imminent. Mrs. Elam tells me that she has seen his body wearing out and understands that he is dying. She is concerned about the tracheal secretions as it causes him to cough. It is also distressing for her after seeing previous family members struggle with this at their dying times. Glycopyrrolate was ordered. Family initially tells me that she is not able to care for him at home and that they were wanting to discuss placement. At this time he is likely to here in the hospital in the next day or so. Discussed prognosis with family. Their wish is to focus on his comfort and discontinue and noncomfort medications. Orders changed. Dr. Newsome and RN aware. (3) Hypercalcemia: History of Present Illness Reason for Consultation: goals of care Requesting Physician: Dr. Newsome Attending Physician: Anastasiya Newsome MD History of Present Illness 81 yo gentleman with history of prostate cancer, bladder cancer, s/p BCG and thyroid cancer as well as CAD s/p stent. He was hospitalized from September 30 to after surgery for cervical spinal stenosis with radiculopathy. He was readmitted with encephalopathy and found to have hypercalcemia. Imaging shows extensive lytic skeletal lesions consistent with malignancy as well as enlarged prostate. He also has FILIBERTO on CKD. His notes that he has had poor appetite and increased confusion. He did have a bedside speech therapy evaluation which was limited due to his inability to follow directions. Clear liquid diet has been recommended. His calcium level has normalized but he continues to have confusion and lethargy. At the time of visit, he is arousable with garbled speech. He is oriented to person but is unable to tell me where he is. He has furrowed brow at rest but denies pain when asked. He has been restless with labored breathing at times per RN. Allergies Allergy/AdvReac Type Severity Reaction Status Date / Time naloxone Allergy Unknown unkn Verified 09/30/21 14:01 pentazocine Allergy Unknown Verified 09/30/21 14:01 Home Medications Medication Instructions Recorded Confirmed Type amlodipine 10 mg tablet 10 mg PO QAM 10/11/18 09/30/21 History isosorbide mononitrate 60 mg 60 mg PO QAM 10/11/18 09/30/21 History tablet,extended release 24 hr levothyroxine 125 mcg tablet See Rx Instructions .ROUTE .COMPLEX 10/11/18 09/30/21 History (Levoxyl) losartan 50 mg tablet 100 mg PO QAM 10/11/18 09/30/21 History metoprolol tartrate 100 mg tablet 50 mg PO BID 10/11/18 09/30/21 History nitroglycerin 0.4 mg sublingual 0.4 mg SUBLINGUAL DIRECTED PRN 10/11/18 09/30/21 History tablet (Nitrostat) MDD 3 DOSES, 5 MIN APART potassium chloride 20 mEq 20 meq PO BID 10/11/18 09/30/21 History tablet,extended release(part/cryst) tamsulosin 0.4 mg capsule 0.4 mg PO QAM 10/11/18 09/30/21 History atorvastatin 10 mg tablet 10 mg PO QAM 03/04/21 09/30/21 History furosemide 20 mg tablet 20 mg PO 5XWK 03/04/21 09/30/21 History pyridoxine (vitamin B6) 100 mg 100 mg PO QAM 03/04/21 09/30/21 History tablet coenzyme Q10 200 mg capsule 200 mg PO QAM 08/07/21 09/30/21 History mecobalamin (vitamin B12) 1,000 1,000 mcg PO QAM 08/07/21 09/30/21 History mcg chewable tablet oxybutynin chloride 5 mg 5 mg PO DAILY 09/30/21 09/30/21 History tablet,extended release 24 hr (Ditropan XL) oxycodone 5 mg tablet 5 mg PO Q6H PRN #20 tab 10/03/21 Rx tramadol 50 mg tablet 50 mg PO Q6H PRN #20 tab 10/03/21 Rx Patient History Medical History Bilateral leg pain CAD (coronary artery disease) Cervical radiculopathy Cervical stenosis of spine CKD (chronic kidney disease), stage III Dyslipidemia Heart disease HTN (hypertension) Hypoxia Kidney disease Stage III Left bundle branch block Mitral valve regurgitation Neutropenia MARCELINO (obstructive sleep apnea) CPAP Peripheral neuropathy Piriformis syndrome Prostate cancer Status post chemo Rhabdomyolysis Small cell carcinoma of bladder Thrombocytopenia Thyroid cancer 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 and transposition left Upper extremity weakness Surgical History History of cystoscopy History of heart artery stent LAD History of thyroidectomy Status post cataract extraction of both eyes with insertion of intraocular lens Family History Brother FH: brain cancer Other Coronary heart disease Social History Smoking Status: Former smoker Second Hand Exposure: No; Do You Dip or Chew Tobacco: No; Hx Alcohol Use: Yes Alcohol type: beer Hx Substance Use: No Preferred Language: Bots[place] Communication Ability: Unable Five Roll 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 Required: No Beliefs That Will Affect Care: None marital status: Current Living Situation: Spouse How many Children do You have: 3 Other Information That Helps Us Care for You: No Feels Safe at Home: Yes Safety Concerns: Feels Safe At This Time Assistive Devices: BiPap Review of Systems Review of Systems: Unobtainable due to cognitive status [place] Symptom Assessment Scale Pain 0/3 Dyspnea 0/3 Palliative Performance Score 30% Physical Exam Constitutional: + ill appearing and + thin ENMT: Mouth: + dry oral mucous membranes White exudate noted Neck: cervical collar Respiratory: + uses accessory muscles Cardiovascular: Rate/Rhythm: regular rate and regular rhythm Gastrointestinal (Abdomen): nontender Musculoskeletal: Extremities: + muscle atrophy Neurologic: awake and + confused Psychiatric: Orientation: oriented to person; + not oriented to place and + not oriented to time Results & Data ([facility]) Vital Signs (Past 12 Hours) Vital Signs Temp Pulse Pulse Pulse Resp BP Pulse Ox 10/13/21 11:48 97.9 F 73 21 185/78 H 94 10/13/21 11:02 77 10/13/21 07:48 98.6 F 85 18 177/83 H 93 10/13/21 05:49 78 10/13/21 03:00 97.9 F 101 H 22 188/89 H 96 PG Care Time/CCT Total # of Minutes Spent Total Time Spent: 75 Total Time Spent with Patient: Total time spent is greater than 50% in coordination of care (as documented) at patient's floor/unit and/or counseling patient:symptom management, prognosis, goals of care, family education and support Coding Level of Care Code 98083 Initial Inpt Care Lvl 3 Diagnoses Generalized weakness R53.1 Palliative care encounter Z51.5 Hypercalcemia E83.52
--- NOTE | 2021-10-13 14:59 | Hospitalist Progress Note ---
Date of Service October 13, 2021 Assessment & Plan (1) Encephalopathy: Plan: Severe hypercalcemia -due to multiple lytic lesions seen throughout -s/p 4 doses of calcitonin, Lasix -management per Nephrology Diffuse metastatic disease -Known bladder cancer, although with constellation of lytic lesions of his bone (including skull) and hypercalcemia, it is concerning for multiple myeloma -SPEP, UPEP pending Acute metabolic encephalopathy -still very confused despite improved calcium levels -MRI brain reveals calvarian lesions Abdominal distension Nausea/vomiting Constipation - has had 2 BM yesterday -no further vomiting -Evaluated by COMMISSIONS COORDINATOR yesterday and he tolerated clears via straw and refused further assessment -diet was advanced to clears. He appears to be coughing/likely aspirating on clears. Will communicate this to family to verify they are comfortable with permissive aspiration, otherwise patient will be placed back on strict NPO. FILIBERTO on CKD 3 -monitor BMP daily Hypokalemia -replete PRN chronic thrombocytopenia -Plt remains stable DVT ppx -SQ heparin Goals of care/Code status Palliative Care consult pending, plan for family meeting later today DNR/DNI Admission and Anticipated Discharge Date Admission Date: October 09, 2021 Subjective Still with confusion, difficulty swallowing (coughs when given thin liquids) Physical Exam Physical Exam: frail, elderly, awake today Respiratory: no wheezing/rhonchi, coughing with liquids Cardiovascular: regular rate and rhythm, no murmurs/rubs/gallops Gastrointestinal (Abdomen): Hypoactive, soft, non distended Musculoskeletal: No edema Neurologic: awake currently, very hard of hearing Results & Data Results & Data ([facility] [place]) Vital Signs (Past 12 Hours) Vital Signs Temp Pulse Pulse Pulse Resp BP Pulse Ox 10/13/21 11:48 36.6 C 73 21 185/78 H 94 10/13/21 11:02 77 10/13/21 07:48 37.0 C 85 18 177/83 H 93 10/13/21 05:49 78 10/13/21 03:00 36.6 C 101 H 22 188/89 H 96 Laboratory Results Short CBC 10/13/21 Range/Units 06:59 WBC 9.46 (4.8-10.8) K/uL Hgb 12.2 L (14.0-18.0) g/dL Hct 35.0 L (42-52) % Plt Count 75 L (130-400) K/uL BMP 10/13/21 06:59 Sodium 139 Potassium 3.4 L Chloride 108 H Carbon Dioxide 26 BUN 36 H Creatinine 1.81 H Glucose 96 Calcium 10.1 Liver Function 10/13/21 Range/Units 06:59 Total Bilirubin 0.7 (0.2-1.0) mg/dl AST 34 (13-39) U/L ALT 15 (7-52) U/L Alkaline Phosphatase 47 (34-104) U/L Albumin 2.8 L (3.4-5.0) gm/dl Medications Administered Current Inpatient Medications Acetaminophen (Acetaminophen 325 Mg Tab) 650 mg PO Q4H PRN PRN Reason: Pain or Fever Stop: 11/08/21 02:34 Last Admin: 10/10/21 08:05 Dose: 650 mg Documented by: Amlodipine Besylate (Amlodipine Besylate 5 Mg Tab) 10 mg PO [facility] Stop: 11/09/21 08:59 Last Admin: 10/10/21 08:02 Dose: 10 mg Documented by: Atorvastatin Calcium (Atorvastatin 10 Mg Tab) 10 mg PO [facility] Stop: 11/08/21 08:59 Last Admin: 10/10/21 08:02 Dose: 10 mg Documented by: Bisacodyl (Bisacodyl 10 Mg Supp) 10 mg [place] DAILY [facility] Stop: 10/14/21 09:01 Last Admin: 10/13/21 08:45 Dose: Not Given Documented by: Fluconazole (Fluconazole 100 Mg Tab) [facility] [place] Stop: 10/24/21 08:59 Hydralazine HCl (Hydralazine Hcl 20 Mg/Ml Vial) 10 mg IV Q6 PRN PRN Reason: Blood Pressure - High Stop: 11/09/21 10:27 Last Admin: 10/12/21 23:21 Dose: 10 mg Documented by: Hydromorphone HCl (Hydromorphone Inj 0.5 Mg/0.5 Ml Syr) 0.5 mg IV Q4H PRN PRN Reason: pain or dyspnea Stop: 10/27/21 10:57 Last Admin: 10/13/21 12:02 Dose: 0.5 mg Documented by: Promethazine HCl 6.25 mg/ (Sodium Chloride) 50.25 mls @ 201 mls/hr IV Q6H PRN PRN Reason: Nausea And Vomiting Stop: 11/08/21 02:34 Last Infusion: 10/10/21 11:19 Dose: Infused Documented by: Sodium Chloride (1/2 Nss) 1,000 mls @ 100 mls/hr IV .Q10H [facility] Stop: 11/11/21 08:59 Last Infusion: 10/12/21 23:41 Dose: 0 mls/hr Documented by: Isosorbide Mononitrate (Isosorbide [place] Extended Rel 60 Mg Tabcr) 60 mg PO QAM [facility] Stop: 11/08/21 08:59 Last Admin: 10/10/21 08:01 Dose: 60 mg Documented by: Levothyroxine Sodium (Levothyroxine Sodium 125 Mcg Tablet) 62.5 mcg PO Mo@30 [facility] Stop: 11/11/21 06:29 Last Admin: 10/12/21 06:04 Dose: 62.5 mcg Documented by: Levothyroxine Sodium (Levothyroxine Sodium 125 Mcg Tablet) 125 mcg PO SuTuWeThFrSa@0630 [facility] Stop: 11/08/21 06:29 Last Admin: 10/10/21 07:15 Dose: 125 mcg Documented by: Lorazepam (Lorazepam 0.5 Mg Tab) 0.5 mg SL Q4H PRN PRN Reason: anxiety or agitation Stop: 11/12/21 10:59 Metoprolol Tartrate (Metoprolol Tartrate 50 Mg Tab) 50 mg PO BID [facility] Stop: 11/08/21 04:09 Last Admin: 10/10/21 08:01 Dose: 50 mg Documented by: Metoprolol Tartrate (Metoprolol Tartrate 1 Mg/Ml Vial) 5 mg IV Q6H [facility] Stop: 11/10/21 17:59 Last Admin: 10/13/21 11:02 Dose: 5 mg Documented by: Olanzapine (Olanzapine 10 Mg/2.1 Ml Sdv) 5 mg IM Q6H PRN PRN Reason: Anxiety/Agitation Stop: 11/11/21 19:10 Last Admin: 10/12/21 19:20 Dose: 5 mg Documented by: Oxybutynin Chloride (Oxybutynin Chloride Xl 5 Mg Tabcr) 5 mg PO DAILY [facility] Stop: 11/08/21 08:59 Last Admin: 10/10/21 08:02 Dose: 5 mg Documented by: Tamsulosin HCl (Tamsulosin Hcl 0.4 Mg Cap) 0.4 mg PO QAM [facility] Stop: 11/08/21 08:59 Last Admin: 10/10/21 08:02 Dose: 0.4 mg Documented by:
[2021-10-13] MEDS ORDERED: LORazepam 0.5 MG TAB PO PRN (15:51)
[2021-10-13] MEDS: GLYCOPYRROLATE 0.2 MG/ML VIAL IV PRN (17:54)
[2021-10-14] MEDS: bisacodyL 10 MG SUPP PR SCH (07:57)
--- NOTE | 2021-10-14 08:22 | Hospitalist Progress Note ---
Date of Service October 14, 2021 Assessment & Plan (1) Encephalopathy: Plan: Severe hypercalcemia -due to multiple lytic lesions seen throughout -s/p 4 doses of calcitonin, Lasix -management per Nephrology -Patient now comfort care measures Diffuse metastatic disease -Known bladder cancer, although with constellation of lytic lesions of his bone (including skull) and hypercalcemia, it is concerning for multiple myeloma -SPEP, UPEP pending -Patient is now comfort care measures Acute metabolic encephalopathy -still very confused despite improved calcium levels -MRI brain reveals calvarian lesions (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 He appears to be coughing/likely aspirating on clears. Will communicate this to family to verify they are comfortable with permissive aspiration, otherwise patient will be placed back on strict NPO. - 10/14 patient had some liquids, family denies coughing FILIBERTO on CKD 3 -monitor BMP daily -Labs canceled as patient is now comfort care measures Hypokalemia -replete PRN -Labs canceled as patient is now comfort care measures chronic thrombocytopenia -Plt remains stable DVT ppx -SQ heparin Goals of care/Code status Palliative Care consulted and following, appreciate their input DNR/DNI -comfort care -discontinued labs, and unnecessary medications Admission and Anticipated Discharge Date Admission Date: October 09, 2021 Subjective Pt seen in follow-up of encephalopathy, hypercalcemia, lytic lesions/metastatic lesions, now comfort care Patient is sitting up in bed, in acute distress Patient's and son at the bedside Currently denies any fevers, chills, chest pain, shortness of breath, abdomen pain, nausea vomiting He is complaining of numbness of his right arm Review of Systems Review of Systems: All systems reviewed & are unremarkable except as noted in Subjective Physical Exam Physical Exam: Physical Exam: elderly M, + chron ically ill-appeari ng, awake today Respiratory: no wheezing/rhonch i, coughing with l iquids Cardiovascular:H regular rate and r hythm, no murmurs/ rubs/gallops Gastrointestinal ( Abdomen): Hypoactive, soft, non distended Musculoskeletal: H No edema Neurologic: awake currently, v eddie hard of hearin g Results & Data Results & Data ([facility]) Medications Administered Current Inpatient Medications Bisacodyl (Bisacodyl 10 Mg Supp) 10 mg SD DAILY MARIYA Stop: 10/14/21 09:01 Last Admin: 10/14/21 07:57 Dose: Not Given Documented by: Glycopyrrolate (Glycopyrrolate 0.2 Mg/Ml Vial) 0.2 mg IV Q4H PRN PRN Reason: Secretions or Pulm Congestion Stop: 11/12/21 15:50 Last Admin: 10/13/21 17:54 Dose: 0.2 mg Documented by: Hydromorphone HCl (Hydromorphone Inj 0.5 Mg/0.5 Ml Syr) 0.5 mg IV Q30M PRN PRN Reason: pain or dyspnea Stop: 10/27/21 10:57 Last Admin: 10/13/21 22:59 Dose: 0.5 mg Documented by: Promethazine HCl 6.25 mg/ (Sodium Chloride) 50.25 mls @ 201 mls/hr IV Q6H PRN PRN Reason: Nausea And Vomiting Stop: 11/08/21 02:34 Last Infusion: 10/10/21 11:19 Dose: Infused Documented by: Lorazepam (Lorazepam 0.5 Mg Tab) 0.5 mg SL Q4H PRN PRN Reason: anxiety or agitation Stop: 11/12/21 10:59 Lorazepam (Lorazepam 0.5 Mg Tab) 0.5 mg PO Q4H PRN PRN Reason: Anxiety/Agitation Stop: 11/12/21 15:50 Ondansetron HCl (Ondansetron Inj 2 Mg/Ml 2 Ml Vial) 4 mg IV Q4H PRN PRN Reason: Nausea &/or Vomiting Stop: 11/12/21 15:50
[2021-10-14] MEDS ORDERED: FLUCONAZOLE 100 MG TAB PO SCH (09:00)
[2021-10-14] MEDS: HYDROmorphone INJ 0.5 MG/0.5 ML SYR IV PRN ×2 (10:33→16:31)
[2021-10-14 10:47] LABS: Angiotensin Converting Enzyme 47 U/L (9-67); Vitamin D 1,25 10 pg/mL (18-72); Vitamin D3,1,25 10 pg/mL
--- NOTE | 2021-10-14 15:00 | Palliative Care Progress Note ---
Date of Service October 14, 2021 Assessment & Plan (1) Cervical radiculopathy: Plan: right shoulder pain. Continue hydromorphone prn. (2) Palliative care encounter: Plan: Talked with family at bedside. They asked about prognosis which is likely days to a week or two. They had said previously that Mrs. Elam is not able to take care of him at home. He would need placement if stable for discharge. Monitor symptom management. Discussed with case management. Admission and Anticipated Discharge Date Admission Date: October 09, 2021 Subjective More alert today. Talking but confused at times. Perseverating. Complains of right shoulder pain. Taking some liquids. Family denies coughing. Review of Systems Review of Systems: [place] Symptom Assessment Scale Pain 1/3 Dyspnea 0/3 Anxiety 0/3 Fatigue 2/3 Nausea 0/3 Drowsiness 1/3 Palliative Performance Score 30% Physical Exam Constitutional: no acute distress ENMT: Mouth: + dry oral mucous membranes Respiratory: normal respiratory effort; no labored breathing Cardiovascular: Rate/Rhythm: regular rate and regular rhythm Gastrointestinal (Abdomen): nontender Skin: warm and dry Neurologic: awake and + confused PG Care Time/CCT Total # of Minutes Spent Total Time Spent: 25 Total Time Spent with Patient: Total time spent is greater than 50% in coordination of care (as documented) at patient's floor/unit and/or counseling patient: prognosis, family education and support, symptom management. Coding Level of Care Code 02109 Subseq Hosp Care Lvl 2 Diagnoses Cervical radiculopathy M54.12 Palliative care encounter Z51.5
[2021-10-15] MEDS: HYDROmorphone INJ 0.5 MG/0.5 ML SYR IV PRN ×2 (04:45→10:26)
[2021-10-15] MEDS: LORazepam 0.5 MG TAB SL PRN (09:10)
--- NOTE | 2021-10-15 13:37 | Hospitalist Progress Note ---
Date of Service October 15, 2021 Assessment & Plan (1) Encephalopathy: Plan: Severe hypercalcemia -due to multiple lytic lesions seen throughout -s/p 4 doses of calcitonin, Lasix -management per Nephrology -Patient now comfort care measures Diffuse metastatic disease -Known bladder cancer, although with constellation of lytic lesions of his bone (including skull) and hypercalcemia, it is concerning for multiple myeloma -SPEP, UPEP pending -Patient is now comfort care measures Acute metabolic encephalopathy -still very confused despite improved calcium levels -MRI brain reveals calvarian lesions (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 He appears to be coughing/likely aspirating on clears. Will communicate this to family to verify they are comfortable with permissive aspiration, otherwise patient will be placed back on strict NPO. - 10/14 patient had some liquids, family denies coughing FILIBERTO on CKD 3 -monitor BMP daily -Labs canceled as patient is now comfort care measures Hypokalemia -replete PRN -Labs canceled as patient is now comfort care measures chronic thrombocytopenia -Plt remains stable DVT ppx -SQ heparin Goals of care/Code status Palliative Care consulted and following, appreciate their input DNR/DNI -comfort care -discontinued labs, and unnecessary medications Admission and Anticipated Discharge Date Admission Date: October 09, 2021 Subjective Pt seen in follow-up of encephalopathy, hypercalcemia, lytic lesions/metastatic lesions, now comfort care Patient is lying in bed, resting comfortably after getting medications Overnight patient was up, had some visual hallucinations Patient's at the bedside No new concerns Patient's talked to CM today, will follow-up Review of Systems Review of Systems: Unobtainable due to cognitive status Physical Exam Physical Exam: Physical Exam: elderly M, + chron ically ill-appeari ng, resting comfor tably Respiratory: no wheezing/rhonch i, coughing with l iquids Cardiovascular:H regular rate and r hythm, no murmurs/ rubs/gallops Gastrointestinal ( Abdomen): Hypoactive, soft, non distended Musculoskeletal: No edema Neurologic: Resting, but able to awake, moves ex tremities, hard of hearing Results & Data Results & Data ([facility]) Medications Administered Current Inpatient Medications Glycopyrrolate (Glycopyrrolate 0.2 Mg/Ml Vial) 0.2 mg IV Q4H PRN PRN Reason: Secretions or Pulm Congestion Stop: 11/12/21 15:50 Last Admin: 10/13/21 17:54 Dose: 0.2 mg Documented by: Hydromorphone HCl (Hydromorphone Inj 0.5 Mg/0.5 Ml Syr) 0.5 mg IV Q30M PRN PRN Reason: pain or dyspnea Stop: 10/27/21 10:57 Last Admin: 10/15/21 10:26 Dose: 0.5 mg Documented by: Promethazine HCl 6.25 mg/ (Sodium Chloride) 50.25 mls @ 201 mls/hr IV Q6H PRN PRN Reason: Nausea And Vomiting Stop: 11/08/21 02:34 Last Infusion: 10/10/21 11:19 Dose: Infused Documented by: Lorazepam (Lorazepam 0.5 Mg Tab) 0.5 mg SL Q4H PRN PRN Reason: anxiety or agitation Stop: 11/12/21 10:59 Last Admin: 10/15/21 09:10 Dose: 0.5 mg Documented by: Lorazepam (Lorazepam 0.5 Mg Tab) 0.5 mg PO Q4H PRN PRN Reason: Anxiety/Agitation Stop: 11/12/21 15:50 Ondansetron HCl (Ondansetron Inj 2 Mg/Ml 2 Ml Vial) 4 mg IV Q4H PRN PRN Reason: Nausea &/or Vomiting Stop: 11/12/21 15:50
--- NOTE | 2021-10-15 15:36 | Palliative Care Progress Note ---
Date of Service October 15, 2021 Assessment & Plan (1) Delirium: Plan: Likely terminal delirium with agitation. Add zyprexa ODT. I talked with is about this. She would prefer that he be sleepy rather than agitated and upset. Discussed with RN. Continue lorazepam prn (2) Pain: Plan: with recent C spine surgery and multiple lytic skeletal lesions. Pain is variable. Continue prn hydromorphone with renal failure to reduce risk of opioid toxicity. (3) Palliative care encounter: Admission and Anticipated Discharge Date Admission Date: October 09, 2021 Subjective Sleeping now but had difficult night per Mrs. Elam. She tells me that he was awake all night, seeing bugs in his bed, trying to get out of bed and telling them that he was bleeding to . It was very stressful for her to see him like this. He had one prn lorazepam dose this morning and a dose of hyd romorphone this afternoon for pain. He has had a few sips but no significant po intake for several days. Review of Systems Review of Systems: Unobtainable due to reduced consciousness ESAS PainAD 0/3 Dyspnea by RDOS 0/3 PPS 30% Physical Exam Constitutional: lethargic ENMT: Mouth: + dry oral mucous membranes Neck: anterior surgical incision Respiratory: normal respiratory effort; no labored breathing Musculoskeletal: Extremities: + muscle atrophy Skin: warm and dry PG Care Time/CCT Total # of Minutes Spent Total Time Spent with Patient: Total time spent is greater than 50% in coordination of care (as documented) at patient's floor/unit and/or counseling patient: Coding Level of Care Code 18057 Subseq Hosp Care Lvl 2 Diagnoses Delirium R41.0 Pain R52 Palliative care encounter Z51.5
[2021-10-15] MEDS: OLANZapine ZYDIS 5 MG ORALLY DIS. TAB PO SCH (21:09)
[2021-10-16] MEDS: OLANZapine ZYDIS 5 MG ORALLY DIS. TAB PO SCH ×2 (09:11→20:24)
[2021-10-16] MEDS: HYDROmorphone INJ 0.5 MG/0.5 ML SYR IV PRN ×2 (11:18→20:24)
--- NOTE | 2021-10-16 12:42 | Palliative Care Progress Note ---
Date of Service October 16, 2021 Assessment & Plan (1) Pain: Plan: Continue prn hydromorphone. He has had two doses daily for the last few days. (2) Delirium: Plan: Improved with zyprexa. (3) Palliative care encounter: Plan: Focus of care is comfort. He does not appear likely to within the next few days at this time. Case management working with family on placement with hospice. Admission and Anticipated Discharge Date Admission Date: October 09, 2021 Subjective Awake. Confused at times. Ate his entire breakfast per Mrs. Elam. Complains of pain in his right arm. Slept well last night. No agitation Review of Systems Review of Systems: ESAS Pain 2/3 Dyspnea 0/3 Fatigue 2.3 Nausea 0/3 Drowsiness 0/3 PPS 30% Physical Exam Constitutional: + frail appearing; no acute distress ENMT: Ears: + hearing impairment Nose: + dry nasal mucous membranes Respiratory: normal respiratory effort; no labored breathing Cardiovascular: Rate/Rhythm: regular rate and regular rhythm Musculoskeletal: right UE edema Skin: warm and dry Neurologic: awake and + confused PG Care Time/CCT Total # of Minutes Spent Total Time Spent with Patient: Total time spent is greater than 50% in coordination of care (as documented) at patient's floor/unit and/or counseling patient: Coding Level of Care Code 17703 Subseq Hosp Care Lvl 2 Diagnoses Pain R52 Delirium R41.0 Palliative care encounter Z51.5
--- NOTE | 2021-10-16 14:23 | Hospitalist Progress Note ---
Date of Service October 16, 2021 Assessment & Plan (1) Encephalopathy: Plan: Severe hypercalcemia -due to multiple lytic lesions seen throughout -s/p 4 doses of calcitonin, Lasix -management per Nephrology -Patient now comfort care measures Diffuse metastatic disease -Known bladder cancer, although with constellation of lytic lesions of his bone (including skull) and hypercalcemia, it is concerning for multiple myeloma -SPEP, UPEP pending -Patient is now comfort care measures Acute metabolic encephalopathy -still very confused despite improved calcium levels -MRI brain reveals calvarian lesions (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 He appears to be coughing/likely aspirating on clears. Will communicate this to family to verify they are comfortable with permissive aspiration, otherwise patient will be placed back on strict NPO. - 10/14 patient had some liquids, family denies coughing FILIBERTO on CKD 3 -monitor BMP daily -Labs canceled as patient is now comfort care measures Hypokalemia -replete PRN -Labs canceled as patient is now comfort care measures chronic thrombocytopenia -Plt remains stable DVT ppx -SQ heparin Goals of care/Code status Palliative Care consulted and following, appreciate their input DNR/DNI -comfort care -discontinued labs, and unnecessary medications Disposition: Uncertain at this time, CM involved Admission and Anticipated Discharge Date Admission Date: October 09, 2021 Subjective Pt seen in follow-up of encephalopathy, hypercalcemia, metastatic lesions, now comfort care Patient is lying in bed, resting comfortably Patient's is at bedside, reports that patient has not been agitated and slept well No new concerns Patient's talked to CM today, will follow-up Review of Systems Review of Systems: Unobtainable due to cognitive status Physical Exam Physical Exam: Physical Exam: elderly M, + chron ically ill-appeari ng, resting comfor tably Respiratory: no wheezing/rhonch i, coughing with l iquids Cardiovascular:H regular rate and r hythm, no murmurs/ rubs/gallops Gastrointestinal ( Abdomen): Hypoactive, soft, non distended Musculoskeletal: No edema Neurologic: Resting, but able to awake, moves ex tremities, hard of hearing Results & Data Results & Data ([facility]) Medications Administered Current Inpatient Medications Glycopyrrolate (Glycopyrrolate 0.2 Mg/Ml Vial) 0.2 mg IV Q4H PRN PRN Reason: Secretions or Pulm Congestion Stop: 11/12/21 15:50 Last Admin: 10/13/21 17:54 Dose: 0.2 mg Documented by: Hydromorphone HCl (Hydromorphone Inj 0.5 Mg/0.5 Ml Syr) 0.5 mg IV Q30M PRN PRN Reason: pain or dyspnea Stop: 10/27/21 10:57 Last Admin: 10/16/21 11:18 Dose: 0.5 mg Documented by: Promethazine HCl 6.25 mg/ (Sodium Chloride) 50.25 mls @ 201 mls/hr IV Q6H PRN PRN Reason: Nausea And Vomiting Stop: 11/08/21 02:34 Last Infusion: 10/10/21 11:19 Dose: Infused Documented by: Lorazepam (Lorazepam 0.5 Mg Tab) 0.5 mg SL Q4H PRN PRN Reason: anxiety or agitation Stop: 11/12/21 10:59 Last Admin: 10/15/21 09:10 Dose: 0.5 mg Documented by: Lorazepam (Lorazepam 0.5 Mg Tab) 0.5 mg PO Q4H PRN PRN Reason: Anxiety/Agitation Stop: 11/12/21 15:50 Olanzapine (Olanzapine Zydis 5 Mg Orally Dis. Tab) 5 mg PO BID MARIYA Stop: 11/14/21 20:59 Last Admin: 10/16/21 09:11 Dose: 5 mg Documented by: Ondansetron HCl (Ondansetron Inj 2 Mg/Ml 2 Ml Vial) 4 mg IV Q4H PRN PRN Reason: Nausea &/or Vomiting Stop: 11/12/21 15:50
--- NOTE | 2021-10-17 07:52 | Hospitalist Progress Note ---
Date of Service October 17, 2021 Assessment & Plan (1) Encephalopathy: Plan: Severe hypercalcemia -due to multiple lytic lesions seen throughout -s/p 4 doses of calcitonin, Lasix -management per Nephrology -Patient now comfort care measures Diffuse metastatic disease -Known bladder cancer, although with constellation of lytic lesions of his bone (including skull) and hypercalcemia, it is concerning for multiple myeloma -SPEP, UPEP pending -Patient is now comfort care measures Acute metabolic encephalopathy -still very confused despite improved calcium levels -MRI brain reveals calvarian lesions (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 He appears to be coughing/likely aspirating on clears. Will communicate this to family to verify they are comfortable with permissive aspiration, otherwise patient will be placed back on strict NPO. - 10/14 patient had some liquids, family denies coughing FILIBERTO on CKD 3 -monitor BMP daily -Labs canceled as patient is now comfort care measures Hypokalemia -replete PRN -Labs canceled as patient is now comfort care measures chronic thrombocytopenia -Plt remains stable DVT ppx -SQ heparin Goals of care/Code status Palliative Care consulted and following, appreciate their input DNR/DNI -comfort care -discontinued labs, and unnecessary medications Disposition: Uncertain at this time, CM involved Admission and Anticipated Discharge Date Admission Date: October 09, 2021 Subjective Pt seen in follow-up of encephalopathy, hypercalcemia, metastatic lesions, now comfort care Patient is sitting up in bed, resting comfortably Family visiting No new concerns Palliative care and CM following Review of Systems Review of Systems: All systems reviewed & are unremarkable except as noted in Subjective Physical Exam Physical Exam: Physical Exam: elderly M, + chron ically ill-appeari ng, resting comfor tably Respiratory: no wheezing/rhonch i, coughing with l iquids Cardiovascular:H regular rate and r hythm, no murmurs/ rubs/gallops Gastrointestinal ( Abdomen): Hypoactive, soft, non distended Musculoskeletal: No edema Neurologic: awake, moves extre mities, hard of he aring Results & Data Results & Data ([facility]) Medications Administered Current Inpatient Medications Glycopyrrolate (Glycopyrrolate 0.2 Mg/Ml Vial) 0.2 mg IV Q4H PRN PRN Reason: Secretions or Pulm Congestion Stop: 11/12/21 15:50 Last Admin: 10/13/21 17:54 Dose: 0.2 mg Documented by: Hydromorphone HCl (Hydromorphone Inj 0.5 Mg/0.5 Ml Syr) 0.5 mg IV Q30M PRN PRN Reason: pain or dyspnea Stop: 10/27/21 10:57 Last Admin: 10/16/21 20:24 Dose: 0.5 mg Documented by: Promethazine HCl 6.25 mg/ (Sodium Chloride) 50.25 mls @ 201 mls/hr IV Q6H PRN PRN Reason: Nausea And Vomiting Stop: 11/08/21 02:34 Last Infusion: 10/10/21 11:19 Dose: Infused Documented by: Lorazepam (Lorazepam 0.5 Mg Tab) 0.5 mg SL Q4H PRN PRN Reason: anxiety or agitation Stop: 11/12/21 10:59 Last Admin: 10/15/21 09:10 Dose: 0.5 mg Documented by: Lorazepam (Lorazepam 0.5 Mg Tab) 0.5 mg PO Q4H PRN PRN Reason: Anxiety/Agitation Stop: 11/12/21 15:50 Olanzapine (Olanzapine Zydis 5 Mg Orally Dis. Tab) 5 mg PO BID MARIYA Stop: 11/14/21 20:59 Last Admin: 10/16/21 20:24 Dose: 5 mg Documented by: Ondansetron HCl (Ondansetron Inj 2 Mg/Ml 2 Ml Vial) 4 mg IV Q4H PRN PRN Reason: Nausea &/or Vomiting Stop: 11/12/21 15:50
[2021-10-17] MEDS: OLANZapine ZYDIS 5 MG ORALLY DIS. TAB PO SCH ×2 (09:15→20:54)
[2021-10-17] MEDS: HYDROmorphone INJ 0.5 MG/0.5 ML SYR IV PRN ×2 (14:51→20:54)
[2021-10-18] MEDS: HYDROmorphone INJ 0.5 MG/0.5 ML SYR IV PRN ×4 (02:50→20:23)
[2021-10-18] MEDS: OLANZapine ZYDIS 5 MG ORALLY DIS. TAB PO SCH ×2 (08:28→20:21)
--- NOTE | 2021-10-18 12:29 | Hospitalist Progress Note ---
Date of Service October 18, 2021 Assessment & Plan (1) Encephalopathy: Plan: Severe hypercalcemia -due to multiple lytic lesions seen throughout -s/p 4 doses of calcitonin, Lasix -management per Nephrology -Patient now comfort care measures Diffuse metastatic disease -Known bladder cancer, although with constellation of lytic lesions of his bone (including skull) and hypercalcemia, it is concerning for multiple myeloma -SPEP, UPEP pending -Patient is now comfort care measures Acute metabolic encephalopathy -pt is now less confused , often gets confused and agitated at night though/ have hallucinations at night -MRI brain reveals calvarian lesions (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 He appears to be coughing/likely aspirating on clears. Will communicate this to family to verify they are comfortable with permissive aspiration, otherwise patient will be placed back on strict NPO. - 10/14 patient had some liquids, family denies coughing FILIBERTO on CKD 3 -monitor BMP daily -Labs canceled as patient is now comfort care measures Hypokalemia -replete PRN -Labs canceled as patient is now comfort care measures chronic thrombocytopenia -Plt remains stable DVT ppx -SQ heparin Goals of care/Code status Palliative Care consulted and following, appreciate their input DNR/DNI -comfort care -discontinued labs, and unnecessary medications Disposition: Uncertain at this time, CM involved Admission and Anticipated Discharge Date Admission Date: October 09, 2021 Subjective Pt seen in follow-up of encephalopathy, hypercalcemia, metastatic lesions, now comfort care Patient is sitting up in bed, resting comfortably Family visiting at the bedside No new concerns Palliative care and CM following Review of Systems Review of Systems: All systems reviewed & are unremarkable except as noted in Subjective Physical Exam Physical Exam: Physical Exam: elderly M, + chron ically ill-appeari ng, resting comfor tably Respiratory: no wheezing/rhonch i, coughing with l iquids Cardiovascular:H regular rate and r hythm, no murmurs/ rubs/gallops Gastrointestinal ( Abdomen): Hypoactive, soft, non distended Musculoskeletal: No edema Neurologic: awake, moves extre mities, hard of he aring Results & Data Results & Data ([facility]) Medications Administered Current Inpatient Medications Glycopyrrolate (Glycopyrrolate 0.2 Mg/Ml Vial) 0.2 mg IV Q4H PRN PRN Reason: Secretions or Pulm Congestion Stop: 11/12/21 15:50 Last Admin: 10/13/21 17:54 Dose: 0.2 mg Documented by: Hydromorphone HCl (Hydromorphone Inj 0.5 Mg/0.5 Ml Syr) 0.5 mg IV Q30M PRN PRN Reason: pain or dyspnea Stop: 10/27/21 10:57 Last Admin: 10/18/21 02:50 Dose: 0.5 mg Documented by: Promethazine HCl 6.25 mg/ (Sodium Chloride) 50.25 mls @ 201 mls/hr IV Q6H PRN PRN Reason: Nausea And Vomiting Stop: 11/08/21 02:34 Last Infusion: 10/10/21 11:19 Dose: Infused Documented by: Lorazepam (Lorazepam 0.5 Mg Tab) 0.5 mg SL Q4H PRN PRN Reason: anxiety or agitation Stop: 11/12/21 10:59 Last Admin: 10/15/21 09:10 Dose: 0.5 mg Documented by: Lorazepam (Lorazepam 0.5 Mg Tab) 0.5 mg PO Q4H PRN PRN Reason: Anxiety/Agitation Stop: 11/12/21 15:50 Olanzapine (Olanzapine Zydis 5 Mg Orally Dis. Tab) 5 mg PO BID MARIYA Stop: 11/14/21 20:59 Last Admin: 10/18/21 08:28 Dose: 5 mg Documented by: Ondansetron HCl (Ondansetron Inj 2 Mg/Ml 2 Ml Vial) 4 mg IV Q4H PRN PRN Reason: Nausea &/or Vomiting Stop: 11/12/21 15:50
[2021-10-19] MEDS: HYDROmorphone INJ 0.5 MG/0.5 ML SYR IV PRN (08:01)
[2021-10-19] MEDS: OLANZapine ZYDIS 5 MG ORALLY DIS. TAB PO SCH ×2 (08:06→21:53)
--- NOTE | 2021-10-19 08:41 | Hospitalist Progress Note ---
Date of Service October 19, 2021 Assessment & Plan (1) Encephalopathy: Plan: Severe hypercalcemia -due to multiple lytic lesions seen throughout -s/p 4 doses of calcitonin, Lasix -management per Nephrology -Patient now comfort care measures Diffuse metastatic disease -Known bladder cancer, although with constellation of lytic lesions of his bone (including skull) and hypercalcemia, it is concerning for multiple myeloma -SPEP, UPEP pending -Patient is now comfort care measures Acute metabolic encephalopathy -pt is now less confused , often gets confused and agitated at night though/ have hallucinations at night -MRI brain reveals calvarian lesions (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 He appears to be coughing/likely aspirating on clears. Will communicate this to family to verify they are comfortable with permissive aspiration, otherwise patient will be placed back on strict NPO. - 10/14 patient had some liquids, family denies coughing FILIBERTO on CKD 3 -monitor BMP daily -Labs canceled as patient is now comfort care measures Hypokalemia -replete PRN -Labs canceled as patient is now comfort care measures chronic thrombocytopenia -Plt remains stable DVT ppx -SQ heparin Goals of care/Code status Palliative Care consulted and following, appreciate their input DNR/DNI -comfort care -discontinued labs, and unnecessary medications Disposition: Uncertain at this time, CM involved Admission and Anticipated Discharge Date Admission Date: October 09, 2021 Subjective Pt seen in follow-up of encephalopathy, hypercalcemia, metastatic lesions, now comfort care Patient is sleeping soundly, patient's is at the bedside She reports that patient has good medications and he has been able to rest Discussed about taking patient home with hospice, she says that she cannot take care of him at home but may get some help, case management following No new concerns Palliative care and CM following Review of Systems Review of Systems: Unobtainable due to cognitive status Physical Exam Physical Exam: Physical Exam: elderly M, + chron ically ill-appeari ng, resting comfor tably Respiratory: no wheezing/rhonch i, coughing with l iquids Cardiovascular:H regular rate and r hythm, no murmurs/ rubs/gallops Gastrointestinal ( Abdomen): Hypoactive, soft, non distended Musculoskeletal: No edema Neurologic: Resting comfortabl y, moves extremiti es, hard of hearin g Results & Data Results & Data ([facility]) Medications Administered Current Inpatient Medications Glycopyrrolate (Glycopyrrolate 0.2 Mg/Ml Vial) 0.2 mg IV Q4H PRN PRN Reason: Secretions or Pulm Congestion Stop: 11/12/21 15:50 Last Admin: 10/13/21 17:54 Dose: 0.2 mg Documented by: Hydromorphone HCl (Hydromorphone Inj 0.5 Mg/0.5 Ml Syr) 0.5 mg IV Q30M PRN PRN Reason: pain or dyspnea Stop: 10/27/21 10:57 Last Admin: 10/19/21 08:01 Dose: 0.5 mg Documented by: Promethazine HCl 6.25 mg/ (Sodium Chloride) 50.25 mls @ 201 mls/hr IV Q6H PRN PRN Reason: Nausea And Vomiting Stop: 11/08/21 02:34 Last Infusion: 10/10/21 11:19 Dose: Infused Documented by: Lorazepam (Lorazepam 0.5 Mg Tab) 0.5 mg SL Q4H PRN PRN Reason: anxiety or agitation Stop: 11/12/21 10:59 Last Admin: 10/15/21 09:10 Dose: 0.5 mg Documented by: Lorazepam (Lorazepam 0.5 Mg Tab) 0.5 mg PO Q4H PRN PRN Reason: Anxiety/Agitation Stop: 11/12/21 15:50 Olanzapine (Olanzapine Zydis 5 Mg Orally Dis. Tab) 5 mg PO BID MARIYA Stop: 11/14/21 20:59 Last Admin: 10/19/21 08:06 Dose: 5 mg Documented by: Ondansetron HCl (Ondansetron Inj 2 Mg/Ml 2 Ml Vial) 4 mg IV Q4H PRN PRN Reason: Nausea &/or Vomiting Stop: 11/12/21 15:50
[2021-10-19] MEDS: HYDROmorphone HCL 2 MG TAB PO SCH ×3 (11:26→23:35)
--- NOTE | 2021-10-19 13:12 | Palliative Care Progress Note ---
Date of Service October 19, 2021 Assessment & Plan (1) Pain: Plan: Increased use of hydromorphone over the weekend. Per his , he is complaining of pain in multiple places when awake. Will convert to po hydromorphone with routine dosing for more steady state analgesia. Continue IV prn dosing. (2) Delirium: Plan: Improved with zyprexa. Continue BID dosing. Family would prefer him being more sleepy to being agitated. (3) Palliative care encounter: Plan: I talked with Mrs. Elam. He is reasonably stable and does not appear likely to within the next few days at this time. They had been considering SNF placement when he was admitted. She does not feel comfortable or able to take care of him at home. Discussed with case management. Admission and Anticipated Discharge Date Admission Date: October 09, 2021 Subjective Sleeping, does not arouse with exam. Per his , he slept through the night last night. Still confused but less agitation. Good appetite. Review of Systems Review of Systems: Unobtainable due to reduced consciousness ESAS Pain by observation 0/3 Dyspnea by observation 0/3 Physical Exam Constitutional: no acute distress Respiratory: normal respiratory effort; no labored breathing Cardiovascular: Rate/Rhythm: regular rate and regular rhythm Skin: warm and dry Neurologic: lethargic PG Care Time/CCT Total # of Minutes Spent Total Time Spent with Patient: Total time spent is greater than 50% in coordination of care (as documented) at patient's floor/unit and/or counseling patient: Coding Level of Care Code 44305 Subseq Hosp Care Lvl 2 Diagnoses Pain R52 Delirium R41.0 Palliative care encounter Z51.5
[2021-10-20] MEDS: HYDROmorphone HCL 2 MG TAB PO SCH ×4 (06:22→23:38)
[2021-10-20] MEDS: OLANZapine ZYDIS 5 MG ORALLY DIS. TAB PO SCH ×2 (08:00→20:52)
[2021-10-20] MEDS ORDERED: HYDROmorphone HCL 2 MG TAB PO PRN (11:25)
--- NOTE | 2021-10-20 11:25 | Palliative Care Progress Note ---
Date of Service October 20, 2021 Assessment & Plan (1) Pain: Plan: Controlled on routine oral hydromorphone. Will convert prn dosing to po as well. (2) Delirium: Plan: Controlled with routine zyprexa. Continue current dosing. (3) Palliative care encounter: Plan: Focus of care on comfort. Family is meeting later today to talk about SNF placement. Discussed with case management. Admission and Anticipated Discharge Date Admission Date: October 09, 2021 Subjective Slept well last night per his . He is sleeping but arousable. Complains of mild pain in his right shoulder. I asked him if he felt the pain medication was working. "I can sleep, so it must be." No prn hydromorphone last 24 hours. Ate all of his breakfast this morning. Review of Systems Review of Systems: ESAS Pain 1/3 Dyspnea 0/3 Fatigue 2/3 NAusea 0/3 Drowsiness 1/3 PPS 30% Physical Exam Constitutional: no acute distress ENMT: Ears: + hearing impairment Mouth: oral mucous membranes not dry Respiratory: normal respiratory effort; no labored breathing Gastrointestinal (Abdomen): LBM 10/19 Musculoskeletal: Extremities: + muscle atrophy Skin: warm and dry Neurologic: awake and + confused (at times) PG Care Time/CCT Total # of Minutes Spent Total Time Spent with Patient: Total time spent is greater than 50% in coordination of care (as documented) at patient's floor/unit and/or counseling patient: Coding Level of Care Code 99769 Subseq Hosp Care Lvl 2 Diagnoses Pain R52 Delirium R41.0 Palliative care encounter Z51.5
[2021-10-20] MEDS: ONDANSETRON INJ 2 MG/ML 2 ML VIAL IV PRN ×2 (13:05→23:38)
--- NOTE | 2021-10-20 13:26 | Hospitalist Progress Note ---
Date of Service October 20, 2021 Assessment & Plan (1) Encephalopathy: Plan: Severe hypercalcemia -due to multiple lytic lesions seen throughout -s/p 4 doses of calcitonin, Lasix -management per Nephrology -Patient now comfort care measures Diffuse metastatic disease -Known bladder cancer, although with constellation of lytic lesions of his bone (including skull) and hypercalcemia, it is concerning for multiple myeloma -SPEP, UPEP pending -Patient is now comfort care measures Acute metabolic encephalopathy -pt is now less confused , often gets confused and agitated at night though/ have hallucinations at night -MRI brain reveals calvarian lesions (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 He appears to be coughing/likely aspirating on clears. Will communicate this to family to verify they are comfortable with permissive aspiration, otherwise patient will be placed back on strict NPO. - 10/14 patient had some liquids, family denies coughing FILIBERTO on CKD 3 -monitor BMP daily -Labs canceled as patient is now comfort care measures Hypokalemia -replete PRN -Labs canceled as patient is now comfort care measures chronic thrombocytopenia -Plt remains stable DVT ppx -SQ heparin Goals of care/Code status Palliative Care consulted and following, appreciate their input DNR/DNI -comfort care -discontinued labs, and unnecessary medications Disposition: Uncertain at this time, CM involved Admission and Anticipated Discharge Date Admission Date: October 09, 2021 Subjective Pt seen in follow-up of encephalopathy, hypercalcemia, metastatic lesions, now comfort care Patient is sleeping soundly, patient's is at the bedside Previously reported some nausea, now resting comfortably again No new concerns Palliative care and CM following, plan for possible discharge to SNF Review of Systems Review of Systems: Unobtainable due to cognitive status Physical Exam Physical Exam: Physical Exam: elderly M, + chron ically ill-appeari ng, resting comfor tably Respiratory: no wheezing/rhonch i, coughing with l iquids Cardiovascular:H regular rate and r hythm, no murmurs/ rubs/gallops Gastrointestinal ( Abdomen): Hypoactive, soft, non distended Musculoskeletal: No edema Neurologic: Resting comfortabl y, moves extremiti es, hard of hearin g Results & Data Results & Data ([facility]) Medications Administered Current Inpatient Medications Glycopyrrolate (Glycopyrrolate 0.2 Mg/Ml Vial) 0.2 mg IV Q4H PRN PRN Reason: Secretions or Pulm Congestion Stop: 11/12/21 15:50 Last Admin: 10/13/21 17:54 Dose: 0.2 mg Documented by: Hydromorphone HCl (Hydromorphone Hcl 2 Mg Tab) 2 mg PO Q6 [facility] Stop: 11/02/21 11:14 Last Admin: 10/20/21 12:41 Dose: 2 mg Documented by: Hydromorphone HCl (Hydromorphone Hcl 2 Mg Tab) 2 mg PO Q3H PRN PRN Reason: Pain or dyspnea Stop: 11/03/21 11:24 Lorazepam (Lorazepam 0.5 Mg Tab) 0.5 mg SL Q4H PRN PRN Reason: anxiety or agitation Stop: 11/12/21 10:59 Last Admin: 10/15/21 09:10 Dose: 0.5 mg Documented by: Lorazepam (Lorazepam 0.5 Mg Tab) 0.5 mg PO Q4H PRN PRN Reason: Anxiety/Agitation Stop: 11/12/21 15:50 Olanzapine (Olanzapine Zydis 5 Mg Orally Dis. Tab) 5 mg PO BID [facility] Stop: 11/14/21 20:59 Last Admin: 10/20/21 08:00 Dose: 5 mg Documented by: Ondansetron HCl (Ondansetron Inj 2 Mg/Ml 2 Ml Vial) 4 mg IV Q4H PRN PRN Reason: Nausea &/or Vomiting Stop: 11/12/21 15:50 Last Admin: 10/20/21 13:05 Dose: 4 mg Documented by:
[2021-10-20] MEDS: LORazepam 0.5 MG TAB SL PRN (15:42)
[2021-10-20] MEDS ORDERED: diphenhydrAMINE HCL 25 MG/10 ML UDC PO ONE (15:51)
[2021-10-21] MEDS: ONDANSETRON INJ 2 MG/ML 2 ML VIAL IV PRN ×2 (05:20→10:24)
[2021-10-21] MEDS: OLANZapine ZYDIS 5 MG ORALLY DIS. TAB PO SCH ×3 (05:21→22:21)
[2021-10-21] MEDS: HYDROmorphone HCL 2 MG TAB PO SCH (05:23)
--- NOTE | 2021-10-21 08:34 | Hospitalist Progress Note ---
Date of Service October 21, 2021 Assessment & Plan (1) Encephalopathy: Plan: Severe hypercalcemia -due to multiple lytic lesions seen throughout -s/p 4 doses of calcitonin, Lasix -management per Nephrology -Patient now comfort care measures Diffuse metastatic disease -Known bladder cancer, although with constellation of lytic lesions of his bone (including skull) and hypercalcemia, it is concerning for multiple myeloma -SPEP, UPEP Reportedly pending, per previous provider.Reviewed records in [facility], negative for myeloma in 2012.Not clear if SPEP UPEP were repeated at this admission or recently.Further review of records needed. 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 He appears to be coughing/likely aspirating on clears. Will communicate this to family to verify they are comfortable with permissive aspiration, otherwise patient will be placed back on strict NPO. - 10/14 patient had some liquids, family denies coughing -10/21 Patient again developed abdominal pain, KUB was obtained overnight, showing developing bowel obstruction. NG tube was placed, with instant drainage of 1300 cc of dark fluid.Patient feeling now much better. Made NPO. FILIBERTO on CKD 3 -monitor BMP daily -Labs canceled as patient is now comfort care measures Hypokalemia -replete PRN -Labs canceled as patient is now comfort care measures chronic thrombocytopenia -Plt remains stable Goals of care/Code status Palliative Care consulted and following, appreciate their input DNR/DNI -comfort care -discontinued labs, and unnecessary medications Disposition: Uncertain at this time, CM involved Admission and Anticipated Discharge Date Admission Date: October 09, 2021 Subjective Pt seen in follow-up of encephalopathy, hypercalcemia, metastatic lesions, now comfort care Overnight patient developed more abdominal pain KUB was obtained, and showed developing bowel obstruction NG tube was placed, and drained immediately 1300 cc of dark fluid Patient became very comfortable instantly, and finally fell asleep and got some rest Pt's is at the bedside Palliative care and CM following, plan for possible discharge to SNF Review of Systems Review of Systems: Unobtainable due to cognitive status Physical Exam Physical Exam: Physical Exam: elderly M, + chron ically ill-appeari ng, resting comfor tably Respiratory: no wheezing/rhonch i, coughing with l iquids Cardiovascular:H regular rate and r hythm, no murmurs/ rubs/gallops Gastrointestinal ( Abdomen): Hypoactive, soft, non distended Musculoskeletal: No edema Neurologic: Resting comfortabl y, moves extremiti es, hard of hearin g Results & Data Results & Data ([facility]) Medications Administered Current Inpatient Medications Glycopyrrolate (Glycopyrrolate 0.2 Mg/Ml Vial) 0.2 mg IV Q4H PRN PRN Reason: Secretions or Pulm Congestion Stop: 11/12/21 15:50 Last Admin: 10/13/21 17:54 Dose: 0.2 mg Documented by: Hydromorphone HCl (Hydromorphone Hcl 2 Mg Tab) 2 mg PO Q6 MARIYA Stop: 11/02/21 11:14 Last Admin: 10/21/21 05:23 Dose: 2 mg Documented by: Hydromorphone HCl (Hydromorphone Hcl 2 Mg Tab) 2 mg PO Q3H PRN PRN Reason: Pain or dyspnea Stop: 11/03/21 11:24 Last Admin: 10/20/21 20:52 Dose: 2 mg Documented by: Hydromorphone HCl (Hydromorphone Inj 0.5 Mg/0.5 Ml Syr) 0.5 mg IV Q1H PRN PRN Reason: Pain Stop: 11/04/21 11:27 Last Admin: 10/21/21 12:57 Dose: 0.5 mg Documented by: Lorazepam (Lorazepam 0.5 Mg Tab) 0.5 mg SL Q4H PRN PRN Reason: anxiety or agitation Stop: 11/12/21 10:59 Last Admin: 10/20/21 15:42 Dose: 0.5 mg Documented by: Lorazepam (Lorazepam 0.5 Mg Tab) 0.5 mg PO Q4H PRN PRN Reason: Anxiety/Agitation Stop: 11/12/21 15:50 Olanzapine (Olanzapine Zydis 5 Mg Orally Dis. Tab) 5 mg PO BID MARIYA Stop: 11/14/21 20:59 Last Admin: 10/21/21 08:39 Dose: 5 mg Documented by: Ondansetron HCl (Ondansetron Inj 2 Mg/Ml 2 Ml Vial) 4 mg IV Q4H PRN PRN Reason: Nausea &/or Vomiting Stop: 11/12/21 15:50 Last Admin: 10/21/21 10:24 Dose: 4 mg Documented by:
--- NOTE | 2021-10-21 09:19 | XRay Report ---
KUB CLINICAL HISTORY: Generalized abdominal pain. FINDINGS: 2 AP supine abdominal radiographs are compared to study dated 10/10/2021 and correlated with abdominal CT dated 10/09/2021. There is gaseous distention of the stomach as well as distended and gas- filled loops of small bowel in the left midabdomen. These measure up to 3.8 cm in diameter. Gas and s tool are noted in the right colon. No evidence of intraperitoneal free air is seen on these supine im ages. There are no abnormal abdominal calcifications. Phleboliths are seen in the pelvis. The skeleta l structures are osteopenic and appear intact. There is lumbosacral spondylosis. IMPRESSION: There are distended and gas-filled loops of small bowel which represents a change from 10/10/2021. Correlate clinically for evidence of developing bowel obstruction. Electronically signed by: Jose C Joe M.D. 10/21/2021 9:18 AM
[2021-10-21] MEDS ORDERED: HYDROmorphone INJ 0.5 MG/0.5 ML SYR IV PRN (11:28)
--- NOTE | 2021-10-21 13:21 | XRay Report ---
XR chest 1V portable CLINICAL HISTORY: confirm ng tube placement. COMPARISON STUDY: Chest CT October 09, 2021. Chest radiograph October 12, 2021. KUB October 21, 2021. FINDINGS: Multiple dilated loops of small bowel within the upper to mid abdomen are noted. Tip of ethan ogastric tube is within the gastric fundus. There is no pneumothorax or pleural effusion. Mild bibasi lar opacities are present. Mild cardiomegaly is unchanged. No evidence for pulmonary edema. IMPRESSION: 1. Tip of nasogastric tube within the gastric fundus. 2. Small bowel dilatation. This may reflect a small bowel obstruction. 3. Bibasilar opacities which could represent consolidation or atelectasis. ACT 112: Negative or not required by law. Electronically signed by: Danis Evans M.D. 10/21/2021 1:20 PM
[2021-10-21] MEDS: LORazepam 0.5 MG TAB SL PRN (23:18)
[2021-10-22] MEDS: OLANZapine ZYDIS 5 MG ORALLY DIS. TAB PO SCH (09:03)
[2021-10-22] MEDS ORDERED: OLANZapine ZYDIS 5 MG ORALLY DIS. TAB PO STA (10:56)
--- NOTE | 2021-10-22 13:10 | Palliative Care Progress Note ---
Date of Service October 22, 2021 Assessment & Plan (1) Nausea & vomiting: Plan: with developing bowel obstruction on KUB. He has been having liquid overflow BMs. Symptoms improved with NG though he pulled the tube out due to delirium. (2) Pain: Plan: Multifocal. Routine hydromorphone on hold with developing obstruction. Continue prn dosing (3) Delirium: Plan: On routine zyprexa. Talked with Mrs. Elam and Juan Ramon's sisters at bedside. Mrs. Elam would prefer that he be sleepy rather than restless and pulling at NG. We discussed increasing zyprexa and she agrees. Increase to 10mg BID (4) Palliative care encounter: Plan: Focus of care is comfort. Plan for discharge to SNF with hospice when symptoms managed Admission and Anticipated Discharge Date Admission Date: October 09, 2021 Subjective Pulled NG tube out overnight. NG output was 250cc in 3 hours earlier this morning. He is lethargic, arouses at times, frequently asking for water, reaches for NG tube. Review of Systems Review of Systems: Unobtainable due to cognitive status and Unobtainable due to reduced consciousness ESAS Pain by observation 1/3 Dyspnea by observation 0/3 PPS 20% Physical Exam Constitutional: + lethargic ENMT: NGT patent, draining with suction Respiratory: normal respiratory effort; no labored breathing Cardiovascular: Rate/Rhythm: regular rate and regular rhythm Gastrointestinal (Abdomen): decreased distension Neurologic: + confused; + not awake PG Care Time/CCT Total # of Minutes Spent Total Time Spent: 35 Total Time Spent with Patient: Total time spent is greater than 50% in coordination of care (as documented) at patient's floor/unit and/or counseling patient: symptom management, family education and support Coding Level of Care Code 61191 Subseq Hosp Care Lvl 3 Diagnoses Pain R52 Delirium R41.0 Nausea & vomiting R11.2 Palliative care encounter Z51.5
[2021-10-22] MEDS: D5W AND 1/2NSS 1,000 ML IV SCH (14:07)
[2021-10-22] MEDS: ONDANSETRON INJ 2 MG/ML 2 ML VIAL IV PRN (14:16)
--- NOTE | 2021-10-22 19:29 | Hospitalist Progress Note ---
Date of Service October 22, 2021 Assessment & Plan (1) Encephalopathy: Plan: Comfort measure status- Palliative following Severe hypercalcemia -due to multiple lytic lesions seen throughout -s/p 4 doses of calcitonin, Lasix -management per Nephrology -Patient now comfort care measures Diffuse metastatic disease -Known bladder cancer, although with constellation of lytic lesions of his bone (including skull) and hypercalcemia, it is concerning for multiple myeloma -SPEP, UPEP Reportedly pending, per previous provider.Reviewed records in [facility], negative for myeloma in 2012.Not clear if SPEP UPEP were repeated at this admission or recently.Further review of records needed. 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 He appears to be coughing/likely aspirating on clears. Will communicate this to family to verify they are comfortable with permissive aspiration, otherwise patient will be placed back on strict NPO. - 10/14 patient had some liquids, family denies coughing -10/21 Patient again developed abdominal pain, KUB was obtained overnight, showing developing bowel obstruction. NG tube was placed, with instant drainage of 1300 cc of dark fluid.Patient feeling now much better. Made NPO. FILIBERTO on CKD 3 -monitor BMP daily -Labs canceled as patient is now comfort care measures Hypokalemia -replete PRN -Labs canceled as patient is now comfort care measures chronic thrombocytopenia -Plt remains stable Goals of care/Code status Palliative Care consulted and following, appreciate their input DNR/DNI -comfort care -discontinued labs, and unnecessary medications Discussed with family at bedside, unfortunately with significant NG output- unable to discharge. Started on gentle IVF after family discussion given significant fluid losses. Disposition: Uncertain at this time, Plan for home hospice if stabilizes otherwise might need to be inpatient hospice if deteriorates Admission and Anticipated Discharge Date Admission Date: October 09, 2021 Subjective Continues to have significant NG output. He pulled out NG last night and was replaced this morning. Continue with some abd pain and distension. No fever or chills. Had small BM yesterday. Physical Exam Physical Exam: General: ill appearing, lying in bed, not in acute distress, on NC NG tube in place connected to suction Chest: Fair anteriorly CVS: Regular, normal heart sounds, no murmur Abdomen: Soft, mild tenderness, mild distension, BS + Neuro: Awake, alert, but not talking much Extremities: No edema
[2021-10-22] MEDS: LORazepam 0.5 MG TAB SL PRN (21:32)
[2021-10-23] MEDS: D5W AND 1/2NSS 1,000 ML IV SCH ×2 (05:57→20:47)
[2021-10-23] MEDS: LORazepam 0.5 MG TAB SL PRN (10:33)
--- NOTE | 2021-10-23 15:37 | Palliative Care Progress Note ---
Date of Service October 23, 2021 Assessment & Plan (1) Nausea & vomiting: Plan: Improved with NG tube which has copious drainage. Talked with his who is concerned that he may pull it out again and would be miserable if it was out. She would be agreeable to mittens to protect him from harming himself and removing his catheter or NG tube if needed. Could consider octreotide for relief if NG tube removed again. (2) Pain: Plan: Hydromorphone has been held due to obstruction. He is dying and has had chronic pain. While opioids may decrease gut motility, his would prefer that he have pain medication if needed to be comfortable. Discussed with RN. (3) Delirium: Plan: On zyprexa 10mg BID. Will add routine ativan due to persistent restlessness. (4) Palliative care encounter: Plan: Talked with his who is worried about him suffering. She would prefer that he be asleep and comfortable. Support provided. Admission and Anticipated Discharge Date Admission Date: October 09, 2021 Subjective Pulled NG tube out again. Filled entire cannister after tube was replaced. Restless at times, mostly at night per his . Review of Systems Review of Systems: Unobtainable due to reduced consciousness ESAS Pain by observation 0/3 Dyspnea by observation 0/3 PPS 20% Physical Exam Constitutional: + thin restless ENMT: Mouth: + dry oral mucous membranes NG tube in place, draining clear/brown fluid Respiratory: normal respiratory effort; no labored breathing Cardiovascular: Rate/Rhythm: regular rate and regular rhythm Gastrointestinal (Abdomen): less distended, tender to palpation Musculoskeletal: Extremities: + muscle atrophy Skin: warm and dry Neurologic: lethargic PG Care Time/CCT Total # of Minutes Spent Total Time Spent: 38 Total Time Spent with Patient: Total time spent is greater than 50% in coordination of care (as documented) at patient's floor/unit and/or counseling patient:symptom management, coordination of care, family education and support Coding Level of Care Code 30149 Subseq Hosp Care Lvl 3 Diagnoses Nausea & vomiting R11.2 Pain R52 Delirium R41.0 Palliative care encounter Z51.5
[2021-10-23] MEDS: LORazepam 1 MG TAB SL SCH ×2 (15:56→20:47)
--- NOTE | 2021-10-23 19:30 | Hospitalist Progress Note ---
Date of Service October 23, 2021 Assessment & Plan (1) Encephalopathy: Plan: Comfort measure status- Palliative following - on NG for comfort due to SBO- consider mittens/ restraints if needed to prevent him pulling out NG- discussed with bedside RN to pass along Severe hypercalcemia -due to multiple lytic lesions seen throughout -s/p 4 doses of calcitonin, Lasix -management per Nephrology -Patient now comfort care measures Diffuse metastatic disease -Known bladder cancer, although with constellation of lytic lesions of his bone (including skull) and hypercalcemia, it is concerning for multiple myeloma -SPEP, UPEP Reportedly pending, per previous provider.Reviewed records in [facility], negative for myeloma in 2012.Not clear if SPEP UPEP were repeated at this admission or recently.Further review of records needed. 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 He appears to be coughing/likely aspirating on clears. Will communicate this to family to verify they are comfortable with permissive aspiration, otherwise patient will be placed back on strict NPO. - 10/14 patient had some liquids, family denies coughing -10/21 Patient again developed abdominal pain, KUB was obtained overnight, showing developing bowel obstruction. NG tube was placed, with instant drainage of 1300 cc of dark fluid.Patient feeling now much better. Made NPO. - 10/23- Removed NG tube again overnight and was placed this morning with drainage of lots of gastric fluid FILIBERTO on CKD 3 -monitor BMP daily -Labs canceled as patient is now comfort care measures Hypokalemia -replete PRN -Labs canceled as patient is now comfort care measures chronic thrombocytopenia -Plt remains stable Goals of care/Code status Palliative Care consulted and following, appreciate their input DNR/DNI -comfort care -discontinued labs, and unnecessary medications Discussed with family at bedside, unfortunately with significant NG output- unable to discharge. On gentle IVF after family discussion given significant fluid losses. Disposition: Uncertain at this time, Plan for home hospice if stabilizes otherwise might need to be inpatient hospice if deteriorates Admission and Anticipated Discharge Date Admission Date: October 09, 2021 Subjective He pulled out his NG again last night. Complaining of 8/10 pain during my encounter. No vomiting. He is agreeable to having NG tube again- discussed with at bedside who is agreeable to mittens if needed to prevent him from daniela g the NG out. Physical Exam Physical Exam: General: ill appearing, lying in bed, not in acute distress, on NC NG tube not present during my encounter Chest: Fair anteriorly CVS: Regular, normal heart sounds, no murmur Abdomen: Soft, mild tenderness, mild distension, BS + Neuro: Awake, alert, but not talking much Extremities: No edema Results & Data Results & Data ([facility]) Vital Signs (Past 12 Hours) Vital Signs Temp Pulse Resp BP Pulse Ox 10/23/21 16:00 36.7 C 86 20 96/57 L 86 L
[2021-10-24] MEDS: LORazepam 1 MG TAB SL SCH ×2 (04:55→08:51)
[2021-10-24] MEDS: GLYCOPYRROLATE 0.2 MG/ML VIAL IV PRN ×2 (04:55→21:14)
[2021-10-24] MEDS: D5W AND 1/2NSS 1,000 ML IV SCH ×2 (09:02→12:51)
[2021-10-24] MEDS ORDERED: LORazepam 0.5 MG in SYRINGE 0.5 ML IV PRN (12:10)
[2021-10-24] MEDS: LORazepam 0.5 MG in SYRINGE 0.25 ML IV SCH ×2 (12:50→18:36)
[2021-10-24] MEDS: HYDROmorphone INJ 1 MG/ML SYRINGE IV SCH ×2 (12:50→18:36)
--- NOTE | 2021-10-24 16:35 | Hospitalist Progress Note ---
Date of Service October 24, 2021 Assessment & Plan (1) Encephalopathy: Plan: Comfort measure status- Palliative actively following - on NG for comfort due to SBO which is still putting out lots of output- consider mittens/ restraints if needed to prevent him pulling out NG - Per at bedside, it has been difficult to manage him as he keeps pulling his NG- also states oral medication does not seem to be helping- she is requesting to change comfort meds to iv and have restraint in place - No labs, imaging, escalation of care, continue DNR/DNI status - Will change po dilaudid and ativan to IV formulation; also might need change of po zyprexa to IM- will have restraints in place as needed to prevent him pulling NGT - If improves, plan for home hospice otherwise IP hospice SBO- remains on NG with significant output- abdomen tender and distended with hypoactive bowel sounds- patient has pulled out NG multiple times. Severe hypercalcemia -due to multiple lytic lesions seen throughout -s/p 4 doses of calcitonin, Lasix - seen by Nephrology -Patient is now comfort care measures Diffuse metastatic disease -Known bladder cancer, although with constellation of lytic lesions of his bone (including skull) and hypercalcemia, it is concerning for multiple myeloma -SPEP, UPEP Reportedly pending, per previous provider.Reviewed records in [facility], negative for myeloma in 2012.Not clear if SPEP UPEP were repeated at this admission or recently.Further review of records needed. 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, as well as metastatic skeletal lesions within the the upper cervical spine.) FILIBERTO on CKD 3- no more labs as comfort measures Disposition: Uncertain at this time, Plan for home hospice if stabilizes otherwise inpatient hospice if deteriorates Admission and Anticipated Discharge Date Admission Date: October 09, 2021 Physical Exam Physical Exam: General: ill appearing, lying in bed, not in acute distress, on NC NG tube not present during my encounter Chest: Fair anteriorly CVS: Regular, normal heart sounds, no murmur Abdomen: Soft, tender, distended, BS + Neuro: Awake, alert but lethargic, but not talking much Extremities: No edema
[2021-10-24] MEDS ORDERED: LEVALBUTEROL HCL 1.25 MG/3 ML NEB NEB STA (21:16)
--- NOTE | 2021-10-25 07:15 | Discharge Summary ---
Date of Service October 25, 2021 Admission HPI Per Admitting Provider History obtained from patient, family, and records. Limited history from patient secondary to confusion and hearing impairment. Medical history significant for CAD status post stent, chronic LBBB, hypertension, hyperlipidemia, MARCELINO on CPAP, thyroid cancer status post thyroidectomy/ablation, postsurgical hypothyroidism, CRI (baseline creatinine 1.4), bladder cancer status post surgery status post BCG chemotherapy, simmons cytopenia as per records, prediabetes, past tobacco abuse. Last confinement September 30 to 2021 under orthopedic spine service for cervical spine stenosis with myelo radiculopathy status post C5 anterior corpectomy. Patient discharged home. At home, patient not eating as much, poor appetite as per . Patient later on noted junky cough symptoms. Completed COVID-19 vaccination. Patient not sure about aspiration. Increasing neck pain, low back pain as per patient. Shortness of breath from weakness. Patient denies chest pain. Patient noted to be more confused than usual as per . Patient sent to the ER for evaluation. O2 sats transiently 80s at the ER. 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 Admission Exam Per Admitting Provider GENERAL: Disoriented, hard of hearing, no respiratory distress SKIN: Pallor , warm HEENT: Pale palpebral conjunctivae, no ptosis, dry buccal mucosa, nasal cannula in place NECK : Cervical collar in place, minimal cervical tenderness CHEST : Decreased breath sounds, no tenderness HEART : RRR, no obvious murmurs ABDOMEN: no distention, nontender EXTREMITIES : No LE swelling/tenderness, no other conspicuous deformities noted NEUROLOGIC : Disoriented, no facial asymmetry, hard of hearing, gait and stance not assessed Principal Diagnosis SBO Severe hypercalcemia Diffuse metastatic disease Acute metabolic encephalopathy FILIBERTO on CKD 3 Discharge Exam see note Discharge Data Allergies Allergy/AdvReac Type Severity Reaction Status Date / Time naloxone Allergy Unknown unkn Verified 09/30/21 14:01 pentazocine Allergy Unknown Verified 09/30/21 14:01 Consultations 10/08/21 22:15 ED Decision to Admit Stat 10/09/21 02:35 Consult Nephrology Routine Consult Orthopedic Surgery Routine 10/10/21 17:50 Consult Palliative Care Routine 10/13/21 15:51 Consult Palliative Care Routine Ordered Studies Laboratory Results WBC 9.46 K/uL (4.8-10.8) 10/13/21 06:59 RBC 4.24 M/uL (4.7-6.1) L 10/13/21 06:59 Hgb 12.2 g/dL (14.0-18.0) L 10/13/21 06:59 Hct 35.0 % (42-52) L 10/13/21 06:59 MCV 82.5 fL (80-100) 10/13/21 06:59 MCH 28.8 pg (25-34) 10/13/21 06:59 MCHC 34.9 g/dL (32-36) 10/13/21 06:59 RDW Std Deviation 45.6 fL (36.4-46.3) 10/13/21 06:59 RDW Coeff of Leonel 15.1 % (11.5-14.5) H 10/13/21 06:59 Plt Count 75 K/uL (130-400) L 10/13/21 06:59 MPV 9.4 fL (7.4-10.4) 10/13/21 06:59 Immature Gran % (Auto) 1.1 % 10/09/21 02:00 Neut % (Auto) 68.6 % 10/09/21 02:00 Lymph % (Auto) 14.5 % 10/09/21 02:00 Ferry % (Auto) 13.5 % 10/09/21 02:00 Eos % (Auto) 2.3 % 10/09/21 02:00 Baso % (Auto) 0.0 % 10/09/21 02:00 Neut # (Auto) 5.15 K/uL (1.4-6.5) 10/09/21 02:00 Lymph # (Auto) 1.09 K/uL (1.2-3.4) L 10/09/21 02:00 Ferry # (Auto) 1.01 K/uL (0.11-0.59) H 10/09/21 02:00 Eos # (Auto) 0.17 K/uL (0-0.5) 10/09/21 02:00 Baso # (Auto) 0.00 K/uL (0-0.2) 10/09/21 02:00 Immature Gran # (Auto) 0.08 K/uL (0.00-0.02) H 10/09/21 02:00 Platelet Estimate Decreased (Normal) L 10/08/21 20:07 APTT < 20.0 Seconds (21.0-31.0) L 10/09/21 02:00 PTT Ratio 0.7 10/09/21 02:00 Sodium 139 mmol/L (136-145) 10/13/21 06:59 Potassium 3.4 mmol/L (3.5-5.1) L 10/13/21 06:59 Chloride 108 mmol/L (98-107) H 10/13/21 06:59 Carbon Dioxide 26 mmol/L (21-32) 10/13/21 06:59 Anion Gap 5 (3-11) 10/13/21 06:59 BUN 36 mg/dl (6-23) H 10/13/21 06:59 Creatinine 1.81 mg/dl (0.6-1.4) H 10/13/21 06:59 Est Cr Clr Drug Dosing 27.4 ml/min 10/13/21 06:59 Est GFR ( Amer) 39.5 ml/min 10/13/21 06:59 Est GFR (Non-Af Amer) 34.1 ml/min 10/13/21 06:59 BUN/Creatinine Ratio 19.9 (10-20) 10/13/21 06:59 Glucose 96 mg/dl (70-99(Fasting)) 10/13/21 06:59 Lactate 1.3 mmol/L (0.4-2.0) 10/08/21 20:58 Calcium 10.1 mg/dl (8.5-10.1) 10/13/21 06:59 Ionized Calcium 2.14 mmol/L (1.12-1.32) H* 10/08/21 22:57 Phosphorus 4.0 mg/dl (2.5-4.9) 10/08/21 22:51 Magnesium 1.4 mg/dl (1.7-2.4) L 10/12/21 05:32 Total Bilirubin 0.7 mg/dl (0.2-1.0) 10/13/21 06:59 Direct Bilirubin 0.2 mg/dl (0-0.2) 10/08/21 20:07 AST 34 U/L (13-39) 10/13/21 06:59 ALT 15 U/L (7-52) 10/13/21 06:59 Alkaline Phosphatase 47 U/L (34-104) 10/13/21 06:59 Total Creatine Kinase 58 U/L (30-223) 10/08/21 22:51 Troponin I High Sens 33.3 pg/ml (0-20) H 10/08/21 22:51 Total Protein 6.0 gm/dl (6.0-8.3) 10/13/21 06:59 Albumin 2.8 gm/dl (3.4-5.0) L 10/13/21 06:59 Globulin 3.2 gm/dl (2.5-4.0) 10/13/21 06:59 Albumin/Globulin Ratio 0.9 (0.9-2) 10/13/21 06:59 Angiotensin Convert Enz 47 U/L (9-67) 10/09/21 11:11 25-OH Vitamin D Total 36.0 ng/ml (30-100) 10/09/21 11:11 Vit D 1,25-Dihyd Total 10 pg/mL (18-72) L 10/09/21 11:11 1,25 Dihydroxy Vit D2 <8 pg/mL 10/09/21 11:11 1,25 Dihydroxy Vit D3 10 pg/mL 10/09/21 11:11 Procalcitonin < 0.05 ng/ml (0-0.5) 10/08/21 20:07 TSH 0.747 uIu/ml (0.300-4.500) 10/08/21 22:51 PTH Intact < 1.0 pg/ml (12.0-88.0) L 10/08/21 22:51 PTH Related Protein 26 pg/mL (11-20) H 10/09/21 09:02 Urine Color Yellow 10/09/21 00:10 Urine Appearance Clear (Clear) 10/09/21 00:10 Urine pH 6.5 (4.5-7.5) 10/09/21 00:10 Ur Specific Decker 1.011 (1.000-1.030) 10/09/21 00:10 Urine Protein Negative (Negative) 10/09/21 00:10 Urine Glucose (UA) Negative (Negative) 10/09/21 00:10 Urine Ketones Negative (Negative) 10/09/21 00:10 Urine Blood Negative (Negative) 10/09/21 00:10 Urine Nitrite Negative (Negative) 10/09/21 00:10 Urine Bilirubin Negative (Negative) 10/09/21 00:10 Urine Urobilinogen Negative (Negative) 10/09/21 00:10 Ur Leukocyte Esterase 1+ (Negative) H 10/09/21 00:10 Urine WBC (Auto) 5-10 /hpf (0-5) H 10/09/21 00:10 Urine RBC (Auto) 0-4 /hpf (0-4) 10/09/21 00:10 U Hyaline Cast (Auto) 1-5 /lpf (0-5) 10/09/21 00:10 U Epithel Cells (Auto) 10-20 /lpf (0-5) H 10/09/21 00:10 Urine Bacteria (Auto) Negative (Negative) 10/09/21 00:10 Ur Random Creatinine 39.6 mg/dl 10/09/21 12:00 U Random Total Protein 15.9 mg/dl (0-11.9) H 10/09/21 12:00 Protein/Creatinin Ratio 0.4 (0-0.2) H 10/09/21 12:00 Serum Immunofixation SEE NOTE 10/10/21 05:16 Urine Immunofixation SEE NOTE 10/09/21 12:00 SARS-CoV-2 (PCR) NEGATIVE (Negative) 10/08/21 21:20 Influenza Type A (PCR) Negative (Neg) 10/08/21 21:20 Influenza Type B (PCR) Negative (Neg) 10/08/21 21:20 RSV (RT-PCR) Negative (Neg) 10/08/21 21:20 Impressions Abdomen/Pelvis CT 10/09/21 01:05 CT OF THE ABDOMEN AND PELVIS WITHOUT CONTRAST CLINICAL HISTORY: Back pain. COMPARISON STUDY: CT of the abdomen and pelvis October 11, 2018. CT of the abdomen and pelvis February 15, 2020. MRI of the lumbar spine October 02, 2021. TECHNIQUE: Axial images of the abdomen and pelvis were obtained without IV contrast. Images were reviewed in the axial, sagittal, and coronal planes. Automated exposure control was utilized for the study. A dose lowering technique was utilized adhering to the principles of ALARA. FINDINGS: Please note that the chest CT will be reported separately. No pneumatosis, free air or portal venous gas is present. Evaluation of the abdomen and pelvis is suboptimal as unenhanced exam. Hypodense hepatic lesions are similar to CT of October 11, 2018. These favor cysts. There is no biliary or pancreatic ductal dilatation. There is no hydronephrosis. Water attenuation right renal lesion is suboptimally. Unenhanced exam but favors a cyst. Unenhanced images of the spleen and pancreas are unremarkable. Upper abdominal adenopathy is noted. This has increased since prior CT. Index portacaval lymph node measures 4.7 x 2.3 cm. Hyperdense bilateral adrenal masses have developed since prior CT. Right adrenal mass measures 2.8 x 2.6 cm. Left adrenal mass measures 2.8 x 2.6 cm. There is no evidence for a bowel obstruction. The prostate is enlarged, measuring 4.8 cm in transverse dimension. There are postoperative findings within the prostate suggestive of transurethral resection. Prostate indents the base of the bladder. Numerous lytic lesions are noted within visualized skeletal structures. These correspond to findings from previous lumbar spine MRI. No pathologic fractures are identified. Mildly enlarged right inguinal lymph nodes are present. . IMPRESSION: 1. Numerous lytic skeletal lesions consistent with metastatic disease. 2. Interval involvement of bilateral adrenal masses consistent with metastases. These are hyperdense and could contain hemorrhage. Progression of upper abdominal pathologic lymphadenopathy. These findings will be called/faxed to the ordering provider at time of dictation. 3. No bowel obstruction. 4. Enlarged prostate which indents the base of the bladder. ACT 112: Negative or not required by law. Electronically signed by: Danis Evans M.D. 10/09/2021 7:[address] 10/09/21 01:05 CT OF THE CERVICAL SPINE WITHOUT CONTRAST CLINICAL HISTORY: Pain. History of prostate, bladder and thyroid cancer. COMPARISON STUDY: MRI of the cervical spine September 30, 2021. TECHNIQUE: Helical axial images of the cervical spine were obtained without IV contrast. Sagittal and coronal reconstructions were viewed. Automated exposure control was utilized for the study. A dose lowering technique was utilized adhering to the principles of ALARA. FINDINGS: There are postoperative findings consistent with C5 corpectomy and C4- C6 anterior discectomy and fusion. The hardware is intact. No acute cervical spine fracture is noted. There are no unexpected radiopaque foreign bodies. Note is made of moderate prevertebral fluid within the operative bed, extending from C3-4 through C6. This measures approximately 3.1 x 1.3 cm in AP by transverse dimensions respectively. Attenuation is difficult to assess given streak artifact from adjacent hardware however this collection appears relatively hypodense. This has moderate mass effect upon the hypopharynx and the supraglottic airway. Central canal and neural foramen are suboptimally assessed by CT. Numerous lytic foci are noted within visualized skeletal structures. These include a large lesion within the right aspect of C3 vertebral body. A smaller lesion within the left inferior aspect of C2 vertebral body is noted. Smaller occipital lesions is an additional lesions within the cervical spine are present. There is severe multilevel facet arthrosis. There is moderate to space narrowing at C3-C4 and mild to moderate disc space narrowing at C6-C7. IMPRESSION: 1. Status post C5 corpectomy and C4-C6 anterior discectomy and fusion. Hardware intact. 2. Moderate prevertebral fluid within the operative bed extending from C3-C4 through C6 levels. This has moderate mass effect upon the hypopharynx and supraglottic airway. This fluid collection is nonspecific in the early postoperative setting and sterility cannot be assessed. Close clinical monitoring is recommended to exclude the possibility of airway compromise. This finding will be called/faxed to ordering provider at time of dictation. 3. Multiple lytic skeletal lesions, as described above. These are consistent with skeletal metastases. 4. No acute cervical spine fracture. 5. Multilevel facet arthrosis and degenerative disc disease. ACT 112: Negative or not required by law. Electronically signed by: Danis Evans M.D. 10/09/2021 6:[address] 10/09/21 01:05 CT OF THE CHEST WITHOUT IV CONTRAST CLINICAL HISTORY: cough, low o2. COMPARISON STUDY: Chest radiograph October 08, 2021. Chest radiograph October 11, 2018. TECHNIQUE: Axial images of the chest were obtained without IV contrast. Images were reviewed in the axial, sagittal, and coronal planes. IV contrast was not administered for this examination. Automated exposure control was utilized for the study. A dose lowering technique was utilized adhering to the principles of ALARA. FINDINGS: Mild cardiomegaly is noted. There is extensive coronary artery calcification. No pericardial effusion is noted. There are multiple mildly enlarged mediastinal lymph nodes. A few are partially calcified. Index right paratracheal lymph node measures 1.6 x 1.1 cm. Index subcarinal lymph node measures 1.9 x 1.3 cm per there is no pneumothorax or pleural effusion. Lower lobe opacities favor atelectasis. No definite consolidation to suggest pneumonia. There is an indeterminate 1.5 cm irregular density within the left upper lobe on image 123. There are numerous small nodules within the upper lobes. These measure up to 4 mm. Mild interlobular septal thickening is noted. Multiple lytic lesions within the thoracic spine are noted. A few rib lesions are noted. These include lesions within the T9 and T12 vertebral bodies. There is no pathologic fracture. IMPRESSION: 1. No consolidation to suggest pneumonia. 2. Suspected mild interstitial pulmonary edema. 3. Indeterminate 1.5 cm irregular density within the left upper lobe. This could be infectious. However, a follow-up chest CT in 6 months is recommended to exclude the possibility of a pulmonary lesion. Numerous additional smaller pul monary nodules which are indeterminate and can be assessed on follow-up CT. 4. Nonspecific mild mediastinal lymphadenopathy which can be assessed on follow- up CT. 5. Numerous lytic skeletal lesions consistent with metastatic disease. ACT 112: Negative or not required by law. Electronically signed by: Danis Evans M.D. 10/09/2021 7:[address] 10/09/21 01:[address] DOSE: 1481.95 mGy.cm HISTORY: Altered mental status. TECHNIQUE: Multiaxial CT images of the head were performed without the use of intravenous contrast. Automated exposure control was utilized for this study. A dose lowering technique was utilized adhering to the principles of ALARA. Comparison: Head CT 10/11/2018. Findings: Mild mucosal thickening within the maxillary sinuses and ethmoid air cells. Trace left mastoid effusion, unchanged. The right mastoid air cells are clear. The calvarium and skull base are intact. There is no mass, hematoma, midl ine shift, acute infarct. White matter hypodensity is nonspecific but suggestive of microvascular ischemic change. The ventricles and sulci demonstrate mild age- related involutional changes. Impression: No significant change compared to the prior study. No acute intracranial abnormality. ACT 112: Negative or not required by law. Electronically signed by: Tommy Tay M.D. 10/09/2021 7:17 AM Abdomen X-Ray 10/10/21 12:58 XR abdomen min 2V HISTORY: 81 years-old Male vomiting, rule out obstruction acute nausea with vomiting COMPARISON: CT abdomen and pelvis 10/09/2021 TECHNIQUE: 2 views of the abdomen FINDINGS: Mild gaseous distention of the stomach. Nonobstructive bowel gas pattern. No pneumatosis or pneumoperitoneum. Moderate fecal retention. Pelvic basin phleboliths redemonstrated. Degenerative changes of the spine, pelvis and hips. No acute fracture. Cardiomegaly. IMPRESSION: 1. Mild gaseous distention of the stomach with nonobstructive bowel gas pattern. 2. Moderate fecal retention. ACT 112: Negative or not required by law. The above report was generated using voice recognition software. It may contain grammatical, syntax or spelling errors. Electronically signed by: Nicola Baptiste M.D. 10/10/2021 1:57 PM Brain MRI 10/11/21 13:02 MRI OF THE BRAIN WITHOUT IV CONTRAST CLINICAL HISTORY: Change in mental status COMPARISON STUDY: CT of the brain dated 10/09/2021 TECHNIQUE: MRI of the brain was performed utilizing various T1 and T2-weighted sequences in the axial, sagittal, and coronal planes. IV contrast was not administered for this examination. FINDINGS: Brain parenchyma: There is age-related involutional change noting mild subcortical and periventricular microangiopathic disease. There is no hemorrhage or mass effect. There is no restricted diffusion to suggest acute ischemia. Rodarte-white matter differentiation is preserved. No extra-axial fluid collection is seen. The cerebellar tonsils are normal in configuration. Ventricles, sulci, and cisterns: Prominent secondary to involutional change. Pituitary and sella: Unremarkable. Intracranial vasculature: Normal flow voids are maintained at the skull base. Orbits: The bony orbits are grossly intact. Orbital contents are normal in appearance noting bilateral ocular lens implants. Sinuses and mastoids: There are left larger than right mastoid effusions. Trace mucosal thickening is noted in the frontal, maxillary, and ethmoid sinuses. Calvarium: There are numerous small osseous lesions. These show restricted diffusion and are highly suspicious for calvarial metastatic disease. Metastatic lesions are partially visualized in the bodies of C2 and C3. Cervical cord: Partially visualized cervical spinal cord is normal in morphology and signal intensity. IMPRESSION: 1. There is no hemorrhage, mass effect, or acute ischemia. 2. 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 ACT 112: Negative or not required by law. Electronically signed by: Jose C Joe M.D. 10/11/2021 2:43 PM KUB X-Ray 10/21/21 06:27 KUB CLINICAL HISTORY: Generalized abdominal pain. FINDINGS: 2 AP supine abdominal radiographs are compared to study dated 10/10/2021 and correlated with abdominal CT dated 10/09/2021. There is gaseous distention of the stomach as well as distended and gas-filled loops of small bowel in the left midabdomen. These measure up to 3.8 cm in diameter. Gas and stool are noted in the right colon. No evidence of intraperitoneal free air is seen on these supine images. There are no abnormal abdominal calcifications. Phleboliths are seen in the pelvis. The skeletal structures are osteopenic and appear intact. There is lumbosacral spondylosis. IMPRESSION: There are distended and gas-filled loops of small bowel which represents a change from 10/10/2021. Correlate clinically for evidence of developing bowel obstruction. Electronically signed by: Jose C Joe M.D. 10/21/2021 9:18 AM Hospital Course (1) Encephalopathy: (2) Nausea & vomiting: (3) Delirium: (4) Hypercalcemia: (5) FILIBERTO (acute kidney injury): (6) Post-operative state: (7) Metastatic disease: (8) SBO (small bowel obstruction): 81-year-old man presented with weakness and confusion. He recently had cervical spine surgery and was discharged home. He was not eating much and reported some shortness of breath. Work-up including a CT head revealed no intracranial hemorrhage, mass-effect or edema and no evidence of acute cortical stroke. There was periventricular small vessel ischemic change present and mild generalized brain atrophy. A CT C-spine revealed postop state status post anterior fusion from C4-C6. There were destructive changes involving C3 vertebral body raising the concern for metastatic disease. There was additional subtle lytic changes within the base of the odontoid with no acute fracture and normal alignment. A CT of the chest revealed dependent atelectasis, subtle nodularity in the left upper lobe measuring 7.1 mm. Right upper lobe subpleural nodule measuring 6.3 mm. Additional sagittal nodularities in the right lung apex measuring 5.[address] of the abdomen and pelvis revealed a normal liver with possible sludge versus tiny stones within the gallbladder and no significant biliary distention. Bilateral adrenal masses were seen measuring 2.8 cm on the right and 2.3 cm on the left. Neoplasm could not be excluded. No bowel obstruction was present and there was moderate to abundant fecal debris within the colon. There was mild bilateral perinephric stranding. Kidneys were unremarkable aside from an incompletely characterized 3.1 cm cyst in the right upper kidney. There was prostate enlargement and degenerative disease of the spine with osteopenia. There were small bilateral fat and containing inguinal hernias versus scrotal lipomas. Creatinine was elevated to 2 from a baseline of 1.2-1.3. Magnesium was low at 1.4. Highly sensitive troponin was elevated at 33. Procalcitonin was negative. Calcium was greater than 18. PTH was less than 1 pg/mL. He was admitted to medicine and started on IV fluids with subcutaneous calcitonin for severe hypercalcemia. His ARB was held. Zosyn was administered empirically for aspiration pneumonitis/complicated UTI. All narcotics were held until mentation improved. Orthopedic spine was consulted regarding postop evaluation. Patient was placed in a c-collar pending improvement of mental status. Diffuse metastatic cancer from known bladder cancer history was suspected to be the cause of critical hypercalcemia and associated renal failure. PTH was very suppressed consistent with his clinical diagnosis. He was continued on normal saline and nephrology followed him during his stay. The patient's CODE STATUS was changed to DNR/DNI on 10/10. He developed abdominal distention on 10/11 and was made NPO. Nausea and vomiting was present which resolved after several do ses of Reglan. He was continued on a bowel regimen. Creatinine was rising thought likely secondary to nephrocalcinosis given superhigh calcium and ATN. Nephrology continue to follow and guide therapy. Overnight patient was concerned about a coughing episode for 5 minutes following oral levothyroxine administration on the morning of 10/12. Strict n.p.o. was then given for aspiration risk until seen by speech therapy. Mental status continued to worsen and palliative care was consulted. They commented he was starting to become bradycardic into the 30s. He was noted to persistently have coughing and possible aspiration. He continued to have facial grimacing and had audible tracheal secretions. After discussion with palliative therapy he was refocused to comfort measures. Hydromorphone was continued. On 10/15 Zyprexa ODT was started for delirium with agitation. Some increased pain was noted over the weekend and on October 19 he was converted from IV hydromorphone to p.o. hydromorphone with routine dosing for more steady-state analgesia. On a KUB was obtained after abdominal pain was reported and this revealed developing bowel obstruction. An NG tube was placed with instant drainage of 1300 cc of dark fluid. Patient was reportedly feeling better after placement. He did pull the NG tube out secondary to delirium and this was replaced at least twice if not more a chest x-ray taken on the evening of revealed NG tube was now within the right lower lobe bronchus with increasing alveolar opacities present involving the right lung base and interval development of a right pleural effusion. The patient became hypoxic to the point of needing noninvasive ventilation however the family after discussion with the hospitalist, decided to continue with comfort measures. Patient ceased to breathe at 2331 and was pronounced by physician at [id number] later that evening. Total Time Total Time Spent Total Time Spent (In Minutes): 60 Discharge Plan Discharge Items Patient Disposition: Other Date/Time: 10/24/21 23:31
--- NOTE | 2021-10-25 07:28 | XRay Report ---
XR chest 1V portable CLINICAL HISTORY: hypoxia. COMPARISON STUDY: 10/21/2021 TECHNIQUE: 1 view of the chest FINDINGS: Single frontal view of the chest demonstrates the heart to be enlarged. Compared to the previous exam ination, increased alveolar opacities are seen in the right lung base along with small right pleural effusion. The tip of the patient's NG tube is now in the right lower lobe bronchus. The left lung is clear. There is no evidence for left pleural effusion. There is no evidence for vasc ular congestion. There is no acute osseous pathology. IMPRESSION: 1. NG tube is now within the right lower lobe bronchus with increasing alveolar opacities present inv olving the right lung base and interval development of right pleural effusion. ACT 112: Negative or not required by law. Electronically signed by: Wyatt Delacruz M.D. 10/25/2021 7:25 AM
--- NOTE | 2021-10-25 10:05 | Death Pronouncement Note ---
Date of Service October 25, 2021 Pronouncement Note Admission Date October 09, 2021 Date and Time of Date of : 10/24/21 Time of : 23:30 Preliminary Cause of (1) Metastatic disease: (2) Hypercalcemia: (3) FILIBERTO (acute kidney injury): (4) SBO (small bowel obstruction): (5) Nausea & vomiting: (6) Encephalopathy: Summary Patient having SBO.s/p NG tube but patient pulled it out few times. It was replaced again.Patient oxygen sats were dropping into high 70's when I was called to check on the patient. oxygen supplementation levels were increased and cxr done to see for aspiration or congestion which showed NG tube in lung which was pulled out. Even after pulling NG tube out and with 15lts oxygen patient sats were in 80's.Thought of placing on high flow as patient having SBO.Respiratory thought he was mouth breather high flow oxygen may not help. Intially family ok with cpap/bipap but later wanted him to be comfortable. Patient already on comfort care for metasatic disease, encephalopathy, severe hypercalcemia, FILIBERTO and bladder cancer. Patient at 2330 on October 24 2021. Additional Data Confirmation of : no pulse, no respirations, no heart sounds and pupils fixed and dilated Pronouncement Performed By: Attending Physician Family: at bedside Attending physician: Yahir Rios MD
== END 2021-10-24 23:31 | disposition expired | DRG 640 ==
LOC: ED 19:56 → 2N 10-09 01:09 → SUATTDRO 10-09 01:09 → 2N 10-09 02:26 → 2S 10-10 20:25 → 3E 10-13 22:16